=== PATIENT | male | born 1960 | race Caucasian/White ===

== ENCOUNTER 2016-09-02 18:17 | Observation (INO) | payer MEDICARE, MEDICAID ==
[~2016-09-02] VITALS: Ht 157.5 cm; Wt 95.0 kg
[~2016-09-02 18:17] MED LIST: CELE100C PO; CIAL20TA PO; DEPA500T3 PO; LISI-586 PO; MECL25CH PO; METHO500 PO; TEST1INJ3 IM; XANA1TAB6 PO; ZOFR4TAB3 SL
--- NOTE | 2016-09-02 18:33 | PD ---
HPI Chief Complaint: Chest Pain Time Seen by Provider: 18:32 Travel History International Travel<30 days: No Contact w/Intl Traveler<30days: No Traveled to known affect area: No History of Present Illness HPI Patient comes in complaining of substernal chest pain that began shortly prior to arrival. Patient states he had 2 baby aspirins en route by EMS with no improvement of symptoms. Patient states over the past couple months he been having pain in his bilateral anterior thighs is been causing him to fall. States his primary care doctor has referred him to orthopedics as an outpatient. Patient reports associated shortness of breath with chest pain today as well as diaphoresis and nausea. Patient state also having pain in his left upper extremity with this. Patient reports a history of chronic neck and back pain as well as aortic stenosis. Denies IV drug use or fevers. PFSH Past Medical History Hx Anticoagulant Therapy: No Arthritis: Yes Bipolar Disorder: Yes Anxiety: Yes Depression: Yes Cancer: No Cardiovascular Problems: Yes (Aortic Stenosis) Chemotherapy: No Cerebrovascular Accident: No Diabetes: No Endocrine: No Gastrointestinal Disorders: No Genitourinary: Yes (URETHRAL BLEEDING; DISCOLORATION - DUKES IN PLACE) Hepatitis: No Hiatal Hernia: No Hypertension: Yes Immune Disorder: No Musculoskeletal: Yes (chronic pain per pt) Neurologic: Yes (CERVICAL AND LUMBAR FUSIONS; NEUROPATHY LEFT ARM & LEG ) Psychiatric: Yes (ANXIETY/MOOD DISORDER) Reproductive: No Respiratory: No Thyroid Disease: No Past Surgical History Abdominal Surgery: No Body Medical Devices: PLATES & SCREWS NECK Cardiac Surgery: No Ear Surgery: No Endocrine Surgery: No Eye Surgery: No Genitourinary Surgery: Yes (cysto) Neurologic Surgery: Yes Oral Surgery: No Thoracic Surgery: No Other Surgery: Yes (HAND RECONSTRUCTION RIGHT ) Social History Alcohol Use: Yes Tobacco Use: Yes Substance Use: Yes Allergies-Medications (Allergen,Severity, Reaction): Coded Allergies: Morphine (Verified Allergy, Unknown, swelling, 09/02/16) Phenobarbital (Verified Allergy, Unknown, unknown, 09/02/16) Reported Meds & Prescriptions Reported Meds & Active Scripts Active Zofran ODT (Ondansetron HCl) 4 Mg Tab 4 Mg SL Q6H PRN FOR NAUSEA/VOMITING Meclizine Hcl (Meclizine HCl) 25 Mg Chw 25 Mg PO Q8H PRN Celebrex (Celecoxib) 100 Mg Cap 100 Mg PO DAILY Xanax 1 mg (Alprazolam) Alprazolam 1 mg Tab 1 Tab PO TID PRN Depakote ER 500 mg (Divalproex Sodium) 500 Mg Tab 1 Tab PO DAILY Zestoretic 20/12.5 (Lisinopril/Hctz 20 mg/12.5 mg) 20 Mg/12.5 Mg Tab 1 Tab PO DAILY Robaxin 500 Mg Tab (Methocarbamol) 500 Mg Tab 500 Mg PO QID PRN 7 Days Reported Cialis (Tadalafil) 20 Mg Tab 20 Mg PO DAILY PRN Testosterone Cypionate 100 Mg/Ml Inj 100 Mg IM Q7DAY Review of Systems Except as stated in HPI: all other systems reviewed are Neg Physical Exam Narrative GENERAL: Well-developed, well nourished, in no acute distress, and non-ill appearing. SKIN: Focused skin assessment warm and dry. HEAD: Atraumatic. Normocephalic. EYES: Pupils equal and round. EOMI. No scleral icterus. No injection or drainage. ENT: No nasal bleeding or discharge. Mucous membranes pink and moist. NECK: Trachea midline. No JVD. Supple. No nuclear rigidity. CARDIOVASCULAR: Regular rate and rhythm. Murmur appreciated. RESPIRATORY: No accessory muscle use. No respiratory distress. Clear to auscultation. Breath sounds equal bilaterally. GASTROINTESTINAL: Abdomen soft, non-tender, nondistended. Hepatic and splenic margins not palpable. No pulsatile mass. MUSCULOSKELETAL: No obvious deformities. No clubbing. No cyanosis. No edema. Full range of motion. NEUROLOGICAL: Awake and alert. No obvious cranial nerve deficits. Motor grossly within normal limits. Normal speech. PSYCHIATRIC: Appropriate mood and affect; insight and judgment normal. Data Data Last Documented VS Vital Signs Date Time Temp Pulse Resp B/P Pulse Ox O2 Delivery O2 Flow Rate FiO2 09/02/16 20:36 61 17 120/70 100 Nasal Cannula 1 09/02/16 18:45 98.2 Orders Electrocardiogram (09/02/16 18:41) Basic Metabolic Panel (Bmp) (09/02/16 18:41) Ckmb (Isoenzyme) Profile (09/02/16 18:41) Complete Blood Count With Diff (09/02/16 18:41) Magnesium (Mg) (09/02/16 18:41) Prothrombin Time / Inr (Pt) (09/02/16 18:41) Act Partial Throm Time (Ptt) (09/02/16 18:41) Troponin I (09/02/16 18:41) Chest, Single Ap (09/02/16 18:41) Ecg Monitoring (09/02/16 18:41) Bilateral Bp Monitoring (09/02/16 18:41) Iv Access Insert/Monitor (09/02/16 18:41) Oximetry (09/02/16 18:41) Oxygen Administration (09/02/16 18:41) Sodium Chloride 0.9% Flush (Ns Flush) (09/02/16 18:45) Acetaminophen (Tylenol) (09/02/16 20:30) Ketorolac Inj (Toradol Inj) (09/02/16 20:45) Admit Order (Ed Use Only) (09/02/16 20:39) Labs Laboratory Tests Test 09/02/16 18:30 White Blood Count 7.1 TH/MM3 Red Blood Count 4.33 MIL/MM3 Hemoglobin 13.0 GM/DL Hematocrit 38.9 % Mean Corpuscular Volume 89.9 FL Mean Corpuscular Hemoglobin 30.2 PG Mean Corpuscular Hemoglobin 33.5 % Concent Red Cell Distribution Width 14.6 % Platelet Count 273 TH/MM3 Mean Platelet Volume 9.0 FL Neutrophils (%) (Auto) 64.3 % Lymphocytes (%) (Auto) 24.3 % Monocytes (%) (Auto) 8.8 % Eosinophils (%) (Auto) 1.5 % Basophils (%) (Auto) 1.1 % Neutrophils # (Auto) 4.5 TH/MM3 Lymphocytes # (Auto) 1.7 TH/MM3 Monocytes # (Auto) 0.6 TH/MM3 Eosinophils # (Auto) 0.1 TH/MM3 Basophils # (Auto) 0.1 TH/MM3 CBC Comment DIFF FINAL Differential Comment Prothrombin Time 10.8 SEC Prothromb Time International 1.0 RATIO Ratio Activated Partial 26.6 SEC Thromboplast Time Sodium Level 141 MEQ/L Potassium Level 4.4 MEQ/L Chloride Level 103 MEQ/L Carbon Dioxide Level 29.1 MEQ/L Anion Gap 9 MEQ/L Blood Urea Nitrogen 16 MG/DL Creatinine 1.34 MG/DL Estimat Glomerular Filtration 55 ML/MIN Rate Random Glucose 85 MG/DL Calcium Level 9.1 MG/DL Magnesium Level 2.4 MG/DL Total Creatine Kinase 88 U/L Troponin I LESS THAN 0.02 NG/ML MDM Medical Decision Making Medical Screen Exam Complete: Yes Emergency Medical Condition: Yes Interpretation(s) EKG reviewed by Dr. Mendoza shows sinus rhythm with ventricular rate of 67. No STEMI. Differential Diagnosis Acute coronary syndrome, electrolyte abnormality, arrhythmia, atypical chest pain, noncardiac chest pain, other Narrative Course Patient is a exam. Initial laboratory neurological status were obtained and reviewed. Discussed patient with Dr. Tejada, recommends having patient placed in the chest pain center for further treatment and evaluation. Discussed all findings and plan care of patient, who is agreeable for admission. All questions were answered. Patient was given a dose of Tylenol for his pain however was requesting Dilaudid. Patient was given a dose of Toradol after discussing this with Dr. Tejada. Diagnosis Primary Impression: Chest pain Qualified Code: R07.9 - Chest pain, unspecified type Admitting Information Admitting Physician Requests: Observation Condition: Stable Lucas Monroy Sep 02, 2016 18:33
[2016-09-02 18:45] VITALS: BP 111/63; PULSE 62; RESP 20; TEMP 98.2
[2016-09-02] MEDS ORDERED: SODIUM CHLORIDE 0.9% FLUSH 10 ML FLUSH IVF PRN (18:45)
--- NOTE | 2016-09-02 19:08 | RADRPT ---
EXAM DATE/TIME: 09/02/2016 18:40 [facility] COMPARISON: No previous studies available for comparison. INDICATIONS : Chest pain. MEDICAL HISTORY : None. SURGICAL HISTORY : None. ENCOUNTER: Initial ACUITY: 1 day PAIN SCORE: 6/10 LOCATION: chest FINDINGS: A single view of the chest demonstrates the lungs to be symmetrically aerated without evidence of mas s, infiltrate or effusion. The cardiomediastinal contours are unremarkable. Osseous structures are intact. CONCLUSION: No acute disease. Shyam Dang Jr., MD on September 02, 2016 at 19:06 Board Certified Radiologist. This report was verified electronically.
[2016-09-02 19:09] LABS: AUTOMATED NEUTROPHIL # 4.5 TH/MM3 (1.8-7.7); BASOPHIL # 0.1 TH/MM3 (0-0.2); BASOPHIL % 1.1 % (0.0-2.0); EOSINOPHIL # 0.1 TH/MM3 (0-0.4); EOSINOPHIL % 1.5 % (0.0-4.0); HEMATOCRIT 38.9 % (39.0-51.0); HEMO FLAGS DIFF FINAL; LYMPH % 24.3 % (9.0-44.0); LYMPHOCYTE # 1.7 TH/MM3 (1.0-4.8); MEAN CELL VOLUME 89.9 FL (80.0-100.0); MEAN CORPUSCULAR HEMOGLOBIN 30.2 PG (27.0-34.0); MEAN CORPUSCULAR HGB CONC 33.5 % (32.0-36.0); MONO % 8.8 % (0.0-8.0); NEUT % 64.3 % (16.0-70.0); PLATELET COUNT 273 TH/MM3 (150-450); RED BLOOD COUNT 4.33 MIL/MM3 (4.50-5.90); RED CELL DISTRIBUTION WIDTH 14.6 % (11.6-17.2); WHITE BLOOD COUNT 7.1 TH/MM3 (4.0-11.0)
[2016-09-02 19:13] VITALS: O2SAT 100
[2016-09-02 19:16] VITALS: BP 112/62
[2016-09-02 19:23] LABS: APTT (PATIENT) 26.6 SEC (24.3-30.1); PROTHROMBIN TIME - PATIENT 10.8 SEC (9.8-11.6)
[2016-09-02 19:25] LABS: ANION GAP 9 MEQ/L (5-15); BICARBONATE 29.1 MEQ/L (21.0-32.0); BLOOD UREA NITROGEN 16 MG/DL (7-18); CHLORIDE 103 MEQ/L (98-107); GLOMERULAR FILTRATION RATE 55 ML/MIN (>89); MAGNESIUM 2.4 MG/DL (1.5-2.5); POTASSIUM 4.4 MEQ/L (3.5-5.1); SODIUM (NA) 141 MEQ/L (136-145)
[2016-09-02 19:32] LABS: CREATINE KINASE 88 U/L (39-308)
[2016-09-02] MEDS ORDERED: ACETAMINOPHEN 500 MG CPLT PO ONE (20:30)
[2016-09-02 20:36] VITALS: BP 120/70; PULSE 61; RESP 17; O2SAT 100
[2016-09-02] MEDS ORDERED: KETOROLAC TROMETHAMINE 30 MG/ML (IVP) VIAL IV PUSH ONE (20:45)
[2016-09-02] MEDS ORDERED: SODIUM CHLORIDE 0.9% FLUSH 10 ML FLUSH IV FLUSH PRN (21:00)
[2016-09-02 22:23] VITALS: BP 107/61; PULSE 52; RESP 20; TEMP 98.6; O2SAT 95
[2016-09-02 22:27] LABS: CREATINE KINASE 54 U/L (39-308)
[2016-09-03 00:27] VITALS: BP 101/56; PULSE 52; RESP 18; TEMP 97.8; O2SAT 97
[2016-09-03 01:23] LABS: CREATINE KINASE 50 U/L (39-308)
[2016-09-03 03:30] VITALS: BP 112/58; PULSE 55; RESP 16; TEMP 98.6; O2SAT 96
[2016-09-03 04:00] VITALS: PULSE 51
[2016-09-03 08:03] VITALS: BP 110/58; PULSE 51; RESP 20; TEMP 96.8; O2SAT 93
[2016-09-03] MEDS ORDERED: METHOCARBAMOL 500 MG TAB PO PRN (08:15)
[2016-09-03] MEDS ORDERED: ALPRAZolam 1 MG TAB PO PRN (08:15)
[2016-09-03] MEDS ORDERED: MS C30TA PO (08:32)
[2016-09-03] MEDS ORDERED: OXYC-395 PO (08:33)
[2016-09-03] MEDS ORDERED: ALPR1TAB3 PO (08:34)
[2016-09-03] MEDS ORDERED: CYMB60CA PO (08:36)
[2016-09-03] MEDS ORDERED: LISINOPRIL 20 MG TAB PO SCH (09:00)
[2016-09-03] MEDS ORDERED: HCTZ PO SCH (09:00)
[2016-09-03] MEDS ORDERED: HYDROCHLOROTHIAZIDE 25 MG TAB PO SCH (09:00)
[2016-09-03] MEDS ORDERED: LISINOPRIL PO SCH (09:00)
--- NOTE | 2016-09-03 09:22 | HHI.HP ---
HPI Primary Care Physician No Primary Care Physician Chief Complaint Chest pain History of Present Illness This is a 56-year-old male that presents to the ED via [facility] from [place] with a complaint of chest discomfort. Patient states he has history of heart disease. States he had a heart catheterization 8 years ago in another state and was told he had mild blockages and he also had a 2-D echo that showed aortic stenosis. He states he was told that he would need to have this monitored as he will need to have this replaced down the road. He is now followed up with cardiology since. Patient states her last 2 days he's had a central pressure intermittently. She is brought on while walking and that is essentially most exertional he does. At times also is happened while at rest. If happening while exerting himself with walking the discomfort wheezing last for 10-30 minutes after stopping the activity. With the symptoms he also has gotten associated shortness of breath, nausea, and diaphoresis. Denies recent illnesses. Denies fevers or chills. Currently denies chest discomfort is requesting his morphine and OxyContin for his chronic neck and back pain. Review of Systems General: Patient denies fevers, chills recent, and recent travel HEENT: Patient denies headache, sore throat, difficulty swallowing. Cardiovascular: Has the chest discomfort as mentioned above. Denies sensation of heart beating rapidly or irregularly. No syncope. There was diaphoresis. Respiratory: Patient has been short of breath. Denies inspirational chest discomfort. Denies coughing wheezing or hemoptysis. GI: Patient had intermittent nausea. Patient denies vomiting, diarrhea, abdominal pain, bloody stools. Musculoskeletal: Patient denies joint pain or edema. Denies calf pain or edema. Neurovascular: Patient denies numbness, tingling, weakness in extremities. Denies headache. Endocrine: Denies polyuria and polydipsia. Hematologic: Denies easy bruising. Skin: Denies rash or itching. Past Family Social History Allergies: Coded Allergies: Morphine (Verified Allergy, Unknown, swelling, 09/02/16) Phenobarbital (Verified Allergy, Unknown, unknown, 09/02/16) Past Medical History Stated history of CAD and aortic stenosis. Also history of hypertension, tobacco abuse, and depression. Denies diabetes and hyperlipidemia. Past Surgical History Cardiac catheterization without intervention mother years ago. He's had hand surgery, neck and back surgery. Reported Medications Reported Meds & Active Scripts Active Xanax 1 mg (Alprazolam) Alprazolam 1 mg Tab 1 Tab PO TID PRN Zestoretic 20/12.5 (Lisinopril/Hctz 20 mg/12.5 mg) 20 Mg/12.5 Mg Tab 1 Tab PO DAILY Robaxin 500 Mg Tab (Methocarbamol) 500 Mg Tab 500 Mg PO QID PRN [address] (Duloxetine HCl) 60 Mg Capdr 60 Mg PO DAILY Alprazolam 1 Mg Tab 1 Mg PO QID PRN Oxycodone (Oxycodone HCl) 10 Mg Tab 10 Mg PO Q4H PRN Ms Contin (Morphine Sulfate) 30 Mg Tab 30 Mg PO Q8H Active Ordered Medications Current Medications Medications (Trade) Dose Ordered Sig/Ev Route Start Time Stop Time Status Last Admin (NS Flush) 2 ml UNSCH PRN IVF 09/02/16 18:45 (NS Flush) 2 ml UNSCH PRN IV FLUSH 09/02/16 21:00 (Xanax) 1 mg TID PRN PO 09/03/16 08:15 (Robaxin) 500 mg QID PRN PO 09/03/16 08:15 (Prinivil) 20 mg DAILY PO 09/03/16 09:00 (Hydrodiuril) 12.5 mg DAILY PO 09/03/16 09:00 Non-Formulary Medication 10 mg Q4H PRN PO 09/03/16 09:15 UNV Family History He states his mother needed a bypass at age 74. Social History Patient smokes on average 4-5 cigarettes per day and has done so for about 20 years. He denies alcohol or illicit drugs. Physical Exam Vital Signs Vital Signs Date Time Temp Pulse Resp B/P Pulse Ox O2 Delivery O2 Flow Rate FiO2 09/03/16 08:03 96.8 51 20 110/58 93 09/03/16 04:00 51 09/03/16 03:30 98.6 55 16 112/58 96 09/03/16 03:14 21 09/03/16 00:27 97.8 52 18 101/56 97 09/02/16 22:23 98.6 52 20 107/61 95 09/02/16 20:36 61 17 120/70 100 Nasal Cannula 1 09/02/16 19:16 112/62 09/02/16 19:13 100 Nasal Cannula 2 09/02/16 18:45 98.2 62 20 111/63 Nasal Cannula 2 09/02/16 18:30 Nasal Cannula 2 09/02/16 18:28 18 97 Room Air Physical Exam GENERAL: This is a well-nourished, well-developed patient, in no apparent distress. Patient speaks in clear complete sentences. Patient is pleasant. HEENT: Head is atraumatic and normocephalic. Neck is supple without lymphadenopathy and trachea is midline. No JVD or carotid bruits. CARDIOVASCULAR: Regular rate and rhythm without gallops or rubs. There is a at least grade 3 systolic murmur throughout auscultating but more pronounced right sternal border radiating into the right neck. RESPIRATORY: Clear to auscultation. Breath sounds equal bilaterally. No wheezes , rales, or rhonchi. Chest wall is nontender. No use of accessory muscles. GASTROINTESTINAL: Abdomen is nontender, nondistended. Abdomen soft. No obvious pulsatile mass or bruit. No CVA tenderness. Strong femoral pulses bilaterally. Normal bowel sounds in all quadrants. MUSCULOSKELETAL: Patient is moving upper and lower extremities freely. No calf tenderness or edema, no Homans sign. Strong pulses in upper and lower extremities. NEUROLOGICAL: Patient is alert and oriented. Cranial nerves 2-12 are grossly intact. No focal deficits and speech is clear. SKIN: No rash and turgor is normal. Laboratory Laboratory Tests Test 09/02/16 09/02/16 09/03/16 18:30 21:51 00:45 White Blood Count 7.1 Red Blood Count 4.33 Hemoglobin 13.0 Hematocrit 38.9 Mean Corpuscular Volume 89.9 Mean Corpuscular Hemoglobin 30.2 Mean Corpuscular Hemoglobin 33.5 Concent Red Cell Distribution Width 14.6 Platelet Count 273 Mean Platelet Volume 9.0 Neutrophils (%) (Auto) 64.3 Lymphocytes (%) (Auto) 24.3 Monocytes (%) (Auto) 8.8 Eosinophils (%) (Auto) 1.5 Basophils (%) (Auto) 1.1 Neutrophils # (Auto) 4.5 Lymphocytes # (Auto) 1.7 Monocytes # (Auto) 0.6 Eosinophils # (Auto) 0.1 Basophils # (Auto) 0.1 CBC Comment DIFF FINAL Differential Comment Prothrombin Time 10.8 Prothromb Time International 1.0 Ratio Activated Partial 26.6 Thromboplast Time Sodium Level 141 Potassium Level 4.4 Chloride Level 103 Carbon Dioxide Level 29.1 Anion Gap 9 Blood Urea Nitrogen 16 Creatinine 1.34 Estimat Glomerular Filtration 55 Rate Random Glucose 85 Calcium Level 9.1 Magnesium Level 2.4 Total Creatine Kinase 88 54 50 Troponin I LESS THAN 0.02 LESS THAN 0.02 LESS THAN 0.02 Result Diagram: 09/02/16182909/02/16 183 Imaging Last 24 hours Impressions Chest X-Ray 09/02/16 184 Signed Impressions: Service Date/Time: Friday, September 02, 2016 18:40 - CONCLUSION: No acute disease. Shyam Dang Jr., MD Course EKGs have sinus rhythm to sinus bradycardia with nonspecific T-wave changes. Assessment and Plan Assessment and Plan * Chest pain: Patient has had serial cardiac enzymes and EKGs for ruling out purposes. He will be seen by Dr. Ramirez of cardiology in the chest pain center. We will get a 2-D echo to evaluate the murmur and if there is no severe aortic stenosis then he will proceed with a stress test. * Hypertension: Continue current medication. * Chronic neck and back pain: We'll continue his medications. * Depression: Continue current medication. * Tobacco abuse: Patient has been counseled on the importance of smoking cessation. Patient is stable at this time. He is agreeable to this plan. Saravanan Castorena Sep 03, 2016 09:22
--- NOTE | 2016-09-03 11:26 | EKG ---
Date Performed: 09/02/2016 Time Performed: 21:51:15 PTAGE: 56 years EKG: SINUS BRADYCARDIA NONSPECIFIC T-WAVE ABNORMALITY BORDERLINE ECG PREVIOUS TRACING : 09/02/2016 18.25 Since previous tracing, no significant change noted DOCTOR: Zachary Ramirez Interpretating Date/Time 09/03/2016 11:25:26
[2016-09-03] MEDS ORDERED: REGADENOSON INJ 0.4 MG/5 ML SYR ONE (13:00)
[2016-09-03 13:03] VITALS: PULSE 57
--- NOTE | 2016-09-03 13:09 | EKG ---
Date Performed: 09/02/2016 Time Performed: 18:25:51 PTAGE: 56 years EKG: Sinus rhythm NONSPECIFIC T-WAVE ABNORMALITY BORDERLINE ECG PREVIOUS TRACING : 01/06/2015 17.08 Compared to previous tracing T wave changes are new. DOCTOR: Zachary Ramirez Interpretating Date/Time 09/03/2016 13:07:58
--- NOTE | 2016-09-03 13:10 | EKG ---
Date Performed: 09/03/2016 Time Performed: 00:52:38 PTAGE: 56 years EKG: SINUS BRADYCARDIA NONSPECIFIC T-WAVE ABNORMALITY BORDERLINE ECG PREVIOUS TRACING : 09/02/2016 21.51 Since previous tracing, no significant change noted DOCTOR: Zachary Ramirez Interpretating Date/Time 09/03/2016 13:10:26
[2016-09-03 13:19] VITALS: BP 110/60; PULSE 54; RESP 20; TEMP 96.3; O2SAT 94
--- NOTE | 2016-09-03 13:49 | EC ---
Study Study Date:09/03/2016 STUDY CONCLUSIONS SUMMARY - Left ventricle: The cavity size was normal. Wall thickness was normal. Systolic function was normal. The estimated ejection fraction was in the range of 55% to 65%. Wall motion was normal; there were no regional wall motion abnormalities. - Aortic valve: Transvalvular velocity was minimally increased. There was mild to moderate stenosis. Valve area: 0.75cm^2(VTI). Valve area: 0.81cm^2 (Vmax). If LV function is below 40, please consider prescribing an ACEI or ARB or document rationale for non-use. PROCEDURE DATA STUDY STATUS: Elective. Procedure: Transthoracic echocardiography. Image quality was good. Scanning was performed from the parasternal, apical, and subcostal acoustic windows. Study completion: The patient tolerated the procedure well. Transthoracic echocardiography. M-mode, complete 2D, complete spectral Doppler, and color Doppler. Height: Height: 62in. Weight: Weight: 208.6lb. Body mass index: BMI: 38.2kg/m^2. Body surface area: BSA: 1.95m^2. Patient status: Inpatient. CARDIAC ANATOMY LEFT VENTRICLE: The cavity size was normal. Wall thickness was normal. Systolic function was normal. The estimated ejection fraction was in the range of 55% to 65%. Wall motion was normal; there were no regional wall motion abnormalities. AORTIC VALVE: Trileaflet; normal thickness leaflets. Doppler: Transvalvular velocity was minimally increased. There was mild to moderate stenosis. Valve area: 0.75cm^2(VTI). Indexed valve area: 0.38cm^2/m^2 (VTI). Valve area: 0.81cm^2 (Vmax). Indexed valve area: 0.42cm^2/m^2 (Vmax). Mean gradient: 23mm Hg (S). Peak gradient: 44mm Hg (S). AORTA: Aortic root: The aortic root was normal in size. MITRAL VALVE: Structurally normal valve. Doppler: Transvalvular velocity was within the normal range. There was no evidence for stenosis. No regurgitation. Peak gradient: 2mm Hg (D). LEFT ATRIUM: The atrium was normal in size. RIGHT VENTRICLE: The cavity size was normal. Wall thickness was normal. PULMONIC VALVE: Doppler: Transvalvular velocity was within the normal range. There was no evidence for stenosis. No regurgitation. TRICUSPID VALVE: Structurally normal valve. Doppler: Transvalvular velocity was within the normal range. No regurgitation. PULMONARY ARTERY: The main pulmonary artery was normal-sized. Systolic pressure was within the normal range. RIGHT ATRIUM: The atrium was normal in size. PERICARDIUM: There was no pericardial effusion. SYSTEMIC VEINS: Inferior vena cava: The vessel was normal in size. Patient weight: 208.6lb _Ejection fraction:_ 65-75% _Fractional shortening:_ 32% up to 5Kg 5-11.5Kg 11.6-22.9Kg 23-45Kg 45-57Kg Aortic Root 7-13 <17 13-22 17-27 17-27 LA diam 6-13 <23 24-38 33-47 37-40 RVID 10-17 7-15 7-15 7-18 8-17 LVIDd 12-22 <32 24-38 33-47 37-40 LVPW 2-4 3-6 5-7 6-8 7-8 IVS 2-4 3-6 5-7 6-8 7-8 BASIC MEASUREMENTS ADULT NORMAL Left ventricle LV internal dimension, ED, chordal 46.3 mm 43-52 level, PLAX LV internal dimension, ES, chordal 31.7 mm 23-38 level, PLAX Fractional shortening, chordal level, 32 % >29 PLAX LV posterior wall thickness, ED 10.1 mm IVS/LVPW ratio, ED 1 <1.3 Ventricular septum Septal thickness, ED 10.1 mm Aorta Root diameter, ED 31 mm Left atrium Anterior-posterior dimension 29 mm Anterior-posterior dimension index 1.49 cm/m^2 <2.2 DOPPLER MEASUREMENTS ADULT NORMAL Main pulmonary artery Pressure, S 26 mm Hg =30 Aortic valve Peak velocity, S 312 cm/s Mean velocity, S 220 cm/s VTI, S 71.2 cm Mean gradient, S 23 mm Hg Peak gradient, S 44 mm Hg Valve area, VTI 0.75 cm^2 Valve area index, VTI 0.38 cm^2/m^2 Valve area, Vmax 0.81 cm^2 Valve area index, Vmax 0.42 cm^2/m^2 Mitral valve Peak E-wave velocity 76.4 cm/s Peak A-wave velocity 69 cm/s Deceleration time 225 ms 150-230 Peak gradient, D 2 mm Hg Peak E/A ratio 1.1 Tricuspid valve Regurgitant peak velocity 204 cm/s Peak RV-RA gradient, S 17 mm Hg Maximal regurgitant velocity 204 cm/s Systemic veins Estimated CVP 5 mm Hg Right ventricle RV pressure, S 28 mm Hg <30 Pulmonic valve Peak velocity, S 68.4 cm/s LEGEND: Mean values are shown as u=mean value. Asterisk (*) beckett values outside specified normal range. Prepared and signed by Giancarlo Lacey [id number]
--- NOTE | 2016-09-03 14:38 | RADRPT ---
EXAM DATE/TIME: 09/03/2016 12:31 [facility] COMPARISON: No previous studies available for comparison. INDICATIONS : Chest discomfort. Angina. DOSE: 26.2 mCi Tc99m Myoview at stress. 8.4 mCi Tc99m Myoview at rest. 0.4 mg Lexiscan STRESS SYMPTOMS: Shortness of breath. EJECTION FRACTION: 53% MEDICAL HISTORY : Hypertension. Cardiac cath. SURGICAL HISTORY : Right knee surgery, aortic stents placed and cervical and lumbar fusion. ENCOUNTER: Initial ACUITY: 1 day PAIN SCALE: 3/10 LOCATION: Bilateral chest TECHNIQUE: The patient underwent pharmacologic stress with infusion of prescribed dose. Continuous ECG tracing was monitored during stress. Gated SPECT imaging was performed after stress and conventional SPECT i maging was performed at rest. The examination was performed on a SPECT/CT scanner, both attenuation and non-corrected datasets were reviewed. FINDINGS: DISTRIBUTION: The maximum perfused segment at stress is in the anteroseptal wall. PERFUSION STUDY: The pattern of perfusion at stress demonstrates reduction in perfusion to the posterior basal wall wh ich is fixed during rest without any significant ischemia. GATED STUDY: There is intact wall motion and thickening without hypokinetic or dyskinetic segments. CONCLUSION: No appreciable ischemia. RISK CATEGORY: Low (<1% Annual Mortality Rate) Cassie Jones MD on September 03, 2016 at 14:35 Board Certified Radiologist. This report was verified electronically.
--- NOTE | 2016-09-03 15:22 | HHI.DCPOC ---
Discharge Care Plan Diagnosis: (1) Chest pain (2) Hypertension (3) Aortic stenosis (4) Tobacco abuse (5) Depression Goals to Promote Your Health * To prevent worsening of your condition and complications * To maintain your health at the optimal level Directions to Meet Your Goals Take your medications as prescribed Follow your dietary instruction Follow activity as directed Keep your appointments as scheduled Take your immunizations and boosters as scheduled If your symptoms worsen call your PCP, if no PCP go to Urgent Care Center or Emergency Room Smoking is Dangerous to Your Health. Avoid second hand smoke Call the 24-hour hour crisis hotline for domestic abuse at Saravanan Castorena Sep 03, 2016 15:22
[2016-09-03] MEDS ORDERED: ZANA4CAP PO (17:43)
[2016-09-03] MEDS ORDERED: LISI-586 PO (17:43)
--- NOTE | 2016-09-04 13:06 | TR ---
Date Performed: 09/03/2016 Time Performed: 13:04:30 DOCTOR: Zachary Ramirez DRUG LIST: CLINICAL HISTORY: REASON FOR TEST: Angina REASON FOR ENDING: OBSERVATION: CONCLUSION: Lexiscan stress test was performed under standard four minute protocol. Radionuclid e was injected one minute prior to ending the test. No electrocardiographic abormalities were present to suggest ischemia. Nuclear imaging and interpretation are pending. COMMENTS:
== END 2016-09-03 17:13 | disposition home or self-care (01) ==
LOC: NEPE 18:17 → NEDA 20:40 → NEPHCDU 22:15
PROVIDERS: ADMIT Internal Medicine Cardiovascular Disease; ATTEND Internal Medicine Cardiovascular Disease
DX: R07.9 Chest pain, unspecified (principal); R11.0 Nausea; R06.02 Shortness of breath; R61 Generalized hyperhidrosis; I35.0 Nonrheumatic aortic (valve) stenosis; G89.29 Other chronic pain; M54.2 Cervicalgia; M54.9 Dorsalgia, unspecified; F31.9 Bipolar disorder, unspecified; I10 Essential (primary) hypertension; F17.210 Nicotine dependence, cigarettes, uncomplicated; Z79.899 Other long term (current) drug therapy; I25.10 Atherosclerotic heart disease of native coronary artery without angina pectoris; R00.1 Bradycardia, unspecified; Z76.0 Encounter for issue of repeat prescription
CPT/HCPCS: 71010; 78452; 80048; 82550; 83735; 84484; 85025; 85610; 85730; 93005; 93017; 93306; 96372; 99283; 99285; A9502; G0378; J1885; J2785

== ENCOUNTER 2016-09-03 17:23 | Emergency (ER) | payer MEDICARE, MEDICAID ==
[~2016-09-03] VITALS: Ht 177.8 cm; Wt 98.0 kg
[~2016-09-03 17:23] MED LIST changes: +ALPR1TAB3 PO; +CYMB60CA PO; +MS C30TA PO; +OXYC-395 PO
[2016-09-03 17:24] VITALS: BP 111/71; PULSE 70; RESP 16; TEMP 97.8; O2SAT 100
--- NOTE | 2016-09-03 17:34 | PD ---
Physical Exam Time Seen by Provider: 17:31 Narrative 56yo M requesting pain medication. Was just discharged from the hospital and was requesting pain medication and Xanax before he left and they would not administer it before discharge. Says he has pain medication at home, but needs something for the bus ride home. Patient stable. Patient seen in triage. Awaiting bed placement. Data Data Last Documented VS Vital Signs Date Time Temp Pulse Resp B/P Pulse Ox O2 Delivery O2 Flow Rate FiO2 09/03/16 17:24 97.8 70 16 111/71 100 MDM Supervised Visit with KATIE: Eloise Yuan Sep 03, 2016 17:34
--- NOTE | 2016-09-03 17:42 | PD ---
HPI . needs pain meds and xanax Chief Complaint: Pain: Acute or Chronic Time Seen by Provider: 16:55 Travel History International Travel<30 days: No Contact w/Intl Traveler<30days: No Traveled to known affect area: No History of Present Illness HPI 56-year-old male who was recently discharged from the hospital here requesting pain meds and Xanax. Patient was admitted overnight for chest pain and was found to have negative evidence of acute coronary syndrome. Apparently he's been requesting pain medications prior to discharge and was declined by the physician in the chest pain Center. Patient checked out of the hospital and came right over to the emergency department for medication refills. He is wanting pain medications because he was due to have pain meds at 330pm, but states since he was discharged and they would not give him his medication. He takes MS contin and Percocet. PFSH Past Medical History Hx Anticoagulant Therapy: No Arthritis: Yes Bipolar Disorder: Yes Anxiety: Yes Depression: Yes Heart Rhythm Problems: No Cancer: No Cardiac Catheterization: No Cardiovascular Problems: Yes (aoritc stents ) High Cholesterol: No Chemotherapy: No Congestive Heart Failure: No Cerebrovascular Accident: No Coronary Artery Disease: Yes (Aortic Stenosis. Mother and Father also had) Diabetes: No Diminished Hearing: No Endocrine: No Gastrointestinal Disorders: No Genitourinary: Yes (URETHRAL BLEEDING; DISCOLORATION - DUKES IN PLACE) Hepatitis: No Hiatal Hernia: No Hypertension: Yes Immune Disorder: No Musculoskeletal: Yes (chronic pain per pt) Neurologic: Yes (CERVICAL AND LUMBAR FUSIONS; NEUROPATHY LEFT ARM & LEG ) Psychiatric: Yes (ANXIETY/MOOD DISORDER) Reproductive: No Respiratory: No Thyroid Disease: No Past Surgical History Abdominal Surgery: No Body Medical Devices: PLATES & SCREWS NECK Cardiac Surgery: No Coronary Artery Bypass Graft: No Ear Surgery: No Endocrine Surgery: No Eye Surgery: No Genitourinary Surgery: Yes (cysto) Neurologic Surgery: Yes Oral Surgery: No Thoracic Surgery: No Other Surgery: Yes (HAND RECONSTRUCTION RIGHT ) Social History Alcohol Use: Yes (Rare) Tobacco Use: No Substance Use: No Allergies-Medications (Allergen,Severity, Reaction): Coded Allergies: Morphine (Verified Allergy, Unknown, swelling, 09/03/16) Phenobarbital (Verified Allergy, Unknown, unknown, 09/03/16) Reported Meds & Prescriptions Reported Meds & Active Scripts Active Reported Zestoretic (Lisinopril-Hctz) 20-12.5 Mg Tab 1 Tab PO DAILY Zanaflex (Tizanidine HCl) 4 Mg Cap 4 Mg PO TID Cymbalta DR (Duloxetine HCl) 60 Mg Capdr 60 Mg PO DAILY Alprazolam 1 Mg Tab 1 Mg PO QID PRN Review of Systems General / Constitutional: No: Fever Eyes: No: Visual changes HENT: No: Headaches Cardiovascular: No: Chest Pain or Discomfort Respiratory: No: Shortness of Breath Gastrointestinal: No: Abdominal Pain Genitourinary: No: Dysuria Musculoskeletal: Positive: Pain (chronic joint pain) Skin: No Rash Neurologic: No: Weakness Psychiatric: No: Depression Endocrine: No: Polydipsia Hematologic/Lymphatic: No: Easy Bruising Physical Exam Narrative GENERAL: AAO x 3, no acute distress, Well-nourished, well-developed patient. SKIN: Warm and dry. No visible rashes or bruising. HEAD: Normocephalic and atraumatic. EYES: No scleral icterus. No injection or drainage. ENT: No nasal drainage noted. Mucous membranes pink. Airway patent. NECK: Supple, trachea midline. No JVD. CARDIOVASCULAR: Regular rate and rhythm without murmurs, gallops, or rubs. RESPIRATORY: Breath sounds equal bilaterally. No accessory muscle use. No rhonchi or rales. GASTROINTESTINAL: Abdomen soft, non-tender, nondistended. EXTREMITIES: No cyanosis or edema. Patient is ambulatory but has slight ataxia. He has normal posterior tibial pulses. Legs are symmetrical. No tenderness to palpation. BACK: Nontender without obvious deformity. No CVA tenderness. PSYCH: AAO x 3, normal affect. Data Data Last Documented VS Vital Signs Date Time Temp Pulse Resp B/P Pulse Ox O2 Delivery O2 Flow Rate FiO2 09/03/16 17:24 97.8 70 16 111/71 100 Orders Ketorolac Inj (Toradol Inj) (09/03/16 18:00) MDM Medical Decision Making Medical Screen Exam Complete: Yes Emergency Medical Condition: Yes Medical Record Reviewed: Yes Differential Diagnosis chronic pain, drug seeking behavior, Narrative Course 56-year-old male who was recently discharged from the hospital here requesting pain meds and Xanax. Patient was admitted overnight for chest pain and was found to have negative evidence of acute coronary syndrome. Apparently he's been requesting pain medications prior to discharge and was declined by the physician in the chest pain Center. Patient checked out of the hospital and came right over to the emergency department for medication refills. he tells the nurse he has left leg pain. He shows me his right leg. He is wanting pain medications because he was due to have pain meds at 330pm, but states since he was discharged and they would not give him his medication. He takes MS contin and Percocet. Patient seen and examined. I do not appreciate any abnormal findings on examination except for slightly ataxic gait. I've offered him toradol and he has accepted. Case management has arranged transportation to take him back to his home in [place]. Patient verbalized understanding of instructions, questions were answered, and thanked me for their care. I advised them if their condition worsens, please return to the nearest emergency room for further care. Diagnosis Primary Impression: Chronic pain Qualified Code: G89.29 - Other chronic pain Patient Instructions: General Instructions Additional Instructions: Please return to emergency department if your symptoms return or worsen. Follow up with your primary care provider. Take medications as prescribed. Med/Other Pt SpecificInfo: No Change to Meds Disposition: 01 DISCHARGE HOME Condition: Stable Charu Gan Sep 03, 2016 17:42 Charu Gan Sep 03, 2016 17:42
[2016-09-03] MEDS ORDERED: LISI-586 PO (17:43)
[2016-09-03] MEDS ORDERED: ZANA4CAP PO (17:43)
[2016-09-03] MEDS ORDERED: KETOROLAC TROMETHAMINE 60 MG/2 ML (IM) VIAL IM ONE (18:00)
== END 2016-09-03 19:32 | disposition home or self-care (01) ==
LOC: NEPK 17:23
DX: G89.29 Other chronic pain (principal); I10 Essential (primary) hypertension; Z76.0 Encounter for issue of repeat prescription
CPT/HCPCS: 96372; 99283; J1885

== ENCOUNTER 2016-10-03 14:31 | Inpatient (IN) | payer MEDICARE, MEDICAID ==
[~2016-10-03] VITALS: Ht 177.8 cm; Wt 86.4 kg
[~2016-10-03 14:31] MED LIST changes: -CELE100C PO; -CIAL20TA PO; -DEPA500T3 PO; -MECL25CH PO; -METHO500 PO; -MS C30TA PO; -OXYC-395 PO; -TEST1INJ3 IM; -XANA1TAB6 PO; +ZANA4CAP PO; -ZOFR4TAB3 SL
[2016-10-03 14:33] VITALS: BP 168/107; PULSE 136; RESP 24; TEMP 98.1; O2SAT 100
--- NOTE | 2016-10-03 14:57 | PD ---
HPI Chief Complaint: Psychiatric Symptoms Time Seen by Provider: 14:49 Travel History International Travel<30 days: No Contact w/Intl Traveler<30days: No Traveled to known affect area: No History of Present Illness HPI Patient is a 56-year-old male with history of depression who presents emergency department complaint of suicidal ideation. Patient states that he has been compliant with his Cymbalta, but it hasn't been helping and he's been feeling increasingly depressed. States that he lost his mother recently which hasn't helped. Has been anxious. He has been taking his Xanax as prescribed. Patient states that he tried to step out in front of a moving vehicle several days ago in an attempt to end his life unsuccessfully. He has thoughts that he may hang himself today, prompting ER visit. Patient was tachycardic in triage. States that he feels anxious and wants help. He denies any chest pain, shortness of breath, palpitations. He has noticed a slight minimally productive cough over the last 2-3 days. No fevers or chills. History of aortic valve stenosis, mild to moderate not requiring any surgical intervention. States that he had a cardiac catheter just this last week in [place] and per chart review had a stress test here in August that was negative. PFSH Past Medical History Hx Anticoagulant Therapy: No Arthritis: Yes Bipolar Disorder: Yes Anxiety: Yes Depression: Yes Heart Rhythm Problems: No Cancer: No Cardiac Catheterization: No Cardiovascular Problems: No High Cholesterol: No Chemotherapy: No Congestive Heart Failure: No Cerebrovascular Accident: No Coronary Artery Disease: Yes (Aortic Stenosis. Mother and Father also had) Diabetes: No Diminished Hearing: No Endocrine: No Gastrointestinal Disorders: No Genitourinary: Yes (URETHRAL BLEEDING; DISCOLORATION - DUKES IN PLACE) Hepatitis: No Hiatal Hernia: No Hypertension: Yes Immune Disorder: No Musculoskeletal: Yes (chronic pain per pt) Neurologic: Yes (CERVICAL AND LUMBAR FUSIONS; NEUROPATHY LEFT ARM & LEG ) Psychiatric: Yes (ANXIETY/MOOD DISORDER) Reproductive: No Respiratory: No Thyroid Disease: No Past Surgical History Abdominal Surgery: No Body Medical Devices: PLATES & SCREWS NECK Cardiac Surgery: No Coronary Artery Bypass Graft: No Ear Surgery: No Endocrine Surgery: No Eye Surgery: No Genitourinary Surgery: Yes (cysto) Neurologic Surgery: Yes Oral Surgery: No Thoracic Surgery: No Other Surgery: Yes (HAND RECONSTRUCTION RIGHT ) Social History Alcohol Use: Yes (Rare) Tobacco Use: No Substance Use: No Allergies-Medications (Allergen,Severity, Reaction): Coded Allergies: Morphine (Verified Allergy, Unknown, swelling, 09/03/16) Phenobarbital (Verified Allergy, Unknown, unknown, 09/03/16) Reported Meds & Prescriptions Reported Meds & Active Scripts Active Reported Zestoretic (Lisinopril-Hctz) 20-12.5 Mg Tab 1 Tab PO DAILY Zanaflex (Tizanidine HCl) 4 Mg Cap 4 Mg PO TID Cymbalta DR (Duloxetine HCl) 60 Mg Capdr 60 Mg PO DAILY Alprazolam 1 Mg Tab 1 Mg PO QID PRN Review of Systems Except as stated in HPI: all other systems reviewed are Neg Physical Exam Narrative GENERAL: Anxious appearing middle-aged male in no acute distress SKIN: Focused skin assessment warm/dry. HEAD: Normocephalic. EYES: No scleral icterus. No injection or drainage. ENT: Mucous membranes pink and moist. NECK: Supple CARDIOVASCULAR: Tachycardic initially with heart rate in the 130s, normalized upon recheck, regular rhythm. No murmur appreciated. RESPIRATORY: No accessory muscle use. Clear to auscultation. Breath sounds equal bilaterally. GASTROINTESTINAL: Abdomen soft, non-tender, nondistended. Obese MUSCULOSKELETAL: No obvious deformities. No edema. NEUROLOGICAL: Awake and alert. Motor grossly within normal limits. Normal speech. PSYCHIATRIC: Anxious, blunted mood and affect with poor insight and judgment. Admits to suicidal ideation with plan. No delusions, hallucinations, homicidal ideation Data Data Last Documented VS Vital Signs Date Time Temp Pulse Resp B/P Pulse Ox O2 Delivery O2 Flow Rate FiO2 10/03/16 15:00 16 10/03/16 14:33 98.1 136 168/107 100 Room Air Orders Complete Blood Count With Diff (10/03/16 14:50) Comprehensive Metabolic Panel (10/03/16 14:50) Electrocardiogram (10/03/16 14:50) Psych Screen (10/03/16 14:50) Drug Screen, Random Urine (10/03/16 14:50) Chest, Single Ap (10/03/16 14:53) Alprazolam (Xanax) (10/03/16 15:00) Labs Laboratory Tests Test 10/03/16 15:30 White Blood Count 7.4 TH/MM3 Red Blood Count 4.46 MIL/MM3 Hemoglobin 13.4 GM/DL Hematocrit 39.8 % Mean Corpuscular Volume 89.3 FL Mean Corpuscular Hemoglobin 30.1 PG Mean Corpuscular Hemoglobin 33.7 % Concent Red Cell Distribution Width 14.7 % Platelet Count 266 TH/MM3 Mean Platelet Volume 9.2 FL Neutrophils (%) (Auto) 79.8 % Lymphocytes (%) (Auto) 12.5 % Monocytes (%) (Auto) 7.2 % Eosinophils (%) (Auto) 0.2 % Basophils (%) (Auto) 0.3 % Neutrophils # (Auto) 5.9 TH/MM3 Lymphocytes # (Auto) 0.9 TH/MM3 Monocytes # (Auto) 0.5 TH/MM3 Eosinophils # (Auto) 0.0 TH/MM3 Basophils # (Auto) 0.0 TH/MM3 CBC Comment DIFF FINAL Differential Comment Sodium Level 142 MEQ/L Potassium Level 3.7 MEQ/L Chloride Level 107 MEQ/L Carbon Dioxide Level 25.6 MEQ/L Anion Gap 9 MEQ/L Blood Urea Nitrogen 18 MG/DL Creatinine 1.11 MG/DL Estimat Glomerular Filtration 68 ML/MIN Rate Random Glucose 90 MG/DL Calcium Level 9.5 MG/DL Total Bilirubin 0.5 MG/DL Aspartate Amino Transf 11 U/L (AST/SGOT) Alanine Aminotransferase 15 U/L (ALT/SGPT) Alkaline Phosphatase 74 U/L Total Protein 7.4 GM/DL Albumin 3.7 GM/DL [facility] Medical Decision Making Medical Screen Exam Complete: Yes Emergency Medical Condition: Yes Medical Record Reviewed: Yes Differential Diagnosis 56-year-old male with history of mild to moderate aortic stenosis, depression and bipolar disorder here with increasing depression and suicidal ideation with plan over the course the last several days to week. Differential includes depression, bipolar disorder, adjustment reaction, anxiety. Notably tachycardic initially, the normalized upon recheck. My suspicion is this is his underlying anxiety. Arrhythmia is on the differential as is electrolyte abnormality are symptomatic anemia. His minimal cough, with clear lungs on exam likely viral URI with a Will obtain chest x-ray to rule out pneumonia. Narrative Course Patient placed on monitor, IV established and blood obtained. A twelve-lead EKG showed sinus rhythm with sinus arrhythmia, rate 84. CBC, CMP unremarkable. Urine drug screen remains pending.. Portable chest x-ray obtained that by my read shows no acute abnormalities. Patient given dose of Xanax for his anxiety while here. Patient medically cleared for psychiatric evaluation. Diagnosis Primary Impression: Depression Qualified Code: F32.9 - Depression, unspecified depression type Additional Impression: Suicidal ideation Clair Coombs MD October 03, 2016 14:57
[2016-10-03 15:00] VITALS: BP 197/104; PULSE 86; RESP 16; O2SAT 98
[2016-10-03] MEDS ORDERED: ALPRAZolam 0.5 MG TAB PO ONE ×2 (15:00→22:30)
--- NOTE | 2016-10-03 15:27 | RADRPT ---
EXAM DATE/TIME: 10/03/2016 14:54 [facility] COMPARISON: CHEST SINGLE AP, September 02, 2016, 18:40. INDICATIONS : Shortness of breath. MEDICAL HISTORY : None. SURGICAL HISTORY : None. ENCOUNTER: Initial ACUITY: 1 day PAIN SCORE: 0/10 LOCATION: chest FINDINGS: Single AP view of the chest. The lungs are clear. Cardiomediastinal silhouette within normal limits. No evidence of pleural effusion or pneumothorax. CONCLUSION: No acute cardiopulmonary disease identified. Javon Sprague MD on October 03, 2016 at 15:24 Board Certified Radiologist. This report was verified electronically.
[2016-10-03 16:07] LABS: AUTOMATED NEUTROPHIL # 5.9 TH/MM3 (1.8-7.7); BASOPHIL % 0.3 % (0.0-2.0); EOSINOPHIL % 0.2 % (0.0-4.0); HEMATOCRIT 39.8 % (39.0-51.0); HEMO FLAGS DIFF FINAL; LYMPH % 12.5 % (9.0-44.0); LYMPHOCYTE # 0.9 TH/MM3 (1.0-4.8); MEAN CELL VOLUME 89.3 FL (80.0-100.0); MEAN CORPUSCULAR HEMOGLOBIN 30.1 PG (27.0-34.0); MEAN CORPUSCULAR HGB CONC 33.7 % (32.0-36.0); MONO % 7.2 % (0.0-8.0); NEUT % 79.8 % (16.0-70.0); PLATELET COUNT 266 TH/MM3 (150-450); RED BLOOD COUNT 4.46 MIL/MM3 (4.50-5.90); RED CELL DISTRIBUTION WIDTH 14.7 % (11.6-17.2); WHITE BLOOD COUNT 7.4 TH/MM3 (4.0-11.0)
[2016-10-03 16:27] LABS: ANION GAP 9 MEQ/L (5-15); AST (GOT) 11 U/L (15-37); BICARBONATE 25.6 MEQ/L (21.0-32.0); BLOOD UREA NITROGEN 18 MG/DL (7-18); CHLORIDE 107 MEQ/L (98-107); GLOMERULAR FILTRATION RATE 68 ML/MIN (>89); POTASSIUM 3.7 MEQ/L (3.5-5.1); SODIUM (NA) 142 MEQ/L (136-145)
[2016-10-03 16:30] VITALS: BP 175/81; PULSE 86; RESP 16; O2SAT 98
[2016-10-03 16:31] LABS: ALKALINE PHOSPHATASE 74 U/L (45-117); ALT (GPT) 15 U/L (12-78); TOTAL BILIRUBIN ADULT 0.5 MG/DL (0.2-1.0)
[2016-10-03 16:54] LABS: AMPHETAMINE, URINE NEG (NEG); BARBITURATES, URINE NEG (NEG); COCAINE, URINE NEG (NEG)
[2016-10-03 17:45] VITALS: BP 147/70; PULSE 73; RESP 18; TEMP 99.2; O2SAT 96
[2016-10-03] MEDS ORDERED: PERC10TA27 PO (19:12)
[2016-10-03] MEDS ORDERED: MS C30TA PO (19:12)
[2016-10-03 22:14] VITALS: BP 118/69; PULSE 77; RESP 18
[2016-10-03] MEDS ORDERED: IBUPROFEN 600 MG TAB PO ONE (22:30)
[2016-10-04 02:29] VITALS: BP 118/61; PULSE 55; RESP 18
[2016-10-04 06:08] VITALS: BP 126/67; PULSE 67; RESP 18; O2SAT 98
[2016-10-04 10:00] VITALS: BP 148/68; PULSE 72; RESP 18; TEMP 96.3; O2SAT 97
[2016-10-04] MEDS ORDERED: ALPRAZolam 0.5 MG TAB PO ONE (10:15)
[2016-10-04] MEDS ORDERED: IBUPROFEN 800 MG TAB PO ONE (10:15)
[2016-10-04 14:10] VITALS: BP 150/82; PULSE 68; RESP 18; TEMP 97.4; O2SAT 96
[2016-10-04] MEDS ORDERED: ALUMINUM/MAGNESIUM/SIMETH 30 ML CUP PO PRN ×2 (16:15)
[2016-10-04] MEDS ORDERED: MAGNESIUM HYDROXIDE SUSP 30 ML CUP PO PRN (16:15)
[2016-10-04] MEDS ORDERED: LORazepam 2 MG/ML VIAL IM PRN ×2 (16:15)
[2016-10-04] MEDS ORDERED: LORazepam 0.5 MG TAB PO PRN (16:15)
[2016-10-04] MEDS: NICOTINE 21 MG/24 HR PATCH T-DERMAL SCH (16:30)
--- NOTE | 2016-10-04 16:47 | EKG ---
Date Performed: 10/03/2016 Time Performed: 15:05:34 PTAGE: 56 years EKG: Sinus rhythm WITH SINUS ARRHYTHMIA NONSPECIFIC T-WAVE ABNORMALITY Compared to previous tracing, the patient is no longer bradycardic BORDERLINE ECG PREVIOUS TRACING : 09/03/2016 00.52 DOCTOR: Alia Qiu Interpretating Date/Time 10/04/2016 16:43:22
[2016-10-04] MEDS: LORazepam 1 MG TAB PO PRN ×2 (17:10→21:36)
[2016-10-04] MEDS: ACETAMINOPHEN 325 MG TAB PO PRN (17:11)
[2016-10-04 17:58] VITALS: BP 159/96; PULSE 64; RESP 16; TEMP 98.1; O2SAT 98
[2016-10-04 18:00] VITALS: BP 159/96; PULSE 64; RESP 16; TEMP 98.1; O2SAT 98
[2016-10-05] MEDS: ACETAMINOPHEN 325 MG TAB PO PRN (02:24)
[2016-10-05] MEDS: LORazepam 1 MG TAB PO PRN ×4 (03:36→20:15)
[2016-10-05 05:49] VITALS: BP 126/82; PULSE 81; RESP 18; TEMP 96.6; O2SAT 98
[2016-10-05 08:39] LABS: ANION GAP 7 MEQ/L (5-15); BLOOD UREA NITROGEN 15 MG/DL (7-18); CHLORIDE 106 MEQ/L (98-107); GLOMERULAR FILTRATION RATE 70 ML/MIN (>89); HDL CHOLESTEROL 50.8 MG/DL (40.0-60.0); LDL CHOLESTEROL 135 MG/DL (0-99); POTASSIUM 3.5 MEQ/L (3.5-5.1); SODIUM (NA) 141 MEQ/L (136-145)
[2016-10-05] MEDS: REMOVE OLD NICOTINE PATCH T-DERMAL SCH (08:51)
[2016-10-05] MEDS: NICOTINE 21 MG/24 HR PATCH T-DERMAL SCH (08:51)
[2016-10-05 17:54] LABS: HEMOGLOBIN A1a 1.1 %; HEMOGLOBIN A1b 1.6 %; HEMOGLOBIN Ao 85.5 %; HEMOGLOBIN LA1C 2.1 %; HEMOGLOBIN P3 5.2 %
--- NOTE | 2016-10-05 18:06 | HHI.HP ---
Provisional Diagnosis Admission Date October 04, 2016 at 16:11 [place]. Adjustment disorder with mixed disturbance of emotions and conduct. Certification of Person's Competence To Provide Express and Informed Consent I have personally examined Izaiah Mosher , a person being served at [facility] on, October 05, 2016 17:59. Express and informed consent means consent voluntarily given in writing, by a competent person, after sufficient explanation and disclosure of the subject matter involved to enable the person to make a knowing and willful decision without any element of force, fraud, deceit, duress, or other form of constraint or coercion. This person is 18 years of age or older, is not now known to be incompetent to consent to treatment with a guardian advocate, and does not have a health care surrogate or proxy currently making medical treatment decisions. I have found this person to be one of the following: [X] Competent to provide express and informed consent, as defined above, for voluntary admission to this facility and is competent to provide express and informed consent for treatment. He/she has the consistent capacity to make well reasoned, willful, and knowing decisions concerning his or her medical or mental health treatment. The person fully and consistently understands the purpose of the admission for examination/placement and is fully capable of personally exercising all rights assured [place] Incompetent to provide express and informed consent to voluntary admission, and this is incompetent to provide express and informed consent to treatment. The person must be transferred to involuntary status and a petition for a guardian advocate filed with the Circuit Court. [] Refusing to provide express and informed consent to voluntary admission but is competent to provide express and informed consent for treatment. The person must be discharged or transferred to involuntary status. Form shall be completed within 24 hours of a person's arrival at the receiving facility and filed in the clinical record of each person: 1. Admitted on a voluntary basis 2. Permitted to provide express and informed consent to his/her own treatment 3. Allowed to transfer from involuntary to voluntary status 4. Prior to permitting a person to consent to his or her own treatment after having been previously found incompetent to consent to treatment. History of Present Illness Capacity: Has Capacity HPI 56-year-old male with a multiyear history of pain complaints secondary to lumbar fusion, presents to the emergency room voluntarily for admission due to suicidal ideation with plan and attempt. Patient apparently stepped out in front of traffic 2 or 3 days ago and continues to think about committing suicide. Reports an additional stressor of his mother having recently. Describes a 2+ week history of depressed mood, anhedonia, suicidal ideation, anxiety, social withdrawal, diminished self-esteem, poor sleeping, diminished energy, problems with concentration, etc. Patient states he has been compliant with his Cymbalta and he has a history of taking Xanax, that his medicines are not working for him. At the time of this admission, the patient is found to be tremulous and anxious as well as depressed and in pain. Review of Systems Except as stated in HPI: all other systems reviewed are Neg Musculoskeletal: COMPLAINS OF: Joint pain, Back pain Past Psych History Psychological trauma history Denied Violence risk - others (6 mos) Minimal to moderate Violence risk - self (6 mos) Moderate Substance Abuse History Drugs/Alcohol past 12 months History of medication abuse. Past Family Social History Coded Allergies: Phenobarbital (Verified Allergy, Unknown, unknown, 10/03/16) Reported Medications Oxycodone-Acetaminophen (Percocet)10-325 mg Tab1 Tab PO Q6H PRN (PAIN) Ref 0 10/03/16 Morphine ER (Ms Contin)30 Mg Tab30 Mg PO TID Ref 0 10/03/16 Lisinopril-Hctz (Zestoretic)20-12.5 Mg Tab1 Tab PO DAILY #30 TAB Ref 0 09/03/16 Tizanidine (Zanaflex)4 Mg Cap4 Mg PO TID Ref 0 09/03/[address] (Cymbalta DR)60 Mg Capdr60 Mg PO DAILY #30 CAP Ref 0 09/03/16 Alprazolam 1 Mg Tab1 Mg PO QID PRN (ANXIETY) Ref 0 09/03/16 Current Medications Medications (Trade) Dose Ordered Sig/Ev Route Start Time Stop Time Status Last Admin (Tylenol) 650 mg Q4H PRN PO 10/04/16 16:15 10/05/16 02:24 (Milk Of Magnesia Liq) 30 ml DAILY PRN PO 10/04/16 16:15 (Mag-Al Plus Susp Liq) 30 ml Q6H PRN PO 10/04/16 16:15 (Habitrol 21 Mg Patch.24 Hr) 1 patch DAILY T-DERMAL 10/04/16 16:30 (Ativan) 1 mg Q6H PRN PO 10/04/16 16:15 10/05/16 15:04 (Ativan Inj) 1 mg Q6H PRN IM 10/04/16 16:15 Miscellaneous Information 1 DAILY T-DERMAL 10/05/16 09:00 Family History Significant for mood and anxiety disorders. Social History Unemployed. Receives Social Security disability. Limited support system not adequately treated for his physical problems. Patient's Strengths (min. 2) Verbal and has access to healthcare. Physical Exam GENERAL: SKIN: Warm and dry. HEAD: Normocephalic. EYES: No scleral icterus. No injection or drainage. NECK: Supple, trachea midline. No JVD or lymphadenopathy. CARDIOVASCULAR: Regular rate and rhythm without murmurs, gallops, or rubs. RESPIRATORY: Breath sounds equal bilaterally. No accessory muscle use. GASTROINTESTINAL: Abdomen soft, non-tender, nondistended. MUSCULOSKELETAL: No cyanosis, or edema. BACK: Nontender without obvious deformity. No CVA tenderness. Vital Signs Vital Signs Date Time Temp Pulse Resp B/P Pulse Ox O2 Delivery O2 Flow Rate FiO2 10/05/16 05:49 96.6 81 18 126/82 98 10/04/16 14:10 Room Air Mental Status Examination Speech: Unremarkable Orientation: x3 Memory: Unremarkable Thought Process: Organized, Goal Directed Thought Content: Unremarkable Hallucination Type: None Attention and Concentration: Good Suicidal Ideation: Yes Previous Suicide Attempts: Yes Homicidal Ideation: No Previous Homicide Attempts: No Insight: Fair Judgment: Unrealistic Affect: Anxious, Sad Mood: Sad, Anxious Motor Activity: Normal gait Assessment & Plan Problem List: (1) Adjustment disorder with mixed disturbance of emotions and conduct ICD Code: F43.25 Assessment & Plan Estimated LOS: 5 days 56-year-old male with significant risk for danger to self by suicide. Patient has 2 stressors including chronic pain and the loss of his mother. He is being treated with antidepressant therapy but it is not working. He is likely withdrawing from pain medicines and benzodiazepines which needs to be addressed. He could have a seizure as a result of this withdrawal. Additionally, the patient will receive a hospitalist consult to address his ongoing pain complaints. He will be placed on Klonopin to address his benzodiazepine withdrawal and anxiety. We will reevaluate his antidepressant medicines for augmentation with mood stabilizers. It is anticipated he'll be in the hospital for up to a week. This physician spoke to the nurse about his behavior this morning, which apparently was problematic. This physician also plans to speak to the case filler to obtain extra information from family about dealing with the patient's mood and emotional dyscontrol. Will obtain EKG to determine his ability to tolerate further antidepressant and mood stabilizing medicines. Zachary Diehl MD October 05, 2016 18:06
[2016-10-05 18:58] VITALS: BP 142/104; PULSE 84; RESP 18; TEMP 98; O2SAT 97
[2016-10-05] MEDS: clonazePAM 1 MG TAB PO SCH (19:22)
[2016-10-05] MEDS: traZODone HCL 100 MG TAB PO SCH (20:15)
[2016-10-06 03:00] VITALS: BP 127/97; PULSE 90; RESP 17; TEMP 97.9; O2SAT 97
[2016-10-06] MEDS: LORazepam 1 MG TAB PO PRN ×3 (03:04→15:51)
[2016-10-06] MEDS: ACETAMINOPHEN 325 MG TAB PO PRN ×3 (03:06→14:08)
[2016-10-06 04:30] VITALS: BP 145/105; PULSE 78; RESP 17; TEMP 98.6; O2SAT 96
[2016-10-06] MEDS ORDERED: cloNIDine HCL 0.1 MG TAB PO ONE (04:45)
[2016-10-06 05:51] VITALS: BP 141/95; PULSE 74; RESP 18; TEMP 97.3; O2SAT 99
[2016-10-06] MEDS: clonazePAM 1 MG TAB PO SCH ×2 (08:11→21:17)
[2016-10-06] MEDS: NICOTINE 21 MG/24 HR PATCH T-DERMAL SCH (08:37)
[2016-10-06] MEDS: REMOVE OLD NICOTINE PATCH T-DERMAL SCH (08:37)
--- NOTE | 2016-10-06 13:38 | PD.CONS ---
HPI Service [facility] Hospitalists Consult Requested By Psychiatric services Reason for Consult Medical management Primary Care Physician No Primary Care Physician Diagnoses: History of Present Illness Written by Meliza Marsh PA-C acting as scribe for Dr. Hill on 10/06/16 at 13:30. This is a 56 yo male with past medical history of previous hypertension, aortic valve stenosis, depression, anxiety and chronic neck and low back pain s/p cervical fusion x 3 and lumbar fusion who was admitted to the psychiatric unit due to suicidal ideation with plan and attempt. Hospitalist services were consulted for medical management. Patient endorses his BP has been running high because of uncontrolled pain and his BP meds not being restarted since his admission. He sees a pain management physician monthly and receives prescriptions for Percocet 10/325mg q 8h and MS Contin 30mg po TID. He has not received any pain medication for the past 4 days. He reports burning numb sensation in both hands as well as weakness in the left hand and left leg. Per nursing staff, he had some chest pain last night and early this morning but this has resolved. He had EKG with nonspecific findings and troponins which has been negative x 2. Review of Systems Except as stated in HPI: all other systems reviewed are Neg Past Family Social History Allergies: Coded Allergies: Phenobarbital (Verified Allergy, Unknown, unknown, 10/03/16) Past Medical History Hypertension Mild to moderate aortic valve stenosis s/p Echo 08/2016 Previous cardiac catheterization approximately 8 years ago with mild blockages per patient report Chronic low back pain secondary to degenerative disc disease status post previous cervical fusion x 3 and lumbar fusion Neuropathy Depression Anxiety Past Surgical History Cervical fusion x 3 Lumbar fusion Right hand surgery Knee surgery x 3 Reported Medications Oxycodone-Acetaminophen (Percocet)10-325 mg Tab1 Tab PO Q6H PRN (PAIN) Ref 0 10/03/16 Morphine ER (Ms Contin)30 Mg Tab30 Mg PO TID Ref 0 10/03/16 Lisinopril-Hctz (Zestoretic)20-12.5 Mg Tab1 Tab PO DAILY #30 TAB Ref 0 09/03/16 Tizanidine (Zanaflex)4 Mg Cap4 Mg PO TID Ref 0 09/03/[address] (Cymbalta DR)60 Mg Capdr60 Mg PO DAILY #30 CAP Ref 0 09/03/16 Alprazolam 1 Mg Tab1 Mg PO QID PRN (ANXIETY) Ref 0 09/03/16 Active Ordered Medications Current Medications Medications (Trade) Dose Ordered Sig/Ev Route Start Time Stop Time Status Last Admin (Tylenol) 650 mg Q4H PRN PO 10/04/16 16:15 10/06/16 09:40 (Milk Of Magnesia Liq) 30 ml DAILY PRN PO 10/04/16 16:15 (Mag-Al Plus Susp Liq) 30 ml Q6H PRN PO 10/04/16 16:15 (Habitrol 21 Mg Patch.24 Hr) 1 patch DAILY T-DERMAL 10/04/16 16:30 (Ativan) 1 mg Q6H PRN PO 10/04/16 16:15 10/06/16 09:41 (Ativan Inj) 1 mg Q6H PRN IM 10/04/16 16:15 Miscellaneous Information 1 DAILY T-DERMAL 10/05/16 09:00 (KlonoPIN) 2 mg Q12HR PO 10/05/16 21:00 10/06/16 08:11 (Desyrel) 300 mg HS PO 10/05/16 21:00 10/05/16 20:15 Family History Mother and Father, CAD Social History Patient reports tobacco use of 1pack per week. Occasional EtOH use once every 3-4 months. He reports marijuana use "as a kid" but denies any recent use. Physical Exam Vital Signs Vital Signs Date Time Temp Pulse Resp B/P Pulse Ox O2 Delivery O2 Flow Rate FiO2 10/06/16 05:51 97.3 74 18 141/95 99 10/06/16 04:30 98.6 78 17 145/105 96 10/06/16 03:00 97.9 90 17 127/97 97 10/05/16 18:58 98.0 84 18 142/104 97 Physical Exam GENERAL: This is a well-nourished, well-developed patient, in no apparent distress. Awake and alert. SKIN: No rashes, ecchymoses or lesions. Cool and dry. HEAD: Atraumatic. Normocephalic. No temporal or scalp tenderness. EYES: Pupils equal round and reactive. Extraocular motions intact. No scleral icterus. No injection or drainage. ENT: Nose without bleeding, purulent drainage or septal hematoma. Throat without erythema, tonsillar hypertrophy or exudate. Uvula midline. Airway patent. NECK: Trachea midline. No lymphadenopathy. Supple, nontender, no meningeal signs. CARDIOVASCULAR: Regular rate and rhythm. (+)3/6 holosystolic murmur radiating into the carotids. RESPIRATORY: Clear to auscultation. Breath sounds equal bilaterally. No wheezes , rales, or rhonchi. GASTROINTESTINAL: Abdomen soft, non-tender, nondistended. No hepato-splenomegaly , or palpable masses. No guarding. MUSCULOSKELETAL: Extremities without clubbing, cyanosis, or edema. No joint tenderness, effusion, or edema noted. No calf tenderness. NEUROLOGICAL: Awake and alert. Able to move all extremities. Weakness LUE and LLE. 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 Normal speech. Laboratory Laboratory Tests Test 10/06/16 05:32 Troponin I LESS THAN 0.02 Imaging Last Impressions Chest X-Ray 10/03/16 1453 Signed Impressions: Service Date/Time: Wednesday, October 03, 2016 14:54 - CONCLUSION: No acute cardiopulmonary disease identified. Javon Sprague MD Assessment and Plan Assessment and Plan 56 yo male with past medical history of previous hypertension, aortic valve stenosis, depression, anxiety and chronic neck and low back pain s/p cervical fusion x 3 and lumbar fusion who was admitted to the psychiatric unit due to suicidal ideation with plan and attempt. Hospitalist services were consulted for medical management. Depression/Anxiety/Suicide Attempt - Management of her psychiatric team Hypertension/CAD - stress test done 09/03/16 without e/o ischemia - BP 141/95 - Resume home antihypertensive medications - Monitor BP and adjust treatment accordingly Aortic valve stenosis - Per review of medical record, patient had previous echocardiogram done showing EF 55-65% with no motion abnormalities and mild to moderate aortic valve stenosis Chronic neck and low back pain s/p previous cervical and lumbar fusions with weak LUE and LLE as well as burning numb sensation in hands - patient reports dropping objects from left hand - cervical surgeries done decades ago without any recent follow up - MRI Cervical and Lumbar spine ordered for further evaluation - confirmed medication regimen thru [facility] and will resume pain med regimen Episode of chest pain last night and early this am per nursing staff - now resolved - Personally reviewed EKG revealing NSR and nonspecific T wave findings - troponins negative x 2 - will continue to monitor for recurrence Ongoing tobacco use - Nicotine patch - discussed smoking cessation/counseling offered DVT prophylaxis - Encourage ambulation Attending Statement This note was transcribed by kathy Marsh. I, Dr. Thai George personally performed the history, physical exam, and medical decision making; and confirmed the accuracy of the information in the transcribed note. Authenticated by Dr. Thai George on 10/06/16 at 13:30. Meliza Marsh October 06, 2016 13:38 Thai Garner MD Oct 15, 2016 13:14
--- NOTE | 2016-10-06 15:41 | EKG ---
Date Performed: 10/06/2016 Time Performed: 05:24:04 PTAGE: 56 years EKG: Sinus rhythm NONSPECIFIC T-WAVE ABNORMALITY BORDERLINE ECG Compared to prior tracing no significant change PREVIOUS TRACING 10/03/2016 15.05.34 DOCTOR: Pastora Hay Interpretating Date/Time 10/06/2016 15:40:13
--- NOTE | 2016-10-06 15:41 | EKG ---
Date Performed: 10/06/2016 Time Performed: 10:06:57 PTAGE: 56 years EKG: Sinus rhythm NONSPECIFIC T-WAVE ABNORMALITY BORDERLINE ECG Compared to prior tracing no significant change PREVIOUS TRACING : 10/06/2016 05.24 DOCTOR: Pastora Hay Interpretating Date/Time 10/06/2016 15:40:28
--- NOTE | 2016-10-06 16:02 | HHI.PYPN ---
Subjective Remarks Continues to report symptoms of pain, irritability and depression. Fairly cooperative. Review of Systems Except as stated in HPI: all other systems reviewed are Neg Objective Alert: Yes [place]: Person, Place, Date, Situation Mood: Calm Affect: Euthymic Memory Intact: Immediate, Recent, Remote Hallucinations: Other Delusions: No Delusion Type: Other Suicidal: Ideation Homicidal: Ideation Insight/Judgment Impaired Labs Test 10/06/16 10/06/16 05:32 14:23 Troponin I LESS THAN 0.02 LESS THAN 0.02 NG/ML NG/ML Vitals/IOs Vital Signs Date Time Temp Pulse Resp B/P Pulse Ox O2 Delivery O2 Flow Rate FiO2 10/06/16 05:51 97.3 74 18 141/95 99 10/04/16 14:10 Room Air Assessment & Plan Problem List: (1) Adjustment disorder with mixed disturbance of emotions and conduct ICD Code: F43.25 Assessment & Plan Estimated LOS: 3 days continues to require mood stabilization with medication adjustment and evaluation. Justification for Cont. Inpt. Likely to decompensate at lower level of care. Zachary Diehl MD October 06, 2016 16:02
[2016-10-06 18:39] VITALS: BP 103/57; PULSE 82; RESP 17; TEMP 97; O2SAT 98
--- NOTE | 2016-10-06 19:45 | EKG ---
Date Performed: 10/06/2016 Time Performed: 17:17:12 PTAGE: 56 years EKG: Sinus rhythm NONSPECIFIC T-WAVE ABNORMALITY BORDERLINE ECG PREVIOUS TRACING : 10/06/2016 10.06 Compared to prior tracing no significant change DOCTOR: Lady Hernandez Interpretating Date/Time 10/06/2016 19:44:36
[2016-10-06] MEDS: oxyCODONE/ACETAMINOPHEN 5 MG/325 MG TAB PO PRN (20:00)
[2016-10-06] MEDS: MORPHINE SULFATE 30 MG CONTROLLED RELEASE TAB PO SCH (21:00)
[2016-10-06] MEDS: traZODone HCL 100 MG TAB PO SCH ×2 (21:00→22:51)
[2016-10-07] MEDS: oxyCODONE/ACETAMINOPHEN 5 MG/325 MG TAB PO PRN ×3 (02:06→18:03)
[2016-10-07] MEDS: LORazepam 1 MG TAB PO PRN ×2 (02:07→22:29)
[2016-10-07 06:07] VITALS: BP 134/82; PULSE 55; RESP 16; TEMP 97.4; O2SAT 100
[2016-10-07] MEDS: clonazePAM 1 MG TAB PO SCH ×2 (08:32→21:13)
[2016-10-07] MEDS: MORPHINE SULFATE 30 MG CONTROLLED RELEASE TAB PO SCH ×2 (08:32→21:13)
[2016-10-07] MEDS: NICOTINE 21 MG/24 HR PATCH T-DERMAL SCH (08:33)
[2016-10-07] MEDS: REMOVE OLD NICOTINE PATCH T-DERMAL SCH (08:33)
--- NOTE | 2016-10-07 10:56 | HHI.PYPN ---
Subjective Remarks Patient seen and examined with counselor and nurse. Chart reviewed. Reviewing MAR, I note patient has been using Ativan PRN maximally, ~q6h. Case discussed with RN who reports patient has been medication seeking for benzodiazepines and opiates. He was moved from 2600 to high acuity 2700 unit on 10/05 after articulating thoughts of wanting to hang himself. He denies any suicidal ideation to me currently, although he does report ongoing intermittent SI at times. He is indeed medication seeking, particularly for stimulants today saying that he felt better when he was on these several years ago. He complains of ongoing anxiety, chiefly generalized, along with low mood. He would like to be placed back on his Cymbalta 60mg BID as he now says, in contradistinction to his report to Dr. Diehl, that this was at least somewhat efficacious for mood/anxiety. He does not think the trazodone is terribly helpful for sleep and would like to make this PRN. We discuss alternative sleep aids, but patient would like to continue with the trazodone on a PRN basis. Complains of chronic back pain. No other physical complaints. [facility] report reviewed. I note that patient's opioids were last prescribed 4/ 4 for a 30-day supply, although he did receive a Xanax script more recently. No recent stimulant Rx that I can see. Some multisourcing noted. Review of Systems Except as stated in HPI: all other systems reviewed are Neg Objective Alert: Yes [place]: Person (O x 3) Mood: Anxious, Depressed Affect: Appropriate Memory Intact: Comment (Intact on clinical exam) Hallucinations: Other (No AVH) Delusions: No Delusion Type: Other (No delusions) Suicidal: Ideation (Denies SI at this time) Homicidal: Ideation (No HI) Insight/Judgment Fair Remarks No motor abnormalities noted. No hand tremor, no diaphoresis, no mydriasis or other signs of benzo withdrawal. No lacrimation, rhinorrhea, piloerection or signs of opiate withdrawal. TP linear. Grooming and hygiene good. Labs Test 10/06/16 10/06/16 14:23 21:03 Troponin I LESS THAN 0.02 LESS THAN 0.02 NG/ML NG/ML Labs reviewed. EKG sinus rhythm with QTc 397ms. Vitals/IOs Vital Signs Date Time Temp Pulse Resp B/P Pulse Ox O2 Delivery O2 Flow Rate FiO2 10/07/16 06:07 97.4 55 16 134/82 100 10/04/16 14:10 Room Air Assessment & Plan Problem List: (1) Adjustment disorder with mixed disturbance of emotions and conduct ICD Code: F43.25 Assessment & Plan Add back Cymbalta 60mg BID. Change trazodone to 300mg qHS PRN. R/B/A for med changes discussed with pt. Discontinue Ativan PRN and replace with CIWA with Ativan for objective symptoms of withdrawal. I will continue Klonopin as ordered by Dr. Diehl. There are some red-flags for substance misuse, chiefly the medication seeking behavior and multisourcing revealed by E-[facility], and so I think it would be prudent to move toward a controlled-substance sparing psychotropic regimen as we are able. Hospitalist etl consultant input noted and appreciated. Continue to monitor on the unit. Continue other medications and care as ordered. Justification for Cont. Inpt. Med changes in process. Monitoring for impairments in safety. Discharge Planning Anticipate patient will require an additional 3-5 inpatient days for observation and stabilization. Request HC Surrog/Guard Advoc?: No Sheng Silva MD October 07, 2016 10:56
[2016-10-07] MEDS ORDERED: traZODone HCL 100 MG TAB PO PRN (11:00)
[2016-10-07] MEDS ORDERED: LORazepam 0.5 MG TAB PO ONE (12:45)
[2016-10-07] MEDS ORDERED: LORazepam 2 MG/ML VIAL ONE (12:47)
[2016-10-07] MEDS ORDERED: LORazepam 2 MG/ML VIAL IV PUSH PRN ×4 (13:45)
[2016-10-07] MEDS ORDERED: FLUMAZENIL 0.5 MG/5 ML VIAL IV PUSH PRN (13:45)
[2016-10-07] MEDS ORDERED: LORazepam 2 MG TAB PO PRN (13:45)
[2016-10-07] MEDS ORDERED: GADODIAMIDE PF 287 MG/ML 20 ML VIAL (for RAD MRI) IV ONE (14:05)
--- NOTE | 2016-10-07 14:46 | RADRPT ---
EXAM DATE/TIME: 10/07/2016 13:01 [facility] COMPARISON: No previous studies available for comparison. INDICATIONS : Left leg pain. CONTRAST: 17 cc Omniscan (gadodiamide) IV MEDICAL HISTORY : None. SURGICAL HISTORY : Fusion, lumbar. Fusion, cervical. rt. knee surgery ENCOUNTER: Subsequent ACUITY: 3 day PAIN SCORE: 3/10 LOCATION: Left leg TECHNIQUE: Multiplanar multisequence MRI of the lumbar spine was performed with and without contrast. FINDINGS: The most caudal appearing lumbar vertebra is numbered as L5. VERTEBRAE: There are mild degenerative marrow signal changes in the lumbar spine, most conspicuously adjacent to the L1-2 and L4-5 intervertebral discs. No suspicious marrow signal abnormalities. Minimal scoliotic curvature. No significant spondylolisthesis. CONUS: Normal level and configuration. POST CONTRAST: No abnormal areas of contrast enhancement are seen. T12-L1: There is slight annular disc bulge. Minimal broad superimposed dorsal protrusion without significant canal or foraminal compromise. L1-L2: Annular disc bulge with mild broad undulating superimposed dorsal protrusion, mildly asymmetric to th e right with mild lateral recess and foraminal stenosis. Minimal canal compromise. L2-L3: Annular disc bulge with mild broad superimposed dorsal disc protrusion, eccentric to the right with m ild asymmetric right-sided lateral recess effacement and mild canal compromise. L3-L4: The thecal sac has a normal diameter. No evidence of disc bulge or protrusion. The neural foramina are patent bilaterally. L4-L5: Annular disc bulge with broad primarily left lateral disc osteophyte. Small rounded focus in the left lateral recess and proximal neural foramen has appearance of a small disc fragment measuring just ov er a centimeter in diameter. This produces severe compromise of the medial aspect of the left L4 neur al foramen. The canal is adequate L5-S1: The thecal sac has a normal diameter. No evidence of disc bulge or protrusion. The neural foramina are patent bilaterally. Mild bilateral posterior facet arthropathy. CONCLUSION: Multilevel disc abnormalities. The presumed disc fragment in a left paracentral location at L4-5 may account for left leg radicular symptoms. Correlation recommended. Acentrically right-sided findings a t the L1-2 and L2-3 levels as described Christian Montoya MD on October 07, 2016 at 14:32 Board Certified Radiologist. This report was verified electronically.
--- NOTE | 2016-10-07 14:53 | RADRPT ---
EXAM DATE/TIME: 10/07/2016 13:01 [facility] COMPARISON: No previous studies available for comparison. INDICATIONS : Neck and left arm pain with tingling in hand and armpit. CONTRAST: 17 cc Omniscan (gadodiamide) IV MEDICAL HISTORY : None. SURGICAL HISTORY : Fusion, lumbar. Fusion, cervical. rt. knee surgery ENCOUNTER: Subsequent ACUITY: 3 day PAIN SCORE: 3/10 LOCATION: Left arm TECHNIQUE: Multiplanar, multisequence MRI examination of the cervical spine was performed. FINDINGS: VERTEBRAE: There has been previous cervical fusion with solid fusion visible between C4 and C6. The alignment is satisfactory. Marrow signal is benign throughout. ALIGNMENT: No evidence of subluxation. CORD: Normal configuration and signal. POST FOSSA: The cerebellar tonsils are normal in position. POST-CONTRAST: No abnormal areas of enhancement are seen. C2-C3: Small broad left paracentral disc protrusion moderately indenting ventral thecal sac. There is ample preservation of dorsal CSF signal. No evidence of foraminal stenosis. C3-C4: A mary undulating dorsal disc protrusion, broadly eccentric to the right with mild asymmetrically righ t-sided foraminal stenosis. Slight indentation of the ventral thecal sac without overall canal stenos is. C4-C5: Fused level. Satisfactory canal and foramina. C5-C6: Fused level. Satisfactory canal and foramina. C6-C7: The thecal sac has a normal configuration. There is no evidence of disc herniation or spinal canal s tenosis. The neural foramina are patent bilaterally. C7-T1: The thecal sac has a normal configuration. There is no evidence of disc herniation or spinal canal s tenosis. The neural foramina are patent bilaterally. CONCLUSION: Previous multilevel cervical fusion. Mild disc abnormalities above the previous fusion with asymmetri marlen right-sided foraminal compromise at C3-4. No specific explanation for left upper extremity radi cular symptoms. Christian Montoya MD on October 07, 2016 at 14:44 Board Certified Radiologist. This report was verified electronically.
[2016-10-07] MEDS ORDERED: LORazepam 2 MG/ML VIAL IM PRN (16:15)
[2016-10-07] MEDS ORDERED: LORazepam 1 MG TAB PO PRN (16:15)
[2016-10-07 17:20] VITALS: BP 143/85; PULSE 70; RESP 18; TEMP 97.8; O2SAT 98
[2016-10-07] MEDS: DULoxetine HCl DR 60 MG CAP PO SCH (21:13)
--- NOTE | 2016-10-07 22:32 | HHI.PR ---
Subjective Remarks Patient c/o neck and back pain denies chest pain vital signs stable Objective Vitals Vital Signs Date Time Temp Pulse Resp B/P Pulse Ox O2 Delivery O2 Flow Rate FiO2 10/07/16 17:20 97.8 70 18 143/85 98 10/07/16 06:07 97.4 55 16 134/82 100 Result Diagram: 10/03/16 1530 10/05/16 0704 Imaging Last Impressions Lumbar Spine MRI 10/07/16 0000 Signed Impressions: Service Date/Time: Friday, October 07, 2016 13:01 - CONCLUSION: Multilevel disc abnormalities. The presumed disc fragment in a left paracentral location at L4- 5 may account for left leg radicular symptoms. Correlation recommended. Acentrically right-sided findings at the L1-2 and L2-3 levels as described Christian Montoya MD Cervical Spine MRI 10/07/16 0000 Signed Impressions: Service Date/Time: Friday, October 07, 2016 13:01 - CONCLUSION: Previous multilevel cervical fusion. Mild disc abnormalities above the previous fusion with asymmetrically right-sided foraminal compromise at C3-4. No specific explanation for left upper extremity radicular symptoms. Christian Montoya MD Chest X-Ray 10/03/16 1453 Signed Impressions: Service Date/Time: Monday, October 03, 2016 14:54 - CONCLUSION: No acute cardiopulmonary disease identified. Javon Sprague MD Objective Remarks GENERAL: This is a well-nourished, well-developed patient, in no apparent distress. Awake and alert. SKIN: No rashes, ecchymoses or lesions. Cool and dry. HEAD: Atraumatic. Normocephalic. No temporal or scalp tenderness. EYES: Pupils equal round and reactive. Extraocular motions intact. No scleral icterus. No injection or drainage. ENT: Nose without bleeding, purulent drainage or septal hematoma. Throat without erythema, tonsillar hypertrophy or exudate. Uvula midline. Airway patent. NECK: Trachea midline. No lymphadenopathy. Supple, nontender, no meningeal signs. CARDIOVASCULAR: Regular rate and rhythm. (+)3/6 holosystolic murmur radiating into the carotids. RESPIRATORY: Clear to auscultation. Breath sounds equal bilaterally. No wheezes , rales, or rhonchi. GASTROINTESTINAL: Abdomen soft, non-tender, nondistended. No hepato-splenomegaly , or palpable masses. No guarding. MUSCULOSKELETAL: Extremities without clubbing, cyanosis, or edema. No joint tenderness, effusion, or edema noted. No calf tenderness. NEUROLOGICAL: Awake and alert. Able to move all extremities. Weakness LUE and LLE. 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 Normal speech. Medications and IVs Current Medications Medications (Trade) Dose Ordered Sig/Ev Route Start Time Stop Time Status Last Admin (Tylenol) 650 mg Q4H PRN PO 10/04/16 16:15 10/06/16 14:08 (Milk Of Magnesia Liq) 30 ml DAILY PRN PO 10/04/16 16:15 (Mag-Al Plus Susp Liq) 30 ml Q6H PRN PO 10/04/16 16:15 (Habitrol 21 Mg Patch.24 Hr) 1 patch DAILY T-DERMAL 10/04/16 16:30 Miscellaneous Information 1 DAILY T-DERMAL 10/05/16 09:00 (KlonoPIN) 2 mg Q12HR PO 10/05/16 21:00 10/07/16 21:13 (Percocet 5-325 Mg) 1 tab Q8HR PRN PO 10/06/16 19:45 10/07/16 18:03 (Oramorph Sr) 30 mg Q12HR PO 10/06/16 21:00 10/07/16 21:13 (Desyrel) 300 mg HS PRN PO 10/07/16 11:00 (Cymbalta Dr) 60 mg BID PO 10/07/16 21:00 10/07/16 21:13 (Romazicon Inj) 0.2 mg Q1M PRN IV PUSH 10/07/16 13:45 (Ativan) 1 mg Q4H PRN PO 10/07/16 13:45 (Ativan Inj) 1 mg Q4H PRN IV PUSH 10/07/16 13:45 (Ativan) 2 mg Q2H PRN PO 10/07/16 13:45 (Ativan Inj) 2 mg Q2H PRN IV PUSH 10/07/16 13:45 (Ativan Inj) 2 mg Q1H PRN IV PUSH 10/07/16 13:45 (Ativan Inj) 2 mg Q15M PRN IV PUSH 10/07/16 13:45 A/P Assessment and Plan 56 yo male with past medical history of previous hypertension, aortic valve stenosis, depression, anxiety and chronic neck and low back pain s/p cervical fusion x 3 and lumbar fusion who was admitted to the psychiatric unit due to suicidal ideation with plan and attempt. Hospitalist services were consulted for medical management. Depression/Anxiety/Suicide Attempt - Management of her psychiatric team Hypertension/CAD - stress test done 09/03/16 without e/o ischemia - Resume home antihypertensive medications - Monitor BP and adjust treatment accordingly Aortic valve stenosis - Per review of medical record, patient had previous echocardiogram done showing EF 55-65% with no motion abnormalities and mild to moderate aortic valve stenosis Chronic neck and low back pain s/p previous cervical and lumbar fusions with weak LUE and LLE as well as burning numb sensation in hands - patient reports dropping objects from left hand - cervical surgeries done decades ago without any recent follow up - MRI Cervical and Lumbar spine as above - confirmed medication regimen thru [facility] and will resume pain med regimen - Given lumbar MRI findings and lower and upper extremity weakness will consult neurosurgery. Episode of chest pain last night and early this am per nursing staff - now resolved - Dr. Hill personally reviewed EKG revealing NSR and nonspecific T wave findings - troponins negative x 2 - will continue to monitor for recurrence Ongoing tobacco use - Nicotine patch - discussed smoking cessation/counseling offered DVT prophylaxis - Encourage ambulation Thai Garner MD October 07, 2016 22:32
[2016-10-08] MEDS: oxyCODONE/ACETAMINOPHEN 10 MG/325 MG TAB PO PRN ×4 (04:00→21:11)
[2016-10-08 05:24] VITALS: BP 134/61; PULSE 68; RESP 18; TEMP 97.9; O2SAT 97
[2016-10-08] MEDS: DULoxetine HCl DR 60 MG CAP PO SCH ×2 (08:41→21:10)
[2016-10-08] MEDS: clonazePAM 1 MG TAB PO SCH ×2 (08:41→21:10)
[2016-10-08] MEDS: MORPHINE SULFATE 30 MG CONTROLLED RELEASE TAB PO SCH ×3 (08:42→17:53)
[2016-10-08] MEDS: LISINOPRIL 20 MG TAB PO SCH (08:42)
[2016-10-08] MEDS: HYDROCHLOROTHIAZIDE 12.5 MG CAP PO SCH (08:43)
[2016-10-08] MEDS: REMOVE OLD NICOTINE PATCH T-DERMAL SCH (09:00)
[2016-10-08] MEDS: NICOTINE 21 MG/24 HR PATCH T-DERMAL SCH (09:00)
[2016-10-08] MEDS ORDERED: NON-FORMULARY DRUG (Lisinopril-Hctz (Zestoretic) 1 TAB) PO SCH (09:00)
--- NOTE | 2016-10-08 13:18 | HHI.PYPN ---
Subjective Remarks Patient seen and examined with counselor and nurse. Chart reviewed. I note the patient required only 1 dose of PRN Ativan by [place] overnight. Case discussed with nursing staff who reports that the patient spends much of his time in the day area in no evident physical distress but will affect a limping gait when he believes that he is being observed by staff. He is noted to be extremely focused on his pain medications. On my examination today, the patient reports that his mood remains "a little" anxious and depressed. He continues to deny SI, nor has there been any evidence of suicidality on the unit. He reports that he slept better last night on his Cymbalta. I try to engage the patient in a discussion of possible pharmacotherapeutic options to manage his residual psychiatric symptoms, which he reports include lack of energy/drive. However, patient dismisses all options other than a stimulant. He makes clear that he is not interested in a med change if I am not going to put him on a stimulant. He denies side effects from current medications. No new physical complaints. Review of Systems Except as stated in HPI: all other systems reviewed are Neg Objective Alert: Yes [place]: Person (O x3) Mood: Anxious (mild), Depressed (mild) Affect: Appropriate Memory Intact: Comment (remains intact) Hallucinations: Other (no audiovisual hallucinations) Delusions: No Delusion Type: Other (no delusional material) Suicidal: Ideation (denies suicidal ideation) Homicidal: Ideation (no homicidal ideation) Insight/Judgment Fair Remarks Thought process linear. Speech within normal limits for rate, tone and volume. Grooming and hygiene fair. No motor abnormalities noted. Labs Labs reviewed. No new labs. Imaging findings noted Last Impressions Lumbar Spine MRI 10/07/16 0000 Signed Impressions: Service Date/Time: Friday, October 07, 2016 13:01 - CONCLUSION: Multilevel disc abnormalities. The presumed disc fragment in a left paracentral location at L4- 5 may account for left leg radicular symptoms. Correlation recommended. Acentrically right-sided findings at the L1-2 and L2-3 levels as described Christian Montoya MD Cervical Spine MRI 10/07/16 0000 Signed Impressions: Service Date/Time: Friday, October 07, 2016 13:01 - CONCLUSION: Previous multilevel cervical fusion. Mild disc abnormalities above the previous fusion with asymmetrically right-sided foraminal compromise at C3-4. No specific explanation for left upper extremity radicular symptoms. Christian Montoya MD Chest X-Ray 10/03/16 1453 Signed Impressions: Service Date/Time: Monday, October 03, 2016 14:54 - CONCLUSION: No acute cardiopulmonary disease identified. Javon Sprague MD Vitals/IOs Vital Signs Date Time Temp Pulse Resp B/P Pulse Ox O2 Delivery O2 Flow Rate FiO2 10/08/16 05:24 97.9 68 18 134/61 97 10/04/16 14:10 Room Air Assessment & Plan Problem List: (1) Adjustment disorder with mixed disturbance of emotions and conduct ICD Code: F43.25 Assessment & Plan I do not believe that a stimulant is indicated in this patient at this time. The patient declines medication changes other than addition of a stimulant at this time. Mood and anxiety level seemed to be improving and the patient denies suicidal ideation, and there has been no evidence of any suicidality on the unit. Patient remains fairly medication seeking. I will continue current psychotropics as ordered. I have emphasized that I will provide the patient with only a limited supply of his benzodiazepine on discharge, and the patient assures me he has a provider who will write additional quantities for him on outpatient basis. I will ask the hospitalist to evaluate the patient for medical clearance for discharge and to provide final discharge recommendations. Continue other medications and care as ordered. Justification for Cont. Inpt. Final discharge planning Discharge Planning Anticipate discharge tomorrow, Wednesday, barring some clinical deterioration. Request HC Surrog/Guard Advoc?: No Sheng Silva MD October 08, 2016 13:18
[2016-10-08 15:15] VITALS: BP 108/87; PULSE 60; RESP 18; TEMP 97.7; O2SAT 98
--- NOTE | 2016-10-08 23:22 | HHI.PR ---
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 The presumed disc fragment in a left paracentral location at L4- 5 may account for left leg radicular symptoms. Correlation recommended. Acentrically right-sided findings at the L1-2 and L2-3 levels as described Christian Montoya MD Cervical Spine MRI 10/07/16 0000 Signed Impressions: Service Date/Time: Friday, October 07, 2016 13:01 - CONCLUSION: Previous multilevel cervical fusion. Mild disc abnormalities above the previous fusion with asymmetrically right-sided foraminal compromise at C3-4. No specific explanation for left upper extremity radicular symptoms. Christian Montoya MD Chest X-Ray 10/03/16 1453 Signed Impressions: Service Date/Time: Monday, October 03, 2016 14:54 - CONCLUSION: No acute cardiopulmonary disease identified. Javon Sprague MD Objective Remarks GENERAL: This is a well-nourished, well-developed patient, in no apparent distress. Awake and alert. SKIN: No rashes, ecchymoses or lesions. Cool and dry. HEAD: Atraumatic. Normocephalic. No temporal or scalp tenderness. EYES: Pupils equal round and reactive. Extraocular motions intact. No scleral icterus. No injection or drainage. ENT: Nose without bleeding, purulent drainage or septal hematoma. Throat without erythema, tonsillar hypertrophy or exudate. Uvula midline. Airway patent. NECK: Trachea midline. No lymphadenopathy. Supple, nontender, no meningeal signs. CARDIOVASCULAR: Regular rate and rhythm. (+)3/6 holosystolic murmur radiating into the carotids. RESPIRATORY: Clear to auscultation. Breath sounds equal bilaterally. No wheezes , rales, or rhonchi. GASTROINTESTINAL: Abdomen soft, non-tender, nondistended. No hepato-splenomegaly , or palpable masses. No guarding. MUSCULOSKELETAL: Extremities without clubbing, cyanosis, or edema. No joint tenderness, effusion, or edema noted. No calf tenderness. NEUROLOGICAL: Awake and alert. Able to move all extremities. Weakness LUE and LLE. 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 Normal speech. Medications and IVs Current Medications Medications (Trade) Dose Ordered Sig/Ev Route Start Time Stop Time Status Last Admin (Milk Of Magnesia Liq) 30 ml DAILY PRN PO 10/04/16 16:15 (Mag-Al Plus Susp Liq) 30 ml Q6H PRN PO 10/04/16 16:15 (Habitrol 21 Mg Patch.24 Hr) 1 patch DAILY T-DERMAL 10/04/16 16:30 Miscellaneous Information 1 DAILY T-DERMAL 10/05/16 09:00 (KlonoPIN) 2 mg Q12HR PO 10/05/16 21:00 10/08/16 21:10 (Desyrel) 300 mg HS PRN PO 10/07/16 11:00 (Cymbalta Dr) 60 mg BID PO 10/07/16 21:00 10/08/16 21:10 (Romazicon Inj) 0.2 mg Q1M PRN IV PUSH 10/07/16 13:45 (Ativan) 1 mg Q4H PRN PO 10/07/16 13:45 10/07/16 22:29 (Ativan Inj) 1 mg Q4H PRN IV PUSH 10/07/16 13:45 (Ativan) 2 mg Q2H PRN PO 10/07/16 13:45 (Ativan Inj) 2 mg Q2H PRN IV PUSH 10/07/16 13:45 (Ativan Inj) 2 mg Q1H PRN IV PUSH 10/07/16 13:45 (Ativan Inj) 2 mg Q15M PRN IV PUSH 10/07/16 13:45 (Prinivil) 20 mg DAILY PO 10/08/16 09:00 10/08/16 08:42 (Microzide) 12.5 mg DAILY PO 10/08/16 09:00 10/08/16 08:43 (Oramorph Sr) 30 mg TID PO 10/08/16 09:00 10/08/16 17:53 (Percocet 10-325 Mg) 1 tab Q6H PRN PO 10/07/16 22:45 10/08/16 21:11 A/P Assessment and Plan 56 yo male with past medical history of previous hypertension, aortic valve stenosis, depression, anxiety and chronic neck and low back pain s/p cervical fusion x 3 and lumbar fusion who was admitted to the psychiatric unit due to suicidal ideation with plan and attempt. Hospitalist services were consulted for medical management. Depression/Anxiety/Suicide Attempt - Management of her psychiatric team Hypertension/CAD - stress test done 09/03/16 without e/o ischemia - Resume home antihypertensive medications - Monitor BP and adjust treatment accordingly Aortic valve stenosis - Per review of medical record, patient had previous echocardiogram done showing EF 55-65% with no motion abnormalities and mild to moderate aortic valve stenosis Chronic neck and low back pain s/p previous cervical and lumbar fusions with weak LUE and LLE as well as burning numb sensation in hands - patient reports dropping objects from left hand - cervical surgeries done decades ago without any recent follow up - MRI Cervical and Lumbar spine as above - confirmed medication regimen thru [facility] - Continue Oramorph 30 mg PO TID and Percocet 10/325 mg Q 6 hrs as needed. - Given lumbar MRI findings and lower and upper extremity weakness neurosurgery has been consulted - recommendations pending. Episode of chest pain last night and early this am per nursing staff - now resolved - Dr. Hill personally reviewed EKG revealing NSR and nonspecific T wave findings - troponins negative x 2 - will continue to monitor for recurrence Ongoing tobacco use - Nicotine patch - discussed smoking cessation/counseling offered DVT prophylaxis - Encourage ambulation Thai Garner MD October 08, 2016 23:22
[2016-10-09] MEDS: oxyCODONE/ACETAMINOPHEN 10 MG/325 MG TAB PO PRN ×4 (03:57→21:58)
[2016-10-09 06:02] VITALS: BP 129/60; PULSE 57; RESP 18; TEMP 98.1; O2SAT 100
[2016-10-09] MEDS: REMOVE OLD NICOTINE PATCH T-DERMAL SCH (09:00)
[2016-10-09] MEDS: NICOTINE 21 MG/24 HR PATCH T-DERMAL SCH (09:00)
[2016-10-09] MEDS: clonazePAM 1 MG TAB PO SCH ×2 (09:20→20:40)
[2016-10-09] MEDS: HYDROCHLOROTHIAZIDE 12.5 MG CAP PO SCH (09:20)
[2016-10-09] MEDS: LISINOPRIL 20 MG TAB PO SCH (09:20)
[2016-10-09] MEDS: MORPHINE SULFATE 30 MG CONTROLLED RELEASE TAB PO SCH ×3 (09:21→18:35)
[2016-10-09] MEDS: DULoxetine HCl DR 60 MG CAP PO SCH ×2 (09:21→20:40)
--- NOTE | 2016-10-09 12:08 | HHI.PYPN ---
Subjective Remarks Patient seen and examined with counselor and nurse. Chart reviewed. I note that the hospitalist has requested a neurosurgical consultation in light of patient's imaging findings, and this is presently pending. Case discussed with nursing staff who reports that the patient began to report increased depressive symptoms after our discussion about possible discharge today. At the same time , patient is noted by nursing staff not to appear particularly depressed either when surreptitiously observed or in his interactions with peers. On my examination today, patient does indeed report recrudescence of depressive symptoms, including reported intrusive suicidal thoughts, in this time-frame. No active SI or urge to hurt himself on the unit at this time. He says that he has reconsidered his previous stance regarding medication changes and would now like to try to augment his Cymbalta with Wellbutrin, as he has not tried this combination before. We discuss the risks and benefits of this medication change , and patient is agreeable to a trial of Wellbutrin. Denies side effects from medications. No new physical complaints. Review of Systems Except as stated in HPI: all other systems reviewed are Neg Objective Alert: Yes [place]: Person (O x 3) Mood: Depressed (reportedly worsened) Affect: Blunted Memory Intact: Comment (Intact) Hallucinations: Other (No AVH) Delusions: No Delusion Type: Other (No delusional material) Suicidal: Ideation (Fleeting, intrusive SI. No active SI at this time.) Homicidal: Ideation (No HI) Insight/Judgment Fair Remarks No motoric abnormalities noted. Thought process linear. Speech within normal limits for rate, tone and volume. Grooming and hygiene fair. Labs Labs reviewed. No new labs. Vitals/IOs Vital Signs Date Time Temp Pulse Resp B/P Pulse Ox O2 Delivery O2 Flow Rate FiO2 10/09/16 06:02 98.1 57 18 129/60 100 Assessment & Plan Problem List: (1) Adjustment disorder with mixed disturbance of emotions and conduct ICD Code: F43.25 Assessment & Plan Patient with reported worsening of depressive symptoms in the context of planned discharge for today. I cannot help but have some degree of suspicion that he is exaggerating his symptoms in service of remaining on the inpatient unit, possibly to continue to have access to the controlled substances he is prescribed here. I will add Wellbutrin SR 100mg BID to augment his Cymbalta. Awaiting neurosurgical consultation. Continue other medications and care as ordered. Justification for Cont. Inpt. Medication changes in process. Discharge Planning Monitor over weekend. Anticipate discharge Wednesday. Request HC Surrog/Guard Advoc?: No Sheng Silva MD October 09, 2016 12:08
[2016-10-09 15:30] VITALS: BP 90/54; PULSE 58; RESP 18; TEMP 97.8; O2SAT 96
[2016-10-09] MEDS: buPROPion HCL 100 MG SUSTAINED RELEASE TAB PO SCH (17:29)
[2016-10-10] MEDS: oxyCODONE/ACETAMINOPHEN 10 MG/325 MG TAB PO PRN ×4 (03:56→21:32)
[2016-10-10 06:12] VITALS: BP 110/65; PULSE 54; RESP 19; TEMP 98; O2SAT 98
[2016-10-10] MEDS: DULoxetine HCl DR 60 MG CAP PO SCH ×2 (08:56→21:32)
[2016-10-10] MEDS: HYDROCHLOROTHIAZIDE 12.5 MG CAP PO SCH (08:56)
[2016-10-10] MEDS: clonazePAM 1 MG TAB PO SCH ×2 (08:56→21:32)
[2016-10-10] MEDS: LISINOPRIL 20 MG TAB PO SCH (08:56)
[2016-10-10] MEDS: MORPHINE SULFATE 30 MG CONTROLLED RELEASE TAB PO SCH ×3 (08:57→17:26)
[2016-10-10] MEDS: REMOVE OLD NICOTINE PATCH T-DERMAL SCH (09:00)
[2016-10-10] MEDS: NICOTINE 21 MG/24 HR PATCH T-DERMAL SCH (09:00)
[2016-10-10] MEDS: buPROPion HCL 100 MG SUSTAINED RELEASE TAB PO SCH ×2 (09:00→15:00)
--- NOTE | 2016-10-10 14:40 | HHI.PYPN ---
Subjective Remarks Pt seen and discussed with staff. He c/o of depression and states that he had thoughts of suicide upon awakening this morning. He denies plan or intent. He has been participating in all activities. No HI. No psychosis. No medication side effects. Objective Alert: Yes [place]: Person, Place, Date Mood: Depressed Affect: Restricted Memory Intact: Comment (Intact) Hallucinations: Other (No AVH) Delusions: No Delusion Type: Other (No delusional material) Suicidal: Intent (denies), Plan (denies), Ideation (Fleeting, intrusive SI. No active SI at this time.) Homicidal: Ideation (No HI) Insight/Judgment poor Vitals/IOs Vital Signs Date Time Temp Pulse Resp B/P Pulse Ox O2 Delivery O2 Flow Rate FiO2 10/10/16 06:12 98.0 54 19 110/65 98 Assessment & Plan Problem List: (1) Adjustment disorder with mixed disturbance of emotions and conduct ICD Code: F43.25 Assessment & Plan Continue current tx plan. Estimated LOS: days Justification for Cont. Inpt. monitoring for safety Request HC Surrog/Guard Advoc?: Jinny Mcintyre MD October 10, 2016 14:40
[2016-10-10] MEDS: hydrOXYzine HCL 25 MG TAB PO PRN (16:10)
[2016-10-10 17:17] VITALS: BP 124/98; PULSE 59; RESP 18; TEMP 98.2; O2SAT 93
--- NOTE | 2016-10-10 17:33 | HHI.PR ---
Subjective Remarks patient c/o worsening bl knee pain over the past year denies trauma to knees pain in back and neck controlled weakness in left upper and lower extremity same stable vital signs Objective Vitals Vital Signs Date Time Temp Pulse Resp B/P Pulse Ox O2 Delivery O2 Flow Rate FiO2 10/10/16 17:17 98.2 59 18 124/98 93 10/10/16 06:12 98.0 54 19 110/65 98 Imaging Last Impressions Lumbar Spine MRI 10/07/16 0000 Signed Impressions: Service Date/Time: Friday, October 07, 2016 13:01 - CONCLUSION: Multilevel disc abnormalities. The presumed disc fragment in a left paracentral location at L4- 5 may account for left leg radicular symptoms. Correlation recommended. Acentrically right-sided findings at the L1-2 and L2-3 levels as described Christian Montoya MD Cervical Spine MRI 10/07/16 0000 Signed Impressions: Service Date/Time: Friday, October 07, 2016 13:01 - CONCLUSION: Previous multilevel cervical fusion. Mild disc abnormalities above the previous fusion with asymmetrically right-sided foraminal compromise at C3-4. No specific explanation for left upper extremity radicular symptoms. Christian Montoya MD Chest X-Ray 10/03/16 1453 Signed Impressions: Service Date/Time: Monday, October 03, 2016 14:54 - CONCLUSION: No acute cardiopulmonary disease identified. Javon Sprague MD Objective Remarks GENERAL: This is a well-nourished, well-developed patient, in no apparent distress. Awake and alert. SKIN: No rashes, ecchymoses or lesions. Cool and dry. HEAD: Atraumatic. Normocephalic. No temporal or scalp tenderness. EYES: Pupils equal round and reactive. Extraocular motions intact. No scleral icterus. No injection or drainage. ENT: Nose without bleeding, purulent drainage or septal hematoma. Throat without erythema, tonsillar hypertrophy or exudate. Uvula midline. Airway patent. NECK: Trachea midline. No lymphadenopathy. Supple, nontender, no meningeal signs. CARDIOVASCULAR: Regular rate and rhythm. (+)3/6 holosystolic murmur radiating into the carotids. RESPIRATORY: Clear to auscultation. Breath sounds equal bilaterally. No wheezes , rales, or rhonchi. GASTROINTESTINAL: Abdomen soft, non-tender, nondistended. No hepato-splenomegaly , or palpable masses. No guarding. MUSCULOSKELETAL: Extremities without clubbing, cyanosis, or edema. No joint tenderness, effusion, or edema noted. No calf tenderness. NEUROLOGICAL: Awake and alert. Able to move all extremities. Weakness LUE and LLE. 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 Normal speech. Medications and IVs Current Medications Medications (Trade) Dose Ordered Sig/Ev Route Start Time Stop Time Status Last Admin (Milk Of Magnesia Liq) 30 ml DAILY PRN PO 10/04/16 16:15 (Mag-Al Plus Susp Liq) 30 ml Q6H PRN PO 10/04/16 16:15 (Habitrol 21 Mg Patch.24 Hr) 1 patch DAILY T-DERMAL 10/04/16 16:30 Miscellaneous Information 1 DAILY T-DERMAL 10/05/16 09:00 (KlonoPIN) 2 mg Q12HR PO 10/05/16 21:00 10/10/16 08:56 (Cymbalta Dr) 60 mg BID PO 10/07/16 21:00 10/10/16 08:56 (Romazicon Inj) 0.2 mg Q1M PRN IV PUSH 10/07/16 13:45 (Ativan) 1 mg Q4H PRN PO 10/07/16 13:45 10/07/16 22:29 (Ativan Inj) 1 mg Q4H PRN IV PUSH 10/07/16 13:45 (Ativan) 2 mg Q2H PRN PO 10/07/16 13:45 (Ativan Inj) 2 mg Q2H PRN IV PUSH 10/07/16 13:45 (Ativan Inj) 2 mg Q1H PRN IV PUSH 10/07/16 13:45 (Ativan Inj) 2 mg Q15M PRN IV PUSH 10/07/16 13:45 (Prinivil) 20 mg DAILY PO 10/08/16 09:00 10/10/16 08:56 (Microzide) 12.5 mg DAILY PO 10/08/16 09:00 10/10/16 08:56 (Oramorph Sr) 30 mg TID PO 10/08/16 09:00 10/10/16 17:26 (Percocet 10-325 Mg) 1 tab Q6H PRN PO 10/07/16 22:45 10/10/16 10:01 (Wellbutrin Sr 12 Hr) 100 mg BID@09,15 PO 10/09/16 15:00 10/10/16 15:00 (Tears Naturale Opth Soln) 1 drop Q4H PRN EACH EYE 10/10/16 15:00 (Atarax) 25 mg DAILY PRN PO 10/10/16 16:00 10/10/16 16:10 A/P Assessment and Plan 56 yo male with past medical history of previous hypertension, aortic valve stenosis, depression, anxiety and chronic neck and low back pain s/p cervical fusion x 3 and lumbar fusion who was admitted to the psychiatric unit due to suicidal ideation with plan and attempt. Hospitalist services were consulted for medical management. Depression/Anxiety/Suicide Attempt - Management of her psychiatric team Hypertension/CAD - stress test done 09/03/16 without e/o ischemia - Continnue home antihypertensive medications - Monitor BP and adjust treatment accordingly Aortic valve stenosis - Per review of medical record, patient had previous echocardiogram done showing EF 55-65% with no motion abnormalities and mild to moderate aortic valve stenosis Chronic neck and low back pain s/p previous cervical and lumbar fusions with weak LUE and LLE as well as burning numb sensation in hands - patient reports dropping objects from left hand - cervical surgeries done decades ago without any recent follow up - MRI Cervical and Lumbar spine as above - confirmed medication regimen thru [facility] - Continue Oramorph 30 mg PO TID and Percocet 10/325 mg Q 6 hrs as needed. - Given lumbar MRI findings and lower and upper extremity weakness neurosurgery has been consulted - recommendations pending. - discussed case with RN - consult was placed 10/07 - RN will try to get in touch with neurosurgeon that was consulted to provide recommendations. Episode of chest pain last night and early this am per nursing staff - now resolved - Dr. Hill personally reviewed EKG revealing NSR and nonspecific T wave findings - troponins negative x 2 - will continue to monitor for recurrence Ongoing tobacco use - Nicotine patch - discussed smoking cessation/counseling offered BL Knee pain -Patient has h/o arthroscopic knee surgery - will check knee x rays. DVT prophylaxis - Encourage ambulation Thai Garner MD October 10, 2016 17:32
--- NOTE | 2016-10-10 21:23 | RADRPT ---
EXAM DATE/TIME: 10/10/2016 20:50 [facility] COMPARISON: No previous studies available for comparison. INDICATIONS : CHRONIC RIGHT KNEE PAIN MEDICAL HISTORY : Osteoarthritis. Fusion, lumbar. Fusion, cervical. Right knee surgery SURGICAL HISTORY : lower back ENCOUNTER: Initial ACUITY: 1 day PAIN SCORE: 7/10 LOCATION: Right knee FINDINGS: There are degenerative changes in the knee with marked loss of articular cartilage in the medial comp artment. Loose bodies are evident. Osteophytes are present in the patellofemoral compartment. CONCLUSION: Extensive degenerative changes with intraarticular loose bodies. Anthony Harrison MD FACR on October 10, 2016 at 21:18 Board Certified Radiologist. This report was verified electronically.
--- NOTE | 2016-10-10 21:25 | RADRPT ---
EXAM DATE/TIME: 10/10/2016 20:50 [facility] COMPARISON: No previous studies available for comparison. INDICATIONS : CHRONIC LEFT KNEE PAIN MEDICAL HISTORY : Osteoarthritis. Fusion, lumbar. Fusion, cervical. Right knee surgery SURGICAL HISTORY : Lumbar fusion ENCOUNTER: Initial ACUITY: 1 day PAIN SCORE: 7/10 LOCATION: Left knee FINDINGS: There are moderate degenerative changes with loss of articular cartilage in the medial compartment. Osteophytes are projected in the patellofemoral compartment. Alignment is anatomic. A fracture is n ot appreciated. Impression moderate degenerative changes without fracture. Anthony Harrison MD FACR on October 10, 2016 at 21:18 Board Certified Radiologist. This report was verified electronically.
[2016-10-10] MEDS: ARTIFICIAL TEARS OPTH SOLN 15 ML BTL EACH EYE PRN (21:34)
[2016-10-11] MEDS: oxyCODONE/ACETAMINOPHEN 10 MG/325 MG TAB PO PRN ×2 (04:36→10:51)
[2016-10-11] MEDS: ARTIFICIAL TEARS OPTH SOLN 15 ML BTL EACH EYE PRN ×2 (06:04→20:38)
[2016-10-11] MEDS: hydrOXYzine HCL 25 MG TAB PO PRN (06:04)
[2016-10-11 06:45] VITALS: BP 117/58; PULSE 72; RESP 17; TEMP 98.9; O2SAT 95
[2016-10-11] MEDS: MORPHINE SULFATE 30 MG CONTROLLED RELEASE TAB PO SCH ×3 (08:15→20:39)
[2016-10-11] MEDS: LISINOPRIL 20 MG TAB PO SCH (08:15)
[2016-10-11] MEDS: clonazePAM 1 MG TAB PO SCH (08:15)
[2016-10-11] MEDS: HYDROCHLOROTHIAZIDE 12.5 MG CAP PO SCH (08:15)
[2016-10-11] MEDS: buPROPion HCL 100 MG SUSTAINED RELEASE TAB PO SCH ×2 (08:15→14:23)
[2016-10-11] MEDS: DULoxetine HCl DR 60 MG CAP PO SCH ×2 (08:15→20:39)
[2016-10-11] MEDS: NICOTINE 21 MG/24 HR PATCH T-DERMAL SCH (08:17)
[2016-10-11] MEDS: REMOVE OLD NICOTINE PATCH T-DERMAL SCH (08:17)
--- NOTE | 2016-10-11 11:56 | HHI.PR ---
Subjective Remarks pain is controlled Denies nausea and vomiting as per RN patient asking for pain medications more frequent than what he should denies cp/sob Objective Vitals Vital Signs Date Time Temp Pulse Resp B/P Pulse Ox O2 Delivery O2 Flow Rate FiO2 10/11/16 06:45 98.9 72 17 117/58 95 10/10/16 17:17 98.2 59 18 124/98 93 Imaging Last Impressions Knee X-Ray 10/10/16 0000 Signed Impressions: Service Date/Time: Monday, October 10, 2016 20:50 - CONCLUSION: Extensive degenerative changes with intraarticular loose bodies. Anthony Harrison MD FACR Lumbar Spine MRI 10/07/16 0000 Signed Impressions: Service Date/Time: Friday, October 07, 2016 13:01 - CONCLUSION: Multilevel disc abnormalities. The presumed disc fragment in a left paracentral location at L4- 5 may account for left leg radicular symptoms. Correlation recommended. Acentrically right-sided findings at the L1-2 and L2-3 levels as described Christian Montoya MD Cervical Spine MRI 10/07/16 0000 Signed Impressions: Service Date/Time: Friday, October 07, 2016 13:01 - CONCLUSION: Previous multilevel cervical fusion. Mild disc abnormalities above the previous fusion with asymmetrically right-sided foraminal compromise at C3-4. No specific explanation for left upper extremity radicular symptoms. Christian Montoya MD Chest X-Ray 10/03/16 1453 Signed Impressions: Service Date/Time: Monday, October 03, 2016 14:54 - CONCLUSION: No acute cardiopulmonary disease identified. Javon Sprague MD Objective Remarks GENERAL: This is a well-nourished, well-developed patient, in no apparent distress. Awake and alert. SKIN: No rashes, ecchymoses or lesions. Cool and dry. HEAD: Atraumatic. Normocephalic. No temporal or scalp tenderness. EYES: Pupils equal round and reactive. Extraocular motions intact. No scleral icterus. No injection or drainage. ENT: Nose without bleeding, purulent drainage or septal hematoma. Throat without erythema, tonsillar hypertrophy or exudate. Uvula midline. Airway patent. NECK: Trachea midline. No lymphadenopathy. Supple, nontender, no meningeal signs. CARDIOVASCULAR: Regular rate and rhythm. (+)3/6 holosystolic murmur radiating into the carotids. RESPIRATORY: Clear to auscultation. Breath sounds equal bilaterally. No wheezes , rales, or rhonchi. GASTROINTESTINAL: Abdomen soft, non-tender, nondistended. No hepato-splenomegaly , or palpable masses. No guarding. MUSCULOSKELETAL: Extremities without clubbing, cyanosis, or edema. No joint tenderness, effusion, or edema noted. No calf tenderness. BL knees look deformed. NEUROLOGICAL: Awake and alert. Able to move all extremities. Weakness LUE and LLE. 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 Normal speech. Medications and IVs Current Medications Medications (Trade) Dose Ordered Sig/Ev Route Start Time Stop Time Status Last Admin (Milk Of Magnesia Liq) 30 ml DAILY PRN PO 10/04/16 16:15 (Mag-Al Plus Susp Liq) 30 ml Q6H PRN PO 10/04/16 16:15 (Habitrol 21 Mg Patch.24 Hr) 1 patch DAILY T-DERMAL 10/04/16 16:30 Miscellaneous Information 1 DAILY T-DERMAL 10/05/16 09:00 (Cymbalta Dr) 60 mg BID PO 10/07/16 21:00 10/11/16 08:15 (Romazicon Inj) 0.2 mg Q1M PRN IV PUSH 10/07/16 13:45 (Ativan) 1 mg Q4H PRN PO 10/07/16 13:45 10/07/16 22:29 (Ativan Inj) 1 mg Q4H PRN IV PUSH 10/07/16 13:45 (Ativan) 2 mg Q2H PRN PO 10/07/16 13:45 (Ativan Inj) 2 mg Q2H PRN IV PUSH 10/07/16 13:45 (Ativan Inj) 2 mg Q1H PRN IV PUSH 10/07/16 13:45 (Ativan Inj) 2 mg Q15M PRN IV PUSH 10/07/16 13:45 (Prinivil) 20 mg DAILY PO 10/08/16 09:00 10/11/16 08:15 (Microzide) 12.5 mg DAILY PO 10/08/16 09:00 10/11/16 08:15 (Oramorph Sr) 30 mg TID PO 10/08/16 09:00 10/11/16 13:26 (Percocet 10-325 Mg) 1 tab Q6H PRN PO 10/07/16 22:45 10/11/16 10:51 (Wellbutrin Sr 12 Hr) 100 mg BID@09,15 PO 10/09/16 15:00 10/11/16 14:23 (Tears Naturale Opth Soln) 1 drop Q4H PRN EACH EYE 10/10/16 15:00 10/11/16 06:04 (KlonoPIN) 1.5 mg Q12HR PO 10/11/16 21:00 A/P Assessment and Plan 56 yo male with past medical history of previous hypertension, aortic valve stenosis, depression, anxiety and chronic neck and low back pain s/p cervical fusion x 3 and lumbar fusion who was admitted to the psychiatric unit due to suicidal ideation with plan and attempt. Hospitalist services were consulted for medical management. Depression/Anxiety/Suicide Attempt - Management of her psychiatric team Hypertension/CAD - stress test done 09/03/16 without e/o ischemia - Continue home antihypertensive medications - Monitor BP and adjust treatment accordingly Aortic valve stenosis - Per review of medical record, patient had previous echocardiogram done showing EF 55-65% with no motion abnormalities and mild to moderate aortic valve stenosis Chronic neck and low back pain s/p previous cervical and lumbar fusions with weak LUE and LLE as well as burning numb sensation in hands - patient reports dropping objects from left hand - cervical surgeries done decades ago without any recent follow up - MRI Cervical and Lumbar spine as above - confirmed medication regimen thru [facility] - Continue Oramorph 30 mg PO TID and Percocet 10/325 mg Q 6 hrs as needed. - Given lumbar MRI findings and lower and upper extremity weakness neurosurgery has been consulted - recommendations pending. - discussed case with RN - consult was placed 10/07 but still patient not seen - will place another consult - DC prn Percocet and will change timing of Oramorph to every 8 hrs to get a more even schedule of the medications. Episode of chest pain last night and early this am per nursing staff - now resolved - Dr. Hill personally reviewed EKG revealing NSR and nonspecific T wave findings - troponins negative x 2 - will continue to monitor for recurrence Ongoing tobacco use - Nicotine patch - discussed smoking cessation/counseling offered BL Knee pain - X rays of knees as above show degenerative changes on both, severe on the left. -Patient has h/o arthroscopic knee surgery - will check knee x rays. -Patient will need to be referred to an orthopedic surgeon after discharge. DVT prophylaxis - Encourage ambulation Thai Garner MD October 11, 2016 11:56
--- NOTE | 2016-10-11 12:33 | HHI.PYPN ---
Subjective Remarks Pt seen and discussed with staff. Pt has been compliant with medications. Staff report that he has been medication focused and was sedated in the morning, but he is alert now. He denies SI/HI. Depression decreased. Objective Alert: Yes [place]: Person, Place, Date Mood: Depressed Affect: Restricted Memory Intact: Comment (Intact) Hallucinations: Other (No AVH) Delusions: No Delusion Type: Other (No delusional material) Suicidal: Intent (denies), Plan (denies), Ideation (denies) Homicidal: Ideation (No HI) Insight/Judgment limited Vitals/IOs Vital Signs Date Time Temp Pulse Resp B/P Pulse Ox O2 Delivery O2 Flow Rate FiO2 10/11/16 06:45 98.9 72 17 117/58 95 Assessment & Plan Problem List: (1) Adjustment disorder with mixed disturbance of emotions and conduct ICD Code: F43.25 Assessment & Plan Will lower dose of klonopin as coupled with pain medications is contributing to oversedation. He is on CIWA scale. Will also discontinue vistaril. Primary team will assess and continue with taper. Estimated LOS: days Justification for Cont. Inpt. medication changes Request HC Surrog/Guard Advoc?: No Jinny Hung MD October 11, 2016 12:33
--- NOTE | 2016-10-11 18:08 | PD.CONS ---
History of Present Illness Service Neurosurgery Consult Requested By Dr. Thai George Reason for Consult Low back pain Primary Care Physician No Primary Care Physician Diagnoses: History of Present Illness 56-year-old male recently presented to the emergency room with depression and suicidal ideation. Admitted for inpatient psychiatric evaluation. He has a history of chronic neck and low back pain, with several previous emergency room evaluations for chronic pain. He indicates that he has had multiple spinal fusion procedures. Past Family Social History Allergies: Coded Allergies: Phenobarbital (Verified Allergy, Unknown, unknown, 10/03/16) Past Medical History Aortic stenosis Anxiety disorder Impression Chronic neck and back pain Arthritis Past Surgical History Cervical and lumbar fusions Hand surgery Reported Medications Reported Meds & Active Scripts Active Reported Percocet (Oxycodone-Acetaminophen) 10-325 mg Tab 1 Tab PO Q6H PRN Ms Contin (Morphine Sulfate) 30 Mg Tab 30 Mg PO TID Zestoretic (Lisinopril-Hctz) 20-12.5 Mg Tab 1 Tab PO DAILY Zanaflex (Tizanidine HCl) 4 Mg Cap 4 Mg PO TID Cymbalta DR (Duloxetine HCl) 60 Mg Capdr 60 Mg PO DAILY Alprazolam 1 Mg Tab 1 Mg PO QID PRN Social History Drinks alcohol occasionally Smokes a few cigarettes per day Physical Exam Vital Signs Vital Signs Date Time Temp Pulse Resp B/P Pulse Ox O2 Delivery O2 Flow Rate FiO2 10/11/16 06:45 98.9 72 17 117/58 95 Physical Exam The patient is awake, alert, oriented, conversant and appropriate. Recent and remote memory appear intact. Speech is clear. There is mild tenderness in the cervical and upper thoracic midline and paraspinous musculature. Cervical range of motion is normal. There is no complaint of pain with cervical spine range of motion. Range of motion of the right and left shoulder is normal without complaint of discomfort. There is no atrophy or fasciculations noted in the upper extremities. There is no upper extremity edema or cyanosis. There is mild tenderness in the lumbar midline and paraspinous musculature. There is no significant gluteal or lateral hip tenderness. There is no lower extremity edema or cyanosis. There is complaint of low back pain with internal and external rotation of the right and left hip with normal hip range of motion. Straight leg raise is negative to 90 degrees sitting position on the right and left. There is normal muscle tone and bulk in the right and left lower extremity without atrophy or fasciculations. Sensation is intact to light touch throughout the upper extremities.except complaint of diffuse paresthesias in both hands. Strength is normal in all major flexion and extension groups and hand intrinsic musculature in the right and left upper extremity except for mild diffuse decrease in the left upper extremity which appears to be due to guarding secondary to pain. Mariella's response is absent on the right and left. Sensation is decreased to light touch in the lower extremities.over the L5 greater than L4 distribution of the left thigh. Strength is normal in major flexion and extension groups inversion/eversion of the foot in the right and left lower extremity. Straight leg raise is negative to 90 degrees on the right and left. The patient gets in and out of chair without significant difficulty. His gait is normal. Imaging 10/07/16 cervical and lumbar spine MRI scan images reviewed by the undersigned. Agree with findings as noted below: Knee X-Ray 10/10/16 0000 Signed Impressions: Service Date/Time: Monday, October 10, 2016 20:50 - CONCLUSION: Extensive degenerative changes with intraarticular loose bodies. Anthony Harrison MD FACR Lumbar Spine MRI 10/07/16 0000 Signed Impressions: Service Date/Time: Friday, October 07, 2016 13:01 - CONCLUSION: Multilevel disc abnormalities. The presumed disc fragment in a left paracentral location at L4- 5 may account for left leg radicular symptoms. Correlation recommended. Acentrically right-sided findings at the L1-2 and L2-3 levels as described Christian Montoya MD Cervical Spine MRI 10/07/16 0000 Signed Impressions: Service Date/Time: Friday, October 07, 2016 13:01 - CONCLUSION: Previous multilevel cervical fusion. Mild disc abnormalities above the previous fusion with asymmetrically right-sided foraminal compromise at C3-4. No specific explanation for left upper extremity radicular symptoms. Christian Montoya MD Chest X-Ray 10/03/16 1453 Signed Impressions: Service Date/Time: Monday, October 03, 2016 14:54 - CONCLUSION: No acute cardiopulmonary disease identified. Javon Sprague MD Assessment and Plan Assessment and Plan Impression: 1. Chronic appearing left L4 5 herniated nucleus pulposus with impingement on the left L4 and possibly L5 nerve root. 2. probable chronic left L5 radiculopathy with sensory deficit 3. chronic neck pain, prior multilevel cervical fusion with no evidence of significant residual nerve or spinal cord compression 4. Chronic LBP Recommendations: Prognosis for recovery of sensation and resolution of L5 radicular pain symptoms seems rather low given the chronic nature of the symptoms and lack of significant L5 nerve compression at the previous L4-5 laminectomy site Have recommended he continue to follow with pain management at [facility] where has been seen in the past. May be a candidate for lumbar faet block and rhizotomy. In regards to more recent upper extremity symptoms, he should consider outpatient neurology evaluation and possible EMG to assess for neuropathy given the lack of significant findings on cervical MRI. I can see him back as an outpatient as needed. Luis Alberto Blakely MD October 11, 2016 18:08
[2016-10-11 18:22] VITALS: BP 103/61; PULSE 56; RESP 18; TEMP 98; O2SAT 97
[2016-10-11] MEDS: clonazePAM 0.5 MG TAB PO SCH (20:38)
[2016-10-11] MEDS: LORazepam 1 MG TAB PO PRN (21:56)
[2016-10-12] MEDS: MORPHINE SULFATE 30 MG CONTROLLED RELEASE TAB PO SCH ×2 (04:49→12:57)
[2016-10-12 05:57] VITALS: BP 114/56; PULSE 72; RESP 18; TEMP 98.4; O2SAT 96
[2016-10-12] MEDS: REMOVE OLD NICOTINE PATCH T-DERMAL SCH (09:00)
[2016-10-12] MEDS: NICOTINE 21 MG/24 HR PATCH T-DERMAL SCH (09:00)
[2016-10-12] MEDS: clonazePAM 0.5 MG TAB PO SCH (09:25)
[2016-10-12] MEDS: HYDROCHLOROTHIAZIDE 12.5 MG CAP PO SCH (09:25)
[2016-10-12] MEDS: LISINOPRIL 20 MG TAB PO SCH (09:26)
[2016-10-12] MEDS: DULoxetine HCl DR 60 MG CAP PO SCH (09:26)
[2016-10-12] MEDS: buPROPion HCL 100 MG SUSTAINED RELEASE TAB PO SCH ×2 (09:27→14:55)
[2016-10-12] MEDS ORDERED: BUPR100CR PO (10:05)
[2016-10-12] MEDS ORDERED: DULO1CAP3 PO (10:05)
[2016-10-12] MEDS ORDERED: CLON.5 PO (10:05)
--- NOTE | 2016-10-12 10:05 | HHI.DS ---
Psychiatry Discharge Summary Inpatient Psychiatric care?: Yes Advance Directive: No Reason Not Provided: DOES NOT WANT TO Mental Health AdvanceDirective: No Health Care Proxy: No Admission Admission Date October 04, 2016 at 16:11 Admission Diagnosis: (1) Adjustment disorder with mixed disturbance of emotions and conduct ICD Code: F43.25 Brief History 56-year-old male with a multiyear history of pain complaints secondary to lumbar fusion, presents to the emergency room voluntarily for admission due to suicidal ideation with plan and attempt. Patient apparently stepped out in front of traffic 2 or 3 days ago and continues to think about committing suicide. Reports an additional stressor of his mother having recently. Describes a 2+ week history of depressed mood, anhedonia, suicidal ideation, anxiety, social withdrawal, diminished self-esteem, poor sleeping, diminished energy, problems with concentration, etc. Patient states he has been compliant with his Cymbalta and he has a history of taking Xanax, that his medicines are not working for him. At the time of this admission, the patient is found to be tremulous and anxious as well as depressed and in pain. Tobacco Use In Past 30 Days: 5 or More Cigarettes/Day Alcohol Use: Never Hospital Course Patient was admitted to a locked, inpatient psychiatric unit. A general medical and neurosurgical consultation were obtained. Appropriate precautions were in place throughout patient's hospital stay. Patient was seen and examined daily on the unit by psychiatry and also visited by counselor. Psychotropic medications were adjusted. Patient tolerated medication changes well without side effects. Patient had improvement in his presenting psychiatric symptomatology although it was noted that he did tend to present considerably better when surreptitiously observed then went directly observed throughout the hospital stay. The patient was noted to be medication seeking. It was suspected by myself and other members of the treatment team that he was exaggerating if not outright malingering his psychiatric symptoms in service of remaining on the inpatient unit and having ready access to his controlled substances. There was no evidence of any suicidality or homicidality on the inpatient unit. Patient remained in good behavioral control and was compliant with medications. Charting indicates that he is sleeping and eating well. On the day of discharge: Patient seen and examined with counselor and nurse. Chart reviewed. Case discussed with nursing staff who reports that the patient is medication seeking for opiate pain medications but otherwise has been no behavioral problem. On my examination today, the patient reports that his mood is somewhat improved versus admission. He denies any active suicidal ideation, intent or plan on direct questioning although he does take great pains to obliquely insinuate that he may, at some point over the weekend, have had such thoughts. He denies any homicidal ideation. No hypomanic/manic symptoms. Sleep and appetite subjectively fair. Denies audiovisual hallucinations and I can elicit no delusional beliefs. No side effects from medications. No new physical complaints. Weighing the acute, chronic, and protective factors and based on the available evidence, I criminal court judge to a reasonable degree of medical certainty that the patient is at low imminent risk of harm to self or others from mental illness as defined under the [place] act and his level of function is adequate for outpatient care. I do detect a distinct strain of manipulativeness in the patient's presentation that bespeaks an antisocial personality style, and this personality style would confer chronic risk for harm , but this risk would not be ameliorated by a longer inpatient hospital stay. The patient has maximized benefit from this inpatient psychiatric hospital stay. He will be discharged today with psychiatric follow-up as arranged by counselor. He is also to follow-up with primary care, orthopedics, neurology and pain management. I have counseled the patient regarding warning signs for need to return to the psychiatric emergency room as part of a general safety plan. I have provided the patient with prescriptions for his psychotropics in the smallest quantity consistent with good care, and in particular I have provided the patient with a one-week supply of his benzodiazepine as we had agreed when I assumed care of his case. Results Blood Pressure 114 / 56 Vital Signs Date Time Temp Pulse Resp B/P Pulse Ox O2 Delivery O2 Flow Rate FiO2 10/12/16 05:57 98.4 72 18 114/56 96 Item Value Date Time White Blood Count 7.4 TH/MM3 10/03/16 1530 Hemoglobin 13.4 GM/DL 10/03/16 1530 Platelet Count 266 TH/MM3 10/03/16 1530 Sodium Level 141 MEQ/L 10/05/16 0704 Potassium Level 3.5 MEQ/L 10/05/16 0704 Chloride Level 106 MEQ/L 10/05/16 0704 Carbon Dioxide Level 28.0 MEQ/L 10/05/16 0704 Blood Urea Nitrogen 15 MG/DL 10/05/16 0704 Creatinine 1.08 MG/DL 10/05/16 0704 Estimat Glomerular Filtration Rate 70 ML/MIN L 10/05/16 0704 Total Bilirubin 0.5 MG/DL 10/03/16 1530 Aspartate Amino Transf (AST/SGOT) 11 U/L L 10/03/16 1530 Alanine Aminotransferase (ALT/SGPT) 15 U/L 10/03/16 1530 Alkaline Phosphatase 74 U/L 10/03/16 1530 Urine Opiates Screen POS H 10/03/16 1612 Urine Barbiturates Screen NEG 10/03/16 1612 Urine Amphetamines Screen NEG 10/03/16 1612 Urine Benzodiazepines Screen POS H 10/03/16 1612 Urine Cocaine Screen NEG 10/03/16 1612 Urine Cannabinoids Screen NEG 10/03/16 1612 Summary of Procedures None done Imaging Last Impressions Knee X-Ray 10/10/16 0000 Signed Impressions: Service Date/Time: Monday, October 10, 2016 20:50 - CONCLUSION: Extensive degenerative changes with intraarticular loose bodies. Anthony Harrison MD FACR Lumbar Spine MRI 10/07/16 0000 Signed Impressions: Service Date/Time: Friday, October 07, 2016 13:01 - CONCLUSION: Multilevel disc abnormalities. The presumed disc fragment in a left paracentral location at L4- 5 may account for left leg radicular symptoms. Correlation recommended. Acentrically right-sided findings at the L1-2 and L2-3 levels as described Christian Montoya MD Cervical Spine MRI 10/07/16 0000 Signed Impressions: Service Date/Time: Friday, October 07, 2016 13:01 - CONCLUSION: Previous multilevel cervical fusion. Mild disc abnormalities above the previous fusion with asymmetrically right-sided foraminal compromise at C3-4. No specific explanation for left upper extremity radicular symptoms. Christian Montoya MD Chest X-Ray 10/03/16 1453 Signed Impressions: Service Date/Time: Monday, October 03, 2016 14:54 - CONCLUSION: No acute cardiopulmonary disease identified. Javon Sprague MD Pending results at discharge: No Medications # of Antipsychotic meds at D/C: 0 Approp Antipsych med options 1 - Minimum of three failed multiple trials of monotherapy. 2 - Documented plan to taper to monotherapy due to previous use of multiple meds OR cross-taper in progress at D/C. 3 - Documentation of augmentation of Clozapine. 4 - Justification other than those listed in allowable values 1-3, document here : Discharge Discharge Date: October 12, 2016 Discharge Diagnosis: (1) Adjustment disorder with mixed disturbance of emotions and conduct Diagnosis: Principal (improved versus admission) ICD Code: F43.25 (2) Malingering Diagnosis: Secondary (Suspected, for ready access to controlled substances) ICD Code: Z76.5 GAF on discharge is 55 Mental Status Exam at Disch Patient is casually dressed. He is well groomed and certainly maintaining basic hygiene. He is awake and alert and oriented to person and hospital at least. No evidence of delirium. No abnormal motor movements noted. Speech is within normal limits for rate, tone and volume. Language and fund of knowledge seemed average. Mood is reportedly improved versus admission although it does remain somewhat depressed by his report. Affect is somewhat blunted. Thought process linear. No loosening of associations. No evident delusions. Denies audiovisual hallucinations. Denies suicidal or homicidal ideation, intent or plan. Insight and judgment are fair. Pt Condition on Discharge: Stable Discharge Disposition: Discharge Home Discharge Instructions Diet Instructions: As Tolerated, No Restrictions Activities you can perform: Weight Bearing as [place] Scheduled Appointment: as per counselor's notes New Medications: Bupropion HCl ER 12 HR (Wellbutrin SR 12 HR) 100 Mg Tab 100 MG PO BID@09,15 Mental Health Days 7 Ref 3 TAB Clonazepam (Klonopin) 0.5 Mg Tab 1.5 MG PO Q12HR Mental Health Days 7 Ref [address] (Duloxetine DR) 60 Mg Capdr 60 MG PO BID Mental Health Days 7 Ref 3 CAP Continued Medications: Lisinopril-Hctz (Zestoretic) 20-12.5 Mg Tab 1 TAB PO DAILY Blood Pressure Management #30 Ref 0 TAB Morphine ER (Ms Contin) 30 Mg Tab 30 MG PO TID Pain Management Ref 0 TAB Oxycodone-Acetaminophen (Percocet) 10-325 mg Tab 1 TAB PO Q6H PRN PAIN Ref 0 TAB Discontinued Medications: Alprazolam (Alprazolam) 1 Mg Tab 1 MG PO QID PRN ANXIETY Ref [address] (Cymbalta DR) 60 Mg Capdr 60 MG PO DAILY #30 Ref 0 CAP Tizanidine (Zanaflex) 4 Mg Cap 4 MG PO TID Muscle Spasm Ref 0 CAP Discharge Time > 30 minutes Discharge/Advance Care Plan Health Problems: (1) Adjustment disorder with mixed disturbance of emotions and conduct Goals to promote your health * To prevent worsening of your condition and complications * To maintain your health at the optimal level Directions to meet your goals Take your medications as prescribed Follow your dietary instruction Follow activity as directed Keep your appointments as scheduled Take your immunizations and boosters as scheduled If your symptoms worsen call your PCP, if no PCP go to Urgent Care Center or Emergency Room For 07/12 questions related to your inpatient stay or results of tests pending at discharge, please contact Dr. Sheng Silva at Smoking is Dangerous to Your Health. Avoid second hand smoking Sheng Silva MD October 12, 2016 10:05
--- NOTE | 2016-10-12 14:06 | HHI.PR ---
Subjective Remarks Pain is controlled denies cp/sob Weakness in left upper and lower extremities is stable numbness on hands is stable Objective Vitals Vital Signs Date Time Temp Pulse Resp B/P Pulse Ox O2 Delivery O2 Flow Rate FiO2 10/12/16 05:57 98.4 72 18 114/56 96 10/11/16 18:22 98.0 56 18 103/61 97 Imaging Last Impressions Knee X-Ray 10/10/16 0000 Signed Impressions: Service Date/Time: Monday, October 10, 2016 20:50 - CONCLUSION: Extensive degenerative changes with intraarticular loose bodies. Anthony Harrison MD FACR Lumbar Spine MRI 10/07/16 0000 Signed Impressions: Service Date/Time: Friday, October 07, 2016 13:01 - CONCLUSION: Multilevel disc abnormalities. The presumed disc fragment in a left paracentral location at L4- 5 may account for left leg radicular symptoms. Correlation recommended. Acentrically right-sided findings at the L1-2 and L2-3 levels as described Christian Montoya MD Cervical Spine MRI 10/07/16 0000 Signed Impressions: Service Date/Time: Friday, October 07, 2016 13:01 - CONCLUSION: Previous multilevel cervical fusion. Mild disc abnormalities above the previous fusion with asymmetrically right-sided foraminal compromise at C3-4. No specific explanation for left upper extremity radicular symptoms. Christian Montoya MD Chest X-Ray 10/03/16 1453 Signed Impressions: Service Date/Time: Monday, October 03, 2016 14:54 - CONCLUSION: No acute cardiopulmonary disease identified. Javon Sprague MD Objective Remarks GENERAL: This is a well-nourished, well-developed patient, in no apparent distress. Awake and alert. SKIN: No rashes, ecchymoses or lesions. Cool and dry. HEAD: Atraumatic. Normocephalic. No temporal or scalp tenderness. EYES: Pupils equal round and reactive. Extraocular motions intact. No scleral icterus. No injection or drainage. ENT: Nose without bleeding, purulent drainage or septal hematoma. Throat without erythema, tonsillar hypertrophy or exudate. Uvula midline. Airway patent. NECK: Trachea midline. No lymphadenopathy. Supple, nontender, no meningeal signs. CARDIOVASCULAR: Regular rate and rhythm. (+)3/6 holosystolic murmur radiating into the carotids. RESPIRATORY: Clear to auscultation. Breath sounds equal bilaterally. No wheezes , rales, or rhonchi. GASTROINTESTINAL: Abdomen soft, non-tender, nondistended. No hepato-splenomegaly , or palpable masses. No guarding. MUSCULOSKELETAL: Extremities without clubbing, cyanosis, or edema. No joint tenderness, effusion, or edema noted. No calf tenderness. BL knees look deformed. NEUROLOGICAL: Awake and alert. Able to move all extremities. Weakness LUE and LLE. 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 Normal speech. Medications and IVs Current Medications Medications (Trade) Dose Ordered Sig/Ev Route Start Time Stop Time Status Last Admin (Milk Of Magnesia Liq) 30 ml DAILY PRN PO 10/04/16 16:15 (Mag-Al Plus Susp Liq) 30 ml Q6H PRN PO 10/04/16 16:15 (Habitrol 21 Mg Patch.24 Hr) 1 patch DAILY T-DERMAL 10/04/16 16:30 Miscellaneous Information 1 DAILY T-DERMAL 10/05/16 09:00 (Cymbalta Dr) 60 mg BID PO 10/07/16 21:00 10/12/16 09:26 (Romazicon Inj) 0.2 mg Q1M PRN IV PUSH 10/07/16 13:45 (Ativan) 1 mg Q4H PRN PO 10/07/16 13:45 10/11/16 21:56 (Ativan Inj) 1 mg Q4H PRN IV PUSH 10/07/16 13:45 (Ativan) 2 mg Q2H PRN PO 10/07/16 13:45 (Ativan Inj) 2 mg Q2H PRN IV PUSH 10/07/16 13:45 (Ativan Inj) 2 mg Q1H PRN IV PUSH 10/07/16 13:45 (Ativan Inj) 2 mg Q15M PRN IV PUSH 10/07/16 13:45 (Prinivil) 20 mg DAILY PO 10/08/16 09:00 10/12/16 09:26 (Microzide) 12.5 mg DAILY PO 10/08/16 09:00 10/12/16 09:25 (Wellbutrin Sr 12 Hr) 100 mg BID@,15 PO 10/09/16 15:00 10/12/16 09:27 (Tears Naturale Opth Soln) 1 drop Q4H PRN EACH EYE 10/10/16 15:00 10/11/16 20:38 (KlonoPIN) 1.5 mg Q12HR PO 10/11/16 21:00 10/12/16 09:25 (Oramorph Sr) 30 mg Q8H PO 10/11/16 21:00 10/12/16 12:57 Urinary Catheter: No Vascular Central Line Catheter: No A/P Assessment and Plan 56 yo male with past medical history of previous hypertension, aortic valve stenosis, depression, anxiety and chronic neck and low back pain s/p cervical fusion x 3 and lumbar fusion who was admitted to the psychiatric unit due to suicidal ideation with plan and attempt. Hospitalist services were consulted for medical management. Depression/Anxiety/Suicide Attempt - Management of her psychiatric team Hypertension/CAD - stress test done 09/03/16 without e/o ischemia - Continue home antihypertensive medications - BP stable Aortic valve stenosis - Per review of medical record, patient had previous echocardiogram done showing EF 55-65% with no motion abnormalities and mild to moderate aortic valve stenosis Chronic neck and low back pain s/p previous cervical and lumbar fusions with weak LUE and LLE as well as burning numb sensation in hands - patient reports dropping objects from left hand - cervical surgeries done decades ago without any recent follow up - MRI Cervical and Lumbar spine as above - confirmed medication regimen thru [facility] - Continue Oramorph 30 mg PO TID and Percocet 10/325 mg Q 6 hrs as needed. - Given lumbar MRI findings and lower and upper extremity weakness neurosurgery has been consulted - MRI as described above. Neurosurgery recommended outpatient follow up as well as outpatient neurology and EMG consultation. - Continue pain management as an outpatient Episode of chest pain last night and early this am per nursing staff - now resolved - EKG revealing NSR and nonspecific T wave findings - troponins negative x 2 - will continue to monitor for recurrence Ongoing tobacco use - Nicotine patch - discussed smoking cessation/counseling offered BL Knee pain - X rays of knees as above show degenerative changes on both, severe on the left. -Patient has h/o arthroscopic knee surgery - will check knee x rays. -Knee x rays shows severe arthritis - Advised patient to get outpatient orthopedic surgery follow up. Continue Pain management. -Orthopedic surgery consulted - Dr Caruso spoke with RN and recommended outpatient follow up. DVT prophylaxis - Encourage ambulation Discharge Planning The patient is medically clear to be discharged - will need outpatient neurology , neurosurgery and orthopedic surgery. Thai Garner MD October 12, 2016 14:06
== END 2016-10-12 14:40 | disposition home or self-care (01) | DRG 882 ==
LOC: NEPC 14:31 → NEDA 10-04 16:11 → H260 10-04 17:45 → H270 10-05 08:25 → H250 10-09 03:14 → H270 10-10 20:30
PROVIDERS: ADMIT Psychiatry & Neurology Psychiatry; ATTEND Psychiatry & Neurology Psychiatry
DX: F43.25 Adjustment disorder with mixed disturbance of emotions and conduct (principal); Z76.5 Malingerer [conscious simulation]; G89.29 Other chronic pain; M51.16 Intervertebral disc disorders with radiculopathy, lumbar region; R07.9 Chest pain, unspecified; I10 Essential (primary) hypertension; I35.0 Nonrheumatic aortic (valve) stenosis; I25.10 Atherosclerotic heart disease of native coronary artery without angina pectoris; Z98.1 Arthrodesis status; F17.210 Nicotine dependence, cigarettes, uncomplicated; M25.562 Pain in left knee; M25.561 Pain in right knee
CPT/HCPCS: 71010; 72156; 72158; 73560; 80048; 80053; 80061; 80307; 83036; 84484; 85025; 93005; A9579; J2060

== ENCOUNTER 2017-03-18 15:33 | Inpatient (IN) | payer MEDICARE, MEDICAID ==
[~2017-03-18] VITALS: Ht 177.8 cm; Wt 90.0 kg
[~2017-03-18 15:33] MED LIST changes: +ASPI81TA11 PO; +BUPR100CR PO; +CELE200C PO; +CLON.5 PO; -CYMB60CA PO; +DULC100C PO; +DULO1CAP3 PO; +MS C30TA PO; +PERC10TA27 PO; -ZANA4CAP PO
[2017-03-18] MEDS ORDERED: SODIUM CHLORIDE 0.9% FLUSH 10 ML FLUSH IV FLUSH PRN (15:45)
[2017-03-18] MEDS ORDERED: NALOXONE HCL 0.4 MG/ML AMP IV PUSH PRN (15:45)
[2017-03-18] MEDS ORDERED: ONDANSETRON HCL 4 MG/2 ML VIAL IV PUSH PRN (15:45)
[2017-03-18] MEDS: SODIUM CHLOR 0.9% 1000 ML INJ 1,000 ML IV SCH ×2 (17:00→21:12)
--- NOTE | 2017-03-18 17:39 | PD.CONS ---
cc: Gumaro Delgado MD [facility] Service General Surgery Consult Requested By Dr. Turner Reason for Consult Acute appendicitis Primary Care Physician No Primary Care Physician History of Present Illness This is a 56-year-old male with a past medical history of chronic pain status post trauma about 20 years ago on chronic MS Contin and Percocet, PTSD/anxiety, hypertension and aortic stenosis. The patient has had abdominal pain for about 2-3 days with associated nausea vomiting. He's been unable to tolerate much by mouth and has had a low appetite. The patient denies any sick contacts. The patient denies eating anything unusual. The patient does report that several times in the last few years he has gone to the emergency department with similar type abdominal pain and a CT scan of the abdomen and pelvis was obtained which showed an inflammation of the appendix but the appendix was never removed nor has the patient been evaluated by a General Surgeon. A General Surgery consultation has been requested for evaluation of acute appendicitis and possible laparoscopic appendectomy. Review of Systems Constitutional: COMPLAINS OF: Change in appetite Endocrine: DENIES: Polydipsia, Polyuria, Polyphagia Eyes: DENIES: Blurred vision Ears, nose, mouth, throat: DENIES: Hearing loss Respiratory: DENIES: Apneas Cardiovascular: DENIES: Chest pain Gastrointestinal: COMPLAINS OF: Abdominal pain, Nausea, Vomiting, DENIES: Constipation, Diarrhea Genitourinary: DENIES: Urgency Musculoskeletal: DENIES: Joint pain Integumentary: DENIES: Abnormal pigmentation Hematologic/lymphatic: DENIES: Bruising Immunologic/allergic: DENIES: Eczema Neurologic: DENIES: Headache, Localized weakness Psychiatric: DENIES: Mood changes, Depression, Hallucinations Past Family Social History Past Medical History Chronic pain PTSD/anxiety Hypertension Aortic stenosis Past Surgical History Cardiac catheterization without stent placement Neck and lumbar surgeries Reported Medications Xanax Colace Aspirin Celebrex Percocet MS Contin Allergies: Coded Allergies: phenobarbital (Unverified Allergy, Unknown, unknown, 03/18/17) Active Ordered Medications Current Medications Medications (Trade) Dose Ordered Sig/Ev Route Start Time Stop Time Status Last Admin Sodium Chloride 1,000 ml @ 100 mls/hr Q10H IV 03/18/17 17:00 (NS Flush) 2 ml UNSCH PRN IV FLUSH 03/18/17 15:45 (NS Flush) 2 ml BID IV FLUSH 03/18/17 21:00 (Narcan Inj) 0.4 mg UNSCH PRN IV PUSH 03/18/17 15:45 (Morphine Inj) 2 mg Q3H PRN IV PUSH 03/18/17 15:45 (Zofran Inj) 4 mg Q6HR PRN IV PUSH 03/18/17 15:45 Piperacillin Sod/ Tazobactam Sod 100 ml @ 200 mls/hr Q6H IV 03/18/17 18:00 Family History Mother with congestive heart failure, CABG 3 and stroke Father with CHF Social History Positive tobacco use about 3-4 cigarettes daily for about 30 years Denies any EtOH use Denies any illicit drug use Lives at home alone; independent with ADLs Physical Exam Vital Signs Temperature 98.9 Heart rate 61 Blood pressure 152/72 Oxygen saturation 96% on room air Physical Exam GENERAL: A 56-year-old male resting in bed in moderate acute distress from abdominal pain. SKIN: Warm and dry. HEAD: Atraumatic. Normocephalic. EYES: Pupils equal and round. No scleral icterus. No injection or drainage. ENT: No nasal bleeding or discharge. Mucous membranes pink and moist. NECK: Trachea midline. CARDIOVASCULAR: Regular rate and rhythm. RESPIRATORY: No accessory muscle use. Clear to auscultation. Breath sounds equal bilaterally. GASTROINTESTINAL: Abdomen soft, nondistended. RLQ pain with palpation. No visible scars or hernias on the abdomen. MUSCULOSKELETAL: Extremities without clubbing, cyanosis, or edema. Bilateral knee brace is in place. NEUROLOGICAL: Awake and alert. No obvious cranial nerve deficits. Motor grossly within normal limits. Five out of 5 muscle strength in the arms and legs. Normal speech. PSYCHIATRIC: Appropriate mood and affect; insight and judgment normal. Laboratory WBC 5.8 Hemoglobin 13.1 Platelets 219 PT 10.8 INR 1.[address] abdomen and pelvis from [place] reviewed and shows early acute appendicitis. Assessment and Plan Assessment and Plan 56-year-old male with acute appendicitis -Plan for laparoscopic appendectomy this evening with Dr. Delgado -Please obtain consents -NPO -IVF -IV antibiotics -Pain control -Procedure explained in detail and all questions answered -Patient seen with RN Liz -Thank you for this consult; We will continue to follow Attending Note - Dr. Delgado Acute appendicitis with RLQ tenderness, guarding and findings/CT consistent with appendicitis To OR this evening Risks, benefits, alternatives and convalescence discussed with patient; he vocalized understanding and agrees to proceed with surgery. The exam, history, and the medical decision-making described in the above note were completed with the assistance of the mid-level provider. I reviewed and agree with the findings presented. I attest that I had a [id number] encounter with the patient on the same day, and personally performed and documented my assessment and findings in the medical record. Discussed Condition With Dr. Danny Hill Mr. Vidhi McgrawJanine Mar 18, 2017 17:39 Gumaro Delgado MD Mar 18, 2017 21:07
[2017-03-18] MEDS: PIPERACIL-TAZO 4.5 GM PREMIX 100 ML IV SCH ×2 (18:00→23:30)
[2017-03-18 19:12] VITALS: BP 144/80; PULSE 55; RESP 17; TEMP 97.3; O2SAT 95
[2017-03-18] MEDS ORDERED: SUGAMMADEX SODIUM 200 MG/2 ML VIAL IV PUSH ONE (19:25)
[2017-03-18] MEDS ORDERED: HYDROmorphone HCL PF 2 MG/ML VIAL ONE (19:53)
[2017-03-18] MEDS ORDERED: ACETAMINOPHEN 1000 MG/100 ML 100 ML IV ONE (20:09)
[2017-03-18] MEDS ORDERED: BUPIVACAINE HCL PF 0.5% 30 ML VIAL INFIL ONE (20:30)
[2017-03-18] MEDS: SODIUM CHLORIDE 0.9% FLUSH 10 ML FLUSH IV FLUSH SCH (20:31)
[2017-03-18] MEDS ORDERED: *MEPERIDINE 25 MG INJ VIAL PERIprocedural Use ONLY ONE (20:52)
[2017-03-18] MEDS ORDERED: HYDROmorphone HCL PF 1 MG/ML VIAL ONE (21:00)
[2017-03-18] MEDS ORDERED: DO NOT ADM ANY ANTICOAGULANT DRUGS PRN (21:15)
[2017-03-18 22:00] VITALS: BP 142/67; PULSE 52; RESP 16; TEMP 96.1; O2SAT 96
[2017-03-18] MEDS: MORPHINE SULFATE 2 MG/ML INJ IV PUSH PRN (22:16)
--- NOTE | 2017-03-18 23:01 | HHI.HP ---
[facility] Service [facility] Primary Care Physician No Primary Care Physician Admission Diagnosis Diagnoses: Travel History International Travel<30 Days: No Contact w/Intl Traveler <30 Da: No Traveled to Known Affected Are: No History of Present Illness 56-year-old male with a past medical history significant for moderate aortic stenosis, followed by cardiology, chronic pain and anxiety presented with early appendicitis. The patient hasn't had abdominal pain for approximately 2-3 days associated with nausea/vomiting. He endorses anorexia associated with his symptoms. CT of the abdomen/pelvis was significant for acute early appendicitis without perforation or abscess. Patient was evaluated by general surgery and was taken for laparoscopic appendectomy earlier this evening. Patient states he has mild to moderate abdominal pain relieved with morphine. He is tolerating by mouth liquids. He is very concerned about receiving his anxiety medications. 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 last seen 6 months ago Past Surgical History Cardiac catheterization 2 months ago; no stents placed Neck fusion 3 L4-L5 discectomy Right knee surgery 3 Hand surgery Urethral repair Reported Medications Reported Meds & Active Scripts Active Duloxetine DR (Duloxetine HCl) 60 Mg Capdr 60 Mg PO BID 7 Days Reported Alprazolam 1 Mg Tab 1 Mg PO QID Dulcolax Stool Softener (Docusate Sodium) 100 Mg Cap 100 Mg PO DAILY Aspirin EC (Aspirin) 81 Mg Tabdr 81 Mg PO DAILY Celebrex (Celecoxib) 200 Mg Cap 200 Mg PO DAILY Percocet (Oxycodone-Acetaminophen) 10-325 mg Tab 1 Tab PO Q4HR PRN Ms Contin (Morphine Sulfate) 30 Mg Tab 30 Mg PO BID Allergies: Coded Allergies: phenobarbital (Unverified Allergy, Unknown, unknown, 03/18/17) Family History Dad with CHF, now . Mom with breast cancer, CHF, CAD and CVA. Social History Smokes 2-5 cigarettes per day. Has been smoking for 15 years. Rare alcohol. Denies marijuana or illicit drugs Physical Exam Vital Signs Vital Signs Date Time Temp Pulse Resp B/P (MAP) Pulse Ox O2 Delivery O2 Flow Rate FiO2 03/18/17 22:00 96.1 52 16 142/67 (92) 96 03/18/17 21:15 97.6 59 16 153/62 (92) 100 Room Air 03/18/17 21:00 97.6 57 16 173/75 (107) 100 Nasal Cannula 3 03/18/17 19:12 97.3 55 17 144/80 (101) 95 Physical Exam GENERAL: White male sitting up in bed SKIN: No rashes, ecchymoses or lesions. Cool and dry. HEAD: Atraumatic. Normocephalic. No temporal or scalp tenderness. EYES: Pupils equal round and reactive. Extraocular motions intact. No scleral icterus. No injection or drainage. ENT: Nose without bleeding, purulent drainage or septal hematoma. Throat without erythema, tonsillar hypertrophy or exudate. Uvula midline. Airway patent. NECK: Trachea midline. No JVD or lymphadenopathy. Supple, nontender, no meningeal signs. CARDIOVASCULAR: Regular rate and rhythm. Harsh, blowing systolic murmur. RESPIRATORY: Clear to auscultation. Breath sounds equal bilaterally. No wheezes , rales, or rhonchi. GASTROINTESTINAL: Abdomen soft, non-tender, nondistended. Umbilical incision clean/dry/intact. MUSCULOSKELETAL: Extremities without clubbing, cyanosis, or edema. No joint tenderness, effusion, or edema noted. No calf tenderness. Negative Homans sign bilaterally. NEUROLOGICAL: Awake and alert. Cranial nerves II through XII intact. Motor and sensory grossly within normal limits. Normal speech. Caprini VTE Risk Assessment Caprini VTE Risk Assessment: No/Low Risk (score <= 1) Caprini Risk Assessment Model Point Value = 1 Point Value = 2 Point Value = 3 Point Value = 5 Age 41-60 Minor surgery BMI > 25 kg/m2 Swollen legs Varicose veins or History of unexplained or recurrent spontaneous Oral contraceptives or hormone replacement Sepsis (< 1 month) Serious lung disease, including pneumonia (< 1 month) Abnormal pulmonary function Acute myocardial infarction Congestive heart failure (< 1 month) History of inflammatory bowel disease Medical patient at bed rest Age 61-74 Arthroscopic surgery Major open surgery (> 45 min) Laparoscopic surgery (> 45 min) Malignancy Confined to bed (> 72 hours) Immobilizing plaster cast Central venous access Age >= 75 History of VTE Family history of VTE Factor V Leiden Prothrombin [id number] Lupus anticoagulant Anticardiolipin antibodies Elevated serum homocysteine Heparin-induced thrombocytopenia Other congenital or acquired thrombophilia Stroke (< 1 month) Elective arthroplasty Hip, pelvis, or leg fracture Acute spinal cord injury (< 1 month) Prophylaxis Regimen Total Risk Factor Score Risk Level Prophylaxis Regimen 0-1 Low Early ambulation 2 Moderate Order ONE of the following: *Sequential Compression Device (SCD) *Heparin 5000 units SQ BID 3-4 Higher Order ONE of the following medications: *Heparin 5000 units SQ TID *Enoxaparin/Lovenox 40 mg SQ daily (WT < 150 kg, CrCl > 30 mL/min) *Enoxaparin/Lovenox 30 mg SQ daily (WT < 150 kg, CrCl > 10-29 mL/min) *Enoxaparin/Lovenox 30 mg SQ BID (WT < 150 kg, CrCl > 30 mL/min) AND/OR *Sequential Compression Device (SCD) 5 or more Highest Order ONE of the following medications: *Heparin 5000 units SQ TID (Preferred with Epidurals) *Enoxaparin/Lovenox 40 mg SQ daily (WT < 150 kg, CrCl > 30 mL/min) *Enoxaparin/Lovenox 30 mg SQ daily (WT < 150 kg, CrCl > 10-29 mL/min) *Enoxaparin/Lovenox 30 mg SQ BID (WT < 150 kg, CrCl > 30 mL/min) AND *Sequential Compression Device (SCD) Assessment and Plan Assessment and Plan 56-year-old male with moderate aortic stenosis and anxiety/PTSD presents with early acute appendicitis 1. Appendicitis Status post laparoscopic appendectomy Tolerating by mouth Zosyn General surgery following, appreciate recommendations 2. Aortic stenosis Moderate Patient followed by cardiology 3. Anxiety/PTSD Continue home medications FEN NS at 100 cc/hour Advance diet as tolerated per general surgery Electrolytes within normal limits; follow SCDs Physician Certification 2 Midnight Certification Type: Admission for Inpatient Services Order for Inpatient Services The services are ordered in accordance with Medicare regulations or non- Medicare payer requirements, as applicable. In the case of services not specified as inpatient-only, they are appropriately provided as inpatient services in accordance with the 2-midnight benchmark. Estimated LOS (days): 2 2 days is the estimated time the patient will need to remain in the hospital, assuming treatment plan goals are met and no additional complications. Post-Hospital Plan: Home Catherine Kennedy MD Mar 18, 2017 23:01
[2017-03-18 23:48] VITALS: BP 156/76; PULSE 70; RESP 17; TEMP 96.9; O2SAT 97
[2017-03-19] MEDS: oxyCODONE/ACETAMINOPHEN 10 MG/325 MG TAB PO PRN ×4 (00:28→12:27)
[2017-03-19] MEDS: MORPHINE SULFATE 2 MG/ML INJ IV PUSH PRN ×3 (01:17→09:38)
[2017-03-19 04:07] VITALS: BP 144/85; PULSE 52; RESP 18; TEMP 98.4; O2SAT 96
[2017-03-19] MEDS: PIPERACIL-TAZO 4.5 GM PREMIX 100 ML IV SCH ×2 (04:32→12:00)
[2017-03-19 05:31] LABS: AUTOMATED NEUTROPHIL # 6.9 TH/MM3 (1.8-7.7); HEMATOCRIT 37.5 % (39.0-51.0); HEMOGLOBIN 12.4 GM/DL (13.0-17.0); LYMPH % 6.9 % (9.0-44.0); LYMPHOCYTE # 0.5 TH/MM3 (1.0-4.8); MEAN CELL VOLUME 94.3 FL (80.0-100.0); MEAN CORPUSCULAR HEMOGLOBIN 31.3 PG (27.0-34.0); MEAN CORPUSCULAR HGB CONC 33.1 % (32.0-36.0); MEAN PLATELET VOLUME 9.5 FL (7.0-11.0); MONO % 2.3 % (0.0-8.0); MONOCYTE # 0.2 TH/MM3 (0-0.9); NEUT % 90.8 % (16.0-70.0); PLATELET COUNT 184 TH/MM3 (150-450); RED BLOOD COUNT 3.97 MIL/MM3 (4.50-5.90); WHITE BLOOD COUNT 7.6 TH/MM3 (4.0-11.0)
[2017-03-19 05:52] LABS: BICARBONATE 24.3 MEQ/L (21.0-32.0); CALCIUM 8.5 MG/DL (8.5-10.1); CREATININE 1.18 MG/DL (0.60-1.30)
[2017-03-19 08:00] VITALS: BP 178/97; PULSE 47; RESP 17; TEMP 96.7; O2SAT 95
[2017-03-19] MEDS: ALPRAZolam 1 MG TAB PO SCH ×2 (08:23→12:27)
[2017-03-19] MEDS: SODIUM CHLORIDE 0.9% FLUSH 10 ML FLUSH IV FLUSH SCH (08:24)
[2017-03-19] MEDS ORDERED: DOCUSATE SODIUM 100 MG CAP PO SCH (09:00)
[2017-03-19] MEDS ORDERED: ASPIRIN EC 81 MG TABEC PO SCH (09:00)
[2017-03-19] MEDS ORDERED: DULoxetine HCl DR 60 MG CAP PO SCH (09:00)
[2017-03-19] MEDS ORDERED: CELECOXIB 200 MG CAP PO SCH (09:00)
[2017-03-19 09:36] VITALS: O2SAT 97
[2017-03-19 12:00] VITALS: BP 144/75; PULSE 90; RESP 18; TEMP 97.5; O2SAT 96
--- NOTE | 2017-03-19 12:11 | HHI.DCPOC ---
Discharge Care Plan Diagnosis: (1) Appendicitis (2) Chronic pain (3) Anxiety Goals to Promote Your Health * To prevent worsening of your condition and complications * To maintain your health at the optimal level Directions to Meet Your Goals Take your medications as prescribed Follow your dietary instruction Follow activity as directed Keep your appointments as scheduled Take your immunizations and boosters as scheduled If your symptoms worsen call your PCP, if no PCP go to Urgent Care Center or Emergency Room Smoking is Dangerous to Your Health. Avoid second hand smoke Call the 24-hour hour crisis hotline for domestic abuse at Tamara Champion MD Mar 19, 2017 12:11
--- NOTE | 2017-03-19 12:11 | HHI.DCPOC ---
Discharge Care Plan Diagnosis: (1) Appendicitis (2) Chronic pain (3) Anxiety Goals to Promote Your Health * To prevent worsening of your condition and complications * To maintain your health at the optimal level Directions to Meet Your Goals Take your medications as prescribed Follow your dietary instruction Follow activity as directed Keep your appointments as scheduled Take your immunizations and boosters as scheduled If your symptoms worsen call your PCP, if no PCP go to Urgent Care Center or Emergency Room Smoking is Dangerous to Your Health. Avoid second hand smoke Call the 24-hour hour crisis hotline for domestic abuse at Tamara Champion MD Mar 19, 2017 12:11
--- NOTE | 2017-03-19 12:11 | HHI.DCPOC ---
Discharge Care Plan Diagnosis: (1) Appendicitis (2) Chronic pain (3) Anxiety Goals to Promote Your Health * To prevent worsening of your condition and complications * To maintain your health at the optimal level Directions to Meet Your Goals Take your medications as prescribed Follow your dietary instruction Follow activity as directed Keep your appointments as scheduled Take your immunizations and boosters as scheduled If your symptoms worsen call your PCP, if no PCP go to Urgent Care Center or Emergency Room Smoking is Dangerous to Your Health. Avoid second hand smoke Call the 24-hour hour crisis hotline for domestic abuse at Tamara Champion MD Mar 19, 2017 12:11
--- NOTE | 2017-03-19 12:12 | HHI.PR ---
Subjective Remarks Patient reports he is doing ok. Tolerated breakfast. Objective Vitals Vital Signs Date Time Temp Pulse Resp B/P (MAP) Pulse Ox O2 Delivery O2 Flow Rate FiO2 03/19/17 09:36 97 03/19/17 08:00 96.7 47 17 178/97 (124) 95 03/19/17 04:07 98.4 52 18 144/85 (104) 96 03/18/17 23:48 96.9 70 17 156/76 (102) 97 03/18/17 22:00 96.1 52 16 142/67 (92) 96 03/18/17 21:15 97.6 59 16 153/62 (92) 100 Room Air 03/18/17 21:00 97.6 57 16 173/75 (107) 100 Nasal Cannula 3 03/18/17 19:12 97.3 55 17 144/80 (101) 95 I/O 03/18/17 03/18/17 03/18/17 03/19/17 03/19/17 03/19/17 07:00 15:00 23:00 07:00 15:00 23:00 Intake Total 1000 ml 1430 ml 999 ml Output Total 5 ml 500 ml Balance 995 ml 930 ml 999 ml Intake Oral 0 ml 380 ml IV Total 1000 ml 1050 ml 999 ml Output Urine Total 0 ml 500 ml Estimated Blood Loss 5 ml # Bowel Movements 0 Result Diagram: 03/19/17 0438 03/19/17 043 Objective Remarks GENERAL: No acute distress SKIN: Warm and dry. POrt sites on the abdomen appears clean. CARDIOVASCULAR: Regular rate and rhythm. RESPIRATORY: No accessory muscle use. Clear to auscultation. Breath sounds equal bilaterally. GASTROINTESTINAL: Abdomen soft, nondistended, appropriately tender at the surgical sites. MUSCULOSKELETAL: Extremities without clubbing, cyanosis, or edema. No obvious deformities. NEUROLOGICAL: Awake and alert. Normal speech. PSYCHIATRIC: Appropriate mood and affect; insight and judgment normal. A/P Problem List: (1) Appendicitis ICD Code: K37 - Unspecified appendicitis (2) Chronic pain ICD Code: G89.29 - Other chronic pain Status: Acute Assessment and Plan 56-year-old male with moderate aortic stenosis and anxiety/PTSD presents with early acute appendicitis. Patient was followed by general surgery. He underwent laparoscopic appendectomy. Patient did well post. He is discharged on in good condition. Continue all home medications for chronic conditions. Discharge home in good condition Diet: Regular as tolerated Activity: Reg as tolerated Meds: Per med rec Follow up: With PCP and surgery. Tamara Champion MD Mar 19, 2017 12:12
[2017-03-19] MEDS: SODIUM CHLOR 0.9% 1000 ML INJ 1,000 ML IV SCH (12:27)
--- NOTE | 2017-03-19 13:45 | HHI.PR ---
Subjective Subjective Notes Resting in bed Feels hungry Objective Vitals/I&O Vital Signs Date Time Temp Pulse Resp B/P (MAP) Pulse Ox O2 Delivery O2 Flow Rate FiO2 03/19/17 12:00 97.5 90 18 144/75 (98) 96 03/18/17 21:15 Room Air 03/18/17 21:00 3 Labs Laboratory Tests Test 03/19/17 04:38 White Blood Count 7.6 Red Blood Count 3.97 Hemoglobin 12.4 Hematocrit 37.5 Mean Corpuscular Volume 94.3 Mean Corpuscular Hemoglobin 31.3 Mean Corpuscular Hemoglobin Concent 33.1 Red Cell Distribution Width 16.0 Platelet Count 184 Mean Platelet Volume 9.5 Neutrophils (%) (Auto) 90.8 Lymphocytes (%) (Auto) 6.9 Monocytes (%) (Auto) 2.3 Eosinophils (%) (Auto) 0.0 Basophils (%) (Auto) 0.0 Neutrophils # (Auto) 6.9 Lymphocytes # (Auto) 0.5 Monocytes # (Auto) 0.2 Eosinophils # (Auto) 0.0 Basophils # (Auto) 0.0 CBC Comment DIFF FINAL Differential Comment Blood Urea Nitrogen 14 Creatinine 1.18 Random Glucose 136 Calcium Level 8.5 Sodium Level 138 Potassium Level 4.3 Chloride Level 106 Carbon Dioxide Level 24.3 Anion Gap 8 Estimat Glomerular Filtration Rate [address] abdomen and pelvis from [place] reviewed and shows early acute appendicitis. Cardiovascular: Regular Lungs: Clear Abdomen: Non-distended, Other (lap sites c/d/i ), Post-op tenderness Extremities: No edema A/P Assessment and Plan 56 year old male POD1 lap appy; non perforated; non complicated -Advance to regular diet -DC IVF -No antibiotics needed -GS clear for DC -Follow up 1 week with Janine Jones Mar 19, 2017 13:45
--- NOTE | 2017-03-19 20:00 | MP ---
cc: BECCA DELGADO MD DATE OF SURGERY 03/18/17 PROCEDURE Laparoscopic appendectomy. PREOPERATIVE DIAGNOSIS Acute appendicitis POSTOPERATIVE DIAGNOSIS Acute appendicitis without perforation ANESTHESIA General endotracheal SURGEON Mando Delgado MD ESTIMATED BLOOD LOSS 5 mL FLUIDS 900 mL crystalloid COMPLICATIONS None. DRAINS None. SPECIMEN Appendix to pathology. PROCEDURE IN DETAIL The patient was taken to the operating room and placed on the operating table in the supine position. After an adequate level of general endotracheal anesthesia was achieved, the abdomen was prepped and draped in usual fashion. Time-out was taken confirming the correct patient, site and procedure to be performed. Skin and subcutaneous tissue was infiltrated with local anesthetic and incision made in the umbilicus and carried through the fascia sharply. The peritoneal cavity was directly visualized. A 12 mm balloon trocar was inserted and the balloon inflated. The abdomen was insufflated. The patient was placed in Trendelenburg position. Two 5 mm trocars were then placed with the first in the right lower quadrant and the second in the infraumbilical suprapubic region. Both entered the abdominal cavity under direct vision uneventfully. The appendix was then manipulated and the tip was seen to be mildly inflamed. The mesoappendix was divided with the harmonic scalpel and a bloodless plane and dissection was carried back to the base of the appendix. A 0-PDS Endoloop was cinched down at the base of the appendix. One cm distal to this, the appendix was divided. The appendix was placed into an EndoCatch device and removed via the umbilical port while observing via the right lower quadrant trocar site. The specimen was passed off the table. The abdomen was reexamined and irrigated. The appendiceal stump and mesoappendix were reexamined and found be clean and dry. All irrigation was aspirated from the abdominal cavity. Insufflation was discontinued. The 5-mm trocars were removed under direct vision. No bleeding was noted from the trocar sites during desufflation of the abdomen. The laparoscope and umbilical port were removed. The fascia was closed in the umbilicus with 0 Vicryl suture in both a simple interrupted and [id number] fashion. The remaining local anesthetic was injected into each of the trocar sites and the skin was closed at each of the three trocar sites with 4-0 Vicryl in an interrupted buried fashion. The trocar sites were dressed with Steri-Strips. The patient was extubated and taken back to the recovery room in stable condition. He tolerated the procedure well. MD LANETTE Nagy/ /9:15 PM /7:59 PM
== END 2017-03-19 14:07 | disposition home or self-care (01) | DRG 343 ==
LOC: HOR 17:10 → N07B 17:20 → OBSVTOIN 22:52
PROVIDERS: ADMIT Family Medicine; ATTEND Family Medicine
PROC: 0DTJ4ZZ Resection of Appendix, Percutaneous Endoscopic Approach (ICD-10-PCS; principal; 2017-03-18 19:43)
DX: K35.80 Unspecified acute appendicitis (principal); I10 Essential (primary) hypertension; G89.29 Other chronic pain; I35.0 Nonrheumatic aortic (valve) stenosis; F43.10 Post-traumatic stress disorder, unspecified; Z72.0 Tobacco use
CPT/HCPCS: 71010; 74176; 80048; 80053; 81001; 83690; 84484; 85025; 88304; 93005; J0131; J1170; J2060; J2175; J2270; J2405; J2543; J7030

== ENCOUNTER 2017-03-28 13:20 | Observation (INO) | payer MEDICARE, MEDICAID ==
[~2017-03-28] VITALS: Ht 177.8 cm; Wt 87.0 kg
[~2017-03-28 13:20] MED LIST changes: -ASPI81TA11 PO; +ASPI81TA23 PO; -BUPR100CR PO; -CLON.5 PO; +CYMB60CA PO; +HYDR12.57 PO; -LISI-586 PO; +LISI10TA3 PO
[2017-03-28] MEDS ORDERED: VIAG100T PO (13:42)
[2017-03-28] MEDS ORDERED: BISACODYL 10 MG SUPP RECTAL PRN (14:00)
[2017-03-28] MEDS ORDERED: MORPHINE SULFATE 4 MG/ML INJ IV PUSH PRN ×2 (14:00)
[2017-03-28] MEDS ORDERED: oxyCODONE/ACETAMINOPHEN 5 MG/325 MG TAB PO PRN (14:00)
[2017-03-28] MEDS ORDERED: SODIUM CHLORIDE 0.9% FLUSH 10 ML FLUSH IV FLUSH PRN ×2 (14:00)
[2017-03-28] MEDS ORDERED: NALOXONE HCL 0.4 MG/ML AMP IV PUSH PRN (14:00)
[2017-03-28] MEDS ORDERED: SENNOSIDES 8.6 MG TAB PO PRN (14:00)
[2017-03-28] MEDS ORDERED: ACETAMINOPHEN 500 MG CPLT PO PRN (14:00)
[2017-03-28] MEDS ORDERED: cloNIDine HCL 0.1 MG TAB PO PRN (14:00)
[2017-03-28] MEDS ORDERED: ONDANSETRON HCL 4 MG/2 ML VIAL IVP PRN (14:00)
[2017-03-28] MEDS ORDERED: ACETAMINOPHEN 325 MG TAB PO PRN ×2 (14:00)
[2017-03-28] MEDS ORDERED: ENOXAPARIN SODIUM 40 MG/0.4 ML SYRINGE SQ SCH (14:00)
[2017-03-28] MEDS ORDERED: MAGNESIUM HYDROXIDE SUSP 30 ML CUP PO PRN (14:00)
[2017-03-28] MEDS ORDERED: PROCHLORPERAZINE 25 MG SUPP RECTAL PRN (14:00)
[2017-03-28] MEDS ORDERED: LACTULOSE SYRUP 20 GM/30 ML CUP PO PRN (14:00)
[2017-03-28] MEDS ORDERED: ALPRAZolam 0.25 MG TAB PO PRN (14:00)
--- NOTE | 2017-03-28 16:41 | HHI.HP ---
HPI Primary Care Physician No Primary Care Physician Chief Complaint Chest pain History of Present Illness There is a 56-year-old male that presents to ED in [place] to evaluate a chest discomfort and was subsequently transported to chest pain center via [facility] to further evaluate his discomfort. She does have recent history of having a laparoscopic appendectomy one week ago at this facility. States he really has not been that active until today which he went for a walk. States that he had taken a Viagra earlier in the morning, had sex without any issues. Denied having discomforts or shortness of breath during sex. About 2 hours later he decided to go for walk. Describes developing a discomfort as "an elephant sitting on my chest" rated as a 9 out of 10. He was short of breath, nauseous, and diaphoretic with the symptoms. States the discomfort still present as an 8 out of 10. He was given medication in [place] which helped a little bit but did not get nitroglycerin secondary to recently taking Viagra. He denies history of coronary artery disease. States he had a heart catheterization about 7 years ago and really cannot recall the results but states he had no stents placed. He had a Lexiscan at this facility September 03 that was nonischemic and on the same visit he had a 2-D echo revealing mild to moderate aortic stenosis. Has not followed with cardiology since. Denies recent illness. Denies fevers or chills. Review of Systems General: Patient denies fevers, chills recent, and recent travel HEENT: Patient denies headache, sore throat, difficulty swallowing. Cardiovascular: Has the chest discomfort as mentioned above. Denies sensation of heart beating rapidly or irregularly. No syncope. He was diaphoretic. Respiratory: He was short of breath. Denies inspirational chest discomfort. Denies coughing wheezing or hemoptysis. GI: He was nauseous. A little bit of abdominal discomfort but states it has improved significantly postoperatively. Patient denies, vomiting, diarrhea, bloody stools. Musculoskeletal: He has chronic neck, back, and bilateral knee pains. Patient denies joint pain or edema. Denies calf pain or edema. Neurovascular: Patient denies numbness, tingling, weakness in extremities. Denies headache. Endocrine: Denies polyuria and polydipsia. Hematologic: Denies easy bruising. Skin: Denies rash or itching. Past Family Social History Allergies: Coded Allergies: phenobarbital (Unverified Allergy, Unknown, unknown, 03/28/17) Past Medical History Hypertension, chronic pain, tobacco abuse, recent laparoscopic appendectomy. Eyes hyperlipidemia, diabetes, and known CAD. Past Surgical History Laparoscopic appendectomy last week. Ex surgeries, back surgeries. Knee surgeries. Stated cardiac catheterization without intervention. Reported Medications Reported Meds & Active Scripts Active Reported Viagra (Sildenafil Citrate) 100 Mg Tab 100 Mg PO DAILY PRN Hydrochlorothiazide 12.5 Mg Cap 12.5 Mg PO DAILY Lisinopril 10 Mg Tab 10 Mg PO DAILY Cymbalta DR (Duloxetine HCl) 60 Mg Capdr 60 Mg PO BID Aspirin EC (Aspirin) 81 Mg Tabdr 81 Mg PO DAILY Celebrex (Celecoxib) 200 Mg Cap 200 Mg PO DAILY Percocet (Oxycodone-Acetaminophen) 10-325 mg Tab 1 Tab PO Q4HR PRN Active Ordered Medications Current Medications Medications (Trade) Dose Ordered Sig/Ev Route Start Time Stop Time Status Last Admin (Catapres) 0.1 mg Q4H PRN PO 03/28/17 14:00 (Ecotrin Ec) 81 mg DAILY PO 03/29/17 09:00 (CeleBREX) 200 mg DAILY PO 03/29/17 09:00 (Cymbalta Dr) 60 mg BID PO 03/28/17 21:00 (Microzide) 12.5 mg DAILY PO 03/29/17 09:00 (Prinivil) 10 mg DAILY PO 03/29/17 09:00 (Percocet 10-325 Mg) 1 tab Q4HR PRN PO 03/28/17 14:00 (NS Flush) 2 ml BID IV FLUSH 03/28/17 21:00 (NS Flush) 2 ml UNSCH PRN IV FLUSH 03/28/17 14:00 (Tylenol) 500 mg Q4H PRN PO 03/28/17 14:00 (Protonix) 40 mg DAILY PO 03/28/17 17:00 (Xanax) 0.25 mg TID PRN PO 03/28/17 14:00 (Tylenol) 650 mg Q4H PRN PO 03/28/17 14:00 (Zofran Inj) 4 mg Q6H PRN IVP 03/28/17 14:00 (Compazine Supp) 25 mg Q12H PRN RECTAL 03/28/17 14:00 (Ambien) 5 mg HS PRN PO 03/28/17 21:00 (Tylenol) 650 mg Q6H PRN PO 03/28/17 14:00 (Percocet 5-325 Mg) 1 tab Q6H PRN PO 03/28/17 14:00 (Morphine Inj) 2 mg Q3H PRN IV PUSH 03/28/17 14:00 (Morphine Inj) 4 mg Q3H PRN IV PUSH 03/28/17 14:00 (Narcan Inj) 0.4 mg UNSCH PRN IV PUSH 03/28/17 14:00 (Suzie-Colace) 1 tab BID PO 03/28/17 21:00 (Milk Of Magnesia Liq) 30 ml Q12H PRN PO 03/28/17 14:00 (Senokot) 17.2 mg Q12H PRN PO 03/28/17 14:00 (Dulcolax Supp) 10 mg DAILY PRN RECTAL 03/28/17 14:00 (Lactulose Liq) 30 ml DAILY PRN PO 03/28/17 14:00 Family History Both parents had CAD. Father's onset was in his 40s and his mother's onset CAD was in her 50s. Social History Patient has smoked one quarter pack of cigarettes daily for approximately 20 years. Has occasional alcohol. Denies illicit drugs. Physical Exam Physical Exam GENERAL: This is a well-nourished, well-developed patient, in no apparent distress. Patient speaks in clear complete sentences. Patient is pleasant. HEENT: Head is atraumatic and normocephalic. Neck is supple without lymphadenopathy and trachea is midline. No JVD or carotid bruits. CARDIOVASCULAR: Grade 3 systolic murmur best heard right sternal border radiating into the neck. This is also audible along the left sternal border. Regular rate and rhythm without murmurs, gallops, or rubs. RESPIRATORY: Clear to auscultation. Breath sounds equal bilaterally. No wheezes , rales, or rhonchi. Chest wall is nontender. No use of accessory muscles. GASTROINTESTINAL: Abdomen is nontender, nondistended. Abdomen soft. No obvious pulsatile mass or bruit. No CVA tenderness. Strong femoral pulses bilaterally. Normal bowel sounds in all quadrants. MUSCULOSKELETAL: Patient is moving upper and lower extremities freely. No calf tenderness or edema, no Homans sign. Strong pulses in upper and lower extremities. NEUROLOGICAL: Patient is alert and oriented. Cranial nerves 2-12 are grossly intact. No focal deficits and speech is clear. SKIN: No rash and turgor is normal. Imaging Chest x-ray read by radiologist as no acute disease. Course Initial EKG sinus tachycardia rate [address] segment depressions or elevations. Nonspecific T-wave changes. Caprini VTE Risk Assessment Caprini VTE Risk Assessment: Mod/High Risk (score >= 2) Caprini Risk Assessment Model Point Value = 1 Point Value = 2 Point Value = 3 Point Value = 5 Age 41-60 Minor surgery BMI > 25 kg/m2 Swollen legs Varicose veins or History of unexplained or recurrent spontaneous Oral contraceptives or hormone replacement Sepsis (< 1 month) Serious lung disease, including pneumonia (< 1 month) Abnormal pulmonary function Acute myocardial infarction Congestive heart failure (< 1 month) History of inflammatory bowel disease Medical patient at bed rest Age 61-74 Arthroscopic surgery Major open surgery (> 45 min) Laparoscopic surgery (> 45 min) Malignancy Confined to bed (> 72 hours) Immobilizing plaster cast Central venous access Age >= 75 History of VTE Family history of VTE Factor V Leiden Prothrombin [id number] Lupus anticoagulant Anticardiolipin antibodies Elevated serum homocysteine Heparin-induced thrombocytopenia Other congenital or acquired thrombophilia Stroke (< 1 month) Elective arthroplasty Hip, pelvis, or leg fracture Acute spinal cord injury (< 1 month) Prophylaxis Regimen Total Risk Factor Score Risk Level Prophylaxis Regimen 0-1 Low Early ambulation 2 Moderate Order ONE of the following: *Sequential Compression Device (SCD) *Heparin 5000 units SQ BID 3-4 Higher Order ONE of the following medications: *Heparin 5000 units SQ TID *Enoxaparin/Lovenox 40 mg SQ daily (WT < 150 kg, CrCl > 30 mL/min) *Enoxaparin/Lovenox 30 mg SQ daily (WT < 150 kg, CrCl > 10-29 mL/min) *Enoxaparin/Lovenox 30 mg SQ BID (WT < 150 kg, CrCl > 30 mL/min) AND/OR *Sequential Compression Device (SCD) 5 or more Highest Order ONE of the following medications: *Heparin 5000 units SQ TID (Preferred with Epidurals) *Enoxaparin/Lovenox 40 mg SQ daily (WT < 150 kg, CrCl > 30 mL/min) *Enoxaparin/Lovenox 30 mg SQ daily (WT < 150 kg, CrCl > 10-29 mL/min) *Enoxaparin/Lovenox 30 mg SQ BID (WT < 150 kg, CrCl > 30 mL/min) AND *Sequential Compression Device (SCD) Assessment and Plan Assessment and Plan * Chest pain: Patient will continue to have serial cardiac enzymes and EKGs for ruling out purposes. He will be seen by Dr. Ramirez of cardiology and the chest and picacho. I have discussed this patient with Dr. Ramirez. Reviewed 2-D echo on this patient from September 03, [address] Ramirez and likely the aortic stenosis has not progressed within the last 6 months. Subsequently patient will likely have a Lexiscan in the morning if he does rule out. He will need to follow with rigger apprentice after being discharged. The discomfort in his chest is still present. He basically stating he has had a sedentary lifestyle since his surgery a week ago. We will get a CTA to rule out PE. If CTA is negative for PE that he likely will have a Lexiscan in the morning. * Hypertension: Continue current medication. * Chronic pain: Continue his medications. * Tobacco abuse: Patient has been counseled on importance of smoking cessation. Patient is stable this time. He is agreeable to this plan. Saravanan Castorena Mar 28, 2017 16:41
[2017-03-28] MEDS ORDERED: MS C15TA7 PO (16:47)
[2017-03-28] MEDS ORDERED: XANA2TAB2 PO (16:47)
[2017-03-28] MEDS ORDERED: XANA1TAB2 PO (16:47)
[2017-03-28] MEDS ORDERED: ALPRAZolam 1 MG TAB PO SCH ×2 (17:00→21:00)
[2017-03-28 17:42] VITALS: BP 138/82; PULSE 64; RESP 16; TEMP 97.9; O2SAT 98
[2017-03-28] MEDS: MORPHINE SULFATE 30 MG CONTROLLED RELEASE TAB PO SCH (17:58)
[2017-03-28] MEDS: PANTOPRAZOLE SOD 40 MG DELAYED RELEASE TAB PO SCH (17:58)
[2017-03-28 18:13] VITALS: PULSE 63
[2017-03-28 18:18] LABS: CREATINE KINASE 65 U/L (39-308)
[2017-03-28 20:19] VITALS: BP 112/63; PULSE 69; RESP 16; TEMP 98.1; O2SAT 98
[2017-03-28 20:52] VITALS: O2SAT 97
[2017-03-28] MEDS ORDERED: SODIUM CHLORIDE 0.9% FLUSH 10 ML FLUSH IV FLUSH SCH (21:00)
[2017-03-28] MEDS ORDERED: ZOLPIDEM TARTRATE 5 MG TAB PO PRN (21:00)
[2017-03-28] MEDS: SODIUM CHLORIDE 0.9% FLUSH 10 ML FLUSH IV FLUSH SCH (21:00)
[2017-03-28] MEDS: DULoxetine HCl DR 60 MG CAP PO SCH (21:44)
[2017-03-28] MEDS: DOCUSATE SODIUM 50 MG/SENNA 8.6 MG TAB PO SCH (21:44)
[2017-03-28] MEDS: oxyCODONE/ACETAMINOPHEN 10 MG/325 MG TAB PO PRN (21:49)
[2017-03-28 23:55] VITALS: BP 114/67; RESP 17; TEMP 98.1; O2SAT 95
[2017-03-29] MEDS: MORPHINE SULFATE 30 MG CONTROLLED RELEASE TAB PO SCH ×2 (01:27→08:33)
[2017-03-29] MEDS: oxyCODONE/ACETAMINOPHEN 10 MG/325 MG TAB PO PRN ×2 (03:16→09:45)
[2017-03-29 03:35] VITALS: BP 98/57; PULSE 55; RESP 17; TEMP 98.1; O2SAT 96
[2017-03-29] MEDS ORDERED: IOHEXOL 350 MG/ML 10 ML VIAL (for RAD DIAG) IVCONTRAST ONE (05:25)
--- NOTE | 2017-03-29 05:49 | RADRPT ---
EXAM DATE/TIME: 03/29/2017 05:24 [facility] COMPARISON: No previous studies available for comparison. INDICATIONS : Chest pain; rule out pulmonary embolus. IV CONTRAST: 75 cc Omnipaque 350 (iohexol) IV RADIATION DOSE: 23.18 CTDIvol (mGy) MEDICAL HISTORY : Cardiovascular disease. Hypertension. SURGICAL HISTORY : Appendectomy. ENCOUNTER: Initial ACUITY: 1 day PAIN SCALE: 5/10 LOCATION: chest TECHNIQUE: Volumetric scanning of the chest was performed using a pulmonary embolism protocol MIP images were re constructed. Using automated exposure control and adjustment of the mA and/or kV according to patien t size, radiation dose was kept as low as reasonably achievable to obtain optimal diagnostic quality images. DICOM format image data is available electronically for review and comparison. Follow-up recommendations for detected pulmonary nodules are based at a minimum on nodule size and pa tient risk factors according to Fleischner Society Guidelines. FINDINGS: PULMONARY ARTERIES: No filling defects are seen in the pulmonary arteries through the segmental level. LUNGS: There is no consolidation or pneumothorax . No concerning pulmonary nodule is visualized. PLEURAE: There is no pleural thickening or pleural effusion. MEDIASTINUM: There is good visualization of the great vessels of the middle mediastinum. No evidence of mediastin al or hilar adenopathy/mass. MUSCULOSKELETAL: Within normal limits for patient age. MISCELLANEOUS: The visualized upper abdominal organs demonstrate no acute abnormality. CONCLUSION: Normal examination. Randy Baker MD on March 29, 2017 at 5:48 Board Certified Radiologist. This report was verified electronically.
[2017-03-29 07:11] VITALS: BP 109/59; PULSE 62; RESP 18; TEMP 98; O2SAT 95
[2017-03-29] MEDS: ALPRAZolam 1 MG TAB PO SCH ×2 (07:16→12:21)
[2017-03-29 07:59] VITALS: PULSE 75
[2017-03-29] MEDS: DULoxetine HCl DR 60 MG CAP PO SCH (08:30)
[2017-03-29] MEDS: DOCUSATE SODIUM 50 MG/SENNA 8.6 MG TAB PO SCH (08:31)
[2017-03-29] MEDS: PANTOPRAZOLE SOD 40 MG DELAYED RELEASE TAB PO SCH (08:31)
[2017-03-29] MEDS: SODIUM CHLORIDE 0.9% FLUSH 10 ML FLUSH IV FLUSH SCH (08:32)
[2017-03-29] MEDS ORDERED: LISINOPRIL 10 MG TAB PO SCH (09:00)
[2017-03-29] MEDS ORDERED: CELECOXIB 200 MG CAP PO SCH (09:00)
[2017-03-29] MEDS ORDERED: ASPIRIN EC 81 MG TABEC PO SCH (09:00)
[2017-03-29] MEDS ORDERED: HYDROCHLOROTHIAZIDE 12.5 MG CAP PO SCH (09:00)
[2017-03-29] MEDS ORDERED: REGADENOSON INJ 0.4 MG/5 ML SYR ONE (10:15)
--- NOTE | 2017-03-29 10:53 | OTSOAPIP ---
PATIENT OFF THE FLOOR FOR TESTING. JT Therapist: Joann Ayala OTR/L Signature on file
--- NOTE | 2017-03-29 11:43 | RADRPT ---
EXAM DATE/TIME: 03/29/2017 10:01 [facility] COMPARISON: CT PULMONARY ANGIOGRAM, March 29, 2017, 5:24. MYOCARDIAL PERF PHARM SPECT, GATED W/EF, September 03, 2016, 12:31. INDICATIONS : Mid chest pain for one day. Angina. DOSE: 26.6 mCi Tc99m Myoview at stress. 8.5 mCi Tc99m Myoview at rest. 0.4 mg Lexiscan STRESS SYMPTOMS: Shortness of breath with chest pressure. EJECTION FRACTION: 57% MEDICAL HISTORY : Hypertension. SURGICAL HISTORY : Appendectomy. ENCOUNTER: Initial ACUITY: 1 day PAIN SCALE: 5/10 LOCATION: Midsternal chest TECHNIQUE: The patient underwent pharmacologic stress with infusion of prescribed dose. Continuous ECG tracing was monitored during stress. Gated SPECT imaging was performed after stress and conventional SPECT i maging was performed at rest. The examination was performed on a SPECT/CT scanner, both attenuation and non-corrected datasets were reviewed. FINDINGS: DISTRIBUTION: The maximum perfused segment at stress is in the septal wall. PERFUSION STUDY: The pattern of perfusion at stress is within normal limits. GATED STUDY: There is intact wall motion and thickening without hypokinetic or dyskinetic segments. CONCLUSION: 1. No reversible perfusion defect to indicate stress-induced myocardial ischemia identified. RISK CATEGORY: Low (<1% Annual Mortality Rate) Allen Harrison MD on March 29, 2017 at 11:34 Board Certified Radiologist. This report was verified electronically.
--- NOTE | 2017-03-29 12:05 | HHI.DCPOC ---
Discharge Care Plan Goals to Promote Your Health * To prevent worsening of your condition and complications * To maintain your health at the optimal level Directions to Meet Your Goals Take your medications as prescribed Follow your dietary instruction Follow activity as directed Keep your appointments as scheduled Take your immunizations and boosters as scheduled If your symptoms worsen call your PCP, if no PCP go to Urgent Care Center or Emergency Room Smoking is Dangerous to Your Health. Avoid second hand smoke Call the 24-hour hour crisis hotline for domestic abuse at Nayana Silvestre Mar 29, 2017 12:05
--- NOTE | 2017-03-29 12:11 | HHI.DS ---
Discharge Summary Admission Date Mar 28, 2017 at 15:59 Discharge Date: Mar 29, 2017 Admitting Diagnosis chest pain (1) Atypical chest pain Diagnosis: Principal ICD Codes: R07.89 - Other chest pain Status: Resolved (2) Hypertension Diagnosis: Principal ICD Codes: I10 - Hypertension Status: Chronic (3) Tobacco abuse Diagnosis: Principal ICD Codes: Z72.0 - Tobacco abuse Status: Chronic (4) Aortic stenosis Diagnosis: Principal ICD Codes: I35.0 - Aortic stenosis Status: Chronic Brief History 56 year old male with history of hypertension and current smoker presented to ER for further evaluation of chest pain. Onset yesterday afternoon while walking his dog. S/P appendectomy x1 week ago. Significant Findings Laboratory Tests Test 03/28/17 17:40 Troponin I LESS THAN 0.02 NG/ML Imaging Last Impressions Myocardial Perfusion Scan Nuc Med 03/29/17 0000 Signed Impressions: Service Date/Time: Wednesday, March 29, 2017 10:01 - CONCLUSION: 1. No reversible perfusion defect to indicate stress-induced myocardial ischemia identified. RISK CATEGORY: Low (<1%% Annual Mortality Rate) Allen Harrison MD CT Angiography 03/28/17 0000 Signed Impressions: Service Date/Time: Wednesday, March 29, 2017 05:24 - CONCLUSION: Normal examination. Randy Baker MD PE at Discharge GENERAL: Alert WN, WD, NAD, pleasant, male HEAD: NC, AT EYES: Sclera clear, conjunctiva without injection ENT: Mucous membranes pink and moist CV: RRR, 3/6 systolic murmur, no rub, gallop, or JVD, S1-S2 no S3-S4. Carotid bruits most likely referred sound from systolic murmur. RESP: Clear lungs throughout bilateral, no crackles, wheeze, rhonchi, symmetrical chest rise, nonlabored, able to speak in full sentences ABD: Soft, NT, ND, no masses, positive bowel tones, x4 small puncture wounds open to air without redness, drainage, or swelling. EXT: Pulses +24, no dependent edema MS: Normal tone 4 extremities, no obvious deformities, full range of motion, bilateral knee braces in place NEURO: motor strength 5/5 PSYCH: A+O 3, pleasant affect, appropriate speech, insight and judgment SKIN: Normal turgor, normal texture, tattoos Pt Condition on Discharge: Good Discharge Disposition: Discharge Home Discharge Instructions DIET: Follow Instructions for: Heart Healthy Diet Activities you can perform: Regular-No Restrictions Additional Information Encouraged keeping follow up appointments with senior electronics design engineer and possible repeat echocardiogram prior to knee surgery. Nayana Silvestre Mar 29, 2017 12:11
--- NOTE | 2017-03-29 13:29 | TR ---
Date Performed: 03/29/2017 Time Performed: 10:23:46 DOCTOR: Zachary Ramirez DRUG LIST: CLINICAL HISTORY: ANGINA REASON FOR TEST: Angina REASON FOR ENDING: OBSERVATION: CONCLUSION: Lexiscan stress test was performed under standard four minute protocol. Radionuclid e was injected one minute prior to ending the test. No electrocardiographic abormalities were present to suggest ischemia. Nuclear imaging and interpretation are pending. COMMENTS:
--- NOTE | 2017-03-29 13:37 | EKG ---
Date Performed: 03/28/2017 Time Performed: 18:09:23 PTAGE: 56 years EKG: Sinus rhythm NORMAL ECG PREVIOUS TRACING : 10/06/2016 17.17 Since previous tracing, no significant change noted DOCTOR: Zachary Ramirez Interpretating Date/Time 03/29/2017 13:37:17
== END 2017-03-29 13:02 | disposition home or self-care (01) ==
LOC: NEDDLT 15:48 → NEPGCP 15:59
DX: R07.89 Other chest pain (principal); I35.0 Nonrheumatic aortic (valve) stenosis; R61 Generalized hyperhidrosis; R11.0 Nausea; R06.02 Shortness of breath; I10 Essential (primary) hypertension; G89.29 Other chronic pain; F17.210 Nicotine dependence, cigarettes, uncomplicated; Z82.49 Family history of ischemic heart disease and other diseases of the circulatory system; Z79.899 Other long term (current) drug therapy
CPT/HCPCS: 71010; 71275; 76937; 78452; 80053; 82550; 84484; 85025; 85610; 85730; 93005; 93017; 97162; A9502; G0378; G8987; G8988; J2270; J2405; J2785; J7040; Q9967; 99281

== ENCOUNTER 2017-08-06 13:29 | Observation (INO) | payer MEDICAID, MEDICARE ==
[~2017-08-06] VITALS: Ht 177.8 cm; Wt 81.8 kg
[~2017-08-06 13:29] MED LIST changes: -ALPR1TAB3 PO; -DULC100C PO; -DULO1CAP3 PO; +LEXA20TA PO; +LISI20TA PO; +LORA-474 PO; +MS C200T2 PO; -MS C30TA PO; +TEST1INJ3 IM; +VIAG100T PO; +XANA2TAB2 PO
[2017-08-06] MEDS ORDERED: IOHEXOL 350 MG/ML 100 ML BTL (for Cath Lab) OTHER ONE (20:00)
[2017-08-06 20:44] VITALS: BP 117/62; PULSE 91; RESP 20; TEMP 98.4; O2SAT 95
[2017-08-06] MEDS ORDERED: ACETAMINOPHEN 500 MG CPLT PO PRN (23:45)
[2017-08-06] MEDS ORDERED: SODIUM CHLORIDE 0.9% FLUSH 10 ML FLUSH IV FLUSH PRN ×2 (23:45)
[2017-08-07] VITALS (9 sets, daily range): BP systolic 88–148; BP diastolic 56–95; PULSE 58–125; RESP 16–20; TEMP 97.6–98.4; O2SAT 95–100
[2017-08-07] MEDS: ALPRAZolam 1 MG TAB PO SCH ×2 (02:12→21:01)
[2017-08-07] MEDS ORDERED: NITROGLYCERIN 0.4 MG SL 25 TABS/BTL SL PRN (07:30)
[2017-08-07] MEDS: oxyCODONE/ACETAMINOPHEN 10 MG/325 MG TAB PO PRN ×4 (08:17→21:01)
[2017-08-07] MEDS: ASPIRIN 325 MG TAB PO SCH (08:17)
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
[2017-08-07] MEDS ORDERED: ALPRAZolam 1 MG TAB PO ONE (08:45)
[2017-08-07] MEDS ORDERED: NON-FORMULARY DRUG (Lisinopril-Hctz 1 TAB) PO SCH (09:00)
[2017-08-07] MEDS: DULoxetine HCl DR 60 MG CAP PO SCH ×2 (09:39→21:02)
[2017-08-07] MEDS: LISINOPRIL 20 MG TAB PO SCH (09:39)
[2017-08-07] MEDS: HYDROCHLOROTHIAZIDE 12.5 MG CAP PO SCH (09:40)
--- NOTE | 2017-08-07 10:06 | HHI.DCPOC ---
Discharge Care Plan Diagnosis: (1) Atypical chest pain (2) Tobacco abuse (3) Aortic stenosis Goals to Promote Your Health * To prevent worsening of your condition and complications * To maintain your health at the optimal level Directions to Meet Your Goals Take your medications as prescribed Follow your dietary instruction Follow activity as directed Keep your appointments as scheduled Take your immunizations and boosters as scheduled If your symptoms worsen call your PCP, if no PCP go to Urgent Care Center or Emergency Room Smoking is Dangerous to Your Health. Avoid second hand smoke Call the 24-hour hour crisis hotline for domestic abuse at Nayana Silvestre Aug 07, 2017 10:06
--- NOTE | 2017-08-07 11:07 | PD.CARD.PN ---
Subjective Subjective Remarks Notified by RN patient found in bathroom floor, somewhat unresponsive. Easily aroused, sitting on ground, without injury. No events noted on monitor. Reports during bowel movement developed left anterior chest pain and dyspnea. The next thing he remembers is waking up on bathroom floor. Sat himself up and pulled emergency bathroom call light for assistance. No dizziness prior to syncopal event. Objective Medications Current Medications Medications (Trade) Dose Ordered Sig/Ev Route Start Time Stop Time Status Last Admin (NS Flush) 2 ml UNSCH PRN IV FLUSH 08/06/17 23:45 (NS Flush) 2 ml UNSCH PRN IV FLUSH 08/06/17 23:45 (Tylenol) 500 mg Q4H PRN PO 08/06/17 23:45 (Zofran Inj) 4 mg Q6H PRN IV PUSH 08/06/17 23:45 (Xanax) 2 mg HS PO 08/06/17 23:45 08/07/17 02:12 (Percocet 10-325 Mg) 1 tab Q6H PRN PO 08/06/17 23:45 08/07/17 08:17 (Nitrostat Sl) 0.4 mg Q5M PRN SL 08/07/17 07:30 (Aspirin) 325 mg DAILY PO 08/07/17 09:00 08/07/17 08:17 (CeleBREX) 200 mg DAILY PO 08/07/17 09:00 (Cymbalta Dr) 60 mg BID PO 08/07/17 09:00 08/07/17 09:39 (Prinivil) 20 mg DAILY PO 08/07/17 09:00 08/07/17 09:39 (Microzide) 12.5 mg DAILY PO 08/07/17 09:00 08/07/17 09:40 Vital Signs / I&O Vital Signs Date Time Temp Pulse Resp B/P (MAP) Pulse Ox O2 Delivery O2 Flow Rate FiO2 08/07/17 09:17 20 08/07/17 07:31 98.0 125 20 148/95 (112) 100 08/07/17 03:24 98.0 68 16 113/64 (80) 95 08/06/17 20:44 98.4 91 20 117/62 (80) 95 Physical Exam GENERAL: Alert WN, WD, NAD, male HEAD: NC, AT EYES: Sclera clear, conjunctiva without injection, pupils equal and round ENT: Mucous membranes pink and moist CV: RRR, 3/6 systolic murmur. RESP: Clear lungs throughout bilateral, no crackles, wheeze, rhonchi, symmetrical chest rise, nonlabored, able to speak in full sentences ABD: Soft, NT, ND, no masses, positive bowel tones MS: Normal tone 4 extremities, nontender, no obvious deformities, full range of motion NEURO: CN II through CN XII grossly intact, motor strength 5/5 PSYCH: A+O 3, appropriate speech, appropriate mood, affect, insight and judgment SKIN: Normal turgor, normal texture, no lesions, no rashes, brisk cap refill, even hair distribution, not clammy or diaphoretic Assessment and Plan Assessment and Plan #1 Syncope episode-discussed with , plans to admit for known aortic stenosis and syncopal event, cancelling discharge. Discussed with patient who is agreeable to plan of care. Patient then seen and evaluated by Dr. Macias and myself. Discussed plan of care with Nayana Telles Aug 07, 2017 11:07
--- NOTE | 2017-08-07 11:29 | PD.CARD.PN ---
Subjective Subjective Remarks Patient was discussed with the nurse practitioner, medical records and past medical records which are extensive were all reviewed. The patient was seen and examined personally and a follow-up exam was carried out after he had a syncopal episode while here. Very anxious gentleman referred from [place] for chest pain. He has some multiple visits to the hospital well documented in previous records. He underwent a nuclear stress test approximately 6 months ago which was negative. However he has a reported history of aortic stenosis which supposedly is in the moderate range. He has had no consistent follow-up with cardiology so the status of the valve is unclear. He reports at this time recurring episodes of anginal-like chest pain but also several syncopal episodes. He was evaluated and ruled out for an acute coronary syndrome today and is not a candidate for further stress testing particularly in view of his reported aortic stenosis. However while he was in the emergency room he went to the bathroom which was associated with some straining. He began to develop chest pain and shortness of breath. When he stood up from the commode he felt lightheaded and passed out. He was found on the floor sitting against the wall. He states that when he woke up on the floor he tried to stand but could not so he leaned against the wall. He experienced no trauma from his loss of consciousness. At this point he will require admission to the hospital since he cannot be safely discharged until this is been fully evaluated. Repeat echocardiogram to determine possible severity of aortic stenosis would be of a primary concern at this time along with a cardiac consultation. Objective Medications Current Medications Medications (Trade) Dose Ordered Sig/Ev Route Start Time Stop Time Status Last Admin (NS Flush) 2 ml UNSCH PRN IV FLUSH 08/06/17 23:45 (NS Flush) 2 ml UNSCH PRN IV FLUSH 08/06/17 23:45 (Tylenol) 500 mg Q4H PRN PO 08/06/17 23:45 (Zofran Inj) 4 mg Q6H PRN IV PUSH 08/06/17 23:45 (Xanax) 2 mg HS PO 08/06/17 23:45 08/07/17 02:12 (Percocet 10-325 Mg) 1 tab Q6H PRN PO 08/06/17 23:45 08/07/17 08:17 (Nitrostat Sl) 0.4 mg Q5M PRN SL 08/07/17 07:30 (Aspirin) 325 mg DAILY PO 08/07/17 09:00 08/07/17 08:17 (CeleBREX) 200 mg DAILY PO 08/07/17 09:00 (Cymbalta Dr) 60 mg BID PO 08/07/17 09:00 08/07/17 09:39 (Prinivil) 20 mg DAILY PO 08/07/17 09:00 08/07/17 09:39 (Microzide) 12.5 mg DAILY PO 08/07/17 09:00 08/07/17 09:40 Vital Signs / I&O Vital Signs Date Time Temp Pulse Resp B/P (MAP) Pulse Ox O2 Delivery O2 Flow Rate FiO2 08/07/17 11:04 97.6 77 18 140/74 (96) 100 08/07/17 09:17 20 08/07/17 07:31 98.0 125 20 148/95 (112) 100 08/07/17 03:24 98.0 68 16 113/64 (80) 95 08/06/17 20:44 98.4 91 20 117/62 (80) 95 Physical Exam Well-nourished well-developed but obviously anxious gentleman resting comfortably in bed Neck revealed no no JVD masses or nodes. The carotid upstroke appears to be somewhat slow and there are bilateral bruits Chest is nontender and there are good breath sounds bilaterally with no rales wheezes or rhonchi Cardiovascular the PMI is not particularly remarkable and no heave is appreciated. However the common carotid and peripheral pulse upstroke does appear to be delayed. There is a regular sinus rhythm with a grade 3/6 systolic murmur over the aortic distribution radiating up to the carotids. The abdomen is somewhat tender with healing scars from recent appendectomy Imaging Patient has had multiple radiologic studies including chest x-ray CT for pulmonary embolus CT and MRI of the brain scans of the back and a nuclear stress test all of which have been largely unremarkable Assessment and Plan Assessment and Plan With reported aortic stenosis and now episodes of recurring chest pain and syncope admission to the hospital is necessary. Evaluation of his aortic stenosis and further evaluation of syncope will be carried out on an inpatient basis. If the aortic stenosis proves to be more significant consideration of intervention would be entertained. Code Status Full code Discussed Condition With This was discussed with the nurse practitioner and the patient StonerNito MD Aug 07, 2017 11:29
[2017-08-07] MEDS: CELECOXIB 200 MG CAP PO SCH (14:44)
--- NOTE | 2017-08-07 17:01 | RADRPT ---
EXAM DATE/TIME: 08/07/2017 16:20 [facility] COMPARISON: No previous studies available for comparison. INDICATIONS : Syncope. MEDICAL HISTORY : Hypertension. Tinitis. Aortic stenosis. Anticoagulant therapy. Kidney stone s. Arthritis. Depression. Anxiety. SURGICAL HISTORY : Tonsillectomy. Appendectomy. Neck surgery. Cardiac catheterization. Right kn ee surgery. Right hand surgery. ENCOUNTER: Initial ACUITY: 1 day PAIN SCORE: 0/10 LOCATION: Bilateral neck PEAK SYSTOLIC VELOCITIES (cm/sec): ICA/CCA RATIO: Right: 0.6 Left: 0.7 ICA: Right: 60.7 Left: 74.7 CCA: Right: 97.0 Left: 99.7 ECA: Right: 77.2 Left: 72.7 VERTEBRAL: Right: 41.7 antegrade Left: 39.5 antegrade Elevated flow velocities and ICA/CCA ratios have been found to correlate with increased degrees of vessel stenosis, calculated as percentage of diameter relative to a normal segment of distal ICA/CCA FINDINGS: RIGHT CAROTID: No significant stenosis is visualized. The waveforms are within normal limits. LEFT CAROTID: No significant stenosis is visualized. The waveforms are within normal limits. VERTEBRAL ARTERIES: Antegrade flow is seen in both vertebral arteries. MISCELLANEOUS: None. CONCLUSION: Negative for hemodynamically significant stenosis Anthony Harrison MD FACR on August 07, 2017 at 16:57 Board Certified Radiologist. This report was verified electronically.
--- NOTE | 2017-08-07 17:08 | ECHRPT ---
Indication: CARDIOMYOPATHY CONCLUSIONS The left ventricular systolic function is normal with an estimated ejection fraction in the range of 60-65%. Normal left ventricular size. Wall thickness is normal. No regional wall motion abnormalities are present. Diffuse calcification of the aortic valve. Mild aortic valve stenosis. Aortic valve mean gradient is 27.5 mmHg. Mild to moderate aortic valve regurgitation. There is trace tricuspid valve regurgitation. The estimated pulmonary arterial pressure is 30.8 mmHg. BP: / HR: Rhythm: Sinus MEASUREMENTS (Male / Female) Normal Values Technical Quality:Good 2D ECHO LV Diastolic Diameter PLAX 4.8 cm 4.2 - 5.9 / 3.9 - 5.3 cm LV Systolic Diameter PLAX 3.3 cm IVS Diastolic Thickness 1.0 cm 0.6 - 1.0 / 0.6 - 0.9 cm LVPW Diastolic Thickness 1.0 cm 0.6 - 1.0 / 0.6 - 0.9 cm LV Relative Wall Thickness 0.4 RV Internal Dim ED PLAX 3.3 cm LVOT Diameter 2.4 cm LA Systolic Diameter LX 3.3 cm 3.0 - 4.0 / 2.7 - 3.8 cm LV Ejection Fraction MOD 4C 63.9 % LV Ejection Fraction 4C AL 65.3 % M-MODE Aortic Root Diameter MM 2.4 cm LA Systolic Diameter MM 3.1 cm LA Ao Ratio MM 1.3 AV Cusp Separation MM 0.9 cm DOPPLER AV Peak Velocity 349.5 cm/s AV Peak Gradient 48.9 mmHg AV Mean Gradient 27.5 mmHg AV Velocity Time Integral 76.3 cm AI Peak Velocity 262.0 cm/s AI Peak Gradient 27.5 mmHg AI Pressure Half Time 591.0 ms LVOT Peak Velocity 109.0 cm/s LVOT Peak Gradient 4.8 mmHg LVOT Velocity Time Integral 24.1 cm AV Area Cont Eq vti 1.4 cm AV Area Cont Eq pk 1.4 cm MV Area PHT 4.4 cm Mitral E Point Velocity 71.6 cm/s Mitral A Point Velocity 65.6 cm/s Mitral E to A Ratio 1.1 LV E' Lateral Velocity 8.1 cm/s Mitral E to LV E' Lateral Ratio 8.9 LV E' Septal Velocity 5.1 cm/s Mitral E to LV E' Septal Ratio 14.1 TR Peak Velocity 228.0 cm/s TR Peak Gradient 20.8 mmHg Right Atrial Pressure 10.0 mmHg Pulmonary Artery Systolic Pressu 30.8 mmHg Right Ventricular Systolic Press 30.8 mmHg PV Peak Velocity 111.0 cm/s PV Peak Gradient 4.9 mmHg FINDINGS LEFT VENTRICLE The left ventricular systolic function is normal with an estimated ejection fraction in the range of 60-65%. Normal left ventricular size. Wall thickness is normal. No regional wall motion abnormalities are present. RIGHT VENTRICLE Normal right ventricular size and systolic function. LEFT ATRIUM The left atrial size is normal. RIGHT ATRIUM The right atrial size is normal. ATRIAL SEPTUM Normal atrial septal thickness without atrial level shunting by limited color doppler interrogation. AORTA The aortic root and proximal ascending aorta are normal in size on limited imaging. MITRAL VALVE Structurally normal mitral valve. No mitral valve stenosis or regurgitation. AORTIC VALVE Cannot rule out a bicuspid aortic valve or trileaflet valve with partially fused commissure. Diffuse calcification of the aortic valve. Mild to moderate aortic valve stenosis. Aortic valve area is 1.4 cm. Aortic valve mean gradient is 27.5 mmHg. Mild aortic valve regurgitation. TRICUSPID VALVE Structurally normal tricuspid valve. There is trace tricuspid valve regurgitation. The estimated pulmonary arterial pressure is 30.8 mmHg. PULMONARY VALVE No pulmonary valve regurgitation or stenosis. VESSELS The inferior vena cava is normal in size. PERICARDIUM No pericardial effusion. Vaughn Hardy MD (Electronically Signed) Final Date:07 August 2017 17:08
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
[2017-08-07] MEDS: NITROGLYCERIN 2% OINT 1 GM PACKET TOPICAL SCH ×2 (20:10→23:52)
[2017-08-08] MEDS: oxyCODONE/ACETAMINOPHEN 10 MG/325 MG TAB PO PRN ×4 (03:11→21:39)
[2017-08-08 03:38] VITALS: BP 114/60; PULSE 76; RESP 16; TEMP 98.7; O2SAT 97
[2017-08-08] MEDS: NITROGLYCERIN 2% OINT 1 GM PACKET TOPICAL SCH ×3 (06:00→17:14)
[2017-08-08 08:00] VITALS: BP 110/61; PULSE 70; RESP 18; TEMP 97.5; O2SAT 98
[2017-08-08] MEDS: LISINOPRIL 20 MG TAB PO SCH (09:33)
[2017-08-08] MEDS: ASPIRIN 325 MG TAB PO SCH (09:33)
[2017-08-08] MEDS: HYDROCHLOROTHIAZIDE 12.5 MG CAP PO SCH (09:34)
[2017-08-08] MEDS: DULoxetine HCl DR 60 MG CAP PO SCH ×2 (09:35→20:48)
[2017-08-08] MEDS: CELECOXIB 200 MG CAP PO SCH (09:35)
--- NOTE | 2017-08-08 10:23 | HHI.PR ---
Subjective Remarks Follow up for chest pain. The patient reports continued intermittent left anterior chest pain without radiation rated 8/10, associated with intermittent nausea and shortness of breath, denies diaphoresis or vomiting. The patient also admits to severe anxiety and PTSD, requesting his xanax. He reports taking xanax 1mg qid prn. He follows with PCP only for his anxiety currently but has seen psychiatry in the past. He reports recent history of ECT when he was following with psychiatry. His PCP is at [facility] in [place]. Discussed him obtaining referral to psychiatrist through his PCP, patient verbalized understanding. Objective Vitals Vital Signs Date Time Temp Pulse Resp B/P (MAP) Pulse Ox O2 Delivery O2 Flow Rate FiO2 08/08/17 08:00 97.5 70 18 110/61 (77) 98 08/08/17 05:33 21 08/08/17 04:11 18 08/08/17 03:38 98.7 76 16 114/60 (78) 97 08/07/17 23:53 98.4 58 16 88/56 (67) 95 08/07/17 23:00 68 08/07/17 20:23 97.9 83 20 107/69 (82) 98 08/07/17 16:30 97.6 84 18 111/76 (88) 96 08/07/17 15:00 72 08/07/17 11:04 97.6 77 18 140/74 (96) 100 I/O 08/07/17 08/07/17 08/07/17 08/08/17 08/08/17 08/08/17 07:00 15:00 23:00 07:00 15:00 23:00 Intake Total 800 ml 340 ml Balance 800 ml 340 ml Intake Oral 800 ml 340 ml # Voids 6 3 Objective Remarks GENERAL: Well-nourished, well-developed middle aged male patient in [facility]. SKIN: Warm and dry. No rash. HEENT: Normocephalic. Atraumatic.Pupils equal and round. Mucous membranes pink and moist. CARDIOVASCULAR: Regular rate and rhythm. S1, S2 noted. No murmur appreciated. No chest wall tenderness to palpation. RESPIRATORY: No accessory muscle use. Clear to auscultation. Breath sounds equal bilaterally. GASTROINTESTINAL: Abdomen soft, non-tender, nondistended. Normoactive bowel sounds x4. MUSCULOSKELETAL: No obvious deformities. Extremities without clubbing, cyanosis , or edema. NEUROLOGICAL: Awake and alert. No obvious cranial nerve deficits. Motor grossly within normal limits. Normal speech. PSYCHIATRIC: Anxious mood; insight and judgment normal. Medications and IVs Current Medications Medications (Trade) Dose Ordered Sig/Ev Route Start Time Stop Time Status Last Admin (NS Flush) 2 ml UNSCH PRN IV FLUSH 08/06/17 23:45 (NS Flush) 2 ml UNSCH PRN IV FLUSH 08/06/17 23:45 (Tylenol) 500 mg Q4H PRN PO 08/06/17 23:45 (Zofran Inj) 4 mg Q6H PRN IV PUSH 08/06/17 23:45 (Xanax) 2 mg HS PO 08/06/17 23:45 08/07/17 21:01 (Percocet 10-325 Mg) 1 tab Q6H PRN PO 08/06/17 23:45 08/08/17 09:35 (Nitrostat Sl) 0.4 mg Q5M PRN SL 08/07/17 07:30 (Aspirin) 325 mg DAILY PO 08/07/17 09:00 08/08/17 09:33 (CeleBREX) 200 mg DAILY PO 08/07/17 09:00 Future Hold 08/08/17 09:35 (Cymbalta Dr) 60 mg BID PO 08/07/17 09:00 08/08/17 09:35 (Prinivil) 20 mg DAILY PO 08/07/17 09:00 08/08/17 09:33 (Microzide) 12.5 mg DAILY PO 08/07/17 09:00 Future Hold 08/08/17 09:34 (Nitroglycerin 2% Oint) 1 inch Q6H TOPICAL 08/07/17 18:00 08/07/17 20:10 (Imdur) 30 mg DAILY@07 PO 08/08/17 11:30 (Lopressor) 12.5 mg Q12HR PO 08/08/17 11:30 (Pill Splitter) 1 ea UNSCH PRN OTHER 08/08/17 11:30 A/P Assessment and Plan 57-year-old male with history of anxiety, PTSD, bipolar disorder, mild aortic stenosis, hypertension, presents with intermittent chest pain. Initially admitted to [place] [facility], then transferred to [facility] chest pain center, however patient had syncopal episode while in the hospital, found with brief episode of unresponsiveness, therefore admitted to hospitalist for further evaluation. Chest pain: atypical. -EMR Reviewed, Nuclear Stress Test 03/29/17 showed no reversible perfusion defect to indicate stress-induced ischemia. -ACS ruled out on 08/06 at [place] with negative serial cardiac enzymes x3 and EKG without acute ischemic changes -CT-PA on 08/06 also negative, no pulmonary embolism -Echocardiogram 08/07 with EF 60-65%, mild , mild-mod AR, trace TR -Continue aspirin, imdur, ANA, BB, nitro ointment -Consulted cardiology -Discussed with Dr. Rose, patient with ongoing chest pain, will plan for cardiac catheterization tomorrow 08/09 Syncope: report from chest pain center and nursing staff reports questionable episode of syncope after patient was discharged, not witnessed by staff -echocardiogram unremarkable as above, mild unlikely cause of syncope -ruling out ACS as above -carotid U/S with no stenosis -check orthostatics -no further syncopal events Mild Aortic Stenosis: unchanged -unlikely etiology of patient's symptoms -continue outpatient f/up with cardiology Hypertension: BP soft -continued patient's home meds including lisinopril, hold HCTZ -also started on metoprolol and imdur for ongoing chest pain -may need to discontinue HCTZ at discharge and decrease dose of lisinopril if BP continues to be low Anxiety/PTSD/Bipolar Disorder: patient with severe anxiety on exam -continue patient's Lexapro, Xanax prn, Cymbalta, Celebrex -strongly encouraged outpatient f/up with PCP and psychiatrist upon discharge DVT Prophylaxis: teds/SCDs Yanira Betts PA-C Aug 08, 2017 10:23 am
--- NOTE | 2017-08-08 11:22 | PD.CARD.PN ---
Subjective Subjective Remarks Pt had more "severe chest pain" Objective Medications Current Medications Medications (Trade) Dose Ordered Sig/Ev Route Start Time Stop Time Status Last Admin (NS Flush) 2 ml UNSCH PRN IV FLUSH 08/06/17 23:45 (NS Flush) 2 ml UNSCH PRN IV FLUSH 08/06/17 23:45 (Tylenol) 500 mg Q4H PRN PO 08/06/17 23:45 (Zofran Inj) 4 mg Q6H PRN IV PUSH 08/06/17 23:45 (Xanax) 2 mg HS PO 08/06/17 23:45 08/07/17 21:01 (Percocet 10-325 Mg) 1 tab Q6H PRN PO 08/06/17 23:45 08/08/17 09:35 (Nitrostat Sl) 0.4 mg Q5M PRN SL 08/07/17 07:30 (Aspirin) 325 mg DAILY PO 08/07/17 09:00 08/08/17 09:33 (CeleBREX) 200 mg DAILY PO 08/07/17 09:00 08/08/17 09:35 (Cymbalta Dr) 60 mg BID PO 08/07/17 09:00 08/08/17 09:35 (Prinivil) 20 mg DAILY PO 08/07/17 09:00 08/08/17 09:33 (Microzide) 12.5 mg DAILY PO 08/07/17 09:00 08/08/17 09:34 (Nitroglycerin 2% Oint) 1 inch Q6H TOPICAL 08/07/17 18:00 08/07/17 20:10 Vital Signs / I&O Vital Signs Date Time Temp Pulse Resp B/P (MAP) Pulse Ox O2 Delivery O2 Flow Rate FiO2 08/08/17 08:00 97.5 70 18 110/61 (77) 98 08/08/17 05:33 21 08/08/17 04:11 18 08/08/17 03:38 98.7 76 16 114/60 (78) 97 08/07/17 23:53 98.4 58 16 88/56 (67) 95 08/07/17 23:00 68 08/07/17 20:23 97.9 83 20 107/69 (82) 98 08/07/17 16:30 97.6 84 18 111/76 (88) 96 08/07/17 15:00 72 I/O 08/07/17 08/07/17 08/07/17 08/08/17 08/08/17 08/08/17 07:00 15:00 23:00 07:00 15:00 23:00 Intake Total 800 ml 340 ml Balance 800 ml 340 ml Intake Oral 800 ml 340 ml # Voids 6 3 Physical Exam GENERAL: This is a well-nourished, well-developed patient, in no apparent distress. CARDIOVASCULAR: Regular rate and rhythm without murmurs, gallops, or rubs. RESPIRATORY: Clear to auscultation. Breath sounds equal bilaterally. No wheezes , rales, or rhonchi. GASTROINTESTINAL: Abdomen soft, non-tender, nondistended. Normal active bowel sounds MUSCULOSKELETAL: Extremities without clubbing, cyanosis, or edema. NEURO: Alert & Oriented x4 to person, place, time, situation. Moves all ext x4 Assessment and Plan Problem List: (1) Chest pain ICD Codes: R07.9 - Chest pain, unspecified Status: Acute Plan: Though fairly low suspicion for significant disease based on his multiple nuclear stress tests, will plan for cath given refractory symptoms. On Imdur/lopressor for dual anti-anginals (2) Chronic pain ICD Codes: G89.29 - Other chronic pain Status: Acute (3) Aortic stenosis ICD Codes: I35.0 - Aortic stenosis Status: Chronic Plan: echo pending. Assessment and Plan NPO past midnight, Dr. Rose will cath in the AM; Problem Qualifiers (1) Aortic stenosis: Qualified Codes: I35.0 - Nonrheumatic aortic (valve) stenosis Vaughn aHrdy MD Aug 08, 2017 11:22
[2017-08-08] MEDS: ISOSORBIDE MONONITRATE 30 MG CR TAB (IMDUR) PO SCH (11:30)
[2017-08-08] MEDS ORDERED: PILL SPLITTER OTHER PRN (11:30)
[2017-08-08 12:00] VITALS: BP 112/62; PULSE 72; RESP 18; TEMP 97.6; O2SAT 97
--- NOTE | 2017-08-08 13:34 | MB ---
cc: Raymond Rose DO DATE: 08/08/2017 REASON FOR INTERVENTIONAL CARDIOLOGY CONSULTATION: Continued chest pain, for consideration of cardiac catheterization. HISTORY OF PRESENT ILLNESS: Izaiah Mosher is a pleasant 57-year-old male who presented to [facility] in [place] on 08/06/2017 due to chest pain. Patient has had multiple episodes of chest pain and has undergone 2 stress tests within the past year which were negative. The patient was riding his bike and started noticing left-sided chest pain characterized as pressure at 8/10. He states that it radiated to the left side of his neck. He denies any nausea, vomiting, or dyspnea with the episodes. He states that it radiated up the left neck and into his left shoulder. Apparently, he gets nauseous and short of breath with the episodes. He was seen in the chest pain clinic and had 3 negative enzymes and they were considering discharging him for followup with his primary care physician for further workup of his history of aortic stenosis. While he was in the bathroom trying to urinate, he started getting chest pain and he passed out. He was seen by Dr. Hardy and was considering a CTA of the coronaries to rule out significant disease as well as an echocardiogram. He was seen this morning and had further chest pain overnight and so although I have low suspicion for his coronary artery disease, I was asked to see Mr. Mosher for consideration of cardiac catheterization. In seeing him, he is currently up walking with no chest pain or shortness of breath but is extremely anxious. PAST MEDICAL HISTORY: 1. PTSD. 2. Anxiety. 3. Mild aortic valve stenosis by echocardiogram (08/07/2017). 4. Bipolar disorder. 5. Hypertension. PAST SURGICAL HISTORY: 1. Appendectomy. 2. Cervical fusion, L4-L5. 3. Tonsillectomy. ALLERGIES: PHENOBARBITAL. MEDICATIONS: 1. Viagra 100 mg daily as needed for erectile dysfunction. 2. Lisinopril/hydrochlorothiazide 20/12.5 daily. 3. Aspirin 81 mg daily. 4. Celebrex 200 mg daily. 5. Morphine ER 50 mg b.i.d. 6. Percocet every 4 hours as needed for pain. 7. Cymbalta 60 mg b.i.d. 8. Lexapro 20 mg daily. 9. Xanax 2 mg every night. 10. Testosterone weekly. FAMILY HISTORY: Father had 7 KY's before the age of 50 and at the age of 60 due to complications of congestive heart failure. Mother had a CABG at the age of 80. He has a younger brother with 3 cardiac stents. SOCIAL HISTORY: The patient is a current smoker and smokes 2-3 cigarettes per day. Denies alcohol or drug abuse. REVIEW OF SYSTEMS: Fourteen systems are reviewed including osteopathic. Pertinent positives and negatives above, otherwise negative. PHYSICAL EXAMINATION: VITAL SIGNS: Temp 97.5, heart rate 70, blood pressure 110/61, respirations 18, pulse ox 98% on room air. GENERAL: The patient appears well, but overall extremely anxious. No acute distress. Alert, awake and oriented x 3. HEENT: Extraocular muscles intact. Mucous membranes moist. NECK: Supple. No JVD at 45 degrees. No carotid bruits heard bilaterally. Carotid upstroke is brisk in nature. HEART: Regular rate and rhythm. Positive first and second heart sounds with no murmurs, gallops, or rubs. LUNGS: Clear to auscultation bilaterally. No wheezes, rales, or rhonchi. ABDOMEN: Soft, nontender, nondistended. No organomegaly noted. EXTREMITIES: Show no clubbing, cyanosis, or edema. Femoral and distal pulses intact bilaterally. NEUROLOGIC: No focal deficits. SKIN: Warm, dry, and intact. OSTEOPATHIC: No kyphoscoliosis, lordosis, or paraspinal tender points. LABORATORY DATA: Hemoglobin 14.3, hematocrit 41.9, platelets 292. Potassium is 3.7. BUN 18, creatinine 1.1. Troponin negative x 3. Electrocardiogram (08/07/2017 at 1750), sinus rhythm, nonspecific ST-T wave changes. IMPRESSIONS: 1. Continual chest pain. 2. Mild aortic stenosis. 3. Syncopal episode, possibly due to micturition. 4. Posttraumatic stress disorder. 5. Anxiety. 6. Tobacco abuse. 7. Bipolar disorder. RECOMMENDATIONS: 1. Mr. Mosher presented with chest pain and has some typical and atypical features to it. He has had 2 different stress tests over the past year which showed no ischemia. We had planned on him undergoing a CTA of the coronaries, but he has had further chest pain and I believe that he will continue to come to the emergency room until he has the reassurance of his coronary anatomy. 2. Overall, I think it is reasonable for him to undergo cardiac catheterization, as he has had continual episodes of chest pain after being started on a beta-harriett and long-acting nitroglycerin. 3. Risks, benefits, and alternatives have been explained to him and he consents to such. 4. He did have a syncopal episode the other night which was associated with some chest pain. Overall, echo shows mild aortic stenosis and obviously does not appear to be the cause of his syncopal episode. He may just have micturition syncope. 5. He will be n.p.o. after midnight with a plan for cardiac catheterization in the morning. 6. I will plan on holding his hydrochlorothiazide as well as his Celebrex in the morning. 7. Further recommendations will be made after coronary visualization. Thank you for allowing me to see Izaiah Mosher. If there are any questions, please do not hesitate to call. Raymond Rose, VGP/TI , 12:46 PM , 01:33 PM
[2017-08-08] MEDS ORDERED: ALPRAZolam 1 MG TAB PO ONE (14:45)
[2017-08-08] MEDS: ESCITALOPRAM OXALATE 20 MG TAB PO SCH (15:30)
[2017-08-08] MEDS: METOPROLOL TARTRATE 25 MG TAB PO SCH ×2 (15:31→20:45)
[2017-08-08 16:33] VITALS: BP_SYST 115; BP_SYST 117; BP_SYST 118; BP_DIAS 64; BP_DIAS 66; BP_DIAS 70; PULSE 54; RESP 18; TEMP 98.7; O2SAT 95
[2017-08-08 19:42] VITALS: BP 126/63; PULSE 71; RESP 17; TEMP 96.6; O2SAT 99
--- NOTE | 2017-08-08 19:56 | EKG ---
Date Performed: 08/07/2017 Time Performed: 17:50:11 PTAGE: 57 years EKG: Sinus rhythm NONSPECIFIC T-WAVE ABNORMALITY Since the previous tracing, no significant change noted BORDERLINE EC G PREVIOUS TRACING : 03/28/2017 18.09 DOCTOR: Pastora Hay Interpretating Date/Time 08/08/2017 19:52:11
[2017-08-08 20:30] VITALS: PULSE 75
[2017-08-08] MEDS: ALPRAZolam 1 MG TAB PO SCH (20:37)
[2017-08-08] MEDS ORDERED: CYMB60CA PO (20:50)
[2017-08-08] MEDS ORDERED: MAGNESIUM HYDROXIDE SUSP 30 ML CUP PO PRN (23:00)
[2017-08-08] MEDS ORDERED: BISACODYL 10 MG SUPP RECTAL PRN (23:00)
[2017-08-08] MEDS ORDERED: SENNOSIDES 8.6 MG TAB PO PRN (23:00)
[2017-08-08] MEDS: DOCUSATE SODIUM 50 MG/SENNA 8.6 MG TAB PO SCH (23:51)
[2017-08-09] VITALS (7 sets, daily range): BP systolic 89–126; BP diastolic 54–76; PULSE 56–78; RESP 17–18; TEMP 95.5–98.9; O2SAT 95–100
[2017-08-09] MEDS ORDERED: POVIDONE IODINE 5% (ANTISEPSIS KIT) 4 APPLICATIONS EACH NARE PRN (03:30)
[2017-08-09] MEDS ORDERED: SODIUM CHLORID 0.9% 500 ML IV PRN (03:30)
[2017-08-09] MEDS ORDERED: LACTATED RINGER'S 1000 ML IV PRN (03:30)
[2017-08-09] MEDS ORDERED: CHLORHEXIDINE GLUCONATE 2 % 1 PACK (2 CLOTHS) TOPICAL PRN (03:30)
[2017-08-09] MEDS: oxyCODONE/ACETAMINOPHEN 10 MG/325 MG TAB PO PRN ×4 (03:39→23:17)
[2017-08-09 04:20] LABS: AUTOMATED NEUTROPHIL # 9.8 TH/MM3 (1.8-7.7); BASOPHIL % 0.3 % (0.0-2.0); EOSINOPHIL # 0.1 TH/MM3 (0-0.4); HEMATOCRIT 43.3 % (39.0-51.0); HEMOGLOBIN 14.9 GM/DL (13.0-17.0); LYMPH % 14.9 % (9.0-44.0); LYMPHOCYTE # 1.9 TH/MM3 (1.0-4.8); MEAN CELL VOLUME 90.5 FL (80.0-100.0); MEAN CORPUSCULAR HEMOGLOBIN 31.1 PG (27.0-34.0); MEAN CORPUSCULAR HGB CONC 34.3 % (32.0-36.0); MEAN PLATELET VOLUME 7.8 FL (7.0-11.0); MONO % 8.3 % (0.0-8.0); MONOCYTE # 1.1 TH/MM3 (0-0.9); NEUT % 75.5 % (16.0-70.0); PLATELET COUNT 322 TH/MM3 (150-450); RED BLOOD COUNT 4.78 MIL/MM3 (4.50-5.90); RED CELL DISTRIBUTION WIDTH 15.5 % (11.6-17.2)
[2017-08-09 04:44] LABS: ALBUMIN 3.3 GM/DL (3.4-5.0); AST (GOT) 19 U/L (15-37); BICARBONATE 24.4 MEQ/L (21.0-32.0); BLOOD UREA NITROGEN 29 MG/DL (7-18); CALCIUM 8.7 MG/DL (8.5-10.1); CHLORIDE 98 MEQ/L (98-107); CREATININE 1.16 MG/DL (0.60-1.30); GLOMERULAR FILTRATION RATE 64 ML/MIN (>89); GLUCOSE,RANDOM 90 MG/DL (74-106); SODIUM (NA) 131 MEQ/L (136-145)
[2017-08-09 04:45] LABS: ALT (GPT) 26 U/L (12-78); CHOLESTEROL 180 MG/DL (120-200); TRIGLYCERIDES 278 MG/DL (42-150)
[2017-08-09 04:48] LABS: ALKALINE PHOSPHATASE 102 U/L (45-117); CHOLESTEROL/ HDL RATIO 3.54 RATIO; HDL CHOLESTEROL 50.8 MG/DL (40.0-60.0); LDL CHOLESTEROL 74 MG/DL (0-99); TOTAL BILIRUBIN ADULT 0.6 MG/DL (0.2-1.0); TOTAL PROTEIN 7.1 GM/DL (6.4-8.2)
[2017-08-09] MEDS: ALPRAZolam 1 MG TAB PO PRN ×2 (05:52→12:37)
[2017-08-09] MEDS: NITROGLYCERIN 2% OINT 1 GM PACKET TOPICAL SCH ×4 (06:00→18:00)
[2017-08-09] MEDS: ISOSORBIDE MONONITRATE 30 MG CR TAB (IMDUR) PO SCH (06:19)
[2017-08-09] MEDS: LISINOPRIL 20 MG TAB PO SCH (09:00)
[2017-08-09] MEDS: METOPROLOL TARTRATE 25 MG TAB PO SCH ×3 (09:00→21:00)
--- NOTE | 2017-08-09 09:36 | HHI.PR ---
Subjective Remarks Follow up for chest pain. The patient reports continued intermittent vague complaints of chest pain overnight. He does believe it has improved compared to yesterday. Denies palpitations or shortness of breath. He states his anxiety is much better controlled after restarting his xanax. He also reports an episode of BRBPR last night. He reports some associated epigastric discomfort which is new for him. He has some nausea but no vomiting. He believes he last had a colonoscopy 2 years ago that was unremarkable however also had poor prep and was told they did not get adequate visualization. No repeat colonoscopy was done. He has no idea where this may have been done at. Objective Vitals Vital Signs Date Time Temp Pulse Resp B/P (MAP) Pulse Ox O2 Delivery O2 Flow Rate FiO2 08/09/17 08:38 98.9 60 18 89/57 (68) 98 88/58 (68) 98/60 (73) 08/09/17 04:21 78 08/09/17 03:29 96.5 68 17 126/75 (92) 98 107/76 (86) 108/69 (82) 08/09/17 00:30 68 08/09/17 00:08 95.5 64 17 97/62 (74) 100 08/08/17 20:30 75 08/08/17 19:42 96.6 71 17 126/63 (84) 99 08/08/17 16:33 98.7 54 18 115/64 (81) 95 118/66 (83) 117/70 (86) 08/08/17 14:45 21 08/08/17 12:00 97.6 72 18 112/62 (79) 97 I/O 08/08/17 08/08/17 08/08/17 08/09/17 08/09/17 08/09/17 07:00 15:00 23:00 07:00 15:00 23:00 Intake Total 340 ml 300 ml Balance 340 ml 300 ml Intake Oral 340 ml 300 ml # Voids 3 2 3 # Bowel Movements 4 Result Diagram: 08/09/17 0403 08/09/17 0304 Imaging Last Impressions Carotid Artery Ultrasound 08/07/17 0000 Signed Impressions: Service Date/Time: Monday, August 07, 2017 16:20 - CONCLUSION: Negative for hemodynamically significant stenosis Anthony Harrison MD FACR Objective Remarks GENERAL: Well-nourished, well-developed middle aged male patient in [facility]. SKIN: Warm and dry. No rash. HEENT: Normocephalic. Atraumatic.Pupils equal and round. Mucous membranes pink and moist. CARDIOVASCULAR: Regular rate and rhythm. S1, S2 noted. No murmur appreciated. No chest wall tenderness to palpation. RESPIRATORY: No accessory muscle use. Clear to auscultation. Breath sounds equal bilaterally. GASTROINTESTINAL: Abdomen soft, non-tender, nondistended. Normoactive bowel sounds x4. MUSCULOSKELETAL: No obvious deformities. Extremities without clubbing, cyanosis , or edema. NEUROLOGICAL: Awake and alert. No obvious cranial nerve deficits. Motor grossly within normal limits. Normal speech. PSYCHIATRIC: Anxious mood, improved today; insight and judgment normal. Medications and IVs Current Medications Medications (Trade) Dose Ordered Sig/Ev Route Start Time Stop Time Status Last Admin (NS Flush) 2 ml UNSCH PRN IV FLUSH 08/06/17 23:45 08/08/17 20:48 (NS Flush) 2 ml UNSCH PRN IV FLUSH 08/06/17 23:45 (Tylenol) 500 mg Q4H PRN PO 08/06/17 23:45 (Zofran Inj) 4 mg Q6H PRN IV PUSH 08/06/17 23:45 (Xanax) 2 mg HS PO 08/06/17 23:45 08/08/17 20:37 (Percocet 10-325 Mg) 1 tab Q6H PRN PO 08/06/17 23:45 08/09/17 10:17 (Nitrostat Sl) 0.4 mg Q5M PRN SL 08/07/17 07:30 (Aspirin) 325 mg DAILY PO 08/07/17 09:00 08/09/17 10:16 (CeleBREX) 200 mg DAILY PO 08/07/17 09:00 Future Hold 08/08/17 09:35 (Cymbalta Dr) 60 mg BID PO 08/07/17 09:00 08/09/17 10:16 (Prinivil) 20 mg DAILY PO 08/07/17 09:00 08/08/17 09:33 (Microzide) 12.5 mg DAILY PO 08/07/17 09:00 Future Hold 08/08/17 09:34 (Nitroglycerin 2% Oint) 1 inch Q6H TOPICAL 08/07/17 18:00 08/07/17 20:10 (Imdur) 30 mg DAILY@07 PO 08/08/17 11:30 08/09/17 06:19 (Lopressor) 12.5 mg Q12HR PO 08/08/17 11:30 08/08/17 20:45 (Pill Splitter) 1 ea UNSCH PRN OTHER 08/08/17 11:30 (Xanax) 1 mg Q6H PRN PO 08/08/17 14:45 08/09/17 05:52 (Lexapro) 20 mg DAILY PO 08/08/17 15:15 08/09/17 10:16 (Suzie-Colace) 1 tab BID PO 08/08/17 23:00 08/09/17 10:16 (Milk Of Magnesia Liq) 30 ml Q12H PRN PO 08/08/17 23:00 (Senokot) 17.2 mg Q12H PRN PO 08/08/17 23:00 (Dulcolax Supp) 10 mg DAILY PRN RECTAL 08/08/17 23:00 Lactated Ringer's 1,000 ml @ 30 mls/hr Q24H PRN IV 08/09/17 03:30 08/12/17 03:29 Sodium Chloride 500 ml @ 30 mls/hr [id number] PRN IV 08/09/17 03:30 08/12/17 03:29 (Betadine 5% Antisepsis Kit) 1 applic TRAWL NET MAKER PRN EACH NARE 08/09/17 03:30 08/12/17 03:29 (Chlorhexidine 2% Cloth) 3 pack TRAWL NET MAKER PRN TOPICAL 08/09/17 03:30 08/12/17 03:29 A/P Assessment and Plan 57-year-old male with history of anxiety, PTSD, bipolar disorder, mild aortic stenosis, hypertension, presents with intermittent chest pain. Initially admitted to [place] ER, then transferred to [facility] chest pain center, however patient had syncopal episode while in the hospital, found with brief questionable episode of unresponsiveness, therefore admitted to hospitalist for further evaluation. Chest pain: atypical. -EMR Reviewed, Nuclear Stress Test 03/29/17 showed no reversible perfusion defect to indicate stress-induced ischemia. -ACS ruled out on 08/06 at [place] with negative serial cardiac enzymes x3 and EKG without acute ischemic changes -CT-PA on 08/06 also negative, no pulmonary embolism -Echocardiogram 08/07 with EF 60-65%, mild , mild-mod AR, trace TR -Continue aspirin, imdur, ANA, BB, nitro ointment -Consulted cardiology -Discussed with Dr. Rose, patient with ongoing chest pain, planning for cardiac catheterization today GI Bleeding with BRBPR: reported during hospitalization on 08/09. One episode of BRBPR. Patient reports hx of colonoscopy that was unremarkable however had poor prep. -Hgb stable at 14.9, will continue to monitor -start on PPI -Give IVF hydration -check stool hemoccult -Consult gastroenterology Syncope: report from chest pain center and nursing staff reports questionable episode of syncope after patient was discharged, not witnessed by staff -echocardiogram unremarkable as above, mild unlikely cause of syncope -ruling out ACS as above -carotid U/S with no stenosis -orthostatics negative (BP increases appropriately upon standing) -no further syncopal events Mild Aortic Stenosis: unchanged -unlikely etiology of patient's symptoms -continue outpatient f/up with cardiology Hypertension: BP soft -continued patient's home meds including lisinopril, hold HCTZ -also started on metoprolol and imdur for ongoing chest pain -may need to discontinue HCTZ at discharge and decrease dose of lisinopril if BP continues to be low Anxiety/PTSD/Bipolar Disorder: patient with severe anxiety on exam -continue patient's Lexapro, Xanax prn, Cymbalta, Celebrex -strongly encouraged outpatient f/up with PCP and psychiatrist upon discharge DVT Prophylaxis: teds/SCDs Discharge Planning Going for heart catheterization today. Now with new BRBPR, awaiting GI consult. Yanira Betts PA-C Aug 09, 2017 9:36 am
[2017-08-09] MEDS: ESCITALOPRAM OXALATE 20 MG TAB PO SCH (10:16)
[2017-08-09] MEDS: ASPIRIN 325 MG TAB PO SCH (10:16)
[2017-08-09] MEDS: DOCUSATE SODIUM 50 MG/SENNA 8.6 MG TAB PO SCH ×2 (10:16→20:57)
[2017-08-09] MEDS: DULoxetine HCl DR 60 MG CAP PO SCH ×2 (10:16→21:00)
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
[2017-08-09] MEDS: PANTOPRAZOLE SOD 40 MG DELAYED RELEASE TAB PO SCH (12:37)
[2017-08-09] MEDS: ONDANSETRON HCL 4 MG/2 ML VIAL IV PUSH PRN ×2 (12:38→17:37)
[2017-08-09] MEDS: SODIUM CHLOR 0.9% 1000 ML INJ 1,000 ML IV SCH ×2 (13:15→23:22)
[2017-08-09] MEDS ORDERED: DIATRIZOATE MEGLUM/DIATRIZOATE SOD 9 ML CUP PO ONE (14:15)
[2017-08-09] MEDS ORDERED: HEPARIN-NS/PF FLUSH BAG 2,000 ML IV FLUSH ONE (15:45)
[2017-08-09] MEDS ORDERED: VERAPAMIL HCL 5 MG/2 ML VIAL ONE (15:45)
[2017-08-09] MEDS ORDERED: NITROGLYCERIN INJ 5 ML ONE (15:46)
[2017-08-09] MEDS ORDERED: HEPARIN SODIUM - IV 10,000 UNITS/10 ML VIAL ONE (15:46)
[2017-08-09] MEDS ORDERED: MIDAZOLAM HCL 2 MG/2 ML VIAL ONE (16:03)
--- NOTE | 2017-08-09 16:42 | CATHPROC ---
[facility] HIS Report Study Information Study Number Admission Scheduled Start Study Start [id number] Aug 06 2017 7:59PM 08/08/2017 Aug 09 2017 3:43PM [facility] Cardiac Catheterization Admit Source Facility Department Emergency department [facility] Operator Physician and Clinical Staff Initial Raymond Mo Carbide Grinder Ran Villareal,RN Carbide Grinder Ran Velazquez,IMELDA Other cathlab, cathlab Recorder Naomi Calvillo,LIVESTOCK HAULIER TECH2 Scrub Aminta Leon,RT(R) Procedures Performed Procedure Location (Site) Vessel Name Coronary Angiograms LCA Left Coronary Coronary Angiograms RCA Right Coronary L Heart Cath Wire insertion Radial (right) Radial Art. Equipment Time Bush Regenerator Description Size Mfg Part Number Used/Scraped TRANSDUCER, TRUWAVE [id number] 15:47 RUTH SINCLAIR * Used W/STOCKCOCK *[id number] WIRE, HYDROSTEER 150CM [id number] 16:19 DAIG/[employer] 150CM Used ANGLED GLIDE *[id number] 15:47 Linqia PACK, CCL CUSTOM * Used *[id number] 15:47 Linqia SUPPORT, ARTERIAL ADULT [id number] *[id number] Used [id number] 16:23 MEDTRONIC JL 3.5 DXTERITY CATHETER FR 5 Used *[id number] 16:07 MEDTRONIC JR 4.0 DXTERITY CATHETER FR 5 Used *[id number] BAND, RADIAL COMPRESSION TR [id number] 16:30 Wingu MEDICAL 29CM Used LARGE 29 *[id number] 15:47 Wingu MEDICAL WIRE, EXCHANGE 260CM 3MMJ 260CM Used *[id number] 15:47 NAMIC MANIFOLD, 4 PORT * Used *[id number] 15:47 NYCOMED OMNIPAQUE, 350 MG, 150ML 150ML [id number] Used [id number] 15:47 GARCIA MEDICAL BLANKET,WARM AIR CCL * Used *[id number] SHEATH, FR6 TRANSRADIAL [id number] 15:47 [employer] MED[employer] FR 6 Used SLENDER 10CM *[id number] Equipment Model, Serial, Lot Number and Expiration Data Description Model Number Serial Number Lot Number Expiration Date JR 4.0 DXTERITY CATHETER [id number] 02-25-2020 WIRE, HYDROSTEER 150CM [id number] 04-15-2020 ANGLED GLIDE History: Current Medications Medication Dosage/Unit Route Frequency Last Date/Time Taken Xanax Viagra Celebrex Statins (any) LEXAPRO ASA History: Allergies Allergy Reaction Morphine swelling phenobarbital unknown History: Risk Factors Family History of Hypertension Dyslipidemia Previous MN Previous Heart Failure Premature CAD Yes No No No No Prior Valve Prior PCI Prior CABG Surgery No No No Cerebrovascular Peripheral Artery Chronic Lung On Dialysis Diabetes Disease Disease Disease No No No No No History: Risk Factors Selection Items Current Smoker History: Stress Tests Stress or Imaging Studies Performed No History: Other Current Smoker Method Yes Cigarettes Labs Hgb (g/dl) Hct (%) RBC (MIL/MM3) WBC (l/cumm) Platelets (thousands) 11.60-17.00 35.00-51.00 4.00-5.90 4.00-11.00 150.00-450.00 14.9 43.3 4.7 13 322 Glucose (mg/dl) BUN (mg/dl) Creatinine (mg/dl) BUN:Creatinine (1:x) 74.00-106.00 7.00-18.00 0.50-1.30 10.00-20.00 90 29 1.1 26.4 Na (meq/l) K (meq/l) Cl (meq/l) CO2 (mmol/L) Ca (mg/dl) 136.00-145.00 3.50-5.10 98.00-107.00 21.00-32.00 8.50-10.10 131 4.2 98 24.4 8.7 Medication Medication Total Dose (Bolus/Oral) Medication Total Dosage/Unit 1% XYLOCAINE 10 mL FENTANYL 25 mcg RADIAL COCKTAIL 5 mL (Bolus) VERSED 1 mg Medications (Bolus/Oral) Medication Time Given Dosage/Unit Administered By Reason VERSED 08/09/2017 4:12:52 PM 1 mg Ran Velazquez 1 mg VERSED given in lab by Ran Velazquez RN in Right Antecubital via Peripheral IV. Ordered by Raymond Candelaria FENTANYL 08/09/2017 4:13:00 PM 25 mcg Ran Velazquez 25 mcg FENTANYL given in lab by Ran Velazquez RN in Right Antecubital via Peripheral IV. Ordered by Raymond Rose 1% XYLOCAINE 08/09/2017 4:13:17 PM 10 mL Raymond Rose 10 mL 1% XYLOCAINE given in lab by Raymond Rose in Right Radial via Subcutaneous. Ordered by Raymond Gasca RADIAL COCKTAIL 08/09/2017 4:16:48 PM 5 mL (Bolus) Raymond Rose 5 mL (Bolus) RADIAL COCKTAIL given in lab by Raymond Rose via Radial. Using [Solution Name]. O rdered by Raymond Rose. 2.5 verapamil,3300 heparin Medication (Drip) Medication Time Given Dosage/Unit Concentration/Unit Diluent (ml) Solution IV Solutions 08/09/2017 3:43:15 PM 0 mL (IV) 500 NaCl .9 IV Solutions given in lab by Ran Velazquez RN in Right Antecubital via Peripheral IV. Pump/Drip Flow = 20 ml/hr using NaCl .9. Ordered by Raymond Rose. Initial Case Assessment Cardiovascular HR NIBP 69 117/76 Edema Present Skin color Skin None Normal Warm Dry Circulatory - Right Pulses Dorsalis Pedis Femoral 2 2 Scale (0,1,2,3,4,d) Circulatory - Left Pulses Dorsalis Pedis Femoral 2 2 Scale (0,1,2,3,4,d) Neurological State Oriented to time-place- Alert Moves all extremities person Respiration - General Respiration Rate SpO2 (%) (B/min) 12 95 Final Case Assessment Cardiovascular HR NIBP 65 130/71 Edema Present Skin color Skin None Normal Warm Dry Circulatory - Right Pulses Dorsalis Pedis Femoral 2 2 Scale (0,1,2,3,4,d) Circulatory - Left Pulses Dorsalis Pedis Femoral 2 2 Scale (0,1,2,3,4,d) Neurological State Oriented to time-place- Alert Moves all extremities person Respiration - General Respiration Rate SpO2 (%) (B/min) 12 94 Chronological Log Time Study Chronological Log 15:43:00 Patient arrived via Bed. 15:43:01 Patient Name, D.O.B, / Armband Verified By R.N. 15:43:02 Consent signed by the physician and the patient and verified by the [facility] staff. 15:43:03 Pre-op and post- op instructions given; patient acknowledges understanding of instructions. 15:43:06 Patient has been NPO for More than 6Hrs. 15:43:07 Skin Breakdown- 15:43:09 Patient Warmer Placed on the Table. 15:43:11 Melisa Prominences Protected 15:43:14 A # 18 IV was noted in the Antecubital (right). Grade = 0 IV Solutions given in lab by Ran Velazquez, RN in Right Antecubital via Peripheral IV. Pump/Dri p Flow = 20 ml/hr using 15:43:15 NaCl .9. Ordered by Raymond Rose 15:43:17 History and physical on the chart or being dictated. Vitals capture started with the following parameters, Patient=Adult, Interval=5 min, Initial Pr aqbdxw=827 mmHg, 15:48:22 Deflation Rate=5 mmHg, Cuff placed on Right Arm 15:49:46 HR=69 bpm, RSMZ=055/76 mmhg, SpO2=95.0 %, Resp=12 B/min, Pain=0, Sonya=10, Dash=2 15:50:15 Reference ECG taken Assessment: Initial Case, HR=69 BPM, TFUH=220/76 mmhg, Edema=None, Color=Normal, Skin = Warm, D ry Right Pulses: Dl Ped=2, Femoral=2 15:51:12 Left Pulses: Dl Ped=2, Femoral=2 Neurological: State=Alert, Ox3, VALDEZ Respiration: Resp=12 B/min, SpO2=95 % 15:52:06 Allens test performed on the right radial and ulnar artery. 15:54:00 HR=65 bpm, TKNH=334/81 mmhg, SpO2=95.0 %, Resp=11 B/min, Pain=0, Sonya=10, Dash=2 15:59:03 HR=67 bpm, NVIL=796/70 mmhg, SpO2=97.0 %, Resp=12 B/min, Pain=0, Sonya=10, Dash=2 16:03:52 Pressure channel 1 zeroed. 16:04:04 HR=68 bpm, LXXV=426/77 mmhg, SpO2=95.0 %, Resp=12 B/min, Pain=0, Sonya=10, Dash=2 16:09:03 HR=67 bpm, ABDD=403/75 mmhg, SpO2=94.0 %, Resp=15 B/min, Pain=0, Sonya=10, Dash=2 Time Out. Correct patient, correct procedure, correct physician, power injector not loaded with contrast with surgical 16:11:18 team present. Time Out Concurred by MD and individual staff in procedure. 16:11:38 Case Start 16:12:52 1 mg VERSED given in lab by Ran Velazquez, RN in Right Antecubital via Peripheral IV. Order ed by Raymond Rose. 25 mcg FENTANYL given in lab by Ran Velazquez RN in Right Antecubital via Peripheral IV. Order ed by Raymond Rose 16:13:00 G. 10 mL 1% XYLOCAINE given in lab by Raymond Rose in Right Radial via Subcutaneous. Ordere d by Milton, 16:13:17 Raymond Cole. 16:14:04 HR=64 bpm, NXPT=466/80 mmhg, SpO2=95.0 %, Resp=16 B/min, Pain=0, Sonya=10, Dash=2 16:16:20 Access site was Radial Artery. A SHEATH, FR6 TRANSRADIAL SLENDER 10CM FR 6 was advanced into the Radial (right) using the Negro fied Seldinger 16:16:27 technique. 5 mL (Bolus) RADIAL COCKTAIL given in lab by Raymond Rose via Radial. Using [Solution Na me]. Ordered by 16:16:48 Raymond Rose. 2.5 verapamil,3300 heparin A JR 4.0 DXTERITY CATHETER FR 5 was advanced over a wire. OMNIPAQUE, 350 MG, 150ML 150ML was us ed for 16:18:13 injections. 16:19:05 HR=80 bpm, SJDO=637/81 mmhg, SpO2=96.0 %, Resp=12 B/min, Pain=0, Sonya=10, Dash=2 16:19:26 The previous wire was exchanged for a WIRE, HYDROSTEER 150CM ANGLED GLIDE 150CM. Recorded Pressure: Ao, HR=70, Condition=Condition 1 16:21:29 (Aorta) Ao 102/69/84 16:21:42 The RCA was injected and visualized at various angles. OMNIPAQUE, 350 MG, 150ML 150ML used . Recorded Pressure: LV, HR=66, Condition=Condition 1 16:23:42 (Left Ventricle) LV 137/4/9 Recorded Pressure: LV, Ao, HR=61, Condition=Condition 1 16:24:03 (Left Ventricle) LV 135/2/12, (Aorta) Ao 107/56/85 16:24:04 HR=61 bpm, DQVK=534/70 mmhg, SpO2=94.0 %, Resp=16 B/min, Pain=0, Sonya=10, Dash=2 After removing the current catheter a JL 3.5 DXTERITY CATHETER FR 5 was advanced over a WIRE, E XCHANGE 260CM 16:25:30 3MMJ 260CM. 16:26:27 The LCA was injected and visualized at various angles. OMNIPAQUE, 350 MG, 150ML 150ML used . 16:28:41 A WIRE, EXCHANGE 260CM 3MMJ 260CM was inserted via Radial (right). 16:28:52 Catheter was removed 16:29:05 HR=65 bpm, UMSD=487/71 mmhg, SpO2=94.0 %, Resp=12 B/min, Pain=0, Sonya=10, Dash=2 16:29:18 Case End 16:30:03 Catheter(s) removed without difficulty Radial Compression Device Used. 13 mLs of air placed in BAND, RADIAL COMPRESSION TR LARGE 29 29 CM. Affected 16:30:05 hand 95 % O2 saturation. 16:30:25 No case complications noted. 16:30:27 Cine recording checked. 16:30:30 Bedside Report will be given. 16:33:46 Vitals capture stopped. Assessment: Final Case, HR=65 BPM, CTTW=324/71 mmhg, Edema=None, Color=Normal, Skin = Warm, Dr y Right Pulses: Dl Ped=2, Femoral=2 16:33:52 Left Pulses: Dl Ped=2, Femoral=2 Neurological: State=Alert, Ox3, VALDEZ Respiration: Resp=12 B/min, SpO2=94 % 16:35:24 A Left Heart Cath was performed. 16:35:[address] [facility] 16:35:37 Clinical correlaton risk stratification. End Study - Contrast Media Used In Study Contrast Total Opened (mL) Total Used (mL) Total Wasted (mL) Omnipaque 55 55 0 End Study - Maximum Contrast Load Max Contrast Load (mL) 371.9 End Study - Radiation Exposure Fluoro Time (minutes) 2.8 End Study - Patient Disposition Complications Transferred To Telemetry Bed
[2017-08-09] MEDS ORDERED: MISC INFORMATION XX ONE (16:45)
--- NOTE | 2017-08-09 17:54 | PD.CARD.PN ---
Subjective Subjective Remarks Bright red blood per rectum last night Post-cath today Objective Medications Current Medications Medications (Trade) Dose Ordered Sig/Ev Route Start Time Stop Time Status Last Admin (NS Flush) 2 ml UNSCH PRN IV FLUSH 08/06/17 23:45 08/08/17 20:48 (NS Flush) 2 ml UNSCH PRN IV FLUSH 08/06/17 23:45 (Tylenol) 500 mg Q4H PRN PO 08/06/17 23:45 (Zofran Inj) 4 mg Q6H PRN IV PUSH 08/06/17 23:45 08/09/17 17:37 (Xanax) 2 mg HS PO 08/06/17 23:45 08/08/17 20:37 (Percocet 10-325 Mg) 1 tab Q6H PRN PO 08/06/17 23:45 08/09/17 17:00 (Nitrostat Sl) 0.4 mg Q5M PRN SL 08/07/17 07:30 (Aspirin) 325 mg DAILY PO 08/07/17 09:00 08/09/17 10:16 (CeleBREX) 200 mg DAILY PO 08/07/17 09:00 Future Hold 08/08/17 09:35 (Cymbalta Dr) 60 mg BID PO 08/07/17 09:00 08/09/17 10:16 (Prinivil) 20 mg DAILY PO 08/07/17 09:00 08/08/17 09:33 (Microzide) 12.5 mg DAILY PO 08/07/17 09:00 Future Hold 08/08/17 09:34 (Nitroglycerin 2% Oint) 1 inch Q6H TOPICAL 08/07/17 18:00 08/07/17 20:10 (Imdur) 30 mg DAILY@07 PO 08/08/17 11:30 08/09/17 06:19 (Lopressor) 12.5 mg Q12HR PO 08/08/17 11:30 08/08/17 20:45 (Pill Splitter) 1 ea UNSCH PRN OTHER 08/08/17 11:30 (Xanax) 1 mg Q6H PRN PO 08/08/17 14:45 08/09/17 12:37 (Lexapro) 20 mg DAILY PO 3/25/18 15:15 08/09/17 10:16 (Suzie-Colace) 1 tab BID PO 08/08/17 23:00 08/09/17 10:16 (Milk Of Magnesia Liq) 30 ml Q12H PRN PO 08/08/17 23:00 (Senokot) 17.2 mg Q12H PRN PO 08/08/17 23:00 (Dulcolax Supp) 10 mg DAILY PRN RECTAL 08/08/17 23:00 Lactated Ringer's 1,000 ml @ 30 mls/hr Q24H PRN IV 08/09/17 03:30 08/12/17 03:29 Sodium Chloride 500 ml @ 30 mls/hr [id number] PRN IV 08/09/17 03:30 08/12/17 03:29 (Betadine 5% Antisepsis Kit) 1 applic SOFTWARE SALES CONSULTANT PRN EACH NARE 08/09/17 03:30 08/12/17 03:29 (Chlorhexidine 2% Cloth) 3 pack SOFTWARE SALES CONSULTANT PRN TOPICAL 08/09/17 03:30 08/12/17 03:29 (Protonix) 40 mg DAILY PO 08/09/17 12:15 08/09/17 12:37 Sodium Chloride 1,000 ml @ 84 mls/hr [id number] IV 08/09/17 12:15 08/09/17 13:15 (Colyte Liq) 4,000 ml ONCE ONCE PO 08/10/17 16:00 08/10/17 16:01 Vital Signs / I&O Vital Signs Date Time Temp Pulse Resp B/P (MAP) Pulse Ox O2 Delivery O2 Flow Rate FiO2 08/09/17 16:53 98 Room Air 08/09/17 12:06 97.8 76 18 119/57 (77) 96 08/09/17 08:38 98.9 60 18 89/57 (68) 98 88/58 (68) 98/60 (73) 08/09/17 04:21 78 08/09/17 03:29 96.5 68 17 126/75 (92) 98 107/76 (86) 108/69 (82) 08/09/17 00:30 68 08/09/17 00:08 95.5 64 17 97/62 (74) 100 08/08/17 20:30 75 08/08/17 19:42 96.6 71 17 126/63 (84 99 I/O 08/08/17 08/08/17 08/08/17 08/09/17 08/09/17 08/09/17 07:00 15:00 23:00 07:00 15:00 23:00 Intake Total 340 ml 300 ml Balance 340 ml 300 ml Intake Oral 340 ml 300 ml # Voids 3 2 3 # Bowel Movements 4 Physical Exam GENERAL: NAD, AAOx3 SKIN: Warm and dry. HEAD: Atraumatic. Normocephalic. EYES: Pupils equal and round. No scleral icterus. No injection or drainage. ENT: No nasal bleeding or discharge. Mucous membranes pink and moist. NECK: Trachea midline. No JVD. CARDIOVASCULAR: Regular rate and rhythm. RESPIRATORY: No accessory muscle use. Clear to auscultation. Breath sounds equal bilaterally. GASTROINTESTINAL: Abdomen soft, non-tender, nondistended. Hepatic and splenic margins not palpable. MUSCULOSKELETAL: Extremities without clubbing, cyanosis, or edema. No obvious deformities. NEUROLOGICAL: Awake and alert. No obvious cranial nerve deficits. Motor grossly within normal limits. Five out of 5 muscle strength in the arms and legs. Normal speech. PSYCHIATRIC: Appropriate mood and affect; insight and judgment normal. Laboratory Laboratory Tests Test 08/08/17 20:46 08/09/17 03:04 08/09/17 04:03 Blood Urea Nitrogen 29 MG/DL Creatinine 1.16 MG/DL Random Glucose 90 MG/DL Total Protein 7.1 GM/DL Albumin 3.3 GM/DL Calcium Level 8.7 MG/DL Alkaline Phosphatase 102 U/L Aspartate Amino Transf (AST/SGOT) 19 U/L Alanine Aminotransferase (ALT/SGPT) 26 U/L Total Bilirubin 0.6 MG/DL Sodium Level 131 MEQ/L Potassium Level 4.2 MEQ/L Chloride Level 98 MEQ/L Carbon Dioxide Level 24.4 MEQ/L Anion Gap 9 MEQ/L Estimat Glomerular Filtration Rate 64 ML/MIN Triglycerides Level 278 MG/DL Cholesterol Level 180 MG/DL LDL Cholesterol 74 MG/DL HDL Cholesterol 50.8 MG/DL Cholesterol/HDL Ratio 3.54 RATIO White Blood Count 13.0 TH/MM3 Red Blood Count 4.78 MIL/MM3 Hemoglobin 14.9 GM/DL Hematocrit 43.3 % Mean Corpuscular Volume 90.5 FL Mean Corpuscular Hemoglobin 31.1 PG Mean Corpuscular Hemoglobin Concent 34.3 % Red Cell Distribution Width 15.5 % Platelet Count 322 TH/MM3 Mean Platelet Volume 7.8 FL Neutrophils (%) (Auto) 75.5 % Lymphocytes (%) (Auto) 14.9 % Monocytes (%) (Auto) 8.3 % Eosinophils (%) (Auto) 1.0 % Basophils (%) (Auto) 0.3 % Neutrophils # (Auto) 9.8 TH/MM3 Lymphocytes # (Auto) 1.9 TH/MM3 Monocytes # (Auto) 1.1 TH/MM3 Eosinophils # (Auto) 0.1 TH/MM3 Basophils # (Auto) 0.0 TH/MM3 CBC Comment DIFF FINAL Differential Comment Assessment and Plan Problem List: (1) Chest pain ICD Codes: R07.9 - Chest pain, unspecified Status: Acute (2) Chronic pain ICD Codes: G89.29 - Other chronic pain Status: Acute (3) Aortic stenosis ICD Codes: I35.0 - Aortic stenosis Status: Chronic Assessment and Plan 1) Catheterization with normal coronaries 2) Mild on echo 3) Micturition syncope 4) May proceed with Cscope per GI Problem Qualifiers (1) Aortic stenosis: Qualified Codes: I35.0 - Nonrheumatic aortic (valve) stenosis Raymond Rose DO Aug 09, 2017 17:54
[2017-08-09] MEDS: ALPRAZolam 1 MG TAB PO SCH (20:57)
[2017-08-10] VITALS (10 sets, daily range): BP systolic 113–144; BP diastolic 56–74; PULSE 50–73; RESP 16–20; TEMP 97.5–98.7; O2SAT 95–99
[2017-08-10] MEDS: SODIUM CHLOR 0.9% 1000 ML INJ 1,000 ML IV SCH ×2 (00:28→23:02)
--- NOTE | 2017-08-10 00:29 | RADRPT ---
EXAM DATE/TIME: 08/10/2017 00:12 [place] COMPARISON: No previous studies available for comparison. INDICATIONS : Abdomen pain; weight loss. ORAL CONTRAST: Partial prescribed oral contrast ingested. RADIATION DOSE: 7.62 CTDIvol (mGy) MEDICAL HISTORY : Cardiovascular disease. Renal calculi. Hypertension. SURGICAL HISTORY : Appendectomy. ENCOUNTER: Initial ACUITY: 1 day PAIN SCALE: 5/10 LOCATION: Bilateral abdomen TECHNIQUE: Volumetric scanning of the abdomen and pelvis was performed. Using automated exposure control and ad justment of the mA and/or kV according to patient size, radiation dose was kept as low as reasonably achievable to obtain optimal diagnostic quality images. DICOM format image data is available electro nically for review and comparison. FINDINGS: LOWER LUNGS: The visualized lower lungs are clear. LIVER: Homogeneous density without lesion. There is no dilation of the biliary tree. No calcified gallston es. Small hepatic low density towards the dome. SPLEEN: Normal size without lesion. PANCREAS: Within normal limits. KIDNEYS: Normal in size and shape. There is no mass, stone, or hydronephrosis. Small renal low densities. ADRENAL GLANDS: Within normal limits. VASCULAR: There is no aortic aneurysm. BOWEL/MESENTERY: There is an area of wall thickening within the distal descending colon versus nondistention. Few scat tered diverticula without diverticulitis. There is no free intraperitoneal air or fluid. ABDOMINAL WALL: Within normal limits. RETROPERITONEUM: There is no lymphadenopathy. BLADDER: No wall thickening or mass. REPRODUCTIVE: Within normal limits. INGUINAL: There is no lymphadenopathy or hernia. MUSCULOSKELETAL: Within normal limits for patient age. CONCLUSION: 1. Few scattered diverticula without diverticulitis. 2. Focal area wall thickening distal descending colon versus nondistention. Nonemergent barium enema versus colonoscopy recommended. 3. Hepatic and renal low densities likely benign. Epifanio Phillips MD on August 10, 2017 at 0:22 Board Certified Radiologist. This report was verified electronically.
--- NOTE | 2017-08-10 01:28 | MA ---
cc: Raymond Rose DO DATE: 08/09/2017 DATE OF PROCEDURE: Was 08/09/2017. PROCEDURE: Left heart catheterization, coronary angiogram, moderate sedation, 17 minutes. PREPROCEDURE DIAGNOSES: Continual chest pain with a negative nuclear stress test, syncope. POSTPROCEDURE DIAGNOSIS: Minimal coronary artery disease. MEDICATIONS: Versed 0.5 mg, fentanyl 25 micrograms, heparin 3300 units, verapamil 2.5 mg. Contrast used 55 mL. Fluoroscopy 2.8 minutes. Moderate sedation 17 minutes. ESTIMATED BLOOD LOSS: Was 10 mL. PROCEDURAL SUMMARY: Izaiah Mosher is a pleasant 57-year-old male who has presented multiple times to [facility] for chest pain. He has had two previous stress tests within the past year that were negative. He continues to have chest pain, which has some components of typical angina, as well as he had a syncopal episode while trying to use the restroom and so he was recommended cardiac catheterization. Risks, benefits and alternatives were explained to him and he consented to such. DESCRIPTION OF PROCEDURE: He was brought to the lab and prepped in the usual sterile fashion. The right radial artery was accessed using a modified Seldinger technique and placement of a 5/6 Kinyarwanda slender sheath. This was easily aspirated and flushed. A JR4 was advanced to the midforearm where it met some resistance. Angiogram was done and a Glidewire was used to advance the JR4 to the ascending aorta. JR4 was used for selective angiography of the right coronary artery system. JR4 was then advanced across the aortic valve for measurement of left ventricular pressure. This was pulled back across the aortic valve showing no significant gradient of aortic stenosis. This was exchanged out for a JL3.5, which was used for selective angiography of the left coronary artery system. A JL3.5 was removed over a J-wire. A radial band was placed over the arteriotomy site for hemostasis. 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 FINDINGS: Left main: Overall short vessel with no significant disease. It bifurcates into an LAD and circumflex. LAD: Normal-sized vessel with mild luminal irregularities in the gxl-pa-[id number] portion. It gives off 2 diagonals with no significant disease. Left circumflex: Dominant vessel which is, overall, large in size. It gives off 3 obtuse marginals as well as a PDA. No significant disease noted throughout the system. RCA: Miqde-xx-cuhwqvho-sized vessel with a 30% lesion in the midportion. Overall, nondominant vessel. LVEDP 12. IMPRESSIONS: 1. Mr. Mosher appears to have minimal coronary artery disease. He will be recommended continued medical therapy. 2. He did have some bright red blood noted in his bowel movement and he may undergo colonoscopy later this week. This was discussed with Gastroenterology.. 3. As far as his syncope goes, this is most likely micturition syncope, as he has an echocardiogram showing, at most, mild aortic stenosis. He has no significant coronary artery disease. 4. Further recommendations will be made based on hospital course. Thank you for allowing me to see Izaiah Mosher. If there are any questions, please do not hesitate to call. DO CHARITY Herrera/ADELINA , 12:36 AM , 01:27 AM
[2017-08-10] MEDS: ALPRAZolam 1 MG TAB PO PRN ×3 (04:45→17:05)
[2017-08-10] MEDS: NITROGLYCERIN 2% OINT 1 GM PACKET TOPICAL SCH ×5 (04:46→23:02)
[2017-08-10] MEDS: oxyCODONE/ACETAMINOPHEN 10 MG/325 MG TAB PO PRN ×4 (05:17→23:01)
[2017-08-10] MEDS: ISOSORBIDE MONONITRATE 30 MG CR TAB (IMDUR) PO SCH (05:17)
[2017-08-10 07:45] LABS: AUTOMATED NEUTROPHIL # 5.2 TH/MM3 (1.8-7.7); BASOPHIL # 0.1 TH/MM3 (0-0.2); BASOPHIL % 0.8 % (0.0-2.0); EOSINOPHIL # 0.1 TH/MM3 (0-0.4); EOSINOPHIL % 1.7 % (0.0-4.0); HEMATOCRIT 36.8 % (39.0-51.0); HEMOGLOBIN 12.7 GM/DL (13.0-17.0); LYMPH % 19.8 % (9.0-44.0); LYMPHOCYTE # 1.5 TH/MM3 (1.0-4.8); MEAN CELL VOLUME 90.7 FL (80.0-100.0); MEAN CORPUSCULAR HEMOGLOBIN 31.3 PG (27.0-34.0); MEAN CORPUSCULAR HGB CONC 34.5 % (32.0-36.0); MEAN PLATELET VOLUME 7.8 FL (7.0-11.0); MONO % 9.1 % (0.0-8.0); MONOCYTE # 0.7 TH/MM3 (0-0.9); NEUT % 68.6 % (16.0-70.0); PLATELET COUNT 276 TH/MM3 (150-450); RED BLOOD COUNT 4.05 MIL/MM3 (4.50-5.90); RED CELL DISTRIBUTION WIDTH 15.2 % (11.6-17.2); WHITE BLOOD COUNT 7.6 TH/MM3 (4.0-11.0)
[2017-08-10 08:25] LABS: BICARBONATE 25.2 MEQ/L (21.0-32.0); CALCIUM 8.5 MG/DL (8.5-10.1); CREATININE 0.98 MG/DL (0.60-1.30)
[2017-08-10] MEDS: METOPROLOL TARTRATE 25 MG TAB PO SCH ×2 (09:00→21:00)
[2017-08-10] MEDS: PANTOPRAZOLE SOD 40 MG DELAYED RELEASE TAB PO SCH (09:00)
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
[2017-08-10] MEDS: ONDANSETRON HCL 4 MG/2 ML VIAL IV PUSH PRN (10:02)
[2017-08-10] MEDS: ESCITALOPRAM OXALATE 20 MG TAB PO SCH (10:02)
[2017-08-10] MEDS: LISINOPRIL 20 MG TAB PO SCH (10:03)
[2017-08-10] MEDS: DOCUSATE SODIUM 50 MG/SENNA 8.6 MG TAB PO SCH ×2 (10:03→21:00)
[2017-08-10] MEDS: DULoxetine HCl DR 60 MG CAP PO SCH ×2 (10:03→21:00)
[2017-08-10] MEDS: ASPIRIN 325 MG TAB PO SCH (10:03)
[2017-08-10] MEDS ORDERED: DICYCLOMINE HCL 20 MG TAB PO PRN (11:00)
[2017-08-10] MEDS ORDERED: PEG (High)/E-LYTE SOLN 4000 ML BTL PO ONE (16:00)
--- NOTE | 2017-08-10 18:11 | HHI.PR ---
Subjective Remarks Patient denies cp/sob Objective Vitals Vital Signs Date Time Temp Pulse Resp B/P (MAP) Pulse Ox O2 Delivery O2 Flow Rate FiO2 08/10/17 16:15 97.9 59 17 144/67 (92) 97 08/10/17 12:00 73 08/10/17 12:00 98.0 54 18 125/60 (81) 95 08/10/17 11:21 96 21 08/10/17 08:00 58 08/10/17 08:00 98.5 54 18 140/74 (96) 96 08/10/17 08:00 96 Room Air 21 08/10/17 04:06 58 08/10/17 04:06 Room Air 08/10/17 04:00 98.0 69 16 116/61 (79) 97 08/10/17 00:00 97.5 69 16 113/65 (81) 99 08/10/17 00:00 Room Air 08/10/17 00:00 69 08/09/17 20:00 98.1 61 17 122/68 (86) 95 08/09/17 20:00 56 08/09/17 20:00 Room Air I/O 08/09/17 08/09/17 08/09/17 08/10/17 08/10/17 08/10/17 06:59 14:59 22:59 06:59 14:59 22:59 Intake Total 960 ml Output Total 275 ml Balance 685 ml Intake Oral 960 ml Output Urine Total 275 ml # Voids 3 # Bowel Movements 4 Result Diagram: 08/10/17 0600 08/10/17 0600 Imaging Last Impressions Abdomen/Pelvis CT 08/09/17 0000 Signed Impressions: Service Date/Time: Thursday, August 10, 2017 00:12 - CONCLUSION: 1. Few scattered diverticula without diverticulitis. 2. Focal area wall thickening distal descending colon versus nondistention. Nonemergent barium enema versus colonoscopy recommended. 3. Hepatic and renal low densities likely benign. Epifanio Phillips MD Carotid Artery Ultrasound 08/07/17 0000 Signed Impressions: Service Date/Time: Monday, August 07, 2017 16:20 - CONCLUSION: Negative for hemodynamically significant stenosis Anthony Harrison MD FACR Objective Remarks GENERAL: Well-nourished, well-developed middle aged male patient in NAD. SKIN: Warm and dry. No rash. HEENT: Normocephalic. Atraumatic.Pupils equal and round. Mucous membranes pink and moist. CARDIOVASCULAR: Regular rate and rhythm. S1, S2 noted. No murmur appreciated. No chest wall tenderness to palpation. RESPIRATORY: No accessory muscle use. Clear to auscultation. Breath sounds equal bilaterally. GASTROINTESTINAL: Abdomen soft, non-tender, nondistended. Normoactive bowel sounds x4. MUSCULOSKELETAL: No obvious deformities. Extremities without clubbing, cyanosis , or edema. NEUROLOGICAL: Awake and alert. No obvious cranial nerve deficits. Motor grossly within normal limits. Normal speech. PSYCHIATRIC: Anxious mood, improved today; insight and judgment normal. Urinary Catheter: No A/P Assessment and Plan 57-year-old male with history of anxiety, PTSD, bipolar disorder, mild aortic stenosis, hypertension, presents with intermittent chest pain. Initially admitted to [place] [facility], then transferred to [facility] chest pain center, however patient had syncopal episode while in the hospital, found with brief questionable episode of unresponsiveness, therefore admitted to hospitalist for further evaluation. Chest pain: atypical. -EMR Reviewed, Nuclear Stress Test 03/29/17 showed no reversible perfusion defect to indicate stress-induced ischemia. -ACS ruled out on 08/06 at [place] with negative serial cardiac enzymes x3 and EKG without acute ischemic changes -CT-PA on 08/06 also negative, no pulmonary embolism -Echocardiogram 08/07 with EF 60-65%, mild , mild-mod AR, trace TR -Continue aspirin, imdur, ANA, BB, nitro ointment -Consulted cardiology -Discussed with Dr. Rose, patient with ongoing chest pain, planning for cardiac catheterization today 08/10 SP cardiac catheterization with minimal CAD. Medical management recommended. GI Bleeding with BRBPR: reported during hospitalization on 08/09. One episode of BRBPR. Patient reports hx of colonoscopy that was unremarkable however had poor prep. -Hgb stable at 14.9, will continue to monitor -start on PPI -Give IVF hydration -check stool hemoccult -08/10 Appreciate GI recommendations. for EGD/colonoscopy in am. Syncope: report from chest pain center and nursing staff reports questionable episode of syncope after patient was discharged, not witnessed by staff -echocardiogram unremarkable as above, mild unlikely cause of syncope -ruling out ACS as above -carotid U/S with no stenosis -orthostatics negative (BP increases appropriately upon standing) -no further syncopal events Mild Aortic Stenosis: unchanged -unlikely etiology of patient's symptoms -continue outpatient f/up with cardiology Hypertension: BP soft -continued patient's home meds including lisinopril, hold HCTZ -also started on metoprolol and imdur for ongoing chest pain -may need to discontinue HCTZ at discharge and decrease dose of lisinopril if BP continues to be low Anxiety/PTSD/Bipolar Disorder: patient with severe anxiety on exam -continue patient's Lexapro, Xanax prn, Cymbalta, Celebrex -strongly encouraged outpatient f/up with PCP and psychiatrist upon discharge DVT Prophylaxis: teds/SCDs Discharge Planning Pending EGD/colonoscopy in [place] Dill MD Aug 10, 2017 18:11
[2017-08-10] MEDS: ALPRAZolam 1 MG TAB PO SCH (21:34)
--- NOTE | 2017-08-10 22:04 | PD.CARD.PN ---
Subjective Subjective Remarks Patient was seen this afternoon, late entry note Did have another bowel movement with blood Objective Medications Current Medications Medications (Trade) Dose Ordered Sig/Ev Route Start Time Stop Time Status Last Admin (NS Flush) 2 ml UNSCH PRN IV FLUSH 08/06/17 23:45 08/08/17 20:48 (NS Flush) 2 ml UNSCH PRN IV FLUSH 08/06/17 23:45 (Tylenol) 500 mg Q4H PRN PO 08/06/17 23:45 (Zofran Inj) 4 mg Q6H PRN IV PUSH 08/06/17 23:45 08/10/17 10:02 (Xanax) 2 mg HS PO 08/06/17 23:45 08/10/17 21:34 (Percocet 10-325 Mg) 1 tab Q6H PRN PO 08/06/17 23:45 08/10/17 17:06 (Nitrostat Sl) 0.4 mg Q5M PRN SL 08/07/17 07:30 (Aspirin) 325 mg DAILY PO 08/07/17 09:00 08/10/17 10:03 (CeleBREX) 200 mg DAILY PO 08/07/17 09:00 Future Hold 08/08/17 09:35 (Cymbalta Dr) 60 mg BID PO 08/07/17 09:00 08/10/17 10:03 (Prinivil) 20 mg DAILY PO 08/07/17 09:00 08/10/17 10:03 (Microzide) 12.5 mg DAILY PO 08/07/17 09:00 Future Hold 08/08/17 09:34 (Nitroglycerin 2% Oint) 1 inch Q6H TOPICAL 08/07/17 18:00 08/07/17 20:10 (Imdur) 30 mg DAILY@07 PO 08/08/17 11:30 08/09/17 06:19 (Lopressor) 12.5 mg Q12HR PO 08/08/17 11:30 08/08/17 20:45 (Pill Splitter) 1 ea UNSCH PRN OTHER 08/08/17 11:30 (Xanax) 1 mg Q6H PRN PO 08/08/17 14:45 08/10/17 17:05 (Lexapro) 20 mg DAILY PO 08/08/17 15:15 08/10/17 10:02 (Suzie-Colace) 1 tab BID PO 08/08/17 23:00 08/10/17 10:03 (Milk Of Magnedith Liq) 30 ml Q12H PRN PO 08/08/17 23:00 (Senokot) 17.2 mg Q12H PRN PO 08/08/17 23:00 (Dulcolax Supp) 10 mg DAILY PRN RECTAL 08/08/17 23:00 Lactated Ringer's 1,000 ml @ 30 mls/hr Q24H PRN IV 08/09/17 03:30 08/12/17 03:29 Sodium Chloride 500 ml @ 30 mls/hr [id number] PRN IV 08/09/17 03:30 08/12/17 03:29 (Betadine 5% Antisepsis Kit) 1 applic SUPERVISOR DOCK PRN EACH NARE 08/09/17 03:30 08/12/17 03:29 (Chlorhexidine 2% Cloth) 3 pack SUPERVISOR DOCK PRN TOPICAL 08/09/17 03:30 08/12/17 03:29 (Protonix) 40 mg DAILY PO 08/09/17 12:15 08/10/17 09:00 Sodium Chloride 1,000 ml @ 84 mls/hr [id number] IV 08/09/17 12:15 08/10/17 00:28 (Bentyl) 20 mg TID PRN PO 08/10/17 11:00 08/10/17 14:16 Vital Signs / I&O Vital Signs Date Time Temp Pulse Resp B/P (MAP) Pulse Ox O2 Delivery O2 Flow Rate FiO2 08/10/17 20:00 97.8 61 16 134/60 (84) 95 08/10/17 16:15 97.9 59 17 144/67 (92) 97 08/10/17 16:00 98.7 63 20 135/73 (93) 97 08/10/17 12:00 73 08/10/17 12:00 98.0 54 18 125/60 (81) 95 08/10/17 11:21 96 21 08/10/17 08:00 58 08/10/17 08:00 98.5 54 18 140/74 (96) 96 08/10/17 08:00 96 Room Air 21 08/10/17 04:06 58 08/10/17 04:06 Room Air 08/10/17 04:00 98.0 69 16 116/61 (79) 97 08/10/17 00:00 97.5 69 16 113/65 (81) 99 08/10/17 00:00 Room Air 08/10/17 00:00 69 I/O 08/09/17 08/09/17 08/09/17 08/10/17 08/10/17 08/10/17 07:00 15:00 23:00 07:00 15:00 23:00 Intake Total 960 ml 1080 ml Output Total 275 ml Balance 685 ml 1080 ml Intake Oral 960 ml 1080 ml Output Urine Total 275 ml # Voids 3 3 # Bowel Movements 4 0 Physical Exam GENERAL: NAD, AAOx3 SKIN: Warm and dry. HEAD: Atraumatic. Normocephalic. EYES: Pupils equal and round. No scleral icterus. No injection or drainage. ENT: No nasal bleeding or discharge. Mucous membranes pink and moist. NECK: Trachea midline. No JVD. CARDIOVASCULAR: Regular rate and rhythm. RESPIRATORY: No accessory muscle use. Clear to auscultation. Breath sounds equal bilaterally. GASTROINTESTINAL: Abdomen soft, non-tender, nondistended. Hepatic and splenic margins not palpable. MUSCULOSKELETAL: Extremities without clubbing, cyanosis, or edema. No obvious deformities. NEUROLOGICAL: Awake and alert. No obvious cranial nerve deficits. Motor grossly within normal limits. Five out of 5 muscle strength in the arms and legs. Normal speech. PSYCHIATRIC: Appropriate mood and affect; insight and judgment normal. Laboratory Laboratory Tests Test 08/10/17 06:00 08/10/17 11:04 White Blood Count 7.6 TH/MM3 Red Blood Count 4.05 MIL/MM3 Hemoglobin 12.7 GM/DL Hematocrit 36.8 % Mean Corpuscular Volume 90.7 FL Mean Corpuscular Hemoglobin 31.3 PG Mean Corpuscular Hemoglobin Concent 34.5 % Red Cell Distribution Width 15.2 % Platelet Count 276 TH/MM3 Mean Platelet Volume 7.8 FL Neutrophils (%) (Auto) 68.6 % Lymphocytes (%) (Auto) 19.8 % Monocytes (%) (Auto) 9.1 % Eosinophils (%) (Auto) 1.7 % Basophils (%) (Auto) 0.8 % Neutrophils # (Auto) 5.2 TH/MM3 Lymphocytes # (Auto) 1.5 TH/MM3 Monocytes # (Auto) 0.7 TH/MM3 Eosinophils # (Auto) 0.1 TH/MM3 Basophils # (Auto) 0.1 TH/MM3 CBC Comment DIFF FINAL Differential Comment Blood Urea Nitrogen 21 MG/DL Creatinine 0.98 MG/DL Random Glucose 80 MG/DL Calcium Level 8.5 MG/DL Sodium Level 137 MEQ/L Potassium Level 3.9 MEQ/L Chloride Level 103 MEQ/L Carbon Dioxide Level 25.2 MEQ/L Anion Gap 9 MEQ/L Estimat Glomerular Filtration Rate 78 ML/MIN Stool C. difficile Toxin (PCR) NEGATIVE Stl C. difficile Toxin Epiderm 027 PRESUMPTIVE NEGATIVE Assessment and Plan Problem List: (1) Chest pain ICD Codes: R07.9 - Chest pain, unspecified Status: Acute (2) Chronic pain ICD Codes: G89.29 - Other chronic pain Status: Acute (3) Aortic stenosis ICD Codes: I35.0 - Aortic stenosis Status: Chronic Assessment and Plan 1) Catheterization with normal coronaries 2) Mild on echo 3) Micturition syncope 4) May proceed with Cscope per GI for BRBPR Problem Qualifiers (1) Aortic stenosis: Qualified Codes: I35.0 - Nonrheumatic aortic (valve) stenosis Raymond Rose DO Aug 10, 2017 22:04
[2017-08-11] VITALS (9 sets, daily range): BP systolic 114–149; BP diastolic 59–67; PULSE 49–67; RESP 16–20; TEMP 97.2–98.6; O2SAT 94–97
[2017-08-11] MEDS: ISOSORBIDE MONONITRATE 30 MG CR TAB (IMDUR) PO SCH (04:56)
[2017-08-11] MEDS: oxyCODONE/ACETAMINOPHEN 10 MG/325 MG TAB PO PRN ×3 (04:56→21:11)
[2017-08-11] MEDS: NITROGLYCERIN 2% OINT 1 GM PACKET TOPICAL SCH ×4 (04:56→23:50)
[2017-08-11] MEDS: ALPRAZolam 1 MG TAB PO PRN ×2 (04:56→14:34)
[2017-08-11] MEDS: METOPROLOL TARTRATE 25 MG TAB PO SCH ×2 (09:00→21:04)
[2017-08-11] MEDS: DOCUSATE SODIUM 50 MG/SENNA 8.6 MG TAB PO SCH ×2 (09:00→21:04)
[2017-08-11] MEDS: SODIUM CHLOR 0.9% 1000 ML INJ 1,000 ML IV SCH ×2 (11:55→23:50)
[2017-08-11] MEDS ORDERED: PROPOFOL 200 MG/20 ML AMP IV ONE (12:00)
[2017-08-11] MEDS ORDERED: ePHEDrine/NS 25 MG/5 ML SYRINGE IV ONE (12:00)
[2017-08-11] MEDS ORDERED: PHENYLEPH/NS 1000 MCG/10 ML SYR IV ONE (12:00)
[2017-08-11] MEDS ORDERED: LIDOCAINE HCL 1% PF 5 ML SYRINGE OTHER ONE (12:00)
[2017-08-11] MEDS ORDERED: EPINEPHrine HCL (1:1000) 1 MG/ML VIAL IV ONE (12:00)
[2017-08-11] MEDS: DULoxetine HCl DR 60 MG CAP PO SCH ×2 (14:39→21:00)
[2017-08-11] MEDS: PANTOPRAZOLE SOD 40 MG DELAYED RELEASE TAB PO SCH (14:40)
[2017-08-11] MEDS: LISINOPRIL 20 MG TAB PO SCH (14:40)
[2017-08-11] MEDS: ESCITALOPRAM OXALATE 20 MG TAB PO SCH (14:40)
[2017-08-11] MEDS: ASPIRIN 325 MG TAB PO SCH (14:40)
[2017-08-11] MEDS ORDERED: LISI-515 PO (14:42)
[2017-08-11] MEDS ORDERED: METO25TA3 PO (14:42)
--- NOTE | 2017-08-11 14:44 | HHI.DS ---
Discharge Summary Admission Date Aug 06, 2017 at 19:59 Discharge Date: Aug 11, 2017 Admitting Diagnosis CBC/BMP: 08/10/17 0600 08/10/17 0600 Significant Findings Laboratory Tests Test 08/08/17 20:46 08/09/17 03:04 08/09/17 04:03 08/10/17 06:00 Blood Urea Nitrogen 29 MG/DL (7-18) 21 MG/DL (7-18) Albumin 3.3 GM/DL (3.4-5.0) Sodium Level 131 MEQ/L (136-145) Estimat Glomerular Filtration Rate 64 ML/MIN (>89) 78 ML/MIN (>89) Triglycerides Level 278 MG/DL (42-150) White Blood Count 13.0 TH/MM3 (4.0-11.0) Neutrophils (%) (Auto) 75.5 % (16.0-70.0) Monocytes (%) (Auto) 8.3 % (0.0-8.0) 9.1 % (0.0-8.0) Neutrophils # (Auto) 9.8 TH/MM3 (1.8-7.7) Monocytes # (Auto) 1.1 TH/MM3 (0-0.9) Red Blood Count 4.05 MIL/MM3 (4.50-5.90) Hemoglobin 12.7 GM/DL (13.0-17.0) Hematocrit 36.8 % (39.0-51.0) Test 08/10/17 11:04 Imaging Last Impressions Abdomen/Pelvis CT 08/09/17 0000 Signed Impressions: Service Date/Time: Thursday, August 10, 2017 00:12 - CONCLUSION: 1. Few scattered diverticula without diverticulitis. 2. Focal area wall thickening distal descending colon versus nondistention. Nonemergent barium enema versus colonoscopy recommended. 3. Hepatic and renal low densities likely benign. Epifanio Phillips MD Carotid Artery Ultrasound 08/07/17 0000 Signed Impressions: Service Date/Time: Monday, August 07, 2017 16:20 - CONCLUSION: Negative for hemodynamically significant stenosis Anthony Harrison MD FACR PE at Discharge GENERAL: Well-nourished, well-developed middle aged male patient in [place]. SKIN: Warm and dry. No rash. HEENT: Normocephalic. Atraumatic.Pupils equal and round. Mucous membranes pink and moist. CARDIOVASCULAR: Regular rate and rhythm. S1, S2 noted. No murmur appreciated. No chest wall tenderness to palpation. RESPIRATORY: No accessory muscle use. Clear to auscultation. Breath sounds equal bilaterally. GASTROINTESTINAL: Abdomen soft, non-tender, nondistended. Normoactive bowel sounds x4. MUSCULOSKELETAL: No obvious deformities. Extremities without clubbing, cyanosis , or edema. NEUROLOGICAL: Awake and alert. No obvious cranial nerve deficits. Motor grossly within normal limits. Normal speech. PSYCHIATRIC: Anxious mood, improved today; insight and judgment normal. Pt Condition on Discharge: Good Discharge Disposition: Discharge Home Discharge Time: > 30 minutes Discharge Instructions DIET: Follow Instructions for: Heart Healthy Diet Activities you can perform: Regular-No Restrictions Follow up Referrals: PCP Follow-up - 1 Week New Medications: Lisinopril (Lisinopril) 20 Mg Tab 20 MG PO DAILY for cad, #31 TAB Metoprolol Tartrate (Metoprolol Tartrate) 25 Mg Tab 12.5 MG PO Q12HR for cad, #62 TAB Continued Medications: Alprazolam (Xanax) 2 Mg Tab 2 MG PO HS, TAB [address] (Aspirin EC) 81 Mg Tabdr 81 MG PO DAILY, TAB 0 Refills Celecoxib (Celebrex) 200 Mg Cap 200 MG PO DAILY for Pain Management, CAP [address] (Cymbalta DR) 60 Mg Capdr 60 MG PO DAILY, #30 CAP 0 Refills Escitalopram (Lexapro) 20 Mg Tab 20 MG PO DAILY, #30 TAB 0 Refills Lisinopril-Hctz (Lisinopril-Hctz) 20-12.5 Mg Tab 1 TAB PO DAILY for Blood Pressure Management, #30 TAB 0 Refills Morphine ER (Ms Contin) 200 Mg Tab 50 MG PO BID for Pain Management, TAB 0 Refills Oxycodone-Acetaminophen (Percocet) 10-325 mg Tab 1 TAB PO Q4HR PRN for PAIN, TAB 0 Refills Sildenafil (Viagra) 100 Mg Tab 100 MG PO DAILY PRN for ERECTILE DYSFUNCTION, TAB 0 Refills Testosterone Cypionate Inj (Testosterone Cypionate Inj) 100 Mg/Ml Inj 100 MG IM WEEKLY for Hormone Replacement, #1 INJECTION 0 Refills Thai Garner MD Aug 11, 2017 14:44
[2017-08-11 18:58] LABS: HEMOGLOBIN A1C 5.9 % (4.3-6.0)
--- NOTE | 2017-08-11 19:36 | PD.CARD.PN ---
Subjective Subjective Remarks Patient was seen this afternoon, late entry note Post-Cscope, unsure of results Objective Medications Current Medications Medications (Trade) Dose Ordered Sig/Ev Route Start Time Stop Time Status Last Admin (NS Flush) 2 ml UNSCH PRN IV FLUSH 08/06/17 23:45 08/08/17 20:48 (NS Flush) 2 ml UNSCH PRN IV FLUSH 08/06/17 23:45 (Tylenol) 500 mg Q4H PRN PO 08/06/17 23:45 (Zofran Inj) 4 mg Q6H PRN IV PUSH 08/06/17 23:45 08/10/17 10:02 (Xanax) 2 mg HS PO 08/06/17 23:45 08/10/17 21:34 (Percocet 10-325 Mg) 1 tab Q6H PRN PO 08/06/17 23:45 08/11/17 14:34 (Nitrostat Sl) 0.4 mg Q5M PRN SL 08/07/17 07:30 (Aspirin) 325 mg DAILY PO 08/07/17 09:00 08/11/17 14:40 (CeleBREX) 200 mg DAILY PO 08/07/17 09:00 Future Hold 08/08/17 09:35 (Cymbalta Dr) 60 mg BID PO 08/07/17 09:00 08/11/17 14:39 (Prinivil) 20 mg DAILY PO 08/07/17 09:00 08/11/17 14:40 (Microzide) 12.5 mg DAILY PO 08/07/17 09:00 Future Hold 08/08/17 09:34 (Nitroglycerin 2% Oint) 1 inch Q6H TOPICAL 08/07/17 18:00 08/07/17 20:10 (Imdur) 30 mg DAILY@07 PO 08/08/17 11:30 08/09/17 06:19 (Lopressor) 12.5 mg Q12HR PO 08/08/17 11:30 08/08/17 20:45 (Pill Splitter) 1 ea UNSCH PRN OTHER 08/08/17 11:30 (Xanax) 1 mg Q6H PRN PO 08/08/17 14:45 08/11/17 14:34 (Lexapro) 20 mg DAILY PO 08/08/17 15:15 08/11/17 14:40 (Suzie-Colace) 1 tab BID PO 08/08/17 23:00 08/10/17 10:03 (Milk Of Magnedith Liq) 30 ml Q12H PRN PO 08/08/17 23:00 (Senokot) 17.2 mg Q12H PRN PO 08/08/17 23:00 (Dulcolax Supp) 10 mg DAILY PRN RECTAL 08/08/17 23:00 Lactated Ringer's 1,000 ml @ 30 mls/hr Q24H PRN IV 08/09/17 03:30 08/12/17 03:29 Sodium Chloride 500 ml @ 30 mls/hr [id number] PRN IV 08/09/17 03:30 08/12/17 03:29 (Betadine 5% Antisepsis Kit) 1 applic [employer]GER PRN EACH NARE 08/09/17 03:30 08/12/17 03:29 (Chlorhexidine 2% Cloth) 3 pack [employer]IVERSITY [employer]GER PRN TOPICAL 08/09/17 03:30 08/12/17 03:29 (Protonix) 40 mg DAILY PO 08/09/17 12:15 08/11/17 14:40 Sodium Chloride 1,000 ml @ 84 mls/hr [id number] IV 08/09/17 12:15 08/10/17 00:28 (Bentyl) 20 mg TID PRN PO 08/10/17 11:00 08/10/17 14:16 Vital Signs / I&O Vital Signs Date Time Temp Pulse Resp B/P (MAP) Pulse Ox O2 Delivery O2 Flow Rate FiO2 08/11/17 16:00 97.2 57 19 149/67 (94) 95 08/11/17 08:00 52 08/11/17 08:00 97.5 55 19 139/62 (87) 97 08/11/17 08:00 96 Room Air 21 08/11/17 04:00 97.9 56 16 114/59 (77) 94 08/11/17 03:59 49 08/11/17 03:58 Room Air 08/11/17 00:00 Room Air 08/11/17 00:00 50 08/10/17 23:58 97.7 50 17 115/56 (75) 96 08/10/17 20:00 97.8 61 16 134/60 (84) 95 08/10/17 20:00 Room Air 08/10/17 20:00 53 I/O 08/10/17 08/10/17 08/10/17 08/11/17 08/11/17 08/11/17 06:59 14:59 22:59 06:59 14:59 22:59 Intake Total 960 ml 1080 ml 720 ml 100 ml Output Total 275 ml Balance 685 ml 1080 ml 720 ml 100 ml Intake Oral 960 ml 1080 ml 720 ml 0 ml Other 100 ml Output Urine Total 275 ml # Voids 3 4 # Bowel Movements 0 0 Physical Exam GENERAL: NAD, AAOx3 SKIN: Warm and dry. HEAD: Atraumatic. Normocephalic. EYES: Pupils equal and round. No scleral icterus. No injection or drainage. ENT: No nasal bleeding or discharge. Mucous membranes pink and moist. NECK: Trachea midline. No JVD. CARDIOVASCULAR: Regular rate and rhythm. RESPIRATORY: No accessory muscle use. Clear to auscultation. Breath sounds equal bilaterally. GASTROINTESTINAL: Abdomen soft, non-tender, nondistended. Hepatic and splenic margins not palpable. MUSCULOSKELETAL: Extremities without clubbing, cyanosis, or edema. No obvious deformities. NEUROLOGICAL: Awake and alert. No obvious cranial nerve deficits. Motor grossly within normal limits. Five out of 5 muscle strength in the arms and legs. Normal speech. PSYCHIATRIC: Appropriate mood and affect; insight and judgment normal. Assessment and Plan Problem List: (1) Chest pain ICD Codes: R07.9 - Chest pain, unspecified Status: Acute (2) Chronic pain ICD Codes: G89.29 - Other chronic pain Status: Acute (3) Aortic stenosis ICD Codes: I35.0 - Aortic stenosis Status: Chronic Assessment and Plan 1) Catheterization with normal coronaries 2) Mild on echo 3) Micturition syncope 4) No further cardiovascular work up, will see PRN, call with questions Problem Qualifiers (1) Aortic stenosis: Qualified Codes: I35.0 - Nonrheumatic aortic (valve) stenosis Raymond Rose DO Aug 11, 2017 19:36
--- NOTE | 2017-08-11 20:37 | PD.PROCEDR ---
GI Procedure PROCEDURE PERFORMED EGD with biopsy followed by a colonoscopy INDICATION FOR PROCEDURE Abdominal pain, dysphagia, bright red blood per rectum, weight loss PROCEDURE: The procedure, risks and benefits were discussed with Ms. Cano and informed consent was obtained. Anesthesia sedated her with Diprivan. She was placed in the left lateral decubitus position. EGD: The Pentax videoscope was introduced through the oropharynx and advanced to the second portion of the duodenum under direct visualization. Retroflexion was performed in the stomach. FINDINGS: The esophagus this appeared to be unremarkable and within normal limits biopsies were taken for further evaluation The stomach there was patchy erythema noted in the antrum but no ulcerations no erosions no blood or bleeding the rest of the stomach was unremarkable antral biopsies were taken for further evaluation The duodenum this was normal Colonoscopy: The Pentax videoscope was introduced through the rectum and advanced to cecum where the ileocecal valve and appendiceal orifice were identified. Retroflexion was performed in the rectum. Colonic prep was good FINDINGS: Colonic withdrawal time greater than 6 minutes. As the scope was slowly withdrawn colonic mucosa was carefully inspected the colonic mucosa appeared to be unremarkable with normal limits all the way through the patient was noted to have some mild diverticulosis in the sigmoid region retroflexion in the rectum did reveal small size internal hemorrhoids rectal examination otherwise unremarkable ESTIMATED BLOOD LOSS: None SPECIMENS REMOVED: Biopsies from the esophagus and the stomach COMPLICATIONS: None IMPRESSION: Gastritis Diverticulosis Internal hemorrhoids PLAN: Await biopsies Supportive care High-fiber diet Avoid straining Colonoscopy in 5 years No much to add from a GI standpoint we will sign off Sumit Salcedo MD Aug 11, 2017 20:37
[2017-08-11] MEDS: ALPRAZolam 1 MG TAB PO SCH (21:04)
[2017-08-12] VITALS (7 sets, daily range): BP systolic 117–147; BP diastolic 54–92; PULSE 50–86; RESP 16–20; TEMP 97.6–98.2; O2SAT 94–98
[2017-08-12] MEDS: ALPRAZolam 1 MG TAB PO PRN ×2 (03:08→11:06)
[2017-08-12] MEDS: oxyCODONE/ACETAMINOPHEN 10 MG/325 MG TAB PO PRN ×3 (03:09→16:37)
--- NOTE | 2017-08-12 03:53 | HHI.PR ---
Subjective Remarks NOT SEEN Objective Vitals Vital Signs Date Time Temp Pulse Resp B/P (MAP) Pulse Ox O2 Delivery O2 Flow Rate FiO2 08/11/17 23:35 67 08/11/17 23:00 Room Air 08/11/17 23:00 97.6 67 20 133/63 (86) 95 08/11/17 20:15 98.6 65 18 137/63 (87) 97 08/11/17 20:00 66 08/11/17 20:00 Room Air 08/11/17 16:00 97.2 57 19 149/67 (94) 95 08/11/17 08:00 52 08/11/17 08:00 97.5 55 19 139/62 (87) 97 08/11/17 08:00 96 Room Air 21 08/11/17 04:00 97.9 56 16 114/59 (77) 94 08/11/17 03:59 49 08/11/17 03:58 Room Air I/O 08/11/17 08/11/17 08/11/17 08/12/17 08/12/17 08/12/17 07:00 15:00 23:00 07:00 15:00 23:00 Intake Total 720 ml 100 ml Balance 720 ml 100 ml Intake Oral 720 ml 0 ml Other 100 ml # Voids 4 # Bowel Movements 0 Result Diagram: 08/10/17 0600 08/10/17 0600 Imaging Last Impressions Abdomen/Pelvis CT 08/09/17 0000 Signed Impressions: Service Date/Time: Thursday, August 10, 2017 00:12 - CONCLUSION: 1. Few scattered diverticula without diverticulitis. 2. Focal area wall thickening distal descending colon versus nondistention. Nonemergent barium enema versus colonoscopy recommended. 3. Hepatic and renal low densities likely benign. Epifanio Phillips MD Carotid Artery Ultrasound 08/07/17 0000 Signed Impressions: Service Date/Time: Monday, August 07, 2017 16:20 - CONCLUSION: Negative for hemodynamically significant stenosis Anthony Harrison MD FACR Objective Remarks GENERAL: Well-nourished, well-developed middle aged male patient in [facility]. SKIN: Warm and dry. No rash. HEENT: Normocephalic. Atraumatic.Pupils equal and round. Mucous membranes pink and moist. CARDIOVASCULAR: Regular rate and rhythm. S1, S2 noted. No murmur appreciated. No chest wall tenderness to palpation. RESPIRATORY: No accessory muscle use. Clear to auscultation. Breath sounds equal bilaterally. GASTROINTESTINAL: Abdomen soft, non-tender, nondistended. Normoactive bowel sounds x4. MUSCULOSKELETAL: No obvious deformities. Extremities without clubbing, cyanosis , or edema. NEUROLOGICAL: Awake and alert. No obvious cranial nerve deficits. Motor grossly within normal limits. Normal speech. PSYCHIATRIC: Anxious mood, improved today; insight and judgment normal. Procedures EGD C scope A/P Problem List: (1) Atypical chest pain ICD Code: R07.89 - Other chest pain Status: Resolved Assessment and Plan 57-year-old male with history of anxiety, PTSD, bipolar disorder, mild aortic stenosis, hypertension, presents with intermittent chest pain. Initially admitted to [place] ER, then transferred to [facility] chest pain center, however patient had syncopal episode while in the hospital, found with brief questionable episode of unresponsiveness, therefore admitted to hospitalist for further evaluation. Chest pain: atypical. -EMR Reviewed, Nuclear Stress Test 03/29/17 showed no reversible perfusion defect to indicate stress-induced ischemia. -ACS ruled out on 08/06 at [place] with negative serial cardiac enzymes x3 and EKG without acute ischemic changes -CT-PA on 08/06 also negative, no pulmonary embolism -Echocardiogram 08/07 with EF 60-65%, mild , mild-mod AR, trace TR -Continue aspirin, imdur, ANA, BB, nitro ointment -Consulted cardiology -Discussed with Dr. Rose, 08/10 SP cardiac catheterization with minimal CAD. Medical management recommended. GI Bleeding with BRBPR: reported during hospitalization on 08/09. One episode of BRBPR. Patient reports hx of colonoscopy that was unremarkable however had poor prep. -Hgb stable at 14.9, will continue to monitor -start on PPI -Give IVF hydration -check stool hemoccult -08/10 Appreciate GI recommendations. EGD with Gastritis Cscope with Diverticulosis Internal hemorrhoids f/u bx Syncope: report from chest pain center and nursing staff reports questionable episode of syncope after patient was discharged, not witnessed by staff -echocardiogram unremarkable as above, mild unlikely cause of syncope -ruling out ACS as above -carotid U/S with no stenosis -orthostatics negative -no further syncopal events Mild Aortic Stenosis: unchanged -unlikely etiology of patient's symptoms -continue outpatient f/up with cardiology Hypertension: BP soft -continued patient's home meds including lisinopril, hold HCTZ -also started on metoprolol and imdur with CAD -may need to discontinue HCTZ at discharge and decrease dose of lisinopril if BP continues to be low Anxiety/PTSD/Bipolar Disorder: patient with severe anxiety on exam -continue patient's Lexapro, Xanax prn, Cymbalta, Celebrex -strongly encouraged outpatient f/up with PCP and psychiatrist upon discharge DVT Prophylaxis: teds/SCDs Ananda Downs MD Aug 12, 2017 03:53
[2017-08-12] MEDS ORDERED: PANT40TA3 PO (04:05)
[2017-08-12] MEDS ORDERED: ISOS30TA3 PO (04:05)
[2017-08-12] MEDS: ISOSORBIDE MONONITRATE 30 MG CR TAB (IMDUR) PO SCH (06:16)
[2017-08-12] MEDS: DOCUSATE SODIUM 50 MG/SENNA 8.6 MG TAB PO SCH (09:59)
[2017-08-12] MEDS: LISINOPRIL 20 MG TAB PO SCH (09:59)
[2017-08-12] MEDS: ESCITALOPRAM OXALATE 20 MG TAB PO SCH (09:59)
[2017-08-12] MEDS: ASPIRIN 325 MG TAB PO SCH (09:59)
[2017-08-12] MEDS: METOPROLOL TARTRATE 25 MG TAB PO SCH (09:59)
[2017-08-12] MEDS: DULoxetine HCl DR 60 MG CAP PO SCH (09:59)
[2017-08-12] MEDS: PANTOPRAZOLE SOD 40 MG DELAYED RELEASE TAB PO SCH (09:59)
--- NOTE | 2017-08-12 11:19 | HHI.DS ---
Discharge Summary Admission Date Aug 06, 2017 at 19:59 Discharge Date: Aug 12, 2017 Admitting Diagnosis (1) Atypical chest pain ICD Code: R07.89 - Other chest pain Diagnosis: Principal Status: Resolved Procedures EGD C scope Brief History - From Admission 57 year old male with history of aortic stenosis, PTSD, anxiety, and hypertension presented to ER for further evaluation of chest pain CBC/BMP: 08/10/17 0600 08/10/17 0600 Significant Findings Laboratory Tests Test 08/10/17 06:00 08/10/17 11:04 Red Blood Count 4.05 MIL/MM3 (4.50-5.90) Hemoglobin 12.7 GM/DL (13.0-17.0) Hematocrit 36.8 % (39.0-51.0) Monocytes (%) (Auto) 9.1 % (0.0-8.0) Blood Urea Nitrogen 21 MG/DL (7-18) Estimat Glomerular Filtration Rate 78 ML/MIN (>89) Imaging Last Impressions Abdomen/Pelvis CT 08/09/17 0000 Signed Impressions: Service Date/Time: Thursday, August 10, 2017 00:12 - CONCLUSION: 1. Few scattered diverticula without diverticulitis. 2. Focal area wall thickening distal descending colon versus nondistention. Nonemergent barium enema versus colonoscopy recommended. 3. Hepatic and renal low densities likely benign. Epifanio Phillips MD Carotid Artery Ultrasound 08/07/17 0000 Signed Impressions: Service Date/Time: Monday, August 07, 2017 16:20 - CONCLUSION: Negative for hemodynamically significant stenosis Anthony Harrison MD FACR PE at Discharge GENERAL: Well-nourished, well-developed middle aged male patient in [facility]. SKIN: Warm and dry. No rash. HEENT: Normocephalic. Atraumatic.Pupils equal and round. Mucous membranes pink and moist. CARDIOVASCULAR: Regular rate and rhythm. S1, S2 noted. No murmur appreciated. No chest wall tenderness to palpation. RESPIRATORY: No accessory muscle use. Clear to auscultation. Breath sounds equal bilaterally. GASTROINTESTINAL: Abdomen soft, non-tender, nondistended. Normoactive bowel sounds x4. MUSCULOSKELETAL: No obvious deformities. Extremities without clubbing, cyanosis , or edema. NEUROLOGICAL: Awake and alert. No obvious cranial nerve deficits. Motor grossly within normal limits. Normal speech. PSYCHIATRIC: Anxious mood, improved today; insight and judgment normal. Hospital Course 57-year-old male with history of anxiety, PTSD, bipolar disorder, mild aortic stenosis, hypertension, presents with intermittent chest pain. Initially admitted to [place] ER, then transferred to [facility] chest pain center, however patient had syncopal episode while in the hospital, found with brief questionable episode of unresponsiveness, therefore admitted to hospitalist for further evaluation. Chest pain: atypical. Negative workup including CTA. Cardiac extravasation with mild CAD. Continue aspirin. LDL 74 GI Bleeding with BRBPR: reported during hospitalization on 08/09. One episode of BRBPR. Patient reports hx of colonoscopy that was unremarkable however had poor prep. EGD with gastritis pathology with reactive gastropathy's seen with bile reflux or drug therapy. Distal esophagus biopsy with squamous mucosa with mild chronic inflammation continue PPI. Colonoscopy with diverticulosis and internal hemorrhoids Syncope: Workup unremarkable per cardiology this is micturition syncope patient educated. Discussed with nursing, patient may also be malingering as he reported several episodes of syncope all unwitnessed with no apparent injuries Mild Aortic Stenosis: unchanged unlikely etiology of patient's symptoms, continue outpatient f/up with cardiology Hypertension: BP stable, continue home meds of lisinopril. Started on metoprolol and Imdur. Continue to hold HCTZ Anxiety/PTSD/Bipolar Disorder: patient with severe anxiety on exam improved continue patient's Lexapro, Xanax prn, Cymbalta, Celebrex -strongly encouraged outpatient f/up with PCP and psychiatrist upon discharge DVT Prophylaxis: teds/SCDs Pt Condition on Discharge: Good Discharge Disposition: Discharge Home Discharge Time: > 30 minutes Discharge Instructions DIET: Follow Instructions for: Heart Healthy Diet Activities you can perform: Regular-No Restrictions Follow up Referrals: Appointment for Follow Up @ [facility] - 2 Weeks Cardiology @ [facility] - 2 Weeks PCP Follow-up - 1 Week PCP Follow-up - 1 Week @ PCP PCP Follow-up @ [facility] New Medications: Isosorbide Mononitrate ER (Isosorbide Mononitrate ER) 30 Mg Krystyna 30 MG PO DAILY@07 for Blood Pressure Management, #30 TAB Lisinopril (Lisinopril) 20 Mg Tab 20 MG PO DAILY for cad, #31 TAB Metoprolol Tartrate (Metoprolol Tartrate) 25 Mg Tab 12.5 MG PO Q12HR for cad, #62 TAB Pantoprazole (Pantoprazole) 40 Mg Tab 40 MG PO DAILY for Manage Heartburn, #30 TAB Continued Medications: Alprazolam (Xanax) 2 Mg Tab 2 MG PO HS, TAB [address] (Aspirin EC) 81 Mg Tabdr 81 MG PO DAILY, TAB 0 Refills Celecoxib (Celebrex) 200 Mg Cap 200 MG PO DAILY for Pain Management, CAP [address] (Cymbalta DR) 60 Mg Capdr 60 MG PO DAILY, #30 CAP 0 Refills Escitalopram (Lexapro) 20 Mg Tab 20 MG PO DAILY, #30 TAB 0 Refills Morphine ER (Ms Contin) 200 Mg Tab 50 MG PO BID for Pain Management, TAB 0 Refills Oxycodone-Acetaminophen (Percocet) 10-325 mg Tab 1 TAB PO Q4HR PRN for PAIN, TAB 0 Refills Testosterone Cypionate Inj (Testosterone Cypionate Inj) 100 Mg/Ml Inj 100 MG IM WEEKLY for Hormone Replacement, #1 INJECTION 0 Refills Additional Information Clarification with doses of Xanax he takes 1 mg 3 times a day and 2 mg at bedtime and MS Contin 30 mg twice a day, he has supply of both medicines Ananda Downs MD Aug 12, 2017 11:19
--- NOTE | 2017-08-12 17:04 | HHI.PR ---
Subjective Remarks Follow-up syncope. States he passed out again this morning and had slight dizziness prior to episode. He did not sustain injury. Discussed with nursing , syncopal episode again not witnessed. He is not orthostatic. Objective Vitals Vital Signs Date Time Temp Pulse Resp B/P (MAP) Pulse Ox O2 Delivery O2 Flow Rate FiO2 08/12/17 16:00 97.6 65 16 139/92 (108) 97 08/12/17 13:40 128/73 (91) 128/66 (86) 138/66 (90) 08/12/17 12:00 97.8 78 16 147/65 (92) 94 08/12/17 12:00 58 08/12/17 12:00 52 08/12/17 08:00 Room Air 08/12/17 08:00 97.8 65 16 127/74 (91) 95 08/12/17 08:00 50 08/12/17 06:58 97.9 86 20 147/74 (98) 98 08/12/17 04:11 51 08/12/17 04:00 98.2 70 19 117/54 (75) 94 08/11/17 23:35 67 08/11/17 23:00 Room Air 08/11/17 23:00 97.6 67 20 133/63 (86) 95 08/11/17 20:15 98.6 65 18 137/63 (87) 97 08/11/17 20:00 66 08/11/17 20:00 Room Air I/O 08/11/17 08/11/17 08/11/17 08/12/17 08/12/17 08/12/17 07:00 15:00 23:00 07:00 15:00 23:00 Intake Total 720 ml 100 ml 600 ml Balance 720 ml 100 ml 600 ml Intake Oral 720 ml 0 ml 600 ml Other 100 ml # Voids 4 2 # Bowel Movements 0 0 Result Diagram: 08/10/17 0600 08/10/17 0600 Imaging Last Impressions Abdomen/Pelvis CT 08/09/17 0000 Signed Impressions: Service Date/Time: Thursday, August 10, 2017 00:12 - CONCLUSION: 1. Few scattered diverticula without diverticulitis. 2. Focal area wall thickening distal descending colon versus nondistention. Nonemergent barium enema versus colonoscopy recommended. 3. Hepatic and renal low densities likely benign. Epifanio F. Tocci, MD Carotid Artery Ultrasound 08/07/17 0000 Signed Impressions: Service Date/Time: Monday, August 07, 2017 16:20 - CONCLUSION: Negative for hemodynamically significant stenosis Anthony Harrison MD FACR Objective Remarks GENERAL: Well-nourished, well-developed middle aged male patient in [facility]. No apparent injury SKIN: Warm and dry. No rash. CARDIOVASCULAR: Regular rate and rhythm. S1, S2 noted. No murmur appreciated. No chest wall tenderness to palpation. RESPIRATORY: No accessory muscle use. Clear to auscultation. Breath sounds equal bilaterally. GASTROINTESTINAL: Abdomen soft, non-tender, nondistended. Normoactive bowel sounds x4. MUSCULOSKELETAL: No obvious deformities. Extremities without clubbing, cyanosis , or edema. NEUROLOGICAL: Awake and alert. No obvious cranial nerve deficits. Motor grossly within normal limits. Normal speech. PSYCHIATRIC: Anxious mood, improved today; insight and judgment normal. Procedures EGD C scope A/P Problem List: (1) Atypical chest pain ICD Code: R07.89 - Other chest pain Status: Resolved Assessment and Plan 57-year-old male with history of anxiety, PTSD, bipolar disorder, mild aortic stenosis, hypertension, presents with intermittent chest pain. Initially admitted to [facility] ER, then transferred to [facility] chest pain center, however patient had syncopal episode while in the hospital, found with brief questionable episode of unresponsiveness, therefore admitted to hospitalist for further evaluation. Chest pain: atypical. Negative workup including CTA. Cardiac extravasation with mild CAD. Continue aspirin. LDL 74 GI Bleeding with BRBPR: reported during hospitalization on 08/09. One episode of BRBPR. Patient reports hx of colonoscopy that was unremarkable however had poor prep. EGD with gastritis pathology with reactive gastropathy's seen with bile reflux or drug therapy. Distal esophagus biopsy with squamous mucosa with mild chronic inflammation continue PPI. Colonoscopy with diverticulosis and internal hemorrhoids Syncope: Workup unremarkable per cardiology this is micturition syncope patient educated. Discussed with nursing, patient may also be malingering as he reported several episodes of syncope all unwitnessed with no apparent injuries Mild Aortic Stenosis: unchanged unlikely etiology of patient's symptoms, continue outpatient f/up with cardiology Hypertension: BP stable, continue home meds of lisinopril. Started on metoprolol and Imdur. Continue to hold HCTZ Anxiety/PTSD/Bipolar Disorder: patient with severe anxiety on exam improved continue patient's Lexapro, Xanax prn, Cymbalta, Celebrex -strongly encouraged outpatient f/up with PCP and psychiatrist upon discharge DVT Prophylaxis: teds/SCDs Discharge Planning Discharge today Ananda Downs MD Aug 12, 2017 17:04
== END 2017-08-12 17:15 | disposition home or self-care (01) ==
LOC: NEDDLT 13:29 → NEPHCDU 19:59 → UNDOADMIN 19:59 → NEPHCDU 19:59 → HCIS 08-09 15:37 → N04B 08-09 19:02
PROVIDERS: ADMIT Internal Medicine; ATTEND Internal Medicine
DX: R07.89 Other chest pain (principal); I25.119 Atherosclerotic heart disease of native coronary artery with unspecified angina pectoris; R01.1 Cardiac murmur, unspecified; I35.0 Nonrheumatic aortic (valve) stenosis; K29.70 Gastritis, unspecified, without bleeding; K57.30 Diverticulosis of large intestine without perforation or abscess without bleeding; K64.8 Other hemorrhoids; K92.1 Melena; I10 Essential (primary) hypertension; F43.10 Post-traumatic stress disorder, unspecified; R11.2 Nausea with vomiting, unspecified; R06.02 Shortness of breath; R55 Syncope and collapse; F41.9 Anxiety disorder, unspecified; F31.9 Bipolar disorder, unspecified; E78.5 Hyperlipidemia, unspecified; F17.210 Nicotine dependence, cigarettes, uncomplicated; K59.00 Constipation, unspecified; R13.10 Dysphagia, unspecified; R63.4 Abnormal weight loss; F12.90 Cannabis use, unspecified, uncomplicated; Y93.55 Activity, bike riding; Z79.82 Long term (current) use of aspirin; Z98.1 Arthrodesis status; Z79.891 Long term (current) use of opiate analgesic; Z82.49 Family history of ischemic heart disease and other diseases of the circulatory system
CPT/HCPCS: 00813; 43239; 45378; 71046; 71275; 74176; 76937; 80048; 80053; 80061; 82272; 82550; 83036; 83735; 83880; 84484; 85025; 85379; 85610; 85730; 87328; 87329; 87493; 88305; 93005; 93306; 93458; 93880; 96360; 96361; 96374; 96375; 96376; 97162; 97530; 99152; 99153; 99285; C1769; C1893; G0378; G8987; G8988; J0171; J1644; J2060; J2250; J2270; J2370; J2405; J3010; J7030; Q9967

== ENCOUNTER 2017-10-20 20:35 | Observation (INO) | payer MEDICARE, MEDICAID ==
[~2017-10-20] VITALS: Ht 177.8 cm; Wt 83.5 kg
[~2017-10-20 20:35] MED LIST changes: -HYDR12.57 PO; +ISOS30TA3 PO; +LISI-515 PO; -LISI10TA3 PO; -LISI20TA PO; -LORA-474 PO; +METO25TA3 PO; +ONDANSETRON ODT 4 MG TAB SL PRN; +OXYC-103 PO; +PANT40TA3 PO; -VIAG100T PO
[2017-10-20] MEDS ORDERED: MORPHINE PO SCH ×2 (21:00)
[2017-10-20 21:04] VITALS: BP 196/111; PULSE 68; RESP 22; TEMP 98.2; O2SAT 95
[2017-10-20] MEDS: ALPRAZolam 1 MG TAB PO SCH (21:08)
--- NOTE | 2017-10-20 22:56 | HHI.HP ---
[facility] Ad[facility] Diagnosis Diagnoses: Chief Complaint: rectal bleeding and RUQ pain Travel History International Travel<30 Days: No Contact w/Intl Traveler <30 Da: No History of Present Illness 57 y/o male with a history of PTSD, anxiety, depression and chronic pain presented to the ED with complaints of abdominal pain and rectal bleeding. He states the pain began yesterday in his RUQ, 12/24 with radiation to his back and associated nausea. Worse with palpation, and slightly better with pain medication. He states the rectal bleeding has been going on intermittently for the last 6 months, he had a colonoscopy 6 months ago but did not follow up with the GI specialist and he has stop taking his Protonix because he states it does not work. He is also complaining on multiple wounds on his left arm and bilateral feet that he says will not heal and he has a history of MRSA. He states the wounds started as pimples that he popped and pus drained from them. He is unsure if he has had fevers at home but has had chills. Review of Systems Except as stated in HPI: all other systems reviewed are Neg Past Family Social History Past Medical History PTSD anxiety depression chronic pain Past Surgical History Cervical fusion x 3 right hip replacement right knee arthroscopy Reported Medications Reported Meds & Active Scripts Active Reported Oxycontin (Oxycodone HCl) 10 Mg Tab Unknown Dose PO Q12HR Suziealcathryn FULTON (Duloxetine HCl) 60 Mg Capdr 60 Mg PO DAILY Testosterone Cypionate Inj (Testosterone Cypionate) 100 Mg/Ml Inj 100 Mg IM WEEKLY Ms Contin (Morphine Sulfate) 200 Mg Tab 50 Mg PO BID Xanax (Alprazolam) 2 Mg Tab 2 Mg PO HS Aspirin EC (Aspirin) 81 Mg Tabdr 81 Mg PO DAILY Allergies: Coded Allergies: phenobarbital (Verified Allergy, Unknown, unknown, 10/20/17) Active Ordered Medications Current Medications Medications (Trade) Dose Ordered Sig/Ev Route Start Time Stop Time Status Last Admin (Xanax) 2 mg HS PO 10/20/17 21:00 10/20/17 21:08 (Cymbalta Dr) 60 mg DAILY PO 10/21/17 09:00 (NS Flush) 2 ml UNSCH PRN IV FLUSH 10/20/17 17:15 (NS Flush) 2 ml BID IV FLUSH 10/20/17 21:00 10/21/17 00:26 (Zofran Odt) 4 mg Q6H PRN SL 10/20/17 17:15 (Protonix Inj) 40 mg DAILY IV PUSH 10/21/17 09:00 (Oramorph Sr) 30 mg BID PO 10/21/17 09:00 (Dilaudid Pf Inj) 0.5 mg Q4H PRN IV PUSH 10/20/17 23:00 10/20/17 23:20 Vancomycin HCl 1000 mg/Sodium Chloride 250 ml @ 250 mls/hr Q12H IV 10/21/17 00:00 10/21/17 06:00 10/21/17 00:25 Pharmacy Profile Note 0 ml @ 0 mls/hr UNSCH OTHER 10/20/17 23:00 Piperacillin Sod/ Tazobactam Sod 50 ml @ 100 mls/hr Q6H IV 10/20/17 23:30 10/21/17 00:25 Family History Patient denies any family history Social History Tobacco use: 5 cigarettes a day Alcohol use: Rarely Illicit drug use: Cocaine Physical Exam Physical Exam GENERAL: This is a well-nourished, well-developed patient, in no apparent distress. SKIN:Multiple dry crusted lesions on bilateral feet and left elbow HEAD: Atraumatic. Normocephalic. No temporal or scalp tenderness. EYES: Pupils equal round and reactive. CARDIOVASCULAR: Regular rate and rhythm without murmurs, gallops, or rubs. RESPIRATORY: Clear to auscultation. Breath sounds equal bilaterally. No wheezes , rales, or rhonchi. GASTROINTESTINAL: Abdomen soft, RUQ tenderness to palpation, nondistended. No hepato-splenomegaly, or palpable masses. No guarding. MUSCULOSKELETAL: Extremities without clubbing, cyanosis, or edema. No joint tenderness, effusion, or edema noted. No calf tenderness. NEUROLOGICAL: Awake and alert.Five out of 5 muscle strength in all muscle groups. Normal speech. Caprini VTE Risk Assessment Caprini VTE Risk Assessment: No/Low Risk (score <= 1) Caprini Risk Assessment Model Point Value = 1 Point Value = 2 Point Value = 3 Point Value = 5 Age 41-60 Minor surgery BMI > 25 kg/m2 Swollen legs Varicose veins or History of unexplained or recurrent spontaneous Oral contraceptives or hormone replacement Sepsis (< 1 month) Serious lung disease, including pneumonia (< 1 month) Abnormal pulmonary function Acute myocardial infarction Congestive heart failure (< 1 month) History of inflammatory bowel disease Medical patient at bed rest Age 61-74 Arthroscopic surgery Major open surgery (> 45 min) Laparoscopic surgery (> 45 min) Malignancy Confined to bed (> 72 hours) Immobilizing plaster cast Central venous access Age >= 75 History of VTE Family history of VTE Factor V Leiden Prothrombin [id number] Lupus anticoagulant Anticardiolipin antibodies Elevated serum homocysteine Heparin-induced thrombocytopenia Other congenital or acquired thrombophilia Stroke (< 1 month) Elective arthroplasty Hip, pelvis, or leg fracture Acute spinal cord injury (< 1 month) Prophylaxis Regimen Total Risk Factor Score Risk Level Prophylaxis Regimen 0-1 Low Early ambulation 2 Moderate Order ONE of the following: *Sequential Compression Device (SCD) *Heparin 5000 units SQ BID 3-4 Higher Order ONE of the following medications: *Heparin 5000 units SQ TID *Enoxaparin/Lovenox 40 mg SQ daily (WT < 150 kg, CrCl > 30 mL/min) *Enoxaparin/Lovenox 30 mg SQ daily (WT < 150 kg, CrCl > 10-29 mL/min) *Enoxaparin/Lovenox 30 mg SQ BID (WT < 150 kg, CrCl > 30 mL/min) AND/OR *Sequential Compression Device (SCD) 5 or more Highest Order ONE of the following medications: *Heparin 5000 units SQ TID (Preferred with Epidurals) *Enoxaparin/Lovenox 40 mg SQ daily (WT < 150 kg, CrCl > 30 mL/min) *Enoxaparin/Lovenox 30 mg SQ daily (WT < 150 kg, CrCl > 10-29 mL/min) *Enoxaparin/Lovenox 30 mg SQ BID (WT < 150 kg, CrCl > 30 mL/min) AND *Sequential Compression Device (SCD) Assessment and Plan Assessment and Plan 57 y/o male with a history of PTSD,CAD, aortic stenosis, bipolar, anxiety, depression and chronic pain presented to the ED with complaints of abdominal pain and rectal bleeding. GI bleed, hgb stable 14.1 Occult positive in ED -Protonix IV -Consult GI for recommendations -CBC in AM, transfuse if needed -NPO, IVF Abdominal pain Abdominal CT reviewed and is unremarkable -Gallbladder US ordered -Pain management with IV Dilaudid Leukocytosis, wbc 15.2, Multiple skin lesions, history of MRSA -Vanco and zosyn IV, deescalate in AM -Bacitracin to wounds Chronic pain -Resume home medications PTSD, Anxiety, depression -Resume home medications DVT prophylaxis: SCDs Discussed Condition With patient and rn Shannan Cleaning Oct 20, 2017 22:56
[2017-10-20] MEDS ORDERED: Vancomycin Consult Pharmacy 1 EA OTHER SCH (23:00)
[2017-10-20] MEDS: HYDROmorphone HCL PF 2 MG/ML VIAL IV PUSH PRN (23:20)
[2017-10-21] MEDS ORDERED: VANCOMYCIN INJ 1,000 MG in SODIUM CHLOR 0.9% 250 ML INJ 250 ML IV SCH ×2
[2017-10-21] MEDS: PIPERACIL-TAZO 3.375 GM PREMIX 50 ML IV SCH ×3 (00:25→11:47)
[2017-10-21] MEDS: SODIUM CHLORIDE 0.9% FLUSH 10 ML FLUSH IV FLUSH SCH ×3 (00:26→19:54)
[2017-10-21 00:30] VITALS: BP 133/83; PULSE 88; RESP 21; TEMP 98.4; O2SAT 96
[2017-10-21] MEDS: HYDROmorphone HCL PF 2 MG/ML VIAL IV PUSH PRN ×6 (03:29→23:00)
[2017-10-21 03:45] VITALS: BP 132/84; PULSE 76; RESP 19; TEMP 98.2; O2SAT 98
[2017-10-21 05:58] LABS: AUTOMATED NEUTROPHIL # 9.2 TH/MM3 (1.8-7.7); HEMATOCRIT 37.6 % (39.0-51.0); HEMOGLOBIN 12.5 GM/DL (13.0-17.0); LYMPH % 9.9 % (9.0-44.0); LYMPHOCYTE # 1.1 TH/MM3 (1.0-4.8); MEAN CELL VOLUME 92.9 FL (80.0-100.0); MEAN CORPUSCULAR HEMOGLOBIN 30.9 PG (27.0-34.0); MEAN CORPUSCULAR HGB CONC 33.3 % (32.0-36.0); MEAN PLATELET VOLUME 9.1 FL (7.0-11.0); MONO % 8.7 % (0.0-8.0); NEUT % 81.4 % (16.0-70.0); PLATELET COUNT 302 TH/MM3 (150-450); RED BLOOD COUNT 4.05 MIL/MM3 (4.50-5.90); RED CELL DISTRIBUTION WIDTH 13.5 % (11.6-17.2); WHITE BLOOD COUNT 11.3 TH/MM3 (4.0-11.0)
[2017-10-21 08:00] VITALS: BP 123/84; PULSE 54; RESP 20; TEMP 98.3; O2SAT 96
[2017-10-21] MEDS: PANTOPRAZOLE SODIUM 40 MG VIAL IV PUSH SCH (08:21)
[2017-10-21] MEDS: MORPHINE SULFATE 30 MG CONTROLLED RELEASE TAB PO SCH ×2 (08:21→19:55)
[2017-10-21] MEDS: DULoxetine HCl DR 60 MG CAP PO SCH (08:21)
--- NOTE | 2017-10-21 09:32 | RADRPT ---
EXAM DATE: 10/21/2017 9:26 AM EDT AGE/SEX: 57 years / Male INDICATIONS: Right upper quadrant pain. CLINICAL DATA: This is the patient's subsequent encounter. Patient reports that signs and/or symptom s have been present for 1 day and indicates a pain score of 8/10. MEDICAL/SURGICAL HISTORY: . Aortic stenosis. Hypertension. Kidney stones. BPH. . Neck surgeries . Cardiac catheterization. COMPARISON: [facility], CT ABDOMEN & PELVIS W CONTRAST, 10/20/2017. . MEASUREMENTS (cm x cm x cm): Liver:__ 15.5 cm length Common Bile Duct:__ 5mm FINDINGS: Liver: Normal echotexture without focal lesion or ductal dilatation. Portal Vein: Hepatopedal flow seen in portal vein. Common Duct: No intraluminal mass or stone visualized. Gallbladder: Demonstrates no wall thickening or pericholecystic fluid. No stones visualized. Pancreas: Not well visualized. Right Kidney: No mass or hydronephrosis Other: None. CONCLUSION: 1. No abnormality is identified to explain the right upper quadrant pain. There are no gallstones. 2. Please note that the pancreas is not well visualized on this examination. However, it demonstrate d no abnormality on yesterday's CT. Electronically signed by: Christian Samuel MD 10/21/2017 9:31 AM EDT
--- NOTE | 2017-10-21 10:46 | HHI.PR ---
Subjective Remarks Follow-up GI bleed and right upper quadrant abdominal pain. Patient seen and examined, lying in bed with continued complaints of abdominal pain. Denies any bowel movements, black or bloody stool. Hemoglobin stable. Vital signs stable. Afebrile. Objective Vitals Vital Signs Date Time Temp Pulse Resp B/P (MAP) Pulse Ox O2 Delivery O2 Flow Rate FiO2 10/21/17 08:00 98.3 54 20 123/84 (97) 96 10/21/17 03:45 98.2 76 19 132/84 (100) 98 10/21/17 00:30 98.4 88 21 133/83 (100) 96 10/20/17 21:04 98.2 68 22 196/111 (139) 95 I/O 10/20/17 10/20/17 10/20/17 10/21/17 10/21/17 10/21/17 07:00 15:00 23:00 07:00 15:00 23:00 Intake Total 720 ml Balance 720 ml Intake Oral 720 ml # Voids 2 # Bowel Movements 0 Result Diagram: 10/21/17 0420 Imaging Last Impressions Gall Bladder Ultrasound 10/21/17 0000 Signed Impressions: CONCLUSION: 1. No abnormality is identified to explain the right upper quadrant pain. Ther e are no gallstones. 2. Please note that the pancreas is not well visualized on this examination. H owever, it demonstrated no abnormality on yesterday's CT. Objective Remarks GENERAL: This is a well-nourished, well-developed patient, in no apparent distress. SKIN:Multiple dry crusted lesions on bilateral feet and left elbow HEAD: Atraumatic. Normocephalic. No temporal or scalp tenderness. EYES: Pupils equal round and reactive. CARDIOVASCULAR: Regular rate and rhythm without murmurs, gallops, or rubs. RESPIRATORY: Clear to auscultation. Breath sounds equal bilaterally. No wheezes , rales, or rhonchi. GASTROINTESTINAL: Abdomen soft, RUQ tenderness to palpation, nondistended. No hepato-splenomegaly, or palpable masses. No guarding. MUSCULOSKELETAL: Extremities without clubbing, cyanosis, or edema. No joint tenderness, effusion, or edema noted. No calf tenderness. NEUROLOGICAL: Awake and alert.Five out of 5 muscle strength in all muscle groups. Normal speech. A/P Assessment and Plan 57 y/o male with a history of PTSD,CAD, aortic stenosis, bipolar, anxiety, depression and chronic pain presented to the ED with complaints of abdominal pain and rectal bleeding. Rectal bleeding With associated complaints of right upper quadrant abdominal pain and dark black stools - Abdominal CT reviewed and unremarkable. Gallbladder ultrasound showing no abnormality. No gallstones. - Occult positive in ED - Continue Protonix IV - Gastroenterology following, appreciate input recommendations. For now will monitor symptoms. - Consider HIDA scan if no improvement in right upper quadrant pain. - Trend H&H. Stable at this time. - Check stool studies. Follow. - Pain control, Dilaudid IV for breakthrough pain, scheduled Oramorph. - Okay for regular diet. Assess toleration. - Supportive care. Leukocytosis, trending down Multiple skin lesions History of MRSA - WBC 15.2, now 11.3. Continue to monitor. Patient is afebrile. - Wounds are not draining. Continue bacitracin. - Will DC IV Zosyn and Vanco. Place on Bactrim. Monitor kidney function. Labs ordered for am. Chronic pain - Resume home medications PTSD, Anxiety, depression - Resume home medications DVT prophylaxis: SCDs Chrissy Lundy Oct 21, 2017 10:46
[2017-10-21] MEDS: LORazepam 1 MG TAB PO PRN (11:47)
[2017-10-21] MEDS: BACITRACIN TOP OINT 15 GM TUBE TOPICAL SCH ×2 (11:48→19:57)
[2017-10-21 12:00] VITALS: BP 140/89; PULSE 56; RESP 18; TEMP 98.7; O2SAT 94
[2017-10-21] MEDS ORDERED: VANCOMYCIN 1,500 MG/NS 500 ML IV SCH ×2 (12:00)
[2017-10-21 12:42] LABS: HEMATOCRIT 37.5 % (39.0-51.0); HEMOGLOBIN 12.7 GM/DL (13.0-17.0)
--- NOTE | 2017-10-21 12:52 | PD.CONS ---
HPI History of Present Illness This is a 57 year old M with PMH significant for HTN, aortic stenosis, PTSD, bipolar disorder, and anxiety. Pt presented to the ER yesterday with complaints of RUQ abdominal pain and intermittent bloody stools for the past six months. States RUQ pain began two days ago, is intermittent, is unable to identify any aggravating or alleviating factors. Denies nausea and vomiting. Reports intermittent bloody stools for the past six months, approximately one episode a week, sometimes blood is mixed into stool and sometimes he passes mostly stool. States in between bloody stools he has constipation, which he takes Dulcolax for as needed. Of note, is on chronic narcotics. Pt was worked up for reports of rectal bleeding by our service in July, EGD and colonoscopy revealed gastritis, diverticulosis and internal hemorrhoids, states has not followed up in the office since discharge. Pt also reports an unintentional weight loss of approximately 30 pounds over the past year. Reports rare ETOH. Smokes 4-5 cigarettes but states not daily. Also admits to cocaine use, last use was a week ago. Of note, takes Diclofenac for chronic pain. Family history significant for colon cancer, paternal grandmother and thinks maternal grandmother as well. (Kayla Kelley) PFSH Past Medical History PTSD Anxiety Depression Chronic pain Gastritis Diverticulosis Internal hemorrhoids Past Surgical History Cervical fusion x 3 right hip replacement right knee arthroscopy EGD Colonoscopy (Kayla Kelley) Coded Allergies: phenobarbital (Verified Allergy, Unknown, unknown, 10/20/17) Family History Patient denies any family history Social History Tobacco use: 5 cigarettes a day- denies cigarette use every day Alcohol use: Rarely Illicit drug use: Cocaine- last use a week ago (Kayla Kelley) Review of Systems Gastrointestinal: COMPLAINS OF: Abdominal pain, Bloody stools, Constipation, DENIES: Black stools, Diarrhea, Nausea, Vomiting, Difficulty Swallowing, Odynophagia, Swelling of Abdomen, Heartburn, Hematemesis (Kayla Kelley) GI Exam Vitals I&O Vital Signs Date Time Temp Pulse Resp B/P (MAP) Pulse Ox O2 Delivery O2 Flow Rate FiO2 10/21/17 12:00 98.7 56 18 140/89 (106) 94 10/21/17 08:00 98.3 54 20 123/84 (97) 96 10/21/17 03:45 98.2 76 19 132/84 (100) 98 10/21/17 00:30 98.4 88 21 133/83 (100) 96 10/20/17 21:04 98.2 68 22 196/111 (139) 95 I/O 10/20/17 10/20/17 10/20/17 10/21/17 10/21/17 10/21/17 07:00 15:00 23:00 07:00 15:00 23:00 Intake Total 720 ml Balance 720 ml Intake Oral 720 ml # Voids 2 # Bowel Movements 0 Imaging Last Impressions Gall Bladder Ultrasound 10/21/17 0000 Signed Impressions: CONCLUSION: 1. No abnormality is identified to explain the right upper quadrant pain. Ther e are no gallstones. 2. Please note that the pancreas is not well visualized on this examination. H owever, it demonstrated no abnormality on yesterday's CT. Laboratory Test 10/21/17 04:20 10/21/17 12:03 White Blood Count 11.3 TH/MM3 Red Blood Count 4.05 MIL/MM3 Hemoglobin 12.5 GM/DL Hematocrit 37.6 % Mean Corpuscular Volume 92.9 FL Mean Corpuscular Hemoglobin 30.9 PG Mean Corpuscular Hemoglobin Concent 33.3 % Red Cell Distribution Width 13.5 % Platelet Count 302 TH/MM3 Mean Platelet Volume 9.1 FL Neutrophils (%) (Auto) 81.4 % Lymphocytes (%) (Auto) 9.9 % Monocytes (%) (Auto) 8.7 % Eosinophils (%) (Auto) 0.0 % Basophils (%) (Auto) 0.0 % Neutrophils # (Auto) 9.2 TH/MM3 Lymphocytes # (Auto) 1.1 TH/MM3 Monocytes # (Auto) 1.0 TH/MM3 Eosinophils # (Auto) 0.0 TH/MM3 Basophils # (Auto) 0.0 TH/MM3 CBC Comment DIFF FINAL Differential Comment Physical Examination HEENT: Normocephalic; atraumatic CHEST: Even/unlabored CARDIAC: RRR ABDOMEN: Soft, nondistended, RUQ tenderness, bowel sounds active EXTREMITIES: No clubbing, cyanosis, or edema. 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 (Kayla Kelley) Assessment and Plan Plan Assessment: - Rectal bleeding- states intermittent for the past six months, approximately one episode of rectal bleeding a week- sometimes blood is mixed in stools and sometimes passes mostly just blood- previously evaluated by our service for same complaint in July, EGD and colonoscopy --> Gastritis, diverticulosis and internal hemorrhoids. Did not follow up with GI after DC. H/H currently 12.7/37.5 was 12.7/36.8 on 08/10 during previous admission - RUQ pain- started 2 days ago, intermittent- denies any aggravating or alleviating factors. Denies nausea, vomiting. Gallbladder US (10/21) No abnormality is identified to explain the right upper quadrant pain. There are no gallstones. CT abdomen and pelvis W IV contrast --> No acute finding is identified to explain the clinical symptoms. Nonacute findings include mild atherosclerotic disease as well as hepatic and renal cysts. Plan: At this time will monitor symptoms Consider HIDA scan if no improvement in RUQ pain Had work up in July, will need capsule endoscopy outpatient Stool studies Protonix OK for regular diet Further recommendations based on clinical course Pt has been seen and examined by myself and Dr. Villagomez and this note is written on his behalf (Kayla Kelley) Physician Comments Seen and examined ,plan as above. Will follow up with you for further plans. Thank you for the consult. (Bossman Villagomez MD) Kayla Kelley Oct 21, 2017 12:52 Bossman Villagomez MD Oct 22, 2017 09:36
[2017-10-21] MEDS: SODIUM CHLOR 0.9% 1000 ML INJ 1,000 ML IV SCH (16:48)
[2017-10-21 17:19] LABS: HEMATOCRIT 40.9 % (39.0-51.0); HEMOGLOBIN 13.5 GM/DL (13.0-17.0)
[2017-10-21 19:18] VITALS: BP 111/70; PULSE 76; RESP 18; TEMP 98.4; O2SAT 97
[2017-10-21] MEDS: SULFAMETHOXAZOLE-TRIMETHOPRIM DS 800-160 MG TAB PO SCH (19:55)
[2017-10-21] MEDS: ALPRAZolam 1 MG TAB PO SCH (19:55)
[2017-10-21 23:20] LABS: HEMATOCRIT 37.3 % (39.0-51.0); HEMOGLOBIN 12.5 GM/DL (13.0-17.0)
[2017-10-22 00:51] VITALS: BP 112/74; PULSE 78; RESP 18; TEMP 98.1; O2SAT 98
[2017-10-22] MEDS: HYDROmorphone HCL PF 2 MG/ML VIAL IV PUSH PRN ×7 (02:09→21:13)
[2017-10-22 08:00] VITALS: BP 114/75; PULSE 62; RESP 16; TEMP 97.8; O2SAT 95
[2017-10-22 08:01] LABS: AUTOMATED NEUTROPHIL # 4.7 TH/MM3 (1.8-7.7); BASOPHIL % 0.3 % (0.0-2.0); BICARBONATE 24.2 MEQ/L (21.0-32.0); CALCIUM 7.9 MG/DL (8.5-10.1); CREATININE 1.18 MG/DL (0.60-1.30); EOSINOPHIL # 0.1 TH/MM3 (0-0.4); EOSINOPHIL % 1.2 % (0.0-4.0); HEMATOCRIT 40.3 % (39.0-51.0); HEMOGLOBIN 13.4 GM/DL (13.0-17.0); LYMPH % 28.3 % (9.0-44.0); LYMPHOCYTE # 2.3 TH/MM3 (1.0-4.8); MEAN CELL VOLUME 93.9 FL (80.0-100.0); MEAN CORPUSCULAR HEMOGLOBIN 31.2 PG (27.0-34.0); MEAN CORPUSCULAR HGB CONC 33.2 % (32.0-36.0); MEAN PLATELET VOLUME 8.9 FL (7.0-11.0); MONO % 12.6 % (0.0-8.0); NEUT % 57.6 % (16.0-70.0); PLATELET COUNT 328 TH/MM3 (150-450); RED BLOOD COUNT 4.29 MIL/MM3 (4.50-5.90); WHITE BLOOD COUNT 8.2 TH/MM3 (4.0-11.0)
[2017-10-22] MEDS: DULoxetine HCl DR 60 MG CAP PO SCH (08:22)
[2017-10-22] MEDS: PANTOPRAZOLE SODIUM 40 MG VIAL IV PUSH SCH (08:22)
[2017-10-22] MEDS: BACITRACIN TOP OINT 15 GM TUBE TOPICAL SCH ×2 (08:23→20:02)
[2017-10-22] MEDS: MORPHINE SULFATE 30 MG CONTROLLED RELEASE TAB PO SCH ×2 (08:23→20:00)
[2017-10-22] MEDS: SODIUM CHLORIDE 0.9% FLUSH 10 ML FLUSH IV FLUSH SCH ×2 (08:23→19:59)
[2017-10-22] MEDS: SULFAMETHOXAZOLE-TRIMETHOPRIM DS 800-160 MG TAB PO SCH ×2 (08:35→19:59)
[2017-10-22] MEDS: LORazepam 1 MG TAB PO PRN (10:19)
[2017-10-22] MEDS: POTASSIUM CHLOR 20 MEQ PREMIX 100 ML IV SCH ×2 (11:14→14:51)
[2017-10-22 12:00] VITALS: BP 140/71; PULSE 61; RESP 18; TEMP 98; O2SAT 95
--- NOTE | 2017-10-22 14:38 | HHI.PR ---
Subjective Remarks Patient has not yet had a bowel movement. He still complains of abdominal pain. HIDA scan pending. Objective Vital Signs Date Time Temp Pulse Resp B/P (MAP) Pulse Ox O2 Delivery O2 Flow Rate FiO2 10/22/17 12:00 98.0 61 18 140/71 (94) 95 10/22/17 09:41 Room Air 10/22/17 08:00 97.8 62 16 114/75 (88) 95 10/22/17 05:54 18 10/22/17 00:51 98.1 78 18 112/74 (87) 98 10/21/17 23:33 Room Air 10/21/17 20:48 18 10/21/17 19:18 98.4 76 18 111/70 (84) 97 I/O 10/21/17 10/21/17 10/21/17 10/22/17 10/22/17 10/22/17 07:00 15:00 23:00 07:00 15:00 23:00 Intake Total 720 ml 565 ml 500 ml 720 ml Balance 720 ml 565 ml 500 ml 720 ml Intake Oral 720 ml 500 ml 720 ml IV Total 565 ml # Voids 2 3 2 # Bowel Movements 0 0 Result Diagram: 10/22/17 0700 10/22/17 0700 Objective Remarks GENERAL: NAD, A&Ox3 HEAD: Normocephalic. NECK: Supple, trachea midline. No lymphadenopathy. EYES: No scleral icterus. No injection or drainage. CARDIOVASCULAR: Regular rate and rhythm without murmurs, gallops, or rubs. RESPIRATORY: Breath sounds equal bilaterally. No accessory muscle use. GASTROINTESTINAL: Abdomen soft, non-tender, nondistended. MUSCULOSKELETAL: No cyanosis, or edema. SKIN: Warm and dry. NEURO: No focal neurological deficitis. A/P Problem List: (1) Abdominal pain ICD Code: R10.9 - Unspecified abdominal pain (2) GI bleed ICD Code: K92.2 - Gastrointestinal hemorrhage, unspecified Assessment and Plan 57 y/o male with abdominal pain and rectal bleeding. Rectal bleeding Abdominal pain HIDA scan ordered Other workup has been negative Alternative etiology could be an inflammatory bowel disease GI following Leukocytosis Downward trend Follow CBC Multiple skin lesions History of MRSA No signs of acute infection Continue topical Bactroban for lesions Standard isolation precautions Chronic pain PTSD Anxiety disorder Depression Continue home medications DVT prophylaxis SCDs Allen Osborne MD Oct 22, 2017 14:38
[2017-10-22] MEDS ORDERED: LACTULOSE SYRUP 20 GM/30 ML CUP PO PRN (14:45)
[2017-10-22 14:58] LABS: ALBUMIN 2.8 GM/DL (3.4-5.0); DIRECT BILIRUBIN ADULT 0.1 MG/DL (0.0-0.2)
[2017-10-22 14:59] LABS: INDIRECT BILIRUBIN 0.1 MG/DL (0.0-0.8); TOTAL BILIRUBIN ADULT 0.2 MG/DL (0.2-1.0); TOTAL PROTEIN 6.1 GM/DL (6.4-8.2)
[2017-10-22] MEDS: SODIUM CHLOR 0.9% 1000 ML INJ 1,000 ML IV SCH (15:34)
[2017-10-22 16:00] VITALS: BP 130/79; PULSE 58; RESP 18; TEMP 98; O2SAT 95
--- NOTE | 2017-10-22 16:20 | HHI.GIFU ---
Subjective Remarks Patient is resting in the bed Still complains of right upper quadrant tenderness to light palpation Current hemoglobin 13.4 Acute on chronic constipation probably related to chronic pain meds (Tita Jaramillo) Objective Vitals I&O Vital Signs Date Time Temp Pulse Resp B/P (MAP) Pulse Ox O2 Delivery O2 Flow Rate FiO2 10/22/17 12:00 98.0 61 18 140/71 (94) 95 10/22/17 09:41 Room Air 10/22/17 08:00 97.8 62 16 114/75 (88) 95 10/22/17 05:54 18 10/22/17 00:51 98.1 78 18 112/74 (87) 98 10/21/17 23:33 Room Air 10/21/17 20:48 18 10/21/17 19:18 98.4 76 18 111/70 (84) 97 I/O 10/21/17 10/21/17 10/21/17 10/22/17 10/22/17 10/22/17 07:00 15:00 23:00 07:00 15:00 23:00 Intake Total 720 ml 565 ml 500 ml 720 ml 100 ml Balance 720 ml 565 ml 500 ml 720 ml 100 ml Intake Oral 720 ml 500 ml 720 ml IV Total 565 ml 100 ml # Voids 2 3 2 # Bowel Movements 0 0 Laboratory Laboratory Tests Test 10/21/17 16:56 10/21/17 22:56 10/22/17 07:00 10/22/17 14:00 Hemoglobin 13.5 12.5 13.4 Hematocrit 40.9 37.3 40.3 White Blood Count 8.2 Red Blood Count 4.29 Mean Corpuscular Volume 93.9 Mean Corpuscular Hemoglobin 31.2 Mean Corpuscular Hemoglobin Concent 33.2 Red Cell Distribution Width 14.0 Platelet Count 328 Mean Platelet Volume 8.9 Neutrophils (%) (Auto) 57.6 Lymphocytes (%) (Auto) 28.3 Monocytes (%) (Auto) 12.6 Eosinophils (%) (Auto) 1.2 Basophils (%) (Auto) 0.3 Neutrophils # (Auto) 4.7 Lymphocytes # (Auto) 2.3 Monocytes # (Auto) 1.0 Eosinophils # (Auto) 0.1 Basophils # (Auto) 0.0 CBC Comment DIFF FINAL Differential Comment Blood Urea Nitrogen 20 Creatinine 1.18 Random Glucose 105 Calcium Level 7.9 Sodium Level 140 Potassium Level 3.4 Chloride Level 106 Carbon Dioxide Level 24.2 Anion Gap 10 Estimat Glomerular Filtration Rate 63 Total Bilirubin 0.2 Direct Bilirubin 0.1 Indirect Bilirubin 0.1 Aspartate Amino Transf (AST/SGOT) 18 Alanine Aminotransferase (ALT/SGPT) 23 Alkaline Phosphatase 84 Total Protein 6.1 Albumin 2.8 Amylase Level 75 Lipase 375 Imaging Last Impressions Gall Bladder Ultrasound 10/21/17 0000 Signed Impressions: CONCLUSION: 1. No abnormality is identified to explain the right upper quadrant pain. Ther e are no gallstones. 2. Please note that the pancreas is not well visualized on this examination. H owever, it demonstrated no abnormality on yesterday's CT. Physical Exam HEENT: normocephalic; atraumatic; no jaundice. NECK: Neck is supple, no JVD, no lymphadenopathy. CHEST: Chest is clear to auscultation and percussion. No obvious rhonchi CARDIAC: Regular rate and rhythm ABDOMEN: Soft, nondistended, right upper quadrant discomfort to light palpation no hepatosplenomegaly; bowel sounds are present in all four quadrants. EXTREMITIES: No clubbing, cyanosis, or edema. SKIN: Normal; no rash; no jaundice. 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 Did not follow up with GI after DC. H/H currently 12.7/37.5 was 12.7/36.8 on 08/10 during previous admission - RUQ pain- started 2 days ago, intermittent- denies any aggravating or alleviating factors. Denies nausea, vomiting. Gallbladder US (10/21) No abnormality is identified to explain the right upper quadrant pain. There are no gallstones. CT abdomen and pelvis W IV contrast --> No acute finding is identified to explain the clinical symptoms. Nonacute findings include mild atherosclerotic disease as well as hepatic and renal cysts. 10/22/2017 patient still complains of some right upper quadrant discomfort to light palpation. Ultrasound and CT scan unremarkable no gallstones noted patient does note acute on chronic constipation and does take chronic pain meds. Notes last EGD and colon done July 2017 results above. Current hemoglobin 13.4 no obvious bleeding no rectal bleeding but does still note constipation. States MiraLAX ineffective will trial lactulose but if patient has chronic pain meds may need Linzess in the future. Encourage patient not to strain and to wipe very gently after bowel movement. Discussed using baby wipes. currently right upper quadrant pain workup negative., But patient does note chronic back pain. Encouraged some increase activity in the room. No stool studies so far. Plan: Diet, regular Add daily lactulose PPI Monitor labs capsule endoscopy outpatient , patient will need to follow-up with GI after discharge Further recommendations based on clinical course Pt has been seen and examined by myself and Dr. Villagomez and this note is written on his behalf (Tita Jaramillo) Physician Comments Seen with Haylee, further testing requested, will check results. Further recommendations to follow. (Bossman Villagomez MD) Tita Jaramillo Oct 22, 2017 16:20 Bossman Villagomez MD Oct 23, 2017 12:07
[2017-10-22] MEDS: LACTULOSE SYRUP 20 GM/30 ML CUP PO SCH (17:37)
[2017-10-22 20:00] VITALS: BP 118/70; PULSE 73; RESP 18; TEMP 98; O2SAT 96
[2017-10-22] MEDS: DOCUSATE SODIUM 100 MG CAP PO SCH (20:00)
[2017-10-22] MEDS: ALPRAZolam 1 MG TAB PO SCH (20:01)
[2017-10-22] MEDS: SODIUM CHLORIDE 0.9% FLUSH 10 ML FLUSH IV FLUSH PRN (21:13)
[2017-10-23 00:01] VITALS: BP 115/77; PULSE 54; RESP 18; TEMP 97.7; O2SAT 94
[2017-10-23] MEDS: HYDROmorphone HCL PF 2 MG/ML VIAL IV PUSH PRN ×2 (01:51→14:38)
[2017-10-23] MEDS: SODIUM CHLORIDE 0.9% FLUSH 10 ML FLUSH IV FLUSH PRN (01:51)
[2017-10-23 06:23] LABS: AUTOMATED NEUTROPHIL # 4.7 TH/MM3 (1.8-7.7); BASOPHIL % 0.4 % (0.0-2.0); EOSINOPHIL # 0.2 TH/MM3 (0-0.4); EOSINOPHIL % 2.5 % (0.0-4.0); HEMATOCRIT 37.4 % (39.0-51.0); HEMOGLOBIN 12.6 GM/DL (13.0-17.0); LYMPH % 16.3 % (9.0-44.0); LYMPHOCYTE # 1.1 TH/MM3 (1.0-4.8); MEAN CELL VOLUME 91.7 FL (80.0-100.0); MEAN CORPUSCULAR HGB CONC 33.8 % (32.0-36.0); MEAN PLATELET VOLUME 8.5 FL (7.0-11.0); MONO % 8.6 % (0.0-8.0); MONOCYTE # 0.6 TH/MM3 (0-0.9); NEUT % 72.2 % (16.0-70.0); PLATELET COUNT 283 TH/MM3 (150-450); RED BLOOD COUNT 4.07 MIL/MM3 (4.50-5.90); WHITE BLOOD COUNT 6.5 TH/MM3 (4.0-11.0)
[2017-10-23 06:46] LABS: ALBUMIN 2.6 GM/DL (3.4-5.0); AST (GOT) 14 U/L (15-37); BICARBONATE 27.2 MEQ/L (21.0-32.0); BLOOD UREA NITROGEN 14 MG/DL (7-18); CALCIUM 8.3 MG/DL (8.5-10.1); CHLORIDE 106 MEQ/L (98-107); CREATININE 1.21 MG/DL (0.60-1.30); GLOMERULAR FILTRATION RATE 61 ML/MIN (>89); GLUCOSE,RANDOM 85 MG/DL (74-106); SODIUM (NA) 141 MEQ/L (136-145)
[2017-10-23 06:47] LABS: ALT (GPT) 25 U/L (12-78)
[2017-10-23 06:50] LABS: ALKALINE PHOSPHATASE 68 U/L (45-117); TOTAL BILIRUBIN ADULT 0.4 MG/DL (0.2-1.0); TOTAL PROTEIN 5.7 GM/DL (6.4-8.2)
[2017-10-23 08:00] VITALS: BP 133/67; PULSE 55; RESP 20; TEMP 98.7; O2SAT 96
[2017-10-23] MEDS: LACTULOSE SYRUP 20 GM/30 ML CUP PO SCH (09:00)
[2017-10-23] MEDS: BACITRACIN TOP OINT 15 GM TUBE TOPICAL SCH ×2 (09:00→21:00)
[2017-10-23] MEDS: SODIUM CHLORIDE 0.9% FLUSH 10 ML FLUSH IV FLUSH SCH ×2 (09:00→22:11)
[2017-10-23] MEDS ORDERED: DOCU1CAP39 PO (11:47)
[2017-10-23] MEDS ORDERED: SULF1TAB23 PO (11:47)
[2017-10-23] MEDS ORDERED: PANT20TA2 PO (11:47)
[2017-10-23] MEDS ORDERED: SINCALIDE 5 MCG/5 ML VIAL IV ONE (12:06)
--- NOTE | 2017-10-23 13:04 | RADRPT ---
EXAM DATE: 10/23/2017 12:59 PM EDT AGE/SEX: 57 years / Male INDICATIONS: Abdominal pain for one week. CLINICAL DATA: This is the patient's initial encounter. Patient reports that signs and symptoms have been present for 1 week and indicates a pain score of 8/10. MEDICAL/SURGICAL HISTORY: Diverticulitis. Total knee replacement, right. Fusion, cervical. COMPARISON: [facility] [place], US ABDOMEN - GALLBLADDER, 10/21/2017. . No external comparison. DOSE: 4.2 mCi Tc-99m mebrofenin i.v. Medication: 1.68 mcg Cholecystokinin IV Identical symptomatic response Cholecystokinin was administered by slow infusion over 8 minutes beginning at 60 minutes. TECHNIQUE: Following the intravenous administration of radiotracer, dynamic sequential images were pe rformed with continuous acquisition. Time-activity curves were generated. FINDINGS: Hepatic Kinetics: There is prompt uptake of radiotracer in the liver. No focal defects are seen. Ther e is normal rate of washout from the hepatic parenchyma. Biliary Clearance: Activity is first seen in the extrahepatic biliary system at 7 minutes. There is normal excretion into the small bowel. Gallbladder: Activity is first seen in the gallbladder at 21 minutes. Post-CCK: After CCK administration, there is emptying of the gallbladder with a 75% ejection fraction . Common bile duct kinetics are normal and there is no evidence of biliary obstruction. Identical sy mptomatic response after cholecystokinin infusion. Biliary-Enteric Reflux: None observed. CONCLUSION: 1. Prompt visualization of the gallbladder with normal gallbladder ejection fraction. Electronically signed by: Shyam King MD 10/23/2017 1:02 PM EDT
[2017-10-23] MEDS: DULoxetine HCl DR 60 MG CAP PO SCH (13:10)
[2017-10-23] MEDS: SULFAMETHOXAZOLE-TRIMETHOPRIM DS 800-160 MG TAB PO SCH ×2 (13:10→22:10)
[2017-10-23] MEDS: MORPHINE SULFATE 30 MG CONTROLLED RELEASE TAB PO SCH ×2 (13:10→22:10)
[2017-10-23] MEDS: DOCUSATE SODIUM 100 MG CAP PO SCH ×2 (13:10→22:10)
[2017-10-23] MEDS: PANTOPRAZOLE SODIUM 40 MG VIAL IV PUSH SCH (13:11)
[2017-10-23] MEDS: LORazepam 1 MG TAB PO PRN (13:59)
--- NOTE | 2017-10-23 15:48 | HHI.GIFU ---
Subjective Remarks Patient is resting in the bed eyes closed but arouses to verbal stimuli Appears comfortable with no facial grimace Still complaints of nausea and decreased appetite Still has complaints of right upper quadrant discomfort to light palpation (Tita Jaramillo) Objective Vitals I&O Vital Signs Date Time Temp Pulse Resp B/P (MAP) Pulse Ox O2 Delivery O2 Flow Rate FiO2 10/23/17 08:00 98.7 55 20 133/67 (89) 96 10/23/17 00:01 97.7 54 18 115/77 (90) 94 10/22/17 20:00 Room Air 10/22/17 20:00 98.0 73 18 118/70 (86) 96 10/22/17 16:00 98.0 58 18 130/79 (96) 95 I/O 10/22/17 10/22/17 10/22/17 10/23/17 10/23/17 10/23/17 07:00 15:00 23:00 07:00 15:00 23:00 Intake Total 720 ml 100 ml 720 ml 600 ml 120 ml Output Total 275 ml Balance 720 ml 100 ml 720 ml 325 ml 120 ml Intake Oral 720 ml 720 ml 600 ml 120 ml IV Total 100 ml Output Urine Total 275 ml # Voids 2 3 2 # Bowel Movements 0 1 Laboratory Laboratory Tests Test 10/23/17 05:51 White Blood Count 6.5 Red Blood Count 4.07 Hemoglobin 12.6 Hematocrit 37.4 Mean Corpuscular Volume 91.7 Mean Corpuscular Hemoglobin 31.0 Mean Corpuscular Hemoglobin Concent 33.8 Red Cell Distribution Width 14.0 Platelet Count 283 Mean Platelet Volume 8.5 Neutrophils (%) (Auto) 72.2 Lymphocytes (%) (Auto) 16.3 Monocytes (%) (Auto) 8.6 Eosinophils (%) (Auto) 2.5 Basophils (%) (Auto) 0.4 Neutrophils # (Auto) 4.7 Lymphocytes # (Auto) 1.1 Monocytes # (Auto) 0.6 Eosinophils # (Auto) 0.2 Basophils # (Auto) 0.0 CBC Comment DIFF FINAL Differential Comment Blood Urea Nitrogen 14 Creatinine 1.21 Random Glucose 85 Total Protein 5.7 Albumin 2.6 Calcium Level 8.3 Alkaline Phosphatase 68 Aspartate Amino Transf (AST/SGOT) 14 Alanine Aminotransferase (ALT/SGPT) 25 Total Bilirubin 0.4 Sodium Level 141 Potassium Level 3.7 Chloride Level 106 Carbon Dioxide Level 27.2 Anion Gap 8 Estimat Glomerular Filtration Rate 61 Date/Time Source Procedure Growth Status 10/22/17 19:40 Stool Stool Cryptosporidium Exam Pending Received 10/22/17 19:40 Stool Stool Giardia Antigen (AGUEDA) Pending Received Imaging Last Impressions Hepatobiliary Scan Nuclear Medicine 10/23/17 0000 Signed Impressions: CONCLUSION: 1. Prompt visualization of the gallbladder with normal gallbladder ejection fr action. Gall Bladder Ultrasound 10/21/17 0000 Signed Impressions: CONCLUSION: 1. No abnormality is identified to explain the right upper quadrant pain. Ther e are no gallstones. 2. Please note that the pancreas is not well visualized on this examination. H owever, it demonstrated no abnormality on yesterday's CT. Physical Exam HEENT: normocephalic; atraumatic; no jaundice. NECK: Neck is supple, thin CHEST: Chest is clear to auscultation and percussion. No obvious rhonchi or wheezing CARDIAC: RRR ABDOMEN: Soft, nondistended, right upper quadrant discomfort to light palpation , bowel sounds are present in all four quadrants. EXTREMITIES: No clubbing, cyanosis, or edema. SKIN: Normal; no rash; no jaundice. 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 Did not follow up with GI after DC. H/H currently 12.7/37.5 was 12.7/36.8 on 08/10 during previous admission - RUQ pain- started 2 days ago, intermittent- denies any aggravating or alleviating factors. Denies nausea, vomiting. Gallbladder US (10/21) No abnormality is identified to explain the right upper quadrant pain. There are no gallstones. CT abdomen and pelvis W IV contrast --> No acute finding is identified to explain the clinical symptoms. Nonacute findings include mild atherosclerotic disease as well as hepatic and renal cysts. 10/22/2017 patient still complains of some right upper quadrant discomfort to light palpation. Ultrasound and CT scan unremarkable no gallstones noted patient does note acute on chronic constipation and does take chronic pain meds. Notes last EGD and colon done July 2017 results above. Current hemoglobin 13.4 no obvious bleeding no rectal bleeding but does still note constipation. States MiraLAX ineffective will trial lactulose but if patient has chronic pain meds may need Linzess in the future. Encourage patient not to strain and to wipe very gently after bowel movement. Discussed using baby wipes. currently right upper quadrant pain workup negative., But patient does note chronic back pain. Encouraged some increase activity in the room. No stool studies so far. 10/23/2017 patient had HIDA scan today which showed normal ejection fraction, unremarkable exam. Currently unknown source of right upper quadrant pain . Patient continues to have the same symptoms as the past 24 hours. States decreased appetite but does appear to be eaten some of his food without nausea or vomiting. Cake is at bedside. Does note tenderness to light palpation. No fever. Hemoglobin stable at 12.6 Plan: Diet, regular, evaluate monitor patient's percentage of intake of diet. lactulose PPI Monitor labs capsule endoscopy outpatient , patient will need to follow-up with GI after discharge Further recommendations based on clinical course Pt has been seen and examined by myself and Dr. Villagomez and this note is written on his behalf (Tiat Jaramillo) Physician Comments Seen and examined, plan as above, no obvious source for pain. To consider pain management service. Nothing to add at this point. Please notify us if needed again. (Bossman Villagomez MD) Tita Jaramillo Oct 23, 2017 15:47 Bossman Villagomez MD Oct 24, 2017 12:22
[2017-10-23 16:00] VITALS: BP 118/75; PULSE 69; RESP 20; TEMP 98.9; O2SAT 96
--- NOTE | 2017-10-23 16:10 | HHI.PR ---
Subjective Remarks Patient reports that right-sided abdominal pain continues. Patient denies smoking marijuana. Denies any chest pain or shortness of breath. He says he is not tolerating p.o. intake and cannot go home because he will be right back to the hospital if he leaves right now Objective Vital Signs Date Time Temp Pulse Resp B/P (MAP) Pulse Ox O2 Delivery O2 Flow Rate FiO2 10/23/17 08:00 98.7 55 20 133/67 (89) 96 10/23/17 00:01 97.7 54 18 115/77 (90) 94 10/22/17 20:00 Room Air 10/22/17 20:00 98.0 73 18 118/70 (86) 96 I/O 10/22/17 10/22/17 10/22/17 10/23/17 10/23/17 10/23/17 07:00 15:00 23:00 07:00 15:00 23:00 Intake Total 720 ml 100 ml 720 ml 600 ml 120 ml Output Total 275 ml Balance 720 ml 100 ml 720 ml 325 ml 120 ml Intake Oral 720 ml 720 ml 600 ml 120 ml IV Total 100 ml Output Urine Total 275 ml # Voids 2 3 2 # Bowel Movements 0 1 Result Diagram: 10/23/17 0551 10/23/17 0551 Objective Remarks GENERAL: Patient lying in bed. Appears uncomfortable. SKIN: Warm and dry. Various subcentimeter erythematous lesions. HEAD: Normocephalic. EYES: No scleral icterus. No injection or drainage. NECK: Supple, trachea midline. No JVD. CARDIOVASCULAR: Regular rate and rhythm without murmurs, gallops, or rubs. RESPIRATORY: Breath sounds equal bilaterally. No accessory muscle use. GASTROINTESTINAL: Abdomen soft, non-tender, nondistended. MUSCULOSKELETAL: No cyanosis, or edema. BACK: Nontender without obvious deformity. No CVA tenderness. A/P Assessment and Plan 57 y/o male with abdominal pain and rectal bleeding. //Rectal bleeding //Abdominal pain HIDA scan ordered Other workup has been negative Alternative etiology could be an inflammatory bowel disease GI following = I do skin negative. Patient reporting unable to tolerate p.o. intake. Will start Marinol. Patient reports withdrawal from oxycodone which she takes every 4 hours. Will start oxycodone. //Leukocytosis Resolved //Multiple skin lesions //History of MRSA No signs of acute infection Continue topical Bactroban for lesions Standard isolation precautions = Continue Bactrim to complete treatment course. //Chronic pain PTSD Anxiety disorder Depression Continue home medications //DVT prophylaxis SCDs Discharge Planning Discharge home tomorrow if tolerating p.o. intake. Beto German MD Oct 23, 2017 16:10
[2017-10-23] MEDS ORDERED: MAGNESIUM HYDROXIDE SUSP 30 ML CUP PO ONE (16:15)
[2017-10-23] MEDS ORDERED: DRONABINOL 5 MG CAP PO ONE (16:15)
[2017-10-23] MEDS ORDERED: PHARMACY ORDERED LAB ONE (17:45)
[2017-10-23 20:35] VITALS: BP 152/86; PULSE 69; RESP 16; TEMP 98; O2SAT 95
[2017-10-23] MEDS: ALPRAZolam 1 MG TAB PO SCH (22:10)
[2017-10-24 00:35] VITALS: BP 133/76; PULSE 53; RESP 16; TEMP 97.8; O2SAT 95
[2017-10-24 08:00] VITALS: BP 115/64; PULSE 64; RESP 16; TEMP 98; O2SAT 95
[2017-10-24] MEDS: DOCUSATE SODIUM 100 MG CAP PO SCH (08:17)
[2017-10-24] MEDS: SULFAMETHOXAZOLE-TRIMETHOPRIM DS 800-160 MG TAB PO SCH (08:17)
[2017-10-24] MEDS: DULoxetine HCl DR 60 MG CAP PO SCH (08:17)
[2017-10-24] MEDS: PANTOPRAZOLE SODIUM 40 MG VIAL IV PUSH SCH (08:18)
[2017-10-24] MEDS: SODIUM CHLORIDE 0.9% FLUSH 10 ML FLUSH IV FLUSH SCH (08:19)
[2017-10-24] MEDS: MORPHINE SULFATE 30 MG CONTROLLED RELEASE TAB PO SCH (08:19)
[2017-10-24] MEDS: BACITRACIN TOP OINT 15 GM TUBE TOPICAL SCH (08:20)
[2017-10-24] MEDS: LACTULOSE SYRUP 20 GM/30 ML CUP PO SCH (08:20)
[2017-10-24 08:31] LABS: AUTOMATED NEUTROPHIL # 4.1 TH/MM3 (1.8-7.7); BASOPHIL % 0.4 % (0.0-2.0); EOSINOPHIL # 0.2 TH/MM3 (0-0.4); EOSINOPHIL % 2.3 % (0.0-4.0); HEMATOCRIT 41.8 % (39.0-51.0); LYMPH % 27.2 % (9.0-44.0); LYMPHOCYTE # 1.9 TH/MM3 (1.0-4.8); MEAN CELL VOLUME 92.2 FL (80.0-100.0); MEAN CORPUSCULAR HEMOGLOBIN 30.9 PG (27.0-34.0); MEAN CORPUSCULAR HGB CONC 33.5 % (32.0-36.0); MEAN PLATELET VOLUME 8.5 FL (7.0-11.0); MONO % 10.9 % (0.0-8.0); MONOCYTE # 0.8 TH/MM3 (0-0.9); NEUT % 59.2 % (16.0-70.0); PLATELET COUNT 315 TH/MM3 (150-450); RED BLOOD COUNT 4.53 MIL/MM3 (4.50-5.90); RED CELL DISTRIBUTION WIDTH 14.1 % (11.6-17.2); WHITE BLOOD COUNT 6.9 TH/MM3 (4.0-11.0)
[2017-10-24] MEDS ORDERED: DRON5CAP PO (08:37)
[2017-10-24 08:58] LABS: PHOSPHORUS 2.8 MG/DL (2.5-4.9)
[2017-10-24 08:59] LABS: ALBUMIN 2.7 GM/DL (3.4-5.0); BICARBONATE 28.2 MEQ/L (21.0-32.0); CALCIUM 8.5 MG/DL (8.5-10.1); CREATININE 1.25 MG/DL (0.60-1.30); MAGNESIUM 2.4 MG/DL (1.5-2.5)
[2017-10-24] MEDS ORDERED: DRONABINOL 5 MG CAP PO SCH (11:00)
--- NOTE | 2017-10-24 11:29 | HHI.PR ---
Subjective Remarks Patient says that pain is unchanged. He agrees to follow-up with outpatient consultants Objective Vital Signs Date Time Temp Pulse Resp B/P (MAP) Pulse Ox O2 Delivery O2 Flow Rate FiO2 10/24/17 00:35 97.8 53 16 133/76 (95) 95 10/23/17 22:16 18 10/23/17 22:12 18 10/23/17 20:35 98.0 69 16 152/86 (108) 95 10/23/17 16:00 98.9 69 20 118/75 (89) 96 I/O 10/23/17 10/23/17 10/23/17 10/24/17 10/24/17 10/24/17 07:00 15:00 23:00 07:00 15:00 23:00 Intake Total 600 ml 120 ml 1200 ml 720 ml Output Total 275 ml 1000 ml Balance 325 ml 120 ml 200 ml 720 ml Intake Oral 600 ml 120 ml 1200 ml 720 ml Output Urine Total 275 ml 1000 ml # Voids 2 4 # Bowel Movements 1 0 0 Result Diagram: 10/24/17 0810 10/24/17 0810 Objective Remarks GENERAL: Patient lying in bed. Appears uncomfortable. No change on exam SKIN: Warm and dry. Various subcentimeter erythematous lesions. HEAD: Normocephalic. EYES: No scleral icterus. No injection or drainage. NECK: Supple, trachea midline. No JVD. CARDIOVASCULAR: Regular rate and rhythm without murmurs, gallops, or rubs. RESPIRATORY: Breath sounds equal bilaterally. No accessory muscle use. GASTROINTESTINAL: Abdomen soft, non-tender, nondistended. MUSCULOSKELETAL: No cyanosis, or edema. BACK: Nontender without obvious deformity. No CVA tenderness. A/P Assessment and Plan 57 y/o male with abdominal pain and rectal bleeding. //Rectal bleeding //Abdominal pain HIDA scan ordered Other workup has been negative Alternative etiology could be an inflammatory bowel disease GI following = I do skin negative. Patient reporting unable to tolerate p.o. intake. Will start Marinol. Patient reports withdrawal from oxycodone which she takes every 4 hours. Will start oxycodone. = 10/24. Able to tolerate some p.o. intake. Recommend Ensure Plus or other supplement at home. Follow with GI and primary care as outpatient. //Leukocytosis Resolved //Multiple skin lesions //History of MRSA No signs of acute infection Continue topical Bactroban for lesions Standard isolation precautions = Continue Bactrim to complete treatment course. //Chronic pain PTSD Anxiety disorder Depression Continue home medications //DVT prophylaxis SCDs Discharge Planning Discharge home. Beto German MD Oct 24, 2017 11:29
--- NOTE | 2017-10-24 11:36 | HHI.DS ---
Discharge Summary Admission Date Oct 20, 2017 at 20:45 Discharge Date: Oct 24, 2017 Admitting Diagnosis Abdominal pain (1) Abdominal pain ICD Code: R10.9 - Unspecified abdominal pain Procedures EGD, colonoscopy with biopsy. Please see report. Brief History - From Admission 57 y/o male with a history of PTSD, anxiety, depression and chronic pain presented to the ED with complaints of abdominal pain and rectal bleeding. He states the pain began yesterday in his RUQ, 12/24 with radiation to his back and associated nausea. Worse with palpation, and slightly better with pain medication. He states the rectal bleeding has been going on intermittently for the last 6 months, he had a colonoscopy 6 months ago but did not follow up with the GI specialist and he has stop taking his Protonix because he states it does not work. He is also complaining on multiple wounds on his left arm and bilateral feet that he says will not heal and he has a history of MRSA. He states the wounds started as pimples that he popped and pus drained from them. He is unsure if he has had fevers at home but has had chills. CBC/BMP: 10/24/17 0810 10/24/17 0810 Significant Findings Laboratory Tests Test 10/21/17 12:03 10/21/17 16:56 10/21/17 22:56 10/22/17 07:00 Hemoglobin 12.7 GM/DL (13.0-17.0) 12.5 GM/DL (13.0-17.0) Hematocrit 37.5 % (39.0-51.0) 37.3 % (39.0-51.0) Red Blood Count 4.29 MIL/MM3 (4.50-5.90) Monocytes (%) (Auto) 12.6 % (0.0-8.0) Monocytes # (Auto) 1.0 TH/MM3 (0-0.9) Blood Urea Nitrogen 20 MG/DL (7-18) Calcium Level 7.9 MG/DL (8.5-10.1) Potassium Level 3.4 MEQ/L (3.5-5.1) Estimat Glomerular Filtration Rate 63 ML/MIN (>89) Test 10/22/17 14:00 10/23/17 05:51 10/24/17 06:51 10/24/17 08:10 Total Protein 6.1 GM/DL (6.4-8.2) 5.7 GM/DL (6.4-8.2) Albumin 2.8 GM/DL (3.4-5.0) 2.6 GM/DL (3.4-5.0) 2.7 GM/DL (3.4-5.0) Red Blood Count 4.07 MIL/MM3 (4.50-5.90) Hemoglobin 12.6 GM/DL (13.0-17.0) Hematocrit 37.4 % (39.0-51.0) Neutrophils (%) (Auto) 72.2 % (16.0-70.0) Monocytes (%) (Auto) 8.6 % (0.0-8.0) 10.9 % (0.0-8.0) Calcium Level 8.3 MG/DL (8.5-10.1) Aspartate Amino Transf (AST/SGOT) 14 U/L (15-37) Estimat Glomerular Filtration Rate 61 ML/MIN (>89) 59 ML/MIN (>89) Urine Opiates Screen POS (NEG) Urine Benzodiazepines Screen POS (NEG) Urine Cannabinoids Screen POS (NEG) Imaging Last Impressions Hepatobiliary Scan Nuclear Medicine 10/23/17 0000 Signed Impressions: CONCLUSION: 1. Prompt visualization of the gallbladder with normal gallbladder ejection fr action. Gall Bladder Ultrasound 10/21/17 0000 Signed Impressions: CONCLUSION: 1. No abnormality is identified to explain the right upper quadrant pain. Ther e are no gallstones. 2. Please note that the pancreas is not well visualized on this examination. H owever, it demonstrated no abnormality on yesterday's CT. PE at Discharge GENERAL: This is a well-nourished, well-developed patient, in no apparent distress. SKIN:Multiple dry crusted lesions on bilateral feet and left elbow HEAD: Atraumatic. Normocephalic. No temporal or scalp tenderness. EYES: Pupils equal round and reactive. CARDIOVASCULAR: Regular rate and rhythm without murmurs, gallops, or rubs. RESPIRATORY: Clear to auscultation. Breath sounds equal bilaterally. No wheezes , rales, or rhonchi. GASTROINTESTINAL: Abdomen soft, RUQ tenderness to palpation, nondistended. No hepato-splenomegaly, or palpable masses. No guarding. MUSCULOSKELETAL: Extremities without clubbing, cyanosis, or edema. No joint tenderness, effusion, or edema noted. No calf tenderness. NEUROLOGICAL: Awake and alert.Five out of 5 muscle strength in all muscle groups. Normal speech. Hospital Course 57 y/o male with abdominal pain and rectal bleeding. Patient underwent EGD and colonoscopy which showed gastritis, diverticulosis, internal hemorrhoids. Patient appears to be tolerating p.o. intake. requesting increasing doses of pain meds. Marinol was tried for appetite stimulation with some improvement. Follow-up with gastroenterology and primary care as outpatient. For problem based summary from most recent progress note, please see below //Rectal bleeding //Abdominal pain HIDA scan ordered Other workup has been negative Alternative etiology could be an inflammatory bowel disease GI following = I do skin negative. Patient reporting unable to tolerate p.o. intake. Will start Marinol. Patient reports withdrawal from oxycodone which she takes every 4 hours. Will start oxycodone. = 10. Able to tolerate some p.o. intake. Recommend Ensure Plus or other supplement at home. Follow with GI and primary care as outpatient. //Leukocytosis Resolved //Multiple skin lesions //History of MRSA No signs of acute infection Continue topical Bactroban for lesions Standard isolation precautions = Continue Bactrim to complete treatment course. //Chronic pain PTSD Anxiety disorder Depression Continue home medications //DVT prophylaxis SCDs Discharge Planning Discharge home. Pt Condition on Discharge: Good Discharge Disposition: Discharge Home Discharge Time: <= 30 minutes Discharge Instructions DIET: Follow Instructions for: Heart Healthy Diet Activities you can perform: Regular-No Restrictions Follow up Referrals: Gastroenterology - 1 Week with Bossman Villagomez MD PCP Follow-up - 1 Week New Medications: Dronabinol (Dronabinol) 5 Mg Cap 5 MG PO BID for appetite, #14 CAP 0 Refills Pantoprazole (Pantoprazole) 20 Mg Tab 20 MG PO DAILY for Reflux, #30 TAB 0 Refills Docusate Sodium (Dok) 100 Mg Cap 100 MG PO BID for Constipation for 30 Days, #60 CAP Sulfamethoxazole-Trimethoprim (Sulfamethoxazole-Trimethoprim) 800-160 Mg Tab 1 TAB PO Q12HR for Infection for 5 Days, TAB Continued Medications: Alprazolam (Xanax) 2 Mg Tab 2 MG PO HS, TAB [address] (Aspirin EC) 81 Mg Tabdr 81 MG PO DAILY, TAB [address] (Cymbalta DR) 60 Mg Capdr 60 MG PO DAILY, #30 CAP 0 Refills Morphine ER (Ms Contin) 200 Mg Tab 50 MG PO BID for Pain Management, TAB 0 Refills Testosterone Cypionate Inj (Testosterone Cypionate Inj) 100 Mg/Ml Inj 100 MG IM WEEKLY for Hormone Replacement, #1 INJECTION 0 Refills Discontinued Medications: Oxycodone ER (Oxycontin) 10 Mg Tab Unknown Dose PO Q12HR for Pain Management, TAB 0 Refills Beto German MD Oct 24, 2017 11:36
[2017-10-24 12:00] VITALS: BP 121/69; PULSE 71; RESP 16; TEMP 98; O2SAT 94
--- NOTE | 2017-10-24 14:41 | HHI.GIFU ---
Subjective Remarks Patient is resting in the bed Stools appear to be anxious with some fidgeting Appetite poor to fair and has been started on some medications to help increase Supportive care given Continues to complain of right upper quadrant tenderness, normal bowel movement on 10/23/2017 Objective Vitals I&O Vital Signs Date Time Temp Pulse Resp B/P (MAP) Pulse Ox O2 Delivery O2 Flow Rate FiO2 10/24/17 00:35 97.8 53 16 133/76 (95) 95 10/23/17 22:16 18 10/23/17 22:12 18 10/23/17 20:35 98.0 69 16 152/86 (108) 95 10/23/17 16:00 98.9 69 20 118/75 (89) 96 I/O 10/23/17 10/23/17 10/23/17 10/24/17 10/24/17 10/24/17 07:00 15:00 23:00 07:00 15:00 23:00 Intake Total 600 ml 120 ml 1200 ml 720 ml Output Total 275 ml 1000 ml Balance 325 ml 120 ml 200 ml 720 ml Intake Oral 600 ml 120 ml 1200 ml 720 ml Output Urine Total 275 ml 1000 ml # Voids 2 4 # Bowel Movements 1 0 0 Laboratory Laboratory Tests Test 10/24/17 06:51 10/24/17 08:10 Urine Opiates Screen POS Urine Barbiturates Screen NEG Urine Amphetamines Screen NEG Urine Benzodiazepines Screen POS Urine Cocaine Screen NEG Urine Cannabinoids Screen POS White Blood Count 6.9 Red Blood Count 4.53 Hemoglobin 14.0 Hematocrit 41.8 Mean Corpuscular Volume 92.2 Mean Corpuscular Hemoglobin 30.9 Mean Corpuscular Hemoglobin Concent 33.5 Red Cell Distribution Width 14.1 Platelet Count 315 Mean Platelet Volume 8.5 Neutrophils (%) (Auto) 59.2 Lymphocytes (%) (Auto) 27.2 Monocytes (%) (Auto) 10.9 Eosinophils (%) (Auto) 2.3 Basophils (%) (Auto) 0.4 Neutrophils # (Auto) 4.1 Lymphocytes # (Auto) 1.9 Monocytes # (Auto) 0.8 Eosinophils # (Auto) 0.2 Basophils # (Auto) 0.0 CBC Comment DIFF FINAL Differential Comment Blood Urea Nitrogen 16 Creatinine 1.25 Random Glucose 94 Albumin 2.7 Calcium Level 8.5 Phosphorus Level 2.8 Magnesium Level 2.4 Sodium Level 139 Potassium Level 3.8 Chloride Level 103 Carbon Dioxide Level 28.2 Anion Gap 8 Estimat Glomerular Filtration Rate 59 Date/Time Source Procedure Growth Status 10/22/17 19:40 Stool Stool Cryptosporidium Exam Pending Received 10/22/17 19:40 Stool Stool Giardia Antigen (AGUEDA) Pending Received Imaging Last Impressions Hepatobiliary Scan Nuclear Medicine 10/23/17 0000 Signed Impressions: CONCLUSION: 1. Prompt visualization of the gallbladder with normal gallbladder ejection fr action. Gall Bladder Ultrasound 10/21/17 0000 Signed Impressions: CONCLUSION: 1. No abnormality is identified to explain the right upper quadrant pain. Ther e are no gallstones. 2. Please note that the pancreas is not well visualized on this examination. H owever, it demonstrated no abnormality on yesterday's CT. Physical Exam HEENT: normocephalic; atraumatic; no jaundice. Upper normal PMI NECK: Neck is supple, thin CHEST: Chest is clear to auscultation and percussion. No obvious rhonchi or wheezing CARDIAC: RRR ABDOMEN: Soft, nondistended, right upper quadrant discomfort to light palpation and at rest, bowel sounds are present in all four quadrants. EXTREMITIES: No edema. SKIN: Normal; no rash; no jaundice. [employer]: answers questions appropriately anxiety Assessment and Plan Plan Assessment: - Rectal bleeding- states intermittent for the past six months, approximately one episode of rectal bleeding a week- sometimes blood is mixed in stools and sometimes passes mostly just blood- previously evaluated by our service for same complaint in July, EGD and colonoscopy --> Gastritis, diverticulosis and internal hemorrhoids. Did not follow up with GI after DC. H/H currently 12.7/37.5 was 12.7/36.8 on 08/10 during previous admission - RUQ pain- started 2 days ago, intermittent- denies any aggravating or alleviating factors. Denies nausea, vomiting. Gallbladder US (10/21) No abnormality is identified to explain the right upper quadrant pain. There are no gallstones. CT abdomen and pelvis W IV contrast --> No acute finding is identified to explain the clinical symptoms. Nonacute findings include mild atherosclerotic disease as well as hepatic and renal cysts. 10/22/2017 patient still complains of some right upper quadrant discomfort to light palpation. Ultrasound and CT scan unremarkable no gallstones noted patient does note acute on chronic constipation and does take chronic pain meds. Notes last EGD and colon done July 2017 results above. Current hemoglobin 13.4 no obvious bleeding no rectal bleeding but does still note constipation. States MiraLAX ineffective will trial lactulose but if patient has chronic pain meds may need Linzess in the future. Encourage patient not to strain and to wipe very gently after bowel movement. Discussed using baby wipes. currently right upper quadrant pain workup negative., But patient does note chronic back pain. Encouraged some increase activity in the room. No stool studies so far. 10/23/2017 patient had HIDA scan today which showed normal ejection fraction, unremarkable exam. Currently unknown source of right upper quadrant pain . Patient continues to have the same symptoms as the past 24 hours. States decreased appetite but does appear to be eaten some of his food without nausea or vomiting. Cake is at bedside. Does note tenderness to light palpation. No fever. Hemoglobin stable at 12.6 10/24/2017 patient's hemoglobin has trended upwards to 14. Rectal bleeding has resolved. Patient does note a history of some constipation and probable straining. Encouraged hydration and fiber with his diet. Still unspecified right upper quadrant pain unless related to chronic constipation. Normal bilirubin and LFTs. Consider pain management Plan: Diet, regular, evaluate monitor patient's percentage of intake of diet. lactulose PPI Monitor labs, hemoglobin trending back up to 14 capsule endoscopy outpatient , patient will need to follow-up with GI after discharge Will follow patient on an outpatient basis no further procedures or GI needs while in the hospital/. Will sign off for now Pt has been seen and examined by myself and Dr. Villagomez and this note is written on his behalf Tita Jaramillo Oct 24, 2017 14:41
== END 2017-10-24 15:31 | disposition home or self-care (01) ==
LOC: NEDDLT 20:35 → N06B 20:45
PROVIDERS: ADMIT Internal Medicine; ATTEND Internal Medicine
DX: K64.9 Unspecified hemorrhoids (principal); K57.90 Diverticulosis of intestine, part unspecified, without perforation or abscess without bleeding; K29.70 Gastritis, unspecified, without bleeding; L98.9 Disorder of the skin and subcutaneous tissue, unspecified; K62.5 Hemorrhage of anus and rectum; R10.11 Right upper quadrant pain; G89.29 Other chronic pain; F43.10 Post-traumatic stress disorder, unspecified; F17.210 Nicotine dependence, cigarettes, uncomplicated; F14.90 Cocaine use, unspecified, uncomplicated; I35.0 Nonrheumatic aortic (valve) stenosis; I25.10 Atherosclerotic heart disease of native coronary artery without angina pectoris; F31.9 Bipolar disorder, unspecified; N28.1 Cyst of kidney, acquired; Z80.0 Family history of malignant neoplasm of digestive organs; Z86.14 Personal history of Methicillin resistant Staphylococcus aureus infection
CPT/HCPCS: 74177; 76705; 76937; 78227; 80048; 80053; 80069; 80076; 80307; 81001; 82150; 83690; 83735; 85014; 85018; 85025; 85610; 85730; 87328; 87329; 87506; 96361; 96365; 96366; 96374; 96375; 96376; 99285; A9537; C9113; G0378; J1170; J2270; J2543; J2805; J3370; J3480; J7030; J7040; J7050; Q9967

== ENCOUNTER 2018-02-13 15:31 | Observation (INO) ==
[2018-02-13] MEDS ORDERED: Morphine Inj 4 MG/ML Vial IV.PUSH PRN (17:54)
[2018-02-13] MEDS: Heparin - SQ 10,000 UNITS/ML Vial SQ SCH (22:16)
[2018-02-13 23:01] LABS: Creatine Kinase 68 U/L (39-308)
[2018-02-13] MEDS: Morphine Inj 4 MG/ML Vial IV.PUSH PRN (23:47)
[2018-02-14 02:13] LABS: Creatine Kinase 65 U/L (39-308)
[2018-02-14] MEDS: clonazePAM 1 MG Tablet PO PRN ×2 (04:18→11:28)
[2018-02-14] MEDS: Morphine Inj 4 MG/ML Vial IV.PUSH PRN ×2 (04:19→08:51)
[2018-02-14 05:09] VITALS: PULSE 50
[2018-02-14] MEDS ORDERED: clonazePAM 1 MG Tablet PO SCH (06:00)
[2018-02-14 06:39] LABS: Baso # (Auto) 0.1 th/mm3 (0.0-0.2); Baso % (Auto) 1.8 % (0.0-2.0); Eos # (Auto) 0.1 th/mm3 (0.0-0.4); Eos % (Auto) 2.7 % (0.0-4.0); Hematocrit 34.6 % (39.0-51.0); Hemoglobin 11.4 gm/dL (13.0-17.0); Lymph # (Auto) 1.4 th/mm3 (1.0-4.8); Lymph % (Auto) 36.1 % (9.0-44.0); Mean Corpuscular Hemoglobin 29.9 pg (27.0-34.0); Mean Corpuscular Volume 90.7 fL (80.0-100.0); Mean Platelet Volume 8.8 fL (7.0-11.0); Mono # (Auto) 0.4 th/mm3 (0.0-0.9); Mono % (Auto) 11.4 % (0.0-8.0); Neut # (Auto) 1.9 th/mm3 (1.8-7.7); Platelet Count 247 th/mm3 (150-450); Red Blood Count 3.82 mil/mm3 (4.50-5.90); Red Cell Distribution Width 14.1 % (11.6-17.2); White Blood Count 3.9 th/mm3 (4.0-11.0)
[2018-02-14 06:49] LABS: Chloride 109 meq/L (98-107); Potassium 3.8 meq/L (3.5-5.1); Sodium 144 meq/L (136-145)
[2018-02-14 06:55] LABS: Calcium 7.8 mg/dL (8.5-10.1)
[2018-02-14 06:56] LABS: Albumin 2.7 g/dL (3.4-5.0); Anion Gap 9 meq/L (5-15); Blood Urea Nitrogen 13 mg/dL (7-18); Carbon Dioxide 26.5 meq/L (21.0-32.0); Glucose,Random 81 mg/dL (74-106)
[2018-02-14 06:59] LABS: Alanine Aminotransferase 83 U/L (12-78); Aspartate Aminotransferase 74 U/L (15-37); Glomerular Filtration Rate 62 mL/min (>89)
[2018-02-14 07:01] LABS: Total Protein 5.6 g/dL (6.4-8.2)
[2018-02-14 07:02] LABS: Alkaline Phosphatase 92 U/L (45-117)
[2018-02-14] MEDS: Heparin - SQ 10,000 UNITS/ML Vial SQ SCH (08:52)
[2018-02-14] MEDS ORDERED: Aspirin 325 MG Tablet PO SCH (09:00)
[2018-02-14 09:58] VITALS: RESP 20
--- NOTE | 2018-02-14 10:42 | P.HP ---
History of Present Illness Primary Care Physician: UNKNOWN Chief Complaint: Chest pain History of Present Illness: 57-year-old male with known history of hypertension, posttraumatic stress disorder, anxiety, mild aortic valve stenosis who presented to the hospital for chest pain. Patient states that he has chronic chest pain with associated shortness of breath, diaphoresis, nausea, vomiting, lightheadedness, dizziness. Patient states that this has been going on for years and has not had any significant change. Patient has had multiple cardiac workups with mention to hospital cardiac stress test performed in March 2017 which was completely normal. Patient was admitted again in June 2017 in which he did undergo cardiac catheterization by Dr. Rose which was indicated that there is only minimal coronary artery disease and recommended medical management. After discussing case with [facility] heart group office. It is indicated that the patient has had 2 other workups done by other physical therapy technician in their practice in [facility] during other hospitalizations in those [facility]. Patient has never followed up in outpatient setting for evaluation. Patient again indicates that his symptoms are no different than in the past. It was indicated by the ER physician that the patient should be observed for further evaluation management. - Diagnosis (1) Chest pain Review of Systems All other systems reviewed negative except as stated in HPI Cardiovascular: Reports chest pain, Reports lightheadedness, Reports shortness of breath Gastrointestinal: Reports nausea, Reports vomiting PMFSH - History History Provided By: Patient - Medical History Medical History: Medical History (Last Updated 02/14/18 @ 08:24 by JASE Lauren) Benign prostate hyperplasia Depression Hypertension PTSD (post-traumatic stress disorder) - Surgical History Surgical History: Surgical History (Last Updated 02/14/18 @ 08:24 by JASE Lauren) History of appendectomy History of cardiac cath History of right knee surgery H/O neck surgery History of back surgery - Family History Family History: Family History (Last Updated 02/14/18 @ 08:26 by JASE Lauren) Father History of congestive heart failure History of myocardial infarction History of heart disease Mother History of myocardial infarction History of heart disease Sister History of heart disease Brother History of heart disease - Tobacco History Second Hand Smoke Exposure: No Smoking Status: Former smoker - Alcohol History How Often Do You Have a Drink Containing Alcohol: Never - Substance Use History Substance History: No History of Abuse - Travel History Recent Travel in the [facility] Within the Last 8 Weeks: No Recent Travel Out of the Country Within the Last 8 Weeks: No Medications and Allergies Active Medications: Active Medications Aspirin (Aspirin) 325 mg PO DAILY [facility] Last Admin: 02/14/18 08:50 Dose: 325 mg Clonazepam (Klonopin) 2 mg PO Q8HR PRN PRN Reason: ANXIETY Last Admin: 02/14/18 04:18 Dose: 2 mg Heparin Sodium (Porcine) (Heparin Inj) 5,000 units SQ Q12HR [facility] Last Admin: 02/14/18 08:52 Dose: 5,000 units Morphine Sulfate (Morphine Inj) 2 mg IV.PUSH Q4H PRN PRN Reason: Pain 3 to 6 Morphine Sulfate (Morphine Inj) 4 mg IV.PUSH Q4H PRN PRN Reason: Pain 7 to 10 Last Admin: 02/14/18 08:51 Dose: 4 mg Nitroglycerin (Nitrostat Sl) 0.4 mg SL Q5M PRN PRN Reason: CHEST PAIN Ondansetron HCl (Zofran Inj) 4 mg IV.PUSH Q6H PRN PRN Reason: NAUSEA Sodium Chloride (Ns Flush) 2 ml IV.FLUSH BID [facility] Last Admin: 02/14/18 08:50 Dose: 2 ml Sodium Chloride (Ns Flush) 2 ml IV.FLUSH PRN PRN PRN Reason: FLUSH AFTER USING IV ACCESS Allergies Allergy/AdvReac Type Severity Reaction Status Date / Time phenobarbital Allergy Unknown unknown Verified 02/13/18 15:40 Home Medications Medication Instructions Recorded Confirmed Type celecoxib [Celebrex] 200 mg PO DAILY 02/13/18 02/13/18 History clonazepam 2 mg PO TID 02/13/18 02/13/18 History duloxetine [Cymbalta] 60 mg PO DAILY 02/13/18 02/13/18 History oxycodone-acetaminophen 1 tab PO Q4-6H PRN 02/13/18 02/13/18 History sildenafil (antihypertensive) 20 mg PO 5 TIMES A DAY PRN 02/13/18 02/13/18 History Exam Vital signs: Vital Signs 02/13/18 21:55 02/13/18 22:00 02/14/18 00:00 Temperature 98.7 F 97.3 F L Pulse Rate 59 L 63 59 L Respiratory Rate 16 16 Blood Pressure 131/63 131/63 Pulse Oximetry 97 97 97 02/14/18 04:00 02/14/18 07:28 02/14/18 08:00 Temperature 98.9 F 96.6 F L Pulse Rate 50 L 50 L Respiratory Rate 16 20 Blood Pressure 108/58 L 118/63 Pulse Oximetry 97 95 Intake & Output 02/13/18 02/14/18 02/14/18 18:59 06:59 18:59 Weight 86.3 kg Other: # Voids 1 Weight On Admission 86.3 kg Narrative: GENERAL: Well-developed, well-nourished, in no acute distress. alert and orientated HEENT: Head is normocephalic without any lesions or masses noted. Facial features are symmetric. Eyes: Pupils equal round reactive to light. Extraocular muscles are intact. Conjunctivae were clear. Oropharyngeal: Pharynx without any erythema edema. Tongue is midline without deviation. Buccal mucosa is moist without any masses or lesions NECK: Supple without any masses. Trachea midline no deviation. No JVD, no bruits are appreciated CARDIAC: Regular rhythm, regular rate. S1/S2 are heard. No murmurs gallops or rubs. LUNGS: Clear to auscultation bilaterally. No wheeze, rhonchi or rales. No use of accessory muscles on inspiration or expiration. ABDOMEN: Soft, nontender. Nondistended. Bowel sounds heard in all 4 quadrants. No organomegaly or masses. Negative rebound, negative guarding EXTREMITIES: No edema, pulses are equal bilaterally. No cyanosis or clubbing NEUROLOGY: Mood and affect appear appropriate. Cranial nerves II through XII grossly intact. Muscle strength 5/5 in upper and lower extremities bilaterally. Deep tendon reflexes are 2+ in upper and lower extremities bilaterally. Results - Labs CBC & Chem 7: 02/14/18 06:00 02/14/18 06:00 Labs: Laboratory Results - last 24 hr 02/13/18 02/14/18 02/14/18 22:15 01:20 06:00 CBC w Diff Auto diff final WBC 3.9 L RBC 3.82 L Hgb 11.4 L Hct 34.6 L MCV 90.7 MCH 29.9 MCHC 33.0 RDW 14.1 Plt Count 247 MPV 8.8 Neut % (Auto) 48.0 Lymph % (Auto) 36.1 [place] % (Auto) 11.4 H Eos % (Auto) 2.7 Baso % (Auto) 1.8 Neut # (Auto) 1.9 Lymph # (Auto) 1.4 [place] # (Auto) 0.4 Eos # (Auto) 0.1 Baso # (Auto) 0.1 WBC Differential . Differential Comment . Sodium Potassium Chloride Carbon Dioxide Anion Gap BUN Creatinine Estimated GFR Random Glucose Calcium Total Bilirubin AST ALT Alkaline Phosphatase Total Creatine Kinase 68 65 Troponin I Less than 0.02 L Less than 0.02 L Total Protein Albumin 02/14/18 06:00 CBC w Diff WBC RBC Hgb Hct MCV MCH MCHC RDW Plt Count MPV Neut % (Auto) Lymph % (Auto) [place] % (Auto) Eos % (Auto) Baso % (Auto) Neut # (Auto) Lymph # (Auto) [place] # (Auto) Eos # (Auto) Baso # (Auto) WBC Differential Differential Comment Sodium 144 Potassium 3.8 D Chloride 109 H Carbon Dioxide 26.5 Anion Gap 9 BUN 13 Creatinine 1.20 Estimated GFR 62 L Random Glucose 81 Calcium 7.8 L Total Bilirubin 0.6 AST 74 H ALT 83 H Alkaline Phosphatase 92 Total Creatine Kinase Troponin I Total Protein 5.6 L D Albumin 2.7 L Caprini VTE Risk Assessment Caprini VTE Risk Assessment: Moderate/High Risk (score >= 2) Caprini Risk Assessment Model: Point Value = 1 Point Value = 2 Point Value = 3 Point Value = 5 Age 41-60 Minor surgery BMI > 25 kg/m2 Swollen legs Varicose veins or History of unexplained or recurrent spontaneous Oral contraceptives or hormone replacement Sepsis (< 1 month) Serious lung disease, including pneumonia (< 1 month) Abnormal pulmonary function Acute myocardial infarction Congestive heart failure (< 1 month) History of inflammatory bowel disease Medical patient at bed rest Age 61-74 Arthroscopic surgery Major open surgery (> 45 min) Laparoscopic surgery (> 45 min) Malignancy Confined to bed (> 72 hours) Immobilizing plaster cast Central venous access Age >= 75 History of VTE Family history of VTE Factor V Leiden Prothrombin [id number] Lupus anticoagulant Anticardiolipin antibodies Elevated serum homocysteine Heparin-induced thrombocytopenia Other congenital or acquired thrombophilia Stroke (< 1 month) Elective arthroplasty Hip, pelvis, or leg fracture Acute spinal cord injury (< 1 month) Prophylaxis Regimen: Total Risk Factor Score Risk Level Prophylaxis Regimen 0-1 Low Early ambulation 2 Moderate Order ONE of the following: *Sequential Compression Device (SCD) *Heparin 5000 units SQ BID 3-4 Higher Order ONE of the following medications: *Heparin 5000 units SQ TID *Enoxaparin/Lovenox 40 mg SQ daily (WT < 150 kg, CrCl > 30 mL/min) *Enoxaparin/Lovenox 30 mg SQ daily (WT < 150 kg, CrCl > 10-29 mL/min) *Enoxaparin/Lovenox 30 mg SQ BID (WT < 150 kg, CrCl > 30 mL/min) AND/OR *Sequential Compression Device (SCD) 5 or more Highest Order ONE of the following medications: *Heparin 5000 units SQ TID (Preferred with Epidurals) *Enoxaparin/Lovenox 40 mg SQ daily (WT < 150 kg, CrCl > 30 mL/min) *Enoxaparin/Lovenox 30 mg SQ daily (WT < 150 kg, CrCl > 10-29 mL/min) *Enoxaparin/Lovenox 30 mg SQ BID (WT < 150 kg, CrCl > 30 mL/min) AND *Sequential Compression Device (SCD) Assessment and Plan - Assessment (1) Chest pain Code(s): R07.9 - Status: Acute - Plan Chest pain, chronic -Patient with increased risk factors to include age, male, tobacco use, family history of heart disease -Patient has been ruled out again for acute coronary event with serial cardiac enzymes that are negative -Serial EKGs which were reviewed by myself indicated sinus bradycardia with nonspecific T wave abnormality -Patient with previous LDL 74 -given that the patient has had a myocardial perfusion study in March 2017 which was normal as well as a cardiac catheterization done in July 2017 with no significant abnormalities, 2 other evaluations done in hospital [place] in [place] within the last year. Patient has been noncompliant with outpatient follow-up. Unlikely of the patient's discomfort is cardiac in nature. Would recommend the patient continue outpatient follow-up with his prior medical doctor. Possible get outpatient pulmonary evaluation. Would highly recommend that the patient follow-up with physical therapy technician in outpatient setting. Due to prevention -Subcutaneous heparin Discharge Planning: Discharge home in stable condition Activity: Ad anne-marie. Diet: Healthy heart diet Medication per medication reconciliation Follow-up with primary medical doctor in 1 week. I emphasized to the patient the necessity of following up with his physical therapy technician for continued management and care.
[2018-02-14 12:54] VITALS: BP 101/56; TEMP 97.1; O2SAT 92
--- NOTE | 2018-02-14 16:33 | ECG ---
Date Performed: 02/14/2018 Time Performed: 01:10:46 PTAGE: 57 years EKG: SINUS BRADYCARDIA MODERATE INTRAVENTRICULAR CONDUCTION DELAY NONSPECIFIC T-WAVE ABNORMALITY BORDERLINE ECG PREVIOUS TRACING : 02/13/2018 22.08 Since the previous tracing, no significant change noted DOCTOR: Pastora Hay Interpretating Date/Time 02/14/2018 16:31:37
--- NOTE | 2018-02-14 16:33 | ECG ---
Date Performed: 02/13/2018 Time Performed: 22:08:58 PTAGE: 57 years EKG: Sinus rhythm NONSPECIFIC T-WAVE ABNORMALITY BORDERLINE ECG PREVIOUS TRACING : 08/07/2017 17.50 Since the previous tracing, no significant change noted DOCTOR: Pastora Hay Interpretating Date/Time 02/14/2018 16:31:28
== END 2018-02-14 14:00 | disposition home or self-care (01) ==
LOC: PHEDDLT 15:31 → PH3 15:31
PROVIDERS: ADMIT Hospitalist; ATTEND Hospitalist